=== PATIENT | female | born 1960 | race Caucasian/White ===

== ENCOUNTER 2018-06-14 00:40 | Emergency (ER) | payer OTHER ==
--- NOTE | 2018-06-14 02:36 | CT ---
EXAMINATION TYPE: CT brain akikoine wo con DATE OF EXAM: 06/14/2018 COMPARISON: None HISTORY: fall headache. Neck pain CT DLP: 2123 mGycm Automated exposure control for dose reduction was used. TECHNIQUE: CT scan of the head and cervical spine are performed without contrast. FINDINGS: Ventricles have normal size. There is no mass effect nor midline shift. There is no sign of intracranial hemorrhage. Calvarium is intact. The cervical vertebra have normal alignment. Posterior elements are intact. There is mild hypertrophi c facet arthropathy. Skull base is intact. There is mild narrowing at C6-7 disc space. IMPRESSION: Negative CT scan of the brain. No Negative CT scan cervical spine.
[2018-06-14] MEDS ORDERED: ACETAMINOPHEN TAB 500 MG TAB PO STA (02:37)
[2018-06-14] MEDS ORDERED: IBUPROFEN 600 MG STARTER PACK 4 TAB BTL PO STA (02:37)
--- NOTE | 2018-06-14 02:38 | ED ---
Fall HPI - General Chief Complaint: Fall Stated Complaint: Fall Time Seen by Provider: 06/14/18 01:38 Source: patient, EMS Mode of arrival: EMS - History of Present Illness Initial Comments: 58 rolled female presents emergency department today with chief complaint of head injury. Patient reports she was at work. She was lifting a bag of potatoes fell and hit her head. Patient reports that she had no loss of consciousness. She never laceration over the back of her scalp. She is not on any blood thinners. She's had no altered mental status. She reports this was done at work. She was brought in by her mother and son at this time. She is otherwise been acting appropriately. No vomiting. - Related Data Home Medications Medication Instructions Recorded Confirmed Atenolol 25 mg PO DAILY 11/24/14 07/28/15 Allergies Allergy/AdvReac Type Severity Reaction Status Date / Time bupropion HCl Allergy Rash/Hives Verified 07/25/15 17:30 [From Wellbutrin] Sulfa (Sulfonamide Allergy Swelling Verified 07/25/15 17:21 Antibiotics) codeine AdvReac Vomiting Verified 07/25/15 17:21 venom-honey bee AdvReac Swelling Verified 07/25/15 17:21 [bee venom (honey bee)] Review of Systems ROS Statement: Those systems with pertinent positive or pertinent negative responses have been documented in the HPI. ROS Other: All systems not noted in ROS Statement are negative. Past Medical History Past Medical History: Hypertension, Osteoarthritis (OA) Additional Past Medical History / Comment(s): bilateral heel spurs History of Any Multi-Drug Resistant Organisms: None Reported Past Surgical History: Adenoidectomy, Appendectomy, Bariatric Surgery, Cholecystectomy, Hysterectomy, Joint Replacement, Tonsillectomy Additional Past Surgical History / Comment(s): lap band, and lap band revision, eye surgery bilateral for lazy eye, repair wound dehiscence, D & C's, Lt knee bursa removal, Rt knee arthroscopies, right knee replaced Past Anesthesia/Blood Transfusion Reactions: No Reported Reaction Additional Past Anesthesia/Blood Transfusion Reaction / Comment(s): Woke up during surgery Past Psychological History: No Psychological Hx Reported Smoking Status: Never smoker Past Alcohol Use History: None Reported Past Drug Use History: None Reported - Past Family History Mother Family Medical History: Congestive Heart Failure (CHF), Coronary Artery Disease (CAD), CVA/TIA Additional Family Medical History / Comment(s): arthritis Father Family Medical History: Hypertension Additional Family Medical History / Comment(s): scoliosis, arthritis, alzihemers General Exam - General Exam Comments Initial Comments: Well-appearing 58-year-old female. Alert and oriented. No significant distress. Limitations: no limitations General appearance: alert, in no apparent distress Head exam: Present: atraumatic, normocephalic, normal inspection, other (2 cm laceration over the posterior left occipital scalp. Linear laceration. Bleeding well controlled.) Eye exam: Present: normal appearance, PERRL, EOMI. Absent: scleral icterus, conjunctival injection, periorbital swelling ENT exam: Present: normal exam, mucous membranes moist Neck exam: Present: normal inspection. Absent: tenderness, meningismus, lymphadenopathy Respiratory exam: Present: normal lung sounds bilaterally. Absent: respiratory distress, wheezes, rales, rhonchi, stridor Cardiovascular Exam: Present: regular rate, normal rhythm, normal heart sounds. Absent: systolic murmur, diastolic murmur, rubs, gallop, clicks GI/Abdominal exam: Present: soft, normal bowel sounds. Absent: distended, tenderness, guarding, rebound, rigid Extremities exam: Present: normal inspection, full ROM, normal capillary refill. Absent: tenderness, pedal edema, joint swelling, calf tenderness Back exam: Present: normal inspection Neurological exam: Present: alert, oriented X3, CN II-XII intact, normal gait, reflexes normal Psychiatric exam: Present: normal affect, normal mood Course Vital Signs 06/14/18 06/14/18 00:51 03:57 Temperature 98.5 F 98.0 F Pulse Rate 75 70 Respiratory 19 16 Rate Blood Pressure 165/76 156/78 O2 Sat by Pulse 96 95 Oximetry Procedures - Laceration Laceration #1 Indication: laceration Site: scalp Size (cm): 2 Description: linear Depth: simple, single layer Pre-repair: wound explored, irrigated extensively Type of Sutures: other (Staple) Number of Sutures: 4 Patient Tolerated Procedure: well, no complications Medical Decision Making - Medical Decision Making 58-year-old female in on blood thinners presents after a fall at work and hitting her head. Patient has a 2 cm laceration over the left occipital scalp. At this time patient's neurological deficits. Otherwise appears well. Wound was irrigated and closed with [address] of her brain was completed and negative for any acute process. C-spine was cleared as well. Patient advised on concussion instructions and head injury instructions. Discussed stable care and monitoring for infection. All questions answered and return parameters were discussed. - Radiology Data Radiology results: report reviewed Negative CT brain and C-spine. Disposition Clinical Impression: Scalp laceration Disposition: HOME SELF-CARE Condition: Good Instructions: Head Injury (ED), Staple Care (ED) Additional Instructions: Please return to the emergency room in 7 days to have pedro removed. Please leave wound covered for the first 24-48 hours and then leave open to air after that time. Please use clean soap and water to clean the suture area to prevent scabbing over the top of your pedro. Please watch for any signs of infection which may include but not limited to increased pain, swelling, redness, fever or chills. Please return to the emergency room if any signs of infection do occur. Please return to the emergency room for any other concerns or complications. Is patient prescribed a controlled substance at d/c from ED?: No Referrals: Chrissie Dumont MD [Primary Care Provider] - 1-2 days Time of Disposition: 02:37
[2018-06-14 03:58] VITALS: BP 156/78; PULSE 70; RESP 16; TEMP 98
== END 2018-06-14 03:59 | disposition home or self-care (01) ==
LOC: EC 00:40
DX: S01.01XA Laceration without foreign body of scalp, initial encounter (principal); W19.XXXA Unspecified fall, initial encounter; I10 Essential (primary) hypertension; M19.90 Unspecified osteoarthritis, unspecified site; Z79.899 Other long term (current) drug therapy; Z88.2 Allergy status to sulfonamides; Z88.5 Allergy status to narcotic agent; Z88.8 Allergy status to other drugs, medicaments and biological substances; Z91.030 Bee allergy status; Z96.651 Presence of right artificial knee joint; W22.8XXA Striking against or struck by other objects, initial encounter; Y92.69 Other specified industrial and construction area as the place of occurrence of the external cause; Y99.0 Civilian activity done for income or pay
CPT/HCPCS: 12001; 70450; 72125; 99284

== ENCOUNTER → 2018-12-26 | Outpatient (CLI) | payer OTHER ==
--- NOTE | 2018-12-29 09:50 | MM ---
Reason for exam: screening (asymptomatic). Last mammogram was performed 3 years and 5 months ago. History: Patient is postmenopausal, history of endometrial cancer, and is nulliparous. Family history of breast cancer in cousin and breast cancer in aunt. Physical Findings: A clinical breast exam by your physician is recommended on an annual basis and results should be correlated with mammographic findings. MG Screening Mammo w CAD Bilateral CC, MLO, and XCCL view(s) were taken. Prior study comparison: August 01, 2015, bilateral MG screening mammo w CAD. July 29, 2013, bilateral digital screening mammo w/CAD. The breast tissue is heterogeneously dense. This may lower the sensitivity of mammography. Benign appearing bilateral calcifications. No suspicious abnormality. No significant changes when compared with prior studies. ASSESSMENT: Benign, BI-RAD 2 RECOMMENDATION: Routine screening mammogram of both breasts in 1 year.
== END | disposition home or self-care (01) ==
LOC: RADMAMWWP 09:52
PROVIDERS: ATTEND Family Medicine
DX: Z12.31 Encounter for screening mammogram for malignant neoplasm of breast (principal)
CPT/HCPCS: 77067

== ENCOUNTER 2019-10-23 10:49 | Inpatient (IN) | payer OTHER ==
[2019-10-23] MEDS ORDERED: KETOROLAC 30 MG/ML 1 ML VIAL IVP STA (11:09)
[2019-10-23] MEDS ORDERED: ONDANSETRON 4 MG/2 ML VIAL IVP STA (11:09)
[2019-10-23] MEDS ORDERED: SODIUM CHLORIDE 0.9% 1,000 ML IV STA (11:09)
[2019-10-23 11:42] LABS: Basophils # (A) 0.1 k/uL (0-0.2); Basophils % (A) 1 %; Eosinophils # (A) 0.6 k/uL (0-0.7); Eosinophils % (A) 5 %; HCT 50.5 % (34.0-46.0); HGB 15.7 gm/dL (11.4-16.0); Lymphocytes # (A) 1.2 k/uL (1.0-4.8); Lymphocytes % (A) 10 %; MCH 30.6 pg (25.0-35.0); MCHC 31.1 g/dL (31.0-37.0); MCV 98.5 fL (80.0-100.0); Mean Platelet Volume 7.7; Monocytes # (A) 0.5 k/uL (0-1.0); Monocytes % (A) 5 %; Neutrophils # (A) 9.2 k/uL (1.3-7.7); Neutrophils % (A) 79 %; Platelet Count 230 k/uL (150-450); RBC 5.13 m/uL (3.80-5.40); RDW 13.4 % (11.5-15.5); WBC 11.7 k/uL (3.8-10.6)
[2019-10-23 11:43] LABS: Appearance,Urine Cloudy (Clear); Bacteria,Urine Occasional /hpf; Bilirubin,Urine Negative (Negative); Blood,Urine Large (Negative); Color,Urine Yellow; Glucose,Urine (UA) Negative (Negative); Hyaline Casts,Urine 3 /lpf (0-2); Ketones,Urine Negative (Negative); Leukocyte Esterase,Urine Moderate (Negative); Mucus,Urine Rare /hpf; Nitrite,Urine Negative (Negative); Protein,Urine Trace (Negative); RBC,Urine >182 /hpf (0-5); Specific Gravity,Urine 1.017 (1.001-1.035); Squamous Epithelial Cell,Urine 4 /hpf (0-4); Urobilinogen,Urine <2.0 mg/dL (<2.0); WBC,Urine 21 /hpf (0-5)
[2019-10-23 11:48] LABS: ALT 116 U/L (4-34); AST 59 U/L (14-36); African American GFR (CKD) >90 (>60 ml/min/1.73 sqM); Albumin 4.1 g/dL (3.5-5.0); Alkaline Phosphatase 83 U/L (38-126); Amylase 51 U/L (30-110); Anion Gap 7 mmol/L; Blood Urea Nitrogen 19 mg/dL (7-17); Calcium 9.5 mg/dL (8.4-10.2); Carbon Dioxide 32 mmol/L (22-30); Chloride 101 mmol/L (98-107); Glucose 138 mg/dL (74-99); Non-African American GFR(CKD) >90 (>60 ml/min/1.73 sqM); Potassium 4.3 mmol/L (3.5-5.1); Sodium 140 mmol/L (137-145); Total Bilirubin 0.7 mg/dL (0.2-1.3); Total Protein 7.7 g/dL (6.3-8.2)
--- NOTE | 2019-10-23 12:31 | ED ---
Back Pain HPI - General Chief Complaint: Back Pain/Injury Stated Complaint: Back pain Time Seen by Provider: 10/23/19 10:56 Source: patient, RN notes reviewed Mode of arrival: ambulatory Limitations: no limitations - History of Present Illness Initial Comments: 59-year-old female presents emergency Department chief complaint of right flank pain. patient states that it started as last night and worsened. Patient states nothing really makes the pain feel better or worse. She has no history kidney stone. Patient states pain does not wrap around but states in her back. Denies chest pain or shortness of breath. She's had some nausea vomiting, there has been some darker urine and some mild dysuria. No fevers or chills she's had prior lap band surgery, cholecystectomy and appendectomy. - Related Data Home Medications Medication Instructions Recorded Confirmed Atenolol 25 mg PO DAILY 11/24/14 07/28/15 Allergies Allergy/AdvReac Type Severity Reaction Status Date / Time bupropion HCl Allergy Rash/Hives Verified 10/23/19 10:55 [From Wellbutrin] Sulfa (Sulfonamide Allergy Swelling Verified 10/23/19 10:55 Antibiotics) codeine AdvReac Vomiting Verified 10/23/19 10:55 venom-honey bee AdvReac Swelling Verified 10/23/19 10:55 [bee venom (honey bee)] Review of Systems ROS Statement: Those systems with pertinent positive or pertinent negative responses have been documented in the HPI. ROS Other: All systems not noted in ROS Statement are negative. Past Medical History Past Medical History: Hypertension, Osteoarthritis (OA) Additional Past Medical History / Comment(s): bilateral heel spurs History of Any Multi-Drug Resistant Organisms: None Reported Past Surgical History: Adenoidectomy, Appendectomy, Bariatric Surgery, Cholecystectomy, Hysterectomy, Joint Replacement, Tonsillectomy Additional Past Surgical History / Comment(s): lap band, and lap band revision, eye surgery bilateral for lazy eye, repair wound dehiscence, D & C's, Lt knee bursa removal, Rt knee arthroscopies, right knee replaced Past Anesthesia/Blood Transfusion Reactions: No Reported Reaction Additional Past Anesthesia/Blood Transfusion Reaction / Comment(s): Woke up during surgery Past Psychological History: No Psychological Hx Reported Smoking Status: Never smoker Past Alcohol Use History: None Reported Past Drug Use History: None Reported - Past Family History Mother Family Medical History: Congestive Heart Failure (CHF), Coronary Artery Disease (CAD), CVA/TIA Additional Family Medical History / Comment(s): arthritis Father Family Medical History: Hypertension Additional Family Medical History / Comment(s): scoliosis, arthritis, alzihemers General Exam Limitations: no limitations General appearance: alert, in no apparent distress Head exam: Present: atraumatic, normocephalic, normal inspection Neck exam: Present: normal inspection. Absent: tenderness, meningismus, lymphadenopathy Respiratory exam: Present: normal lung sounds bilaterally. Absent: respiratory distress, wheezes, rales, rhonchi, stridor Cardiovascular Exam: Present: regular rate, normal rhythm, normal heart sounds. Absent: systolic murmur, diastolic murmur, rubs, gallop, clicks GI/Abdominal exam: Present: soft, normal bowel sounds. Absent: distended, tenderness, guarding, rebound, rigid Back exam: Present: full ROM, CVA tenderness (R). Absent: tenderness, CVA tenderness (L) Neurological exam: Present: alert, oriented X3 Skin exam: Present: warm, dry, intact, normal color. Absent: rash Course Vital Signs 10/23/19 10:50 Temperature 97.8 F Pulse Rate 73 Respiratory 20 Rate Blood Pressure 148/81 O2 Sat by Pulse 92 L Oximetry Medical Decision Making - Medical Decision Making 59-year-old female presented for right flank pain. Urinalysis revealed evidence of hematuria. CT is obtained and shows some perinephrenic stranding, renal pelvis fullness consistent with recent passed stone or infection. There is no clinical signs of infection. Her pain is completely resolved and most lik rasheed related to recently passed stone. Patient will be discharged with close follow-up return parameters were discussed. - Lab Data Result diagrams: 10/23/19 11:19 10/23/19 11:19 Lab Results 10/23/19 10/23/19 10/23/19 Range/Units 11:19 11:19 11:19 WBC 11.7 H (3.8-10.6) k/uL RBC 5.13 (3.80-5.40) m/uL Hgb 15.7 (11.4-16.0) gm/dL Hct 50.5 H (34.0-46.0) % MCV 98.5 (80.0-100.0) fL MCH 30.6 (25.0-35.0) pg MCHC 31.1 (31.0-37.0) g/dL RDW 13.4 (11.5-15.5) % Plt Count 230 (150-450) k/uL Neutrophils % 79 % Lymphocytes % 10 % Monocytes % 5 % Eosinophils % 5 % Basophils % 1 % Neutrophils # 9.2 H (1.3-7.7) k/uL Lymphocytes # 1.2 (1.0-4.8) k/uL Monocytes # 0.5 (0-1.0) k/uL Eosinophils # 0.6 (0-0.7) k/uL Basophils # 0.1 (0-0.2) k/uL Sodium 140 (137-145) mmol/L Potassium 4.3 (3.5-5.1) mmol/L Chloride 101 (98-107) mmol/L Carbon Dioxide 32 H (22-30) mmol/L Anion Gap 7 mmol/L BUN 19 H (7-17) mg/dL Creatinine 0.73 (0.52-1.04) mg/dL Est GFR (CKD-EPI)AfAm >90 (>60 ml/min/1.73 sqM) Est GFR (CKD-EPI)NonAf >90 (>60 ml/min/1.73 sqM) Glucose 138 H (74-99) mg/dL Calcium 9.5 (8.4-10.2) mg/dL Total Bilirubin 0.7 (0.2-1.3) mg/dL AST 59 H (14-36) U/L ALT 116 H (4-34) U/L Alkaline Phosphatase 83 (38-126) U/L Total Protein 7.7 (6.3-8.2) g/dL Albumin 4.1 (3.5-5.0) g/dL Amylase 51 (30-110) U/L Lipase 72 (23-300) U/L Urine Color Yellow Urine Appearance Cloudy H (Clear) Urine pH 5.0 (5.0-8.0) Ur Specific [place] 1.017 (1.001-1.035) Urine Protein Trace H (Negative) Urine Glucose (UA) Negative (Negative) Urine Ketones Negative (Negative) Urine Blood Large H (Negative) Urine Nitrite Negative (Negative) Urine Bilirubin Negative (Negative) Urine Urobilinogen <2.0 (<2.0) mg/dL Ur Leukocyte Esterase Moderate H (Negative) Urine RBC >182 H (0-5) /hpf Urine WBC 21 H (0-5) /hpf Ur Squamous Epith Cells 4 (0-4) /hpf Urine Bacteria Occasional H (None) /hpf Hyaline Casts 3 H (0-2) /lpf Urine Mucus Rare H (None) /hpf Disposition Clinical Impression: Kidney stone Disposition: HOME SELF-CARE Condition: Stable Instructions (If sedation given, give patient instructions): Kidney Stones (ED) Additional Instructions: Please return to the Emergency Department if symptoms worsen or any other concerns. Is patient prescribed a controlled substance at d/c from ED?: No Referrals: Chrissie Dumont MD [Primary Care Provider] - 1-2 days Time of Disposition: 13:06
--- NOTE | 2019-10-23 12:32 | CT ---
EXAMINATION TYPE: CT abdomen pelvis wo con DATE OF EXAM: 10/23/2019 COMPARISON: 08/04/2015 HISTORY: Low back pain, microscopic hematuria CT DLP: 3462 mGycm Automated exposure control for dose reduction was used. TECHNIQUE: Helical acquisition of images was performed from the lung bases through the pelvis. FINDINGS: LUNG BASES: Groundglass changes are seen bilaterally. Areas of subsegmental consolidation noted. LIVER/GB: Liver is low in attenuation correlate for hepatic steatosis. Post cholecystectomy changes n oted. PANCREAS: No significant abnormality is seen. SPLEEN: No significant abnormality is seen. Small accessory spleens stable from prior exam. ADRENALS: No significant abnormality is seen. KIDNEYS: Fat lesion within the left kidney most likely in the basis of a lipoma or angiomyolipoma. No nephrolithiasis. Upper pole renal lesion is indeterminate by noncontrast technique but appears incre ased in size from the prior exam now measuring 2.5 cm. However, measures 2 Hounsfield units suggestiv e of a simple cyst. Mild prominence the right renal pelvis. ADENOPATHY: None visualized. OSSEOUS STRUCTURES: Hypertrophic and degenerative change of the vertebral column.. BOWEL: Bowel gas pattern nonspecific. No diagnostic evidence of obstruction. Lap band surgery incide ntally noted.. OTHER: There is a wid[place] anterior abdominal wall hernia with the mouth measuring 8 cm containing b owel loops. There is adjacent soft tissue subcutaneous edema. There is no diagnostic evidence to sugg est a bowel obstruction. No definite bowel wall thickening is seen. Surgical clips are in the region suggestive of probable previous hernia repair surgery. Changes of diverticulosis noted. Aorta of norm al caliber with atherosclerotic changes. Low-attenuation shotty adenopathy in the periaortic region. No pathologic-sized lymph nodes. IMPRESSION: 1. Mild right-sided perinephric edema and mild right renal pelvis fullness or hydronephrosis with no evidence of renal or ureteral stone. Correlate for either infectious etiology or recently passed down . 2. There is subcutaneous edema involving the anterior abdominal wall diffusely. 3. There is a large wid[place]outh anterior abdominal wall hernia containing bowel loops but no evidence o f obstruction. 4. Stable fatty lesion involving the left kidney most likely the basis of a lipoma or angiomyolipoma. Similar in appearance the prior exam.
[2019-10-23] MEDS ORDERED: traMADol 50 MG STARTER PACK 3 TAB BTL PO STA (13:07)
[2019-10-23] MEDS ORDERED: ONDANSETRON 4 MG ODT STARTER PACK 2 TAB BTL PO STA (13:07)
[2019-10-23 14:02] LABS: ABG Base Excess 4.5 mmol/L; ABG HCO3 31 mmol/L (21-25); ABG Oxygen Saturation 71.5 % (94-97); ABG PCO2 68 mmHg (35-45); ABG PH 7.27 (7.35-7.45); ABG TCO2 34 mmol/L (19-24); Allen Test Performed? Yes
[2019-10-23 14:05] LABS: ABG PO2 43 mmHg (83-108)
--- NOTE | 2019-10-23 14:57 | ED ---
Medical Decision Making - Medical Decision Making upon patient receiving discharge vitals was noted to find the patient satting 80% with no complaints of chest pain shortness of breath. I was notified and presented to the room in which the patient's again denied any shortness breath chest pain headache or dizziness. patient has no history of COPD, and nonsmoker hasn't complaints chest pain. and ordered an ABG at this time which showed H of 7.27, pCO2 68, pO2 of 42. Additional labs ordered including EKG, BNP, troponin, d-dimer - Lab Data Result diagrams: 10/23/19 11:19 10/23/19 11:19 Lab Results 10/23/19 10/23/19 10/23/19 Range/Units 11:19 11:19 11:19 WBC 11.7 H (3.8-10.6) k/uL RBC 5.13 (3.80-5.40) m/uL Hgb 15.7 (11.4-16.0) gm/dL Hct 50.5 H (34.0-46.0) % MCV 98.5 (80.0-100.0) fL MCH 30.6 (25.0-35.0) pg MCHC 31.1 (31.0-37.0) g/dL RDW 13.4 (11.5-15.5) % Plt Count 230 (150-450) k/uL Neutrophils % 79 % Lymphocytes % 10 % Monocytes % 5 % Eosinophils % 5 % Basophils % 1 % Neutrophils # 9.2 H (1.3-7.7) k/uL Lymphocytes # 1.2 (1.0-4.8) k/uL Monocytes # 0.5 (0-1.0) k/uL Eosinophils # 0.6 (0-0.7) k/uL Basophils # 0.1 (0-0.2) k/uL D-Dimer (<0.60) mg/L FEU Sample Site ABG pH (7.35-7.45) ABG pCO2 (35-45) mmHg ABG pO2 (83-108) mmHg ABG HCO3 (21-25) mmol/L ABG Total CO2 (19-24) mmol/L ABG O2 Saturation (94-97) % ABG Base Excess mmol/L [place] Test FiO2 % Sodium 140 (137-145) mmol/L Potassium 4.3 (3.5-5.1) mmol/L Chloride 101 (98-107) mmol/L Carbon Dioxide 32 H (22-30) mmol/L Anion Gap 7 mmol/L BUN 19 H (7-17) mg/dL Creatinine 0.73 (0.52-1.04) mg/dL Est GFR (CKD-EPI)AfAm >90 (>60 ml/min/1.73 sqM) Est GFR (CKD-EPI)NonAf >90 (>60 ml/min/1.73 sqM) Glucose 138 H (74-99) mg/dL Calcium 9.5 (8.4-10.2) mg/dL Total Bilirubin 0.7 (0.2-1.3) mg/dL AST 59 H (14-36) U/L ALT 116 H (4-34) U/L Alkaline Phosphatase 83 (38-126) U/L Troponin I (0.000-0.034) ng/mL NT-Pro-B Natriuret Pep pg/mL Total Protein 7.7 (6.3-8.2) g/dL Albumin 4.1 (3.5-5.0) g/dL Amylase 51 (30-110) U/L Lipase 72 (23-300) U/L Urine Color Yellow Urine Appearance Cloudy H (Clear) Urine pH 5.0 (5.0-8.0) Ur Specific [place] 1.017 (1.001-1.035) Urine Protein Trace H (Negative) Urine Glucose (UA) Negative (Negative) Urine Ketones Negative (Negative) Urine Blood Large H (Negative) Urine Nitrite Negative (Negative) Urine Bilirubin Negative (Negative) Urine Urobilinogen <2.0 (<2.0) mg/dL Ur Leukocyte Esterase Moderate H (Negative) Urine RBC >182 H (0-5) /hpf Urine WBC 21 H (0-5) /hpf Ur Squamous Epith Cells 4 (0-4) /hpf Urine Bacteria Occasional H (None) /hpf Hyaline Casts 3 H (0-2) /lpf Urine Mucus Rare H (None) /hpf 10/23/19 10/23/19 10/23/19 Range/Units 11:19 11:19 11:19 WBC (3.8-10.6) k/uL RBC (3.80-5.40) m/uL Hgb (11.4-16.0) gm/dL Hct (34.0-46.0) % MCV (80.0-100.0) fL MCH (25.0-35.0) pg MCHC (31.0-37.0) g/dL RDW (11.5-15.5) % Plt Count (150-450) k/uL Neutrophils % % Lymphocytes % % Monocytes % % Eosinophils % % Basophils % % Neutrophils # (1.3-7.7) k/uL Lymphocytes # (1.0-4.8) k/uL Monocytes # (0-1.0) k/uL Eosinophils # (0-0.7) k/uL Basophils # (0-0.2) k/uL D-Dimer 1.01 H (<0.60) mg/L FEU Sample Site ABG pH (7.35-7.45) ABG pCO2 (35-45) mmHg ABG pO2 (83-108) mmHg ABG HCO3 (21-25) mmol/L ABG Total CO2 (19-24) mmol/L ABG O2 Saturation (94-97) % ABG Base Excess mmol/L [place] Test FiO2 % Sodium (137-145) mmol/L Potassium (3.5-5.1) mmol/L Chloride (98-107) mmol/L Carbon Dioxide (22-30) mmol/L Anion Gap mmol/L BUN (7-17) mg/dL Creatinine (0.52-1.04) mg/dL Est GFR (CKD-EPI)AfAm (>60 ml/min/1.73 sqM) Est GFR (CKD-EPI)NonAf (>60 ml/min/1.73 sqM) Glucose (74-99) mg/dL Calcium (8.4-10.2) mg/dL Total Bilirubin (0.2-1.3) mg/dL AST (14-36) U/L ALT (4-34) U/L Alkaline Phosphatase (38-126) U/L Troponin I <0.012 (0.000-0.034) ng/mL NT-Pro-B Natriuret Pep 667 pg/mL Total Protein (6.3-8.2) g/dL Albumin (3.5-5.0) g/dL Amylase (30-110) U/L Lipase (23-300) U/L Urine Color Urine Appearance (Clear) Urine pH (5.0-8.0) Ur Specific [place] (1.001-1.035) Urine Protein (Negative) Urine Glucose (UA) (Negative) Urine Ketones (Negative) Urine Blood (Negative) Urine Nitrite (Negative) Urine Bilirubin (Negative) Urine Urobilinogen (<2.0) mg/dL Ur Leukocyte Esterase (Negative) Urine RBC (0-5) /hpf Urine WBC (0-5) /hpf Ur Squamous Epith Cells (0-4) /hpf Urine Bacteria (None) /hpf Hyaline Casts (0-2) /lpf Urine Mucus (None) /hpf 10/23/19 Range/Units 13:59 WBC (3.8-10.6) k/uL RBC (3.80-5.40) m/uL Hgb (11.4-16.0) gm/dL Hct (34.0-46.0) % MCV (80.0-100.0) fL MCH (25.0-35.0) pg MCHC (31.0-37.0) g/dL RDW (11.5-15.5) % Plt Count (150-450) k/uL Neutrophils % % Lymphocytes % % Monocytes % % Eosinophils % % Basophils % % Neutrophils # (1.3-7.7) k/uL Lymphocytes # (1.0-4.8) k/uL Monocytes # (0-1.0) k/uL Eosinophils # (0-0.7) k/uL Basophils # (0-0.2) k/uL D-Dimer (<0.60) mg/L FEU Sample Site lrad ABG pH 7.27 L (7.35-7.45) ABG pCO2 68 H (35-45) mmHg ABG pO2 43 L* (83-108) mmHg ABG HCO3 31 H (21-25) mmol/L ABG Total CO2 34 H (19-24) mmol/L ABG O2 Saturation 71.5 L (94-97) % ABG Base Excess 4.5 mmol/L [place] Test Yes FiO2 21 % Sodium (137-145) mmol/L Potassium (3.5-5.1) mmol/L Chloride (98-107) mmol/L Carbon Dioxide (22-30) mmol/L Anion Gap mmol/L BUN (7-17) mg/dL Creatinine (0.52-1.04) mg/dL Est GFR (CKD-EPI)AfAm (>60 ml/min/1.73 sqM) Est GFR (CKD-EPI)NonAf (>60 ml/min/1.73 sqM) Glucose (74-99) mg/dL Calcium (8.4-10.2) mg/dL Total Bilirubin (0.2-1.3) mg/dL AST (14-36) U/L ALT (4-34) U/L Alkaline Phosphatase (38-126) U/L Troponin I (0.000-0.034) ng/mL NT-Pro-B Natriuret Pep pg/mL Total Protein (6.3-8.2) g/dL Albumin (3.5-5.0) g/dL Amylase (30-110) U/L Lipase (23-300) U/L Urine Color Urine Appearance (Clear) Urine pH (5.0-8.0) Ur Specific [place] (1.001-1.035) Urine Protein (Negative) Urine Glucose (UA) (Negative) Urine Ketones (Negative) Urine Blood (Negative) Urine Nitrite (Negative) Urine Bilirubin (Negative) Urine Urobilinogen (<2.0) mg/dL Ur Leukocyte Esterase (Negative) Urine RBC (0-5) /hpf Urine WBC (0-5) /hpf Ur Squamous Epith Cells (0-4) /hpf Urine Bacteria (None) /hpf Hyaline Casts (0-2) /lpf Urine Mucus (None) /hpf Disposition Clinical Impression: Kidney stone, Hypoxia, Sleep apnea Disposition: ADMITTED IP TO THIS HOSP Condition: Serious Instructions (If sedation given, give patient instructions): Kidney Stones (ED) Additional Instructions: Please return to the Emergency Department if symptoms worsen or any other concerns. Referrals: Chrissie Dumont MD [Primary Care Provider] - 1-2 days
--- NOTE | 2019-10-23 15:19 | XR ---
EXAMINATION TYPE: XR chest 1V portable DATE OF EXAM: 10/23/2019 COMPARISON: NONE HISTORY: Shortness of breath TECHNIQUE: Single frontal view of the chest is obtained. FINDINGS: Exam is technically limited. Soft tissue overlap seen along the lower lung [place]. There i s a coarsened interstitium but no obvious pneumothorax. Subsegmental left lung base limited. Areas of subsegmental consolidation at both lung bases suspected the heart is enlarged. IMPRESSION: 1. Bibasilar atelectasis or early infiltrate with coarsened interstitium correlate for interstitial p neumonitis or early venous congestion.
--- NOTE | 2019-10-23 15:50 | CT ---
EXAMINATION TYPE: CT chest angio for PE DATE OF EXAM: 10/23/2019 COMPARISON: None HISTORY: Shortness of breath, elevated d-dimer. CT DLP: 819.9 mGycm Automated exposure control for dose reduction was used. CONTRAST: CT Chest for pulmonary embolism performed with with IV Contrast, patient injected with 100 mL of Isov ue 370. FINDINGS: Exam limited by artifact. LUNGS: There are groundglass changes involving both lungs diffusely. Correlate for a pneumonitis or v enous congestion. No pleural effusion or pneumothorax. MEDIASTINUM: Aorta of normal caliber. Heart appears to be mildly prominent. No sizable pericardial ef fusions. Assessment of the pulmonary arteries is limited due to artifact. Grossly no central pulmonar y embolism. However the distal branches are severely limited. Could not exclude a small pulmonary emb olism or filling defect within a distal branch of the left lung on image 64. OTHER: Evidence of previous lap band surgery noted. Hypertrophic and degenerative changes of the spi ne. IMPRESSION: 1. There are faint groundglass changes bilaterally which could be associated with pneumonitis. Venous congestion is felt less likely given the lack of pleural fluid correlate clinically. 2. No central pulmonary embolus. However, distal branches are limited. A small pulmonary embolism in distal left lower lobe branch image 64 not excluded. Correlate clinically.
[2019-10-23] MEDS ORDERED: HEPARIN SODIUM,PORCINE 5,000 UNIT/ML 1 ML VIAL IV ONE (17:03)
[2019-10-23] MEDS ORDERED: HEPARIN SODIUM,PORCINE 5,000 UNIT/ML 1 ML VIAL IV PRN (17:03)
[2019-10-23] MEDS: HEPARIN SOD,PORK IN 0.45% NACL 25,000 UNIT in 0.45% NACL 1 250ML.BAG IV SCH (17:38)
[2019-10-24 12:51] LABS: Albumin 3.8 g/dL (3.5-5.0); Calcium 8.7 mg/dL (8.4-10.2); Potassium 5.1 mmol/L (3.5-5.1); Total Bilirubin 0.5 mg/dL (0.2-1.3); Total Protein 7.1 g/dL (6.3-8.2)
[2019-10-24 12:57] LABS: Basophils # (A) 0.1 k/uL (0-0.2); Basophils % (A) 1 %; Eosinophils # (A) 0.3 k/uL (0-0.7); Eosinophils % (A) 2 %; HCT 50.3 % (34.0-46.0); HGB 15.5 gm/dL (11.4-16.0); Hypochromasia Marked; Lymphocytes % (A) 7 %; MCH 32.3 pg (25.0-35.0); MCHC 30.8 g/dL (31.0-37.0); Macrocytosis Slight; Mean Platelet Volume 8.5; Monocytes # (A) 0.8 k/uL (0-1.0); Monocytes % (A) 6 %; Neutrophils % (A) 83 %; Platelet Count 235 k/uL (150-450); RDW 13.2 % (11.5-15.5); WBC 13.2 k/uL (3.8-10.6)
[2019-10-24 13:05] LABS: MCV 104.8 fL (80.0-100.0)
--- NOTE | 2019-10-24 13:12 | P.HPIM ---
History of Present Illness H&P Date: 10/24/19 Lesli Ferrer is a 59-year-old female who presented to [facility] emergency room with a chief complaint of right flank pain she was evaluated in the emergency room, she was afebrile on presentation was temperature of 97.8 blood pressure 148/81 pulse ox was low at 92% and it went do wn to 80% on room air, white blood count was elevated at 11.7 d-dimer was elevated at 1.01 possibility of pulmonary embolism was entertained patient was started on IV heparin computed tomography scan angiogram of the chest revealed faint groundglass changes bilaterally which could be associated with pneumonia, no central pulmonary embolism, a small pulmonary embolism in the distal left lower lobe branch was not excluded, patient was kept on IV heparin and was admitted to telemetry floor. She had an ABG that revealed a pH of 7.27 pCO2 68 PaO2 43, pulmonary consultation was requested in the emergency room. Patient was seen and examined on the telemetry floor she is alert responsive in no apparent distress, there is no fever or chills temperature is 90.8 pulse 73 respiration 20 blood pressure 138/83 also ox is 94% on 3 L nasal cannula, patient is still maintained on IV heparin, she is complaining of mid back pain otherwise she denies any complaints at this time, there is no fever or chills no headache or dizziness no chest pain no shortness of breath no cough no nausea or vomiting no abdominal pain no diarrhea no burning was urination no frequency or urgency and no hematuria. Past Medical History Past Medical History: Hypertension, Osteoarthritis (OA) Additional Past Medical History / Comment(s): bilateral heel spurs History of Any Multi-Drug Resistant Organisms: None Reported Past Surgical History: Adenoidectomy, Appendectomy, Bariatric Surgery, Cholecystectomy, Hysterectomy, Joint Replacement, Tonsillectomy Additional Past Surgical History / Comment(s): lap band, and lap band revision, eye surgery bilateral for lazy eye, repair wound dehiscence, D & C's, Lt knee bursa removal, Rt knee arthroscopies, right knee replaced Past Anesthesia/Blood Transfusion Reactions: No Reported Reaction Additional Past Anesthesia/Blood Transfusion Reaction / Comment(s): Woke up during surgery Past Psychological History: No Psychological Hx Reported Smoking Status: Never smoker Past Alcohol Use History: None Reported Past Drug Use History: None Reported - Past Family History Mother Family Medical History: Congestive Heart Failure (CHF), Coronary Artery Disease (CAD), CVA/TIA Additional Family Medical History / Comment(s): arthritis Father Family Medical History: Hypertension Additional Family Medical History / Comment(s): scoliosis, arthritis, alzihemers Medications and Allergies Home Medications Medication Instructions Recorded Confirmed Type Atenolol 100 mg PO HS 10/23/19 10/23/19 History Loratadine [Claritin] 10 mg PO DAILY 10/23/19 10/23/19 History Multivitamins, Thera [Multivitamin 1 tab PO DAILY 10/23/19 10/23/19 History (formulary)] Mirabegron [Myrbetriq] 25 mg PO DAILY 10/24/19 10/24/19 History Allergies Allergy/AdvReac Type Severity Reaction Status Date / Time bupropion HCl Allergy Rash/Hives Verified 10/23/19 20:38 [From Wellbutrin] Sulfa (Sulfonamide Allergy Swelling Verified 10/23/19 20:38 Antibiotics) codeine AdvReac Vomiting Verified 10/23/19 20:38 venom-honey bee AdvReac Swelling Verified 10/23/19 20:38 [bee venom (honey bee)] Physical Exam Vitals: Vital Signs Temp Pulse Pulse Resp BP BP Pulse Ox 10/24/19 08:00 78 18 115/81 96 10/24/19 03:36 98.0 F 73 20 138/83 94 L 10/23/19 23:50 98.1 F 71 20 121/78 90 L 10/23/19 19:35 98.1 F 65 18 120/61 97 10/23/19 18:51 97.4 F L 65 18 148/75 94 L 10/23/19 18:00 98.4 F 72 18 108/67 94 L 10/23/19 16:30 98.0 F 80 18 118/56 96 10/23/19 14:12 96 10/23/19 13:40 98.2 F 83 16 100/46 80 L Intake and Output 10/23/19 10/24/19 10/24/19 22:59 06:59 14:59 Intake Total 68.347 240 Output Total 200 1000 Balance -200 -931.653 240 Intake: Intake, IV Titration 68.347 Amount Heparin Sod,Pork in 0.45% 68.347 NaCl 25,000 unit In 0.45 % NaCl 1 250ml.bag @ 6.3 UNITS/KG/HR 10.002 mls/hr IV .Q24H [facility] Rx#: [id number] Oral 240 Output: Urine 200 1000 Other: Voiding Method Toilet Toilet Weight 158.757 kg 160.8 kg In general patient is alert and responsive in no apparent distress HEENT head normocephalic and atraumatic Neck is supple no JVD no goiter no lymphadenopathy Chest exam reveals a few scattered crackles no wheezing Cardiac exam reveals regular heart sounds no murmurs Abdomen is soft nontender no organomegaly with normal bowel sounds Extremity exam reveals minimal edema no cyanosis or clubbing Results CBC & Chem 7: 10/23/19 11:19 10/24/19 06:03 Labs: Abnormal Lab Results - Last 24 Hours (Table) 10/23/19 10/23/19 10/23/19 Range/Units 11:19 13:59 23:24 APTT 39.2 H (22.0-30.0) sec D-Dimer 1.01 H (<0.60) mg/L FEU ABG pH 7.27 L (7.35-7.45) ABG pCO2 68 H (35-45) mmHg ABG pO2 43 L* (83-108) mmHg ABG HCO3 31 H (21-25) mmol/L ABG Total CO2 34 H (19-24) mmol/L ABG O2 Saturation 71.5 L (94-97) % Carbon Dioxide (22-30) mmol/L BUN (7-17) mg/dL Glucose (74-99) mg/dL AST (14-36) U/L ALT (4-34) U/L 10/24/19 10/24/19 Range/Units 06:03 06:03 APTT 50.1 H (22.0-30.0) sec D-Dimer (<0.60) mg/L FEU ABG pH (7.35-7.45) ABG pCO2 (35-45) mmHg ABG pO2 (83-108) mmHg ABG HCO3 (21-25) mmol/L ABG Total CO2 (19-24) mmol/L ABG O2 Saturation (94-97) % Carbon Dioxide 33 H (22-30) mmol/L BUN 21 H (7-17) mg/dL Glucose 112 H (74-99) mg/dL AST 56 H (14-36) U/L ALT 114 H (4-34) U/L Microbiology - Last 24 Hours (Table) 10/23/19 11:19 Urine Culture - Final Urine,Voided Assessment and Plan Plan: 1. Mid back pain, computed tomography scan of the abdomen and pelvis revealing right sided perinephric edema, and the right renal pelvis fullness or hydronephrosis without evidence of a stone, possible infectious etiology or recently passed stone. Patient was started on IV Zosyn, urology consultation was requested. 2. Urinary tract infection with sepsis, started on IV Zosyn 3. Elevated d-dimer with hypoxia, possible peripheral pulmonary embolism on computed tomography scan, maintained on IV heparin pulmonary consultation was requested 4. Mid back pain, first EKG and first troponin are normal, with check further troponin levels and consult cardiology, will obtain echo cardiogram 5. Underlying history of hypertension blood pressure is well-controlled at this time will monitor 6. Mild elevation in liver enzymes, cause unclear, computed tomography scan of the abdomen and pelvis reveals postcholecystectomy changes and possible hepatic steatosis, fatty liver could account for slight elevation in liver enzymes, will monitor closely. 7. Groundglass changes bilateral lungs, could be associated with pneumonia patient was started on IV Zosyn, pulmonary consultation was requested 8. Covid 19 testing ordered in the emergency room results are still pending At this time patient was started on IV heparin and IV Zosyn She is admitted to telemetry floor Pulmonary, cardiology, urology, and infectious disease consultation was requested Will follow closely please see orders.
--- NOTE | 2019-10-24 13:30 | P.GSCN ---
History of Present Illness Consult date: 10/24/19 History of present illness: 59-year-old female who presented to the emergency room with severe acute back pain. She had multiple medical illnesses and is morbidly obese. She thought it was similar to previous gallbladder attacks. She was evaluated emergency room. A computed tomography scan of the abdomen was obtained identifying some mild right-sided hydronephrosis. She did have a urinalysis with a significant amount of hematuria. Also at the time of the pain she was complaining of a lot of pressure and frequency of urination. There is no history of kidney stones. There is no history of gross hematuria. There is no history of urinary tract infections. There are no other obvious anal the back is gone as well as her voiding pressure. ET scan of the abdomen didn't show any evidence of stones but the [place] was there. Review of Systems All systems: negative Past Medical History Past Medical History: Hypertension, Osteoarthritis (OA) Additional Past Medical History / Comment(s): bilateral heel spurs History of Any Multi-Drug Resistant Organisms: None Reported Past Surgical History: Adenoidectomy, Appendectomy, Bariatric Surgery, Cholecystectomy, Hysterectomy, Joint Replacement, Tonsillectomy Additional Past Surgical History / Comment(s): lap band, and lap band revision, eye surgery bilateral for lazy eye, repair wound dehiscence, D & C's, Lt knee bursa removal, Rt knee arthroscopies, right knee replaced Past Anesthesia/Blood Transfusion Reactions: No Reported Reaction Additional Past Anesthesia/Blood Transfusion Reaction / Comm: Woke up during surgery Past Psychological History: No Psychological Hx Reported Smoking Status: Never smoker Past Alcohol Use History: None Reported Past Drug Use History: None Reported - Past Family History Mother Family Medical History: Congestive Heart Failure (CHF), Coronary Artery Disease (CAD), CVA/TIA Additional Family Medical History / Comment(s): arthritis Father Family Medical History: Hypertension Additional Family Medical History / Comment(s): scoliosis, arthritis, alzihemers Medications and Allergies Home Medications Medication Instructions Recorded Confirmed Type Atenolol 100 mg PO HS 10/23/19 10/23/19 History Loratadine [Claritin] 10 mg PO DAILY 10/23/19 10/23/19 History Multivitamins, Thera [Multivitamin 1 tab PO DAILY 10/23/19 10/23/19 History (formulary)] Mirabegron [Myrbetriq] 25 mg PO DAILY 10/24/19 10/24/19 History Allergies Allergy/AdvReac Type Severity Reaction Status Date / Time bupropion HCl Allergy Rash/Hives Verified 10/23/19 20:38 [From Wellbutrin] Sulfa (Sulfonamide Allergy Swelling Verified 10/23/19 20:38 Antibiotics) codeine AdvReac Vomiting Verified 10/23/19 20:38 venom-honey bee AdvReac Swelling Verified 10/23/19 20:38 [bee venom (honey bee)] Surgical - Exam Vital Signs Temp Pulse Resp BP Pulse Ox 97.8 F 73 20 148/81 92 L 10/23/19 10:50 10/23/19 10:50 10/23/19 10:50 10/23/19 10:50 10/23/19 10:50 - General well developed, well nourished, obese - Eyes PERRL - ENT no hearing loss - Neck trachea midline - Respiratory normal expansion, normal respiratory effort - Cardiovascular Rhythm: regular - Abdomen Abdomen: soft, non tender - Integumentary no rash, no growths - Neurologic normal coordination, normal sensation - Musculoskeletal normal posture - Psychiatric oriented to time, oriented to place, speech is normal, memory intact Results - Labs 10/24/19 06:03 10/24/19 06:03 Abnormal Lab Results - Last 24 Hours (Table) 10/23/19 10/23/19 10/23/19 Range/Units 11:19 13:59 23:24 WBC (3.8-10.6) k/uL Hct (34.0-46.0) % MCV (80.0-100.0) fL MCHC (31.0-37.0) g/dL Neutrophils # (1.3-7.7) k/uL APTT 39.2 H (22.0-30.0) sec D-Dimer 1.01 H (<0.60) mg/L FEU ABG pH 7.27 L (7.35-7.45) ABG pCO2 68 H (35-45) mmHg ABG pO2 43 L* (83-108) mmHg ABG HCO3 31 H (21-25) mmol/L ABG Total CO2 34 H (19-24) mmol/L ABG O2 Saturation 71.5 L (94-97) % Carbon Dioxide (22-30) mmol/L BUN (7-17) mg/dL Glucose (74-99) mg/dL AST (14-36) U/L ALT (4-34) U/L 10/24/19 10/24/19 10/24/19 Range/Units 06:03 06:03 06:03 WBC 13.2 H (3.8-10.6) k/uL Hct 50.3 H (34.0-46.0) % MCV 104.8 H D (80.0-100.0) fL MCHC 30.8 L (31.0-37.0) g/dL Neutrophils # 11.0 H (1.3-7.7) k/uL APTT 50.1 H (22.0-30.0) sec D-Dimer (<0.60) mg/L FEU ABG pH (7.35-7.45) ABG pCO2 (35-45) mmHg ABG pO2 (83-108) mmHg ABG HCO3 (21-25) mmol/L ABG Total CO2 (19-24) mmol/L ABG O2 Saturation (94-97) % Carbon Dioxide 33 H (22-30) mmol/L BUN 21 H (7-17) mg/dL Glucose 112 H (74-99) mg/dL AST 56 H (14-36) U/L ALT 114 H (4-34) U/L Microbiology - Last 24 Hours (Table) 10/23/19 11:19 Urine Culture - Final Urine,Voided Diabetes panel 10/24/19 Range/Units 06:03 Sodium 139 (137-145) mmol/L Potassium 5.1 (3.5-5.1) mmol/L Chloride 102 (98-107) mmol/L Carbon Dioxide 33 H (22-30) mmol/L BUN 21 H (7-17) mg/dL Creatinine 0.87 (0.52-1.04) mg/dL Glucose 112 H (74-99) mg/dL Calcium 8.7 (8.4-10.2) mg/dL AST 56 H (14-36) U/L ALT 114 H (4-34) U/L Alkaline Phosphatase 78 (38-126) U/L Total Protein 7.1 (6.3-8.2) g/dL Albumin 3.8 (3.5-5.0) g/dL Calcium panel 10/24/19 Range/Units 06:03 Calcium 8.7 (8.4-10.2) mg/dL Albumin 3.8 (3.5-5.0) g/dL Pituitary panel 10/24/19 Range/Units 06:03 Sodium 139 (137-145) mmol/L Potassium 5.1 (3.5-5.1) mmol/L Chloride 102 (98-107) mmol/L Carbon Dioxide 33 H (22-30) mmol/L BUN 21 H (7-17) mg/dL Creatinine 0.87 (0.52-1.04) mg/dL Glucose 112 H (74-99) mg/dL Calcium 8.7 (8.4-10.2) mg/dL Adrenal panel 10/24/19 Range/Units 06:03 Sodium 139 (137-145) mmol/L Potassium 5.1 (3.5-5.1) mmol/L Chloride 102 (98-107) mmol/L Carbon Dioxide 33 H (22-30) mmol/L BUN 21 H (7-17) mg/dL Creatinine 0.87 (0.52-1.04) mg/dL Glucose 112 H (74-99) mg/dL Calcium 8.7 (8.4-10.2) mg/dL Total Bilirubin 0.5 (0.2-1.3) mg/dL AST 56 H (14-36) U/L ALT 114 H (4-34) U/L Alkaline Phosphatase 78 (38-126) U/L Total Protein 7.1 (6.3-8.2) g/dL Albumin 3.8 (3.5-5.0) g/dL - Imaging CT scan - abdomen: report reviewed, image reviewed CT scan - pelvis: report reviewed, image reviewed Assessment and Plan Assessment: Impression: Right-sided hydronephrosis associated with back pain, acute, transient and associated with microscopic hematuria. Recommendations: I suspect this patient passed a kidney stone based on her history and the appearance of the CAT scan and urinalysis. There are no other stones seen. Her pain is gone and a lower urinary tract symptoms also disappeared. From a urologic standpoint nothing further needs to be done. Required please feel free to contact me. Signed
--- NOTE | 2019-10-24 14:55 | CONS ---
CONSULTATION PULMONARY/CRITICAL CARE CONSULTATION: DATE OF CONSULTATION: 10/24/2019 This is a 59-year-old female who apparently presented to the emergency department on October 22 at 10:49. The patient complains of right flank pain. She states it was the worst pain she ever has felt. Nothing made the pain better or worse. She has no history of kidney stones. The patient states that the pain started in the right flank and wrapped around to the anterior lower abdomen on the right side. She denies any chest pain or shortness of breath. She apparently had some nausea and vomiting. She also mentioned the fact that she had some pain on urination and her urine was darker than normal. She did not notice any blood in her urine. She had no fever or chills. MEDICATIONS: Reviewed. They include primarily atenolol. ALLERGIES: WELLBUTRIN. She has also got allergies to SULFA ANTIBIOTICS, CODEINE AND HONEY BEES. PAST MEDICAL HISTORY: Includes hypertension, osteoarthritis. The patient also has a history of bilateral heel spurs. SURGICAL HISTORY: Surgical history includes a previous adenoidectomy, appendectomy, bariatric surgery, cholecystectomy, hysterectomy, joint replacement, tonsillectomy. The patient's bariatric surgery was lap band with lap band revision. The patient has also had eye surgery, D and C, left knee bursa removal, right knee arthroscopy, and right knee replacement. SOCIAL HISTORY: Negative for tobacco use. She denies any alcohol use or illicit drug use. FAMILY HISTORY: Apparently positive for mother with heart failure, CAD, CVA as well as arthritis and a father with hypertension, dementia, and scoliosis. REVIEW OF SYSTEMS: CONSTITUTIONAL: Negative. NEUROLOGIC: Negative. HEENT: Negative. CARDIOVASCULAR: Negative. PULMONARY: Negative. GI: Nausea and vomiting. : Right flank pain, painful urination, and discolored urine. RHEUMATOLOGIC: Negative. IMMUNOLOGIC: Negative. ENDOCRINOLOGIC: Negative. DERMATOLOGIC negative. PHYSICAL EXAMINATION: Vital signs are reviewed. Temperature is 98, heart rate 78, respiratory rate 18, blood pressure 115/81, oxygen saturation 96%. Appears in no acute distress. HEENT: Examination is grossly unremarkable. Mucous membranes are moist. Nasal O2 noted. NECK: Supple. Full range of motion. No adenopathy, thyromegaly or neck vein distention. CARDIOVASCULAR: Examination reveals regular rhythm rate. Heart rate 78 beats per minute. S1, S2 normal. No S3, S4, or murmur. LUNGS: Reveal clear breath sounds. No wheezes, rhonchi, or crackles. ABDOMEN: Obese bowel sounds are heard. EXTREMITIES are intact. There is no edema. SKIN: Without rash. NEUROLOGIC: Examination is brief but nonfocal. LAB: Reviewed. White count 13.2, hemoglobin 15.5, hematocrit 50.3, and platelet count 335,000. PTT is 15.1. D-dimer 1.01. She had a blood gas done. It shows a pO2 of 43, pCO2 68, and pH 7.27. This probably was a venous gas. She was on room air. Sodium 139, potassium 5.1, chloride 102, CO2 is 33, anion gap is 4. BUN and creatinine were 21 and 0.87. AST 56, ALT 114. Urine is cloudy and yellow, trace protein, large blood, moderate positive leukocyte esterase, greater than 182 RBCs, 21 WBCs, occasional bacteria and micro is pending. Abdominal and pelvic CT suggests mild right-sided perinephric edema and mild right renal pelvis fullness or hydronephrosis with no evidence of renal or ureteral stone, and this is likely consistent with a stone that has recently passed. 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 Chest x-ray showed some bilateral basilar atelectasis or early infiltrate. A chest CT showed some faint ground-glass changes bilaterally, which could relate to either pneumonitis or venous congestion. There was no central pulmonary embolism but they question whether or not there is a small pulmonary embolism in the distal left lower lobe branch. Medications are reviewed. She is currently on IV heparin, Levaquin and Zosyn. ASSESSMENT: 1. Right flank pain, likely consistent with a kidney stone with secondary hydronephrosis and possibly complicated by urinary tract infection/pyelonephritis. 2. Doubt pulmonary embolism. 3. History of hypertension. 4. History of osteoarthritis. 5. History of bilateral heel spur. PLAN: I do not believe the patient had a pulmonary embolism. I believe the heparin can be discontinued. I do agree with treating her with fluids and antibiotics. Additional recommendations and suggestions are forthcoming. All her symptoms were right- sided. The suspected clot noted by the radiologists was on the left side. Again, I believe the blood gas was probably a venous blood gas. No additional recommendations are made. We will follow. MMODL / IJN: [id number] / MTDD
[2019-10-24] MEDS: HEPARIN SOD,PORK IN 0.45% NACL 25,000 UNIT in 0.45% NACL 1 250ML.BAG IV SCH (15:08)
[2019-10-24] MEDS: LEVOFLOXACIN 500MG-D5W PMX 500 MG in DEXTROSE/WATER 1 100ML.BAG IVPB SCH (16:30)
[2019-10-24] MEDS: PIPERACILLIN-TAZOBACTAM 3.375 GM in SODIUM CHLORIDE 0.9% 100 ML IVPB SCH ×2 (17:50→23:12)
[2019-10-24] MEDS ORDERED: ACETAMINOPHEN TAB 325 MG TAB PO PRN (19:53)
--- NOTE | 2019-10-25 00:55 | P.CONS ---
History of Present Illness - Reason for Consult Consult date: 10/24/19 pyelonephritis Requesting physician: Ced Caceres - Chief Complaint right flank pain x 1 day - History of Present Illness Patient is a 59-year-old female presenting to the ER yesterday morning with chief complaints of right flank pain patient sister had going on a 4 night before she presented to hospital patient decided the pain to be more of a sharp in nature with intensity almost out of 10 in severity with no radiation patient has felt nauseated and did have an episode of vomiting but no diarrhea patient also complaining of urinary frequency urgency and some dysuria for few days before her right flank pain started with the symptom the patient presented to hospital on arrival to the ER the patient has been afebrile patient did have a white count of 11.7 repeat was 13.2 she did have a positive UA with moderate leukocyte esterase more than 1-2 WBC patient did have CT abdominal pelvis suggestive of right-sided pyelonephritis and hydronephrosis patient has been admitted to hospital he was started on Zosyn infectious diseases was consulted for further management of antibiotic therapy Review of Systems Positive point has been mentioned in HPI rest of the systems are negative Past Medical History Past Medical History: Hypertension, Osteoarthritis (OA) Additional Past Medical History / Comment(s): bilateral heel spurs History of Any Multi-Drug Resistant Organisms: None Reported Past Surgical History: Adenoidectomy, Appendectomy, Bariatric Surgery, Cholecystectomy, Hysterectomy, Joint Replacement, Tonsillectomy Additional Past Surgical History / Comment(s): lap band, and lap band revision, eye surgery bilateral for lazy eye, repair wound dehiscence, D & C's, Lt knee bursa removal, Rt knee arthroscopies, right knee replaced Past Anesthesia/Blood Transfusion Reactions: No Reported Reaction Additional Past Anesthesia/Blood Transfusion Reaction / Comm: Woke up during surgery Past Psychological History: No Psychological Hx Reported Smoking Status: Never smoker Past Alcohol Use History: None Reported Past Drug Use History: None Reported - Past Family History Mother Family Medical History: Congestive Heart Failure (CHF), Coronary Artery Disease (CAD), CVA/TIA Additional Family Medical History / Comment(s): arthritis Father Family Medical History: Hypertension Additional Family Medical History / Comment(s): scoliosis, arthritis, alzihemers Medications and Allergies Home Medications Medication Instructions Recorded Confirmed Type Atenolol 100 mg PO HS 10/23/19 10/23/19 History Loratadine [Claritin] 10 mg PO DAILY 10/23/19 10/23/19 History Multivitamins, Thera [Multivitamin 1 tab PO DAILY 10/23/19 10/23/19 History (formulary)] Mirabegron [Myrbetriq] 25 mg PO DAILY 10/24/19 10/24/19 History Allergies Allergy/AdvReac Type Severity Reaction Status Date / Time bupropion HCl Allergy Rash/Hives Verified 10/23/19 20:38 [From Wellbutrin] Sulfa (Sulfonamide Allergy Swelling Verified 10/23/19 20:38 Antibiotics) codeine AdvReac Vomiting Verified 10/23/19 20:38 venom-honey bee AdvReac Swelling Verified 10/23/19 20:38 [bee venom (honey bee)] Physical Exam Vitals: Vital Signs Temp Pulse Pulse Resp BP BP Pulse Ox 10/24/19 12:00 98.7 F 73 20 110/67 94 L 10/24/19 08:00 78 18 115/81 96 10/24/19 03:36 98.0 F 73 20 138/83 94 L 10/23/19 23:50 98.1 F 71 20 121/78 90 L 10/23/19 19:35 98.1 F 65 18 120/61 97 10/23/19 18:51 97.4 F L 65 18 148/75 94 L 10/23/19 18:00 98.4 F 72 18 108/67 94 L 10/23/19 16:30 98.0 F 80 18 118/56 96 Intake and Output 10/24/19 10/24/19 10/24/19 06:59 14:59 22:59 Intake Total 68.347 781.653 Output Total 1000 Balance -931.653 781.653 Intake: Intake, IV Titration 68.347 181.653 Amount Heparin Sod,Pork in 0.45% 68.347 181.653 NaCl 25,000 unit In 0.45 % NaCl 1 250ml.bag @ 6.3 UNITS/KG/HR 10.002 mls/hr IV .Q24H [facility] Rx#: [id number] Oral 600 Output: Urine 1000 Other: Voiding Method Toilet Weight 160.8 kg GENERAL DESCRIPTION: Middle-aged female up in the chair, no distress. No tachypnea or accessory muscle of respiration use. HEENT: Shows Pallor , no scleral icterus. Oral mucous membrane is dry. NECK: Trachea central, no thyromegaly. LUNGS: Unlabored breathing. Clear to auscultation anteriorly. No wheeze or crackle. HEART: S1, S2, regular rate and rhythm. ABDOMEN: Soft, mild right flank tenderness , no guarding or rigidity EXTREMITIES: No edema of feet. SKIN: No rash, no masses palpable. NEUROLOGICAL: The patient is awake, alert, oriented x3, mood and affect normal. Results CBC & Chem 7: 10/24/19 06:03 10/24/19 06:03 Labs: Abnormal Lab Results - Last 24 Hours (Table) 10/23/19 10/24/19 10/24/19 Range/Units 23:24 06:03 06:03 WBC 13.2 H (3.8-10.6) k/uL Hct 50.3 H (34.0-46.0) % MCV 104.8 H D (80.0-100.0) fL MCHC 30.8 L (31.0-37.0) g/dL Neutrophils # 11.0 H (1.3-7.7) k/uL APTT 39.2 H 50.1 H (22.0-30.0) sec Carbon Dioxide (22-30) mmol/L BUN (7-17) mg/dL Glucose (74-99) mg/dL AST (14-36) U/L ALT (4-34) U/L 10/24/19 Range/Units 06:03 WBC (3.8-10.6) k/uL Hct (34.0-46.0) % MCV (80.0-100.0) fL MCHC (31.0-37.0) g/dL Neutrophils # (1.3-7.7) k/uL APTT (22.0-30.0) sec Carbon Dioxide 33 H (22-30) mmol/L BUN 21 H (7-17) mg/dL Glucose 112 H (74-99) mg/dL AST 56 H (14-36) U/L ALT 114 H (4-34) U/L Microbiology - Last 24 Hours (Table) 10/23/19 11:19 Urine Culture - Final Urine,Voided Assessment and Plan Assessment: patient presented to hospital with right flank pain addition to urinary frequency dysuria and a positive UA likely secondary right-sided pyelonephritis CT was negative for any stones or structure abnormality and no need to cover for enteric gram-negative with a likely pathogen (1) Pyelonephritis Current Visit: Yes Status: Acute Code(s): N12 - TUBULO-INTERSTITIAL NEPHRITIS, NOT SPCF ACUTE OR CHRONIC SNOMED Code(s): 21206603 Plan: 1-patient this time on Zosyn to continue while waiting for the culture finalized 2-gentle IV fluid We will follow on clinical condition and cultures to further adjust medication if needed Thank you for this consultation we will follow the patient along with you Time with Patient: Greater than 30
[2019-10-25 06:39] LABS: Basophils # (A) 0.1 k/uL (0-0.2); Basophils % (A) 1 %; Eosinophils # (A) 0.3 k/uL (0-0.7); Eosinophils % (A) 4 %; HCT 46.7 % (34.0-46.0); HGB 13.9 gm/dL (11.4-16.0); Hypochromasia Marked; Lymphocytes % (A) 11 %; MCH 30.4 pg (25.0-35.0); MCHC 29.8 g/dL (31.0-37.0); MCV 101.9 fL (80.0-100.0); Macrocytosis Slight; Mean Platelet Volume 7.9; Monocytes # (A) 0.6 k/uL (0-1.0); Monocytes % (A) 7 %; Neutrophils # (A) 7.1 k/uL (1.3-7.7); Neutrophils % (A) 77 %; Platelet Count 196 k/uL (150-450); RBC 4.58 m/uL (3.80-5.40); RDW 13.3 % (11.5-15.5); WBC 9.2 k/uL (3.8-10.6)
[2019-10-25 06:55] LABS: ALT 80 U/L (4-34); AST 32 U/L (14-36); African American GFR (CKD) >90 (>60 ml/min/1.73 sqM); Albumin 3.3 g/dL (3.5-5.0); Alkaline Phosphatase 64 U/L (38-126); Anion Gap 2 mmol/L; Blood Urea Nitrogen 18 mg/dL (7-17); Calcium 8.7 mg/dL (8.4-10.2); Carbon Dioxide 36 mmol/L (22-30); Chloride 100 mmol/L (98-107); Glucose 112 mg/dL (74-99); Non-African American GFR(CKD) >90 (>60 ml/min/1.73 sqM); Potassium 4.9 mmol/L (3.5-5.1); Sodium 138 mmol/L (137-145); Total Bilirubin 0.4 mg/dL (0.2-1.3); Total Protein 6.6 g/dL (6.3-8.2)
[2019-10-25] MEDS: PIPERACILLIN-TAZOBACTAM 3.375 GM in SODIUM CHLORIDE 0.9% 100 ML IVPB SCH ×3 (08:13→23:31)
[2019-10-25] MEDS: HEPARIN SOD,PORK IN 0.45% NACL 25,000 UNIT in 0.45% NACL 1 250ML.BAG IV SCH (08:16)
--- NOTE | 2019-10-25 08:44 | P.CRDCN ---
History of Present Illness Consult date: 10/25/19 Requesting physician: Ced Caceres Reason for Consult (text): Upper back pain Chief complaint: Left flank pain History of present illness: This is a 59-year-old female with documented history of sleep apnea he states that she has a machine at home but cannot use it because she feels like she is drowning when she has it on. She also has a history of hypertension, osteoarthritis, prior bariatric surgery, overactive bladder. She is a nonsmoker. Presented to the hospital with symptoms of right sided flank pain. She also states that for the past couple of weeks prior to admission here she felt short of breath, exertionally and at rest, according to the patient this was fairly new for her. She denied any chest discomfort. A CAT scan of the abdomen and pelvis was performed on admission here which revealed mild right sided perinephric edema, large anterior abdominal wall hernia no evidence of obstruction, stable fatty lesion involving the left kidney most likely on the basis of lipoma or angiomyolipoma. Chest x-ray showed bibasilar atelectasis or early infiltrate with coarsened interstitium, possible pneumonitis or early vascular congestion. A CTA of the chest was performed which revealed faint groundglass changes bilaterally which could be associated with pneumonitis. No central pulmonary embolism however the distal branches were limited a small pulmonary embolism in the distal left lower lobe not excluded. EKG on presentation here showed a normal sinus rhythm with no acute changes. Blood pressure 130s to 150s systolic over 70s, heart rate in the 70s to 80s, she has been afebrile since admission. Her oxygen saturations have been in the range of 90 on 2 or 3 L of oxygen, this morning 95% on room air. White blood cell count yesterday 13.2, hemoglobin 15.5, platelet count 235 this morning her white blood cell count is 9.2. D-dimer 1.0. Blood gases were obtained, pH came back at 7.27, pCO2 68, pO2 43, HCO3 31. Sodium 138, potassium 4.9, BUN 18, creatinine 0.6. Her liver enzymes were mildly elevated on admission, back to normal this morning. Troponins have been negative. BNP [id number]. Urinalysis positive UTI. A cardiology consultation was requested because of upper back discomfort. According to the patient, she denies any discomfort in her upper back, she denies any chest discomfort, the pain in her right flank area is gone this trinidad[place] ng, she is standing up getting ready to go in the shower. Past Medical History Past Medical History: Hypertension, Osteoarthritis (OA) Additional Past Medical History / Comment(s): bilateral heel spurs History of Any Multi-Drug Resistant Organisms: None Reported Past Surgical History: Adenoidectomy, Appendectomy, Bariatric Surgery, Cholecystectomy, Hysterectomy, Joint Replacement, Tonsillectomy Additional Past Surgical History / Comment(s): lap band, and lap band revision, eye surgery bilateral for lazy eye, repair wound dehiscence, D & C's, Lt knee bursa removal, Rt knee arthroscopies, right knee replaced Past Anesthesia/Blood Transfusion Reactions: No Reported Reaction Additional Past Anesthesia/Blood Transfusion Reaction / Comment(s): Woke up during surgery Past Psychological History: No Psychological Hx Reported Smoking Status: Never smoker Past Alcohol Use History: None Reported Past Drug Use History: None Reported - Past Family History Mother Family Medical History: Congestive Heart Failure (CHF), Coronary Artery Disease (CAD), CVA/TIA Additional Family Medical History / Comment(s): arthritis Father Family Medical History: Hypertension Additional Family Medical History / Comment(s): scoliosis, arthritis, alzihemers Medications and Allergies Home Medications Medication Instructions Recorded Confirmed Type Atenolol 100 mg PO HS 10/23/19 10/23/19 History Loratadine [Claritin] 10 mg PO DAILY 10/23/19 10/23/19 History Multivitamins, Thera [Multivitamin 1 tab PO DAILY 10/23/19 10/23/19 History (formulary)] Mirabegron [Myrbetriq] 25 mg PO DAILY 10/24/19 10/24/19 History Allergies Allergy/AdvReac Type Severity Reaction Status Date / Time bupropion HCl Allergy Rash/Hives Verified 10/23/19 20:38 [From Wellbutrin] Sulfa (Sulfonamide Allergy Swelling Verified 10/23/19 20:38 Antibiotics) codeine AdvReac Vomiting Verified 10/23/19 20:38 venom-honey bee AdvReac Swelling Verified 10/23/19 20:38 [bee venom (honey bee)] Physical Exam Vitals: Vital Signs Temp Pulse Resp BP Pulse Ox 10/25/19 08:00 91 18 159/75 95 10/25/19 03:49 98.1 F 75 20 145/73 91 L 10/24/19 23:31 98.0 F 79 18 136/67 90 L 10/24/19 19:45 98.1 F 84 18 127/72 90 L 10/24/19 16:00 77 18 130/76 3 L 10/24/19 12:00 98.7 F 73 20 110/67 94 L Intake and Output 10/24/19 10/25/19 10/25/19 22:59 06:59 14:59 Intake Total 240 465.766 Output Total 400 Balance 240 -400 465.766 Intake: Intake, IV Titration 225.766 Amount Heparin Sod,Pork in 0.45% 225.766 NaCl 25,000 unit In 0.45 % NaCl 1 250ml.bag @ 6.3 UNITS/KG/HR 10.002 mls/hr IV .Q24H [facility] Rx#: [id number] Oral 240 240 Output: Urine 400 Other: Voiding Method Toilet Toilet Weight 161.6 kg PHYSICAL EXAMINATION: GENERAL:59-year-old female in no acute distress at the time of my examination HEENT: Head is atraumatic, normocephalic. Pupils equal, round. Sclera anicteric. Conjunctiva are clear. Mucous membranes of the mouth are moist. Neck is supple. There is no elevated jugular venous pressure. No carotid bruit is heard. HEART EXAMINATION: Heart S1, S2 normal. No murmur or gallop heard. CHEST EXAMINATION: Lungs are clear to auscultation and precussion. No chest wall tenderness is noted on palpation or with deep breathing. ABDOMEN: Soft, obese nontender. Bowel sounds are heard. No organomegaly noted. EXTREMITIES: 2+ peripheral pulses with no evidence of peripheral edema and no calf tenderness noted. NEUROLOGIC patient is awake, alert and oriented X3. . Results 10/25/19 05:33 10/25/19 05:33 Cardiac Enzymes 10/24/19 10/24/19 10/25/19 Range/Units 06:03 12:52 05:33 AST 56 H 32 (14-36) U/L Troponin I <0.012 (0.000-0.034) ng/mL Coagulation 10/25/19 Range/Units 05:33 APTT 53.7 H (22.0-30.0) sec CBC 10/24/19 10/25/19 Range/Units 06:03 05:33 WBC 13.2 H 9.2 (3.8-10.6) k/uL RBC 4.80 4.58 (3.80-5.40) m/uL Hgb 15.5 13.9 (11.4-16.0) gm/dL Hct 50.3 H 46.7 H (34.0-46.0) % Plt Count 235 196 (150-450) k/uL Comprehensive Metabolic Panel 10/24/19 10/25/19 Range/Units 06:03 05:33 Sodium 139 138 (137-145) mmol/L Potassium 5.1 4.9 (3.5-5.1) mmol/L Chloride 102 100 (98-107) mmol/L Carbon Dioxide 33 H 36 H (22-30) mmol/L BUN 21 H 18 H (7-17) mg/dL Creatinine 0.87 0.68 (0.52-1.04) mg/dL Glucose 112 H 112 H (74-99) mg/dL Calcium 8.7 8.7 (8.4-10.2) mg/dL AST 56 H 32 (14-36) U/L ALT 114 H 80 H (4-34) U/L Alkaline Phosphatase 78 64 (38-126) U/L Total Protein 7.1 6.6 (6.3-8.2) g/dL Albumin 3.8 3.3 L (3.5-5.0) g/dL Current Medications Generic Name Dose Route Start Last Admin Trade Name Shaunq PRN Reason Stop Dose Admin Acetaminophen 650 mg 10/24/19 19:53 10/24/19 20:05 Tylenol Tab PO 650 mg Q6HR PRN Administration Fever and/ or Pain Heparin Sodium (Porcine) 0 unit 10/23/19 17:03 Heparin IV PER PROTOCOL PRN Low PTT Protocol Heparin Sodium/Sodium Chloride 250 mls @ 10.002 mls/hr 10/23/19 17:15 10/25/19 08:16 25,000 unit/ Sodium Chloride IV 8.3 units/kg/hr .Q24H [facility] 13.177 mls/hr Administration Protocol 6.3 UNITS/KG/HR Piperacillin Sod/Tazobactam 100 mls @ 25 mls/hr 10/24/19 16:00 10/25/19 08:13 Sod 3.375 gm/ Sodium Chloride IVPB 25 mls/hr Q8HR [facility] Administration Levofloxacin 500 mg/ IV 100 mls @ 100 mls/hr 10/24/19 14:00 10/24/19 16:30 Solution IVPB 100 mls/hr Q24H [facility] Administration Intake and Output 10/24/19 10/25/19 10/25/19 22:59 06:59 14:59 Intake Total 240 465.766 Output Total 400 Balance 240 -400 465.766 Intake: Intake, IV Titration 225.766 Amount Heparin Sod,Pork in 0.45% 225.766 NaCl 25,000 unit In 0.45 % NaCl 1 250ml.bag @ 6.3 UNITS/KG/HR 10.002 mls/hr IV .Q24H [facility] Rx#: [id number] Oral 240 240 Output: Urine 400 Other: Voiding Method Toilet Toilet Weight 161.6 kg 10/25/19 05:33 10/25/19 05:33 EKG Interpretations (text) EKG shows a normal sinus rhythm with no acute changes. Assessment and Plan Plan: Assessment and plan #1 right flank pain, evidence of hydronephrosis, UTI #2 questionable distal pulmonary embolism on CTA of the chest #3 no evidence of any chest discomfort, episode of upper back discomfort, not consistent with acute coronary syndrome. Troponins negative 3. EKG shows normal sinus rhythm with no acute changes. #4 morbid obesity #5 hypertension #6 sleep apnea, noncompliant with CPAP #7 osteoarthritis Plan We will obtain an echocardiogram with Doppler study. Further recommendations to follow. DNP note has been reviewed, I agree with a documented findings and plan of care. Patient was seen and examined.
--- NOTE | 2019-10-25 10:23 | ECHOF ---
Referral Reason:dyspnea MEASUREMENTS -------- HEIGHT: 160.0 cm WEIGHT: 160.6 kg BP: RVIDd: 3.2 cm (< 3.3) IVSd: 1.5 cm (0.6 - 1.1) LVIDd: 3.7 cm (3.9 - 5.3) LVPWd: 1.6 cm (0.6 - 1.1) IVSs: 2.0 cm LVIDs: 1.6 cm LVPWs: 2.2 cm Ao Diam: 2.8 cm (2.0 - 3.7) AV Cusp: 1.8 cm (1.5 - 2.6) LA Diam: 3.8 cm (2.7 - 3.8) MV EXCURSION: 11.540 mm (> 18.000) MV EF SLOPE: 61 mm/s (70 - 150) EPSS: 0.5 cm MV E Merrill: 0.97 m/s MV DecT: 223 ms MV A Merrill: 0.70 m/s MV E/A Ratio: 1.38 RAP: 5.00 mmHg RVSP: 11.07 mmHg FINDINGS -------- Sinus rhythm. This was a technically difficult study with suboptimal views. The left ventricular size is normal. There is moderate concentric left ventricular hypertrophy. O verall left ventricular systolic function is normal with, an EF between 55 - 60 %. The right ventricle is normal in size. The left atrial size is normal. The right atrial size is normal. Lumason used The aortic valve was not well visualized. The mitral valve was not well visualized. There is trace mitral regurgitation. The tricuspid valve appears structurally normal. Trace tricuspid regurgitation present. Right erin tricular systolic pressure is normal at < 35 mmHg. The pulmonic valve was not well visualized. The aortic root size is normal. There is no pericardial effusion. CONCLUSIONS -------- 1. Sinus rhythm. 2. This was a technically difficult study with suboptimal views. 3. The left ventricular size is normal. 4. There is moderate concentric left ventricular hypertrophy. 5. Overall left ventricular systolic function is normal with, an EF between 55 - 60 %. 6. The right ventricle is normal in size. 7. The left atrial size is normal. 8. The right atrial size is normal. 9. Lumason used 10. The aortic valve was not well visualized. 11. The mitral valve was not well visualized. 12. There is trace mitral regurgitation. 13. The tricuspid valve appears structurally normal. 14. Trace tricuspid regurgitation present. 15. Right ventricular systolic pressure is normal at < 35 mmHg. 16. The pulmonic valve was not well visualized. 17. The aortic root size is normal. 18. There is no pericardial effusion. ANGLE FURNACEMAN: Anaya Blanco RDCS
--- NOTE | 2019-10-25 10:55 | P.PN ---
Subjective Progress Note Date: 10/25/19 Lesli Ferrer is a 59-year-old female who presented to [facility] emergency room with a chief complaint of right flank pain she was evaluated in the emergency room, she was afebrile on presentation was temperature of 97.8 blood pressure 148/81 pulse ox was low at 92% and it went down to 80% on room air, white blood count was elevated at 11.7 d-dimer was elevated at 1.01 possibility of pulmonary embolism was entertained patient was started on IV heparin computed tomography scan angiogram of the chest revealed faint groundglass changes bilaterally which could be associated with pneumonia, no central pulmonary embolism, a small pulmonary embolism in the distal left lower lobe branch was not excluded, patient was kept on IV heparin and was admitted to telemetry floor. She had an ABG that revealed a pH of 7.27 pCO2 68 PaO2 43, pulmonary consultation was requested in the emergency room. Patient was seen and examined on the telemetry floor she is alert responsive in no apparent distress, there is no fever or chills temperature is 90.8 pulse 73 respiration 20 blood pressure 138/83 also ox is 94% on 3 L nasal cannula, patient is still maintained on IV heparin, she is complaining of mid back pain otherwise she denies any complaints at this time, there is no fever or chills no headache or dizziness no chest pain no shortness of breath no cough no nausea or vomiting no abdominal pain no diarrhea no burning was urination no frequency or urgency and no hematuria. 10/25/2019 patient was seen and examined on the telemetry floor she is alert and oriented 3 in no apparent distress she is feeling better, she is complaining of cough otherwise no complaints at this time, there is no fever or chills no headache or dizziness no chest pain no shortness of breath, no nausea or vomiting no abdominal pain no diarrhea no blood in the stools, no burning was urination no frequency or urgency and no hematuria. Her temperature is 98.1 blood pressure 145/73 pulse ox is 91% on 3 L nasal cannula Objective - Vital Signs Vital signs: Vital Signs Temp 98.1 F 10/25/19 03:49 Pulse 91 10/25/19 08:00 Resp 18 10/25/19 08:00 BP 159/75 10/25/19 08:00 Pulse Ox 95 10/25/19 08:00 Intake & Output 10/24/19 10/25/19 10/25/19 18:59 06:59 18:59 Intake Total 1021.653 465.766 Output Total 400 Balance 1021.653 -400 465.766 Weight 161.6 kg Intake: Intake, IV Titration 181.653 225.766 Amount Heparin Sod,Pork in 0.45% 181.653 225.766 NaCl 25,000 unit In 0.45 % NaCl 1 250ml.bag @ 6.3 UNITS/KG/HR 10.002 mls/hr IV .Q24H [facility] Rx#: [id number] Oral 840 240 Output: Urine 400 Other: Voiding Method Toilet - Exam In general patient is alert and responsive in no apparent distress HEENT head normocephalic and atraumatic Neck is supple no JVD no goiter no lymphadenopathy Chest exam reveals a few scattered crackles no wheezing Cardiac exam reveals regular heart sounds no murmurs Abdomen is soft nontender no organomegaly with normal bowel sounds Extremity exam reveals minimal edema no cyanosis or clubbing - Labs CBC & Chem 7: 10/25/19 05:33 10/25/19 05:33 Labs: Abnormal Lab Results - Last 24 Hours (Table) 10/24/19 10/24/19 10/25/19 Range/Units 06:03 06:03 05:33 WBC 13.2 H (3.8-10.6) k/uL Hct 50.3 H (34.0-46.0) % MCV 104.8 H D (80.0-100.0) fL MCHC 30.8 L (31.0-37.0) g/dL Neutrophils # 11.0 H (1.3-7.7) k/uL APTT 53.7 H (22.0-30.0) sec Carbon Dioxide 33 H (22-30) mmol/L BUN 21 H (7-17) mg/dL Glucose 112 H (74-99) mg/dL AST 56 H (14-36) U/L ALT 114 H (4-34) U/L Albumin (3.5-5.0) g/dL 10/25/19 10/25/19 Range/Units 05:33 05:33 WBC (3.8-10.6) k/uL Hct 46.7 H (34.0-46.0) % MCV 101.9 H (80.0-100.0) fL MCHC 29.8 L (31.0-37.0) g/dL Neutrophils # (1.3-7.7) k/uL APTT (22.0-30.0) sec Carbon Dioxide 36 H (22-30) mmol/L BUN 18 H (7-17) mg/dL Glucose 112 H (74-99) mg/dL AST (14-36) U/L ALT 80 H (4-34) U/L Albumin 3.3 L (3.5-5.0) g/dL Microbiology - Last 24 Hours (Table) 10/23/19 11:19 Urine Culture - Final Urine,Voided Assessment and Plan Plan: 1. Mid back pain, computed tomography scan of the abdomen and pelvis revealing right sided perinephric edema, and the right renal pelvis fullness or hydronephrosis without evidence of a stone, possible infectious etiology or recently passed stone. Patient was started on IV Zosyn, urology consultation was requested. 2. Urinary tract infection with sepsis, started on IV Zosyn 3. Elevated d-dimer with hypoxia, possible peripheral pulmonary embolism on computed tomography scan, maintained on IV heparin pulmonary consultation was requested 4. Mid back pain, first EKG and first troponin are normal, with check further troponin levels and consult cardiology, echocardiogram revealed normal left ventricular ejection fraction, no pulmonary hypertension 5. Underlying history of hypertension blood pressure is well-controlled at this time will monitor 6. Mild elevation in liver enzymes, cause unclear, computed tomography scan of the abdomen and pelvis reveals postcholecystectomy changes and possible hepatic steatosis, fatty liver could account for slight elevation in liver enzymes, will monitor closely. 7. Groundglass changes bilateral lungs, could be associated with pneumonia patient was started on IV Zosyn, pulmonary consultation was requested 8. Covid 19 testing ordered in the emergency room results are still pending At this time patient was started on IV heparin and IV Zosyn She is admitted to telemetry floor Pulmonary, cardiology, urology, and infectious disease consultation were requested Will follow closely please see orders.
--- NOTE | 2019-10-25 11:58 | XR ---
EXAMINATION TYPE: XR chest 1V portable DATE OF EXAM: 10/25/2019 COMPARISON: 10/23/2019 HISTORY: Pneumonia follow-up TECHNIQUE: Single frontal view of the chest is obtained. FINDINGS: Low lung volumes exaggerating the pulmonary vasculature. Diffuse mild interstitial pulmona ry edema. Enlarged cardiac mediastinal silhouette. Costophrenic angles are slightly limited by patien t body habitus. IMPRESSION: Mild interstitial pulmonary edema.
[2019-10-25] MEDS: NON FORMULARY DRUG (Mirabegron [Myrbetriq] 25 MG) PO SCH (13:10)
--- NOTE | 2019-10-25 15:38 | PN ---
PROGRESS NOTE PULMONARY/CRITICAL CARE PROGRESS NOTE: DATE OF SERVICE: 10/24/2019 This is a 59-year-old female who we saw in consultation yesterday. She presented to the emergency department on October 22 with complaints of right-sided flank pain. It was the worst pain she ever felt. She had no history of prior kidney stones. The pain started in the back and wrapped around the lower abdomen into the right anterior abdominal area. It also seemed to go into the groin area. She denied any chest pain or shortness of breath. She did have some nausea and vomiting. She did also have some pain on urination and her urine was darker than normal. My impression was that she had right flank pain consistent with kidney stone with secondary hydronephrosis and possibly complicated by urinary tract infection/pyelonephritis. I doubted pulmonary embolism at this time. She is feeling much better. Her breathing is much improved. She does have a history of hypertension, osteoarthritis, bilateral heel spurs. PHYSICAL EXAMINATION: VITAL SIGNS: Current vital signs include a temperature 98.1, heart rate 89, respiratory rate 20, blood pressure 169/84, mean 112, and 3 L saturation 96% and room air saturation 95%. She appears in no acute distress. She is sitting at bedside. HEENT: Examination is grossly unremarkable. NECK: Supple. Full range of motion. No adenopathy. Neck veins are flat. CARDIOVASCULAR: Examination reveals a regular rhythm rate. LUNGS: Reveal clear breath sounds. No wheezes, rhonchi, or crackles. ABDOMEN: Obese. Bowel sounds are heard. EXTREMITIES are intact. There is no edema. SKIN: Without rash. NEUROLOGIC: Examination is brief but nonfocal. LABS: Reviewed. White count 9.2, hemoglobin 13.9, hematocrit 46.7, platelet count 196,000. PTT 63.7. Sodium 138, potassium 4.9, chloride 100, CO2 36, anion gap is 2. BUN and creatinine were 18 and 0.68. COVID-19 testing was negative. Microbiologic studies are negative. A chest x-ray done October 24 shows mild interstitial pulmonary edema. Chest CT angiogram done on October 22 shows changes of venous congestion and/or pneumonitis. There was no central pulmonary embolism, however, a small pulmonary embolism in the distal left lower lobe branch could not be excluded. CURRENT MEDICATIONS: Reviewed. The patient is on Tylenol, atenolol, Lovenox, Levaquin, loratadine, Myrbetriq, multivitamins and Zosyn. ASSESSMENT: 1. Right flank pain, likely consistent with kidney stone with secondary hydronephrosis and possibly complicated by urinary tract infection/pyelonephritis. 2. Doubt pulmonary embolism. 3. History of hypertension. 4. Osteoarthritis. 5. History of bilateral heel spurs. 6. Obesity. PLAN: The patient is on good antibiotics. We will continue to follow. No additional recommendations are made. Will wait for the microbiology results. The urine suggested strongly a urinary tract infection. The urine was cloudy. Blood was large. There was moderate leukocyte esterase positivity, occasional bacteria. No additional recommendations are made. We will continue to follow. Prognosis is guarded. She might benefit from a dose of Lasix given her most recent chest x-ray findings of diffuse interstitial edema. MMODL / IJN: [id number] /
[2019-10-25] MEDS: LEVOFLOXACIN 500MG-D5W PMX 500 MG in DEXTROSE/WATER 1 100ML.BAG IVPB SCH (15:45)
[2019-10-25] MEDS: ATENOLOL 50 MG TAB PO SCH (21:20)
[2019-10-26 00:01] LABS: Appearance,Urine Cloudy (Clear); Bacteria,Urine Few /hpf; Bilirubin,Urine Negative (Negative); Blood,Urine Large (Negative); Color,Urine Yellow; Glucose,Urine (UA) Negative (Negative); Ketones,Urine Negative (Negative); Leukocyte Esterase,Urine Negative (Negative); Mucus,Urine Rare /hpf; Nitrite,Urine Negative (Negative); PH, Urine 5.5 (5.0-8.0); Protein,Urine Trace (Negative); RBC,Urine >182 /hpf (0-5); Specific Gravity,Urine 1.012 (1.001-1.035); Squamous Epithelial Cell,Urine 2 /hpf (0-4); Urobilinogen,Urine <2.0 mg/dL (<2.0); WBC,Urine 7 /hpf (0-5)
--- NOTE | 2019-10-26 01:33 | PN ---
PROGRESS NOTE DATE OF SERVICE: 10/25/2019 REASON FOR FOLLOWUP: Urinary tract infection. INTERVAL HISTORY: The patient is currently afebrile. The patient is breathing comfortably. Flank pain has improved. However, still complaining of some cloudy urine. No hematuria though. No chest pain, shortness of breath or cough. PHYSICAL EXAMINATION: On examination, her blood pressure is 137/77 with a pulse of 74, temperature 98.1. She is 95% on 2 L nasal cannula. General description is a middle-aged female up in the bed in no distress. RESPIRATORY SYSTEM: Unlabored breathing. Decreased breath sounds at the bases. No wheeze. HEART: S1, S2. Regular rate and rhythm. ABDOMEN: Soft, no tenderness. LABS: Hemoglobin is 13.9, white count 9.2, BUN of 18, creatinine 0.68. DIAGNOSTIC IMPRESSION AND PLAN: Patient with right-sided pyelonephritis did have significantly positive UA with culture so far negative. Also having urinary symptom. Will repeat her UA. Continue Levaquin and Zosyn, adjusting antibiotic further based on the repeat cultures. Continue supportive care. MMODL / IJN: [id number] /
[2019-10-26 06:28] LABS: Basophils # (A) 0.1 k/uL (0-0.2); Basophils % (A) 1 %; Eosinophils # (A) 0.5 k/uL (0-0.7); Eosinophils % (A) 5 %; HCT 46.7 % (34.0-46.0); HGB 14.2 gm/dL (11.4-16.0); Hypochromasia Slight; Lymphocytes # (A) 0.9 k/uL (1.0-4.8); Lymphocytes % (A) 10 %; MCH 30.5 pg (25.0-35.0); MCHC 30.5 g/dL (31.0-37.0); MCV 100.2 fL (80.0-100.0); Monocytes # (A) 0.6 k/uL (0-1.0); Monocytes % (A) 6 %; Neutrophils # (A) 6.8 k/uL (1.3-7.7); Neutrophils % (A) 76 %; Platelet Count 191 k/uL (150-450); RBC 4.66 m/uL (3.80-5.40); RDW 13.3 % (11.5-15.5); WBC 8.9 k/uL (3.8-10.6)
[2019-10-26 06:43] LABS: ALT 65 U/L (4-34); AST 36 U/L (14-36); African American GFR (CKD) >90 (>60 ml/min/1.73 sqM); Albumin 3.2 g/dL (3.5-5.0); Alkaline Phosphatase 59 U/L (38-126); Anion Gap 4 mmol/L; Blood Urea Nitrogen 15 mg/dL (7-17); Calcium 8.8 mg/dL (8.4-10.2); Carbon Dioxide 37 mmol/L (22-30); Chloride 98 mmol/L (98-107); Glucose 99 mg/dL (74-99); Non-African American GFR(CKD) >90 (>60 ml/min/1.73 sqM); Potassium 4.8 mmol/L (3.5-5.1); Sodium 139 mmol/L (137-145); Total Bilirubin 0.5 mg/dL (0.2-1.3); Total Protein 6.4 g/dL (6.3-8.2)
[2019-10-26] MEDS: PIPERACILLIN-TAZOBACTAM 3.375 GM in SODIUM CHLORIDE 0.9% 100 ML IVPB SCH ×3 (07:59→23:02)
[2019-10-26] MEDS: MULTIVITAMINS, THERA 1 EACH TAB PO SCH (07:59)
[2019-10-26] MEDS: ENOXAPARIN 40 MG/0.4 ML SYRINGE SQ SCH (07:59)
[2019-10-26] MEDS: LORATADINE 10 MG TAB PO SCH (07:59)
[2019-10-26] MEDS: NON FORMULARY DRUG (Mirabegron [Myrbetriq] 25 MG) PO SCH (08:03)
[2019-10-26] MEDS ORDERED: FUROSEMIDE 10 MG/ML 4 ML VIAL IV STA (09:01)
--- NOTE | 2019-10-26 10:26 | P.PN ---
Subjective Progress Note Date: 10/26/19 Principal diagnosis: Hypoxia This is a very pleasant 59-year-old female patient with a past medical history significant for morbid obesity, obstructive sleep apnea, the patient is noncompliant with CPAP, as well as multiple comorbid conditions was admitted to the hospital with right flank pain and evidence of hydronephrosis as well as UTI. We consulted to see the patient initially for hypoxemia. Computed tomography scan was performed and showed possible very small distal PE. Subsequently the patient was seen by the pulmonary service and they doubt that there is a PE on the computed tomography scan. The patient was seen today, October 252019. She denies any symptoms of chest pain or chest discomfort. She remains hemodynamically stable at this point. The blood pressure and heart rate are within normal limits. Because it was stopped regarding the PE the patient is not on any oral anticoagulation. She underwent an echocardiogram which revealed normal left ventricular systolic function was mild MR and mild TR. Objective - Vital Signs Vital signs: Vital Signs Temp 98.4 F 10/26/19 07:56 Pulse 67 10/26/19 07:56 Resp 18 10/26/19 07:56 BP 128/66 10/26/19 07:56 Pulse Ox 96 10/26/19 07:56 Intake & Output 10/25/19 10/26/19 10/26/19 18:59 06:59 18:59 Intake Total 705.766 540 180 Balance 705.766 540 180 Weight 157.4 kg Intake: Intake, IV Titration 225.766 Amount Heparin Sod,Pork in 0.45% 225.766 NaCl 25,000 unit In 0.45 % NaCl 1 250ml.bag @ 6.3 UNITS/KG/HR 10.002 mls/hr IV .Q24H [facility] Rx#: [id number] Oral 480 540 180 Other: Voiding Method Toilet # Voids 1 - Constitutional General appearance: Present: no acute distress - Respiratory Respiratory: bilateral: CTA - Cardiovascular Rhythm: regular Heart sounds: normal: S1, S2 - Labs CBC & Chem 7: 10/26/19 05:27 10/26/19 05:27 Labs: Abnormal Lab Results - Last 24 Hours (Table) 10/25/19 10/26/19 10/26/19 Range/Units 23:40 05:27 05:27 Hct 46.7 H (34.0-46.0) % MCV 100.2 H (80.0-100.0) fL MCHC 30.5 L (31.0-37.0) g/dL Lymphocytes # 0.9 L (1.0-4.8) k/uL Carbon Dioxide 37 H (22-30) mmol/L ALT 65 H (4-34) U/L Albumin 3.2 L (3.5-5.0) g/dL Urine Appearance Cloudy H (Clear) Urine Protein Trace H (Negative) Urine Blood Large H (Negative) Urine RBC >182 H (0-5) /hpf Urine WBC 7 H (0-5) /hpf Urine Bacteria Few H (None) /hpf Urine Mucus Rare H (None) /hpf Microbiology - Last 24 Hours (Table) 10/24/19 12:52 Blood Culture - Preliminary Blood No Growth after 24 hours Assessment and Plan Assessment: Assessment Morbid obesity Urinary tract infection Hydronephrosis Obstructive sleep apnea Plan Continue the current medical regimen The echo was reviewed and showed normal LV function was mild MR and mild TR Follow-up with the patient
--- NOTE | 2019-10-26 12:09 | P.PN ---
Subjective Progress Note Date: 10/26/19 Principal diagnosis: Right flank pain, likely consistent with kidney stone with secondary hydronephrosis and possibly complicated by urinary tract infection/pyelonephritis On 10/26/2019 patient seen in follow-up on selective care unit, she is awake and alert, in no acute distress, she is on 2 L of oxygen her pulse ox of 96%, she has been afebrile, hemodynamically stable, her right flank pain is improving, she remains on antibiotic coverage including Levaquin and Zosyn. No fever or chills, today labs have been reviewed, with mental chronically 0.9, hemoglobin is 14.2, serum sodium is 139, potassium is 4.8, chloride is 98, CO2 37, B1 is 15, creatinine 0.68. She remains on prophylactic dose of Lovenox at 40 mg daily. She denies any shortness of breath, denies any chest pain, CTA chest has been reviewed with Dr. Stubbs, no central pulmonary embolus, doubt possibility of pulmonary embolism in the distal left lower branch. No acute events overnight. Echocardiogram revealed normal left systolic function with mild MR and mild TR. Blood and urine cultures are negative. Objective - Vital Signs Vital signs: Vital Signs Temp 98.4 F 10/26/19 12:00 Pulse 62 10/26/19 12:00 Resp 18 10/26/19 12:00 BP 128/66 10/26/19 12:00 Pulse Ox 96 10/26/19 12:00 Intake & Output 10/25/19 10/26/19 10/26/19 18:59 06:59 18:59 Intake Total 705.766 540 180 Balance 705.766 540 180 Weight 157.4 kg Intake: Intake, IV Titration 225.766 Amount Heparin Sod,Pork in 0.45% 225.766 NaCl 25,000 unit In 0.45 % NaCl 1 250ml.bag @ 6.3 UNITS/KG/HR 10.002 mls/hr IV .Q24H [facility] Rx#: [id number] Oral 480 540 180 Other: Voiding Method Toilet # Voids 1 - Exam GENERAL EXAM: Alert, very pleasant, 59-year-old obese white female, on 2 L of oxygen, pulse ox is 96% comfortable in no apparent distress. HEAD: Normocephalic/atraumatic. EYES: Normal reaction of pupils, equal size. Conjunctiva pink, sclera white. NOSE: Clear with pink turbinates. THROAT: No erythema or exudates. NECK: No masses, no JVD, no thyroid enlargement, no adenopathy. CHEST: No chest wall deformity. Symmetrical expansion. LUNGS: Equal air entry with no crackles, wheeze, rhonchi or dullness. CVS: Regular rate and rhythm, normal S1 and S2, no gallops, no murmurs, no rubs ABDOMEN: Soft, nontender. No hepatosplenomegaly, normal bowel sounds, no guarding or rigidity. EXTREMITIES: No clubbing, no edema, no cyanosis, 2+ pulses and upper and lower extremities. MUSCULOSKELETAL: Muscle strength and tone normal. SPINE: No scoliosis or deformity SKIN: No rashes CENTRAL NERVOUS SYSTEM: Alert and oriented -3. No focal deficits, tone is normal in all 4 extremities. PSYCHIATRIC: Alert and oriented -3. Appropriate affect. Intact judgment and insight. - Labs CBC & Chem 7: 10/26/19 05:27 10/26/19 05:27 Labs: Abnormal Lab Results - Last 24 Hours (Table) 10/25/19 10/26/19 10/26/19 Range/Units 23:40 05:27 05:27 Hct 46.7 H (34.0-46.0) % MCV 100.2 H (80.0-100.0) fL MCHC 30.5 L (31.0-37.0) g/dL Lymphocytes # 0.9 L (1.0-4.8) k/uL Carbon Dioxide 37 H (22-30) mmol/L ALT 65 H (4-34) U/L Albumin 3.2 L (3.5-5.0) g/dL Urine Appearance Cloudy H (Clear) Urine Protein Trace H (Negative) Urine Blood Large H (Negative) Urine RBC >182 H (0-5) /hpf Urine WBC 7 H (0-5) /hpf Urine Bacteria Few H (None) /hpf Urine Mucus Rare H (None) /hpf Microbiology - Last 24 Hours (Table) 10/24/19 12:52 Blood Culture - Preliminary Blood No Growth after 24 hours Assessment and Plan Plan: Assessment: #1. Right flank pain, likely consistent with kidney stones and secondary hydronephrosis, located by urinary tract infection/pyelonephritis #2. Doubt pulmonary embolism, CT chest showed no evidence of central pulmonary embolism, small pulmonary embolus in the distal left lower lobe branch not be excluded by the radiologist. #3. History of hypertension #4. Osteoarthritis #5. History of bilateral heel spurs #6. Morbid obesity Plan: Patient is doing well, no complaints of shortness of breath, no chest pain, hemodynamically stable, no fever or chills, continue current antibiotics, culture data has been reviewed, blood and urine cultures have shown no growth so far. Continue with prophylactic dose of Lovenox. Patient received a dose of IV Lasix today. I performed a history & physical examination of the patient and discussed their management with my nurse practitioner, Charley Sanchez. I reviewed the nurse practitioner's note and agree with the documented findings and plan of care. Lung sounds are positive for diminished breath sounds. The findings and the impression was discussed with the patient. I attest to the documentation by the nurse practitioner. Time with Patient: Less than 30
[2019-10-26] MEDS: LEVOFLOXACIN 500 MG TAB PO SCH (15:23)
--- NOTE | 2019-10-26 17:19 | P.PN ---
Subjective Progress Note Date: 10/26/19 Lesli Ferrer is a 59-year-old female who presented to [facility] emergency room with a chief complaint of right flank pain she was evaluated in the emergency room, she was afebrile on presentation was temperature of 97.8 blood pressure 148/81 pulse ox was low at 92% and it went down to 80% on room air, white blood count was elevated at 11.7 d-dimer was elevated at 1.01 possibility of pulmonary embolism was entertained patient was started on IV heparin computed tomography scan angiogram of the chest revealed faint groundglass changes bilaterally which could be associated with pneumonia, no central pulmonary embolism, a small pulmonary embolism in the distal left lower lobe branch was not excluded, patient was kept on IV heparin and was admitted to telemetry floor. She had an ABG that revealed a pH of 7.27 pCO2 68 PaO2 43, pulmonary consultation was requested in the emergency room. Patient was seen and examined on the telemetry floor she is alert responsive in no apparent distress, there is no fever or chills temperature is 90.8 pulse 73 respiration 20 blood pressure 138/83 also ox is 94% on 3 L nasal cannula, patient is still maintained on IV heparin, she is complaining of mid back pain otherwise she denies any complaints at this time, there is no fever or chills no headache or dizziness no chest pain no shortness of breath no cough no nausea or vomiting no abdominal pain no diarrhea no burning was urination no frequency or urgency and no hematuria. 10/25/2019 patient was seen and examined on the telemetry floor she is alert and oriented 3 in no apparent distress she is feeling better, she is complaining of cough otherwise no complaints at this time, there is no fever or chills no headache or dizziness no chest pain no shortness of breath, no nausea or vomiting no abdominal pain no diarrhea no blood in the stools, no burning was urination no frequency or urgency and no hematuria. Her temperature is 98.1 blood pressure 145/73 pulse ox is 91% on 3 L nasal cannula On 10/26/2019 patient was seen and examined on the medical floor she is alert and oriented in no apparent distress there is no fever or chills no headache or dizziness no chest pain no shortness of breath she has occasional cough there is no nausea or vomiting no abdominal pain no diarrhea no burning with urination no frequency or urgency no hematuria. Last night Covid 19 testing was reported as negative. Objective - Vital Signs Vital signs: Vital Signs Temp 98.2 F 10/26/19 15:59 Pulse 71 10/26/19 15:59 Resp 17 10/26/19 15:59 BP 155/80 10/26/19 15:59 Pulse Ox 96 10/26/19 15:59 Intake & Output 10/25/19 10/26/19 10/26/19 18:59 06:59 18:59 Intake Total 705.766 540 720 Balance 705.766 540 720 Weight 157.4 kg Intake: Intake, IV Titration 225.766 Amount Heparin Sod,Pork in 0.45% 225.766 NaCl 25,000 unit In 0.45 % NaCl 1 250ml.bag @ 6.3 UNITS/KG/HR 10.002 mls/hr IV .Q24H [facility] Rx#: [id number] Oral 480 540 720 Other: Voiding Method Toilet Toilet # Voids 1 - Exam In general patient is alert and responsive in no apparent distress HEENT head normocephalic and atraumatic Neck is supple no JVD no goiter no lymphadenopathy Chest exam reveals a few scattered crackles no wheezing Cardiac exam reveals regular heart sounds no murmurs Abdomen is soft nontender no organomegaly with normal bowel sounds Extremity exam reveals minimal edema no cyanosis or clubbing - Labs CBC & Chem 7: 10/26/19 05:27 10/26/19 05:27 Labs: Abnormal Lab Results - Last 24 Hours (Table) 10/25/19 10/26/19 10/26/19 Range/Units 23:40 05:27 05:27 Hct 46.7 H (34.0-46.0) % MCV 100.2 H (80.0-100.0) fL MCHC 30.5 L (31.0-37.0) g/dL Lymphocytes # 0.9 L (1.0-4.8) k/uL Carbon Dioxide 37 H (22-30) mmol/L ALT 65 H (4-34) U/L Albumin 3.2 L (3.5-5.0) g/dL Urine Appearance Cloudy H (Clear) Urine Protein Trace H (Negative) Urine Blood Large H (Negative) Urine RBC >182 H (0-5) /hpf Urine WBC 7 H (0-5) /hpf Urine Bacteria Few H (None) /hpf Urine Mucus Rare H (None) /hpf Microbiology - Last 24 Hours (Table) 10/24/19 12:52 Blood Culture - Preliminary Blood No Growth after 48 hours Assessment and Plan Plan: 1. Mid back pain, computed tomography scan of the abdomen and pelvis revealing right sided perinephric edema, and the right renal pelvis fullness or hydronephrosis without evidence of a stone, possible infectious etiology or recently passed stone. Patient was started on IV Zosyn, urology consultation was requested. 2. Urinary tract infection with sepsis, started on IV Zosyn 3. Elevated d-dimer with hypoxia, possible peripheral pulmonary embolism on computed tomography scan, maintained on IV heparin pulmonary consultation was requested 4. Mid back pain, first EKG and first troponin are normal, with check further troponin levels and consult cardiology, echocardiogram revealed normal left ventricular ejection fraction, no pulmonary hypertension 5. Underlying history of hypertension blood pressure is well-controlled at this time will monitor 6. Mild elevation in liver enzymes, cause unclear, computed tomography scan of the abdomen and pelvis reveals postcholecystectomy changes and possible hepatic steatosis, fatty liver could account for slight elevation in liver enzymes, will monitor closely. 7. Groundglass changes bilateral lungs, could be associated with pneumonia patient was started on IV Zosyn, pulmonary consultation was requested 8. Covid 19 testing was reported as negative last night At this time patient was started on IV heparin and IV Zosyn She is admitted to telemetry floor Pulmonary, cardiology, urology, and infectious disease consultation were requested Will follow closely please see orders.
[2019-10-26] MEDS: ATENOLOL 50 MG TAB PO SCH (20:09)
--- NOTE | 2019-10-26 22:51 | PN ---
PROGRESS NOTE DATE OF SERVICE: 10/26/2019. REASON FOR FOLLOWUP: Right-sided pyelonephritis. INTERVAL HISTORY: The patient is currently afebrile. The patient is breathing comfortably. The patient's flank pain has improved. No chest pain. Breathing has improved. No abdominal pain. No diarrhea. PHYSICAL EXAMINATION: Blood pressure is 162/82 with a pulse of 63, temperature 97.9. She is 93% on room air. General description is a middle-aged female up in the chair in no distress. RESPIRATORY SYSTEM: Unlabored breathing with decreased breath sounds at the base. No wheeze. HEART: S1, S2. Regular rate and rhythm. ABDOMEN: Soft. No tenderness. LABS: Hemoglobin is 14.3, white count 8.9, creatinine 0.6. DIAGNOSTIC IMPRESSION AND PLAN: Patient with right-sided pyelonephritis. This patient seems to be clinically responding to Zosyn. Cultures were negative though will need to repeat UA; still positive. Keep the patient on Zosyn, hopefully to finish therapy with oral antibiotics. Continue with supportive care. MMODL / IJN: [id number] /
[2019-10-27 06:21] LABS: Basophils # (A) 0.1 k/uL (0-0.2); Basophils % (A) 1 %; Eosinophils # (A) 0.7 k/uL (0-0.7); Eosinophils % (A) 7 %; HCT 51.1 % (34.0-46.0); Hypochromasia Slight; Lymphocytes # (A) 1.3 k/uL (1.0-4.8); Lymphocytes % (A) 13 %; MCH 31.6 pg (25.0-35.0); MCHC 31.4 g/dL (31.0-37.0); MCV 100.7 fL (80.0-100.0); Mean Platelet Volume 7.4; Monocytes # (A) 0.5 k/uL (0-1.0); Monocytes % (A) 6 %; Neutrophils % (A) 72 %; Platelet Count 225 k/uL (150-450); RBC 5.07 m/uL (3.80-5.40); RDW 13.2 % (11.5-15.5); WBC 9.8 k/uL (3.8-10.6)
[2019-10-27 06:38] LABS: ALT 54 U/L (4-34); AST 28 U/L (14-36); African American GFR (CKD) >90 (>60 ml/min/1.73 sqM); Albumin 3.4 g/dL (3.5-5.0); Alkaline Phosphatase 56 U/L (38-126); Blood Urea Nitrogen 19 mg/dL (7-17); Calcium 9.1 mg/dL (8.4-10.2); Chloride 96 mmol/L (98-107); Glucose 94 mg/dL (74-99); Non-African American GFR(CKD) 84 (>60 ml/min/1.73 sqM); Potassium 4.4 mmol/L (3.5-5.1); Sodium 139 mmol/L (137-145); Total Bilirubin 0.6 mg/dL (0.2-1.3); Total Protein 6.7 g/dL (6.3-8.2)
[2019-10-27 06:44] LABS: Anion Gap 7 mmol/L; Carbon Dioxide 36 mmol/L (22-30)
[2019-10-27] MEDS: NON FORMULARY DRUG (Mirabegron [Myrbetriq] 25 MG) PO SCH (08:06)
[2019-10-27] MEDS: PIPERACILLIN-TAZOBACTAM 3.375 GM in SODIUM CHLORIDE 0.9% 100 ML IVPB SCH ×3 (08:45→23:00)
[2019-10-27] MEDS: LORATADINE 10 MG TAB PO SCH (08:46)
[2019-10-27] MEDS: MULTIVITAMINS, THERA 1 EACH TAB PO SCH (08:46)
[2019-10-27] MEDS: ENOXAPARIN 40 MG/0.4 ML SYRINGE SQ SCH (08:46)
--- NOTE | 2019-10-27 11:10 | P.PN ---
Subjective Progress Note Date: 10/27/19 This is a 59-year-old female with documented history of sleep apnea he states that she has a machine at home but cannot use it because she feels like she is drowning when she has it on. She also has a history of hypertension, osteoarthritis, prior bariatric surgery, overactive bladder. She is a nonsmoker. Presented to the hospital with symptoms of right sided flank pain. She also states that for the past couple of weeks prior to admission here she felt short of breath, exertionally and at rest, according to the patient this was fairly new for her. She denied any chest discomfort. A CAT scan of the abdomen and pelvis was performed on admission here which revealed mild right sided perinephric edema, large anterior abdominal wall hernia no evidence of obstruction, stable fatty lesion involving the left kidney most likely on the basis of lipoma or angiomyolipoma. Chest x-ray showed bibasilar atelectasis or early infiltrate with coarsened interstitium, possible pneumonitis or early vascular congestion. A CTA of the chest was performed which revealed faint groundglass changes bilaterally which could be associated with pneumonitis. No central pulmonary embolism however the distal branches were limited a small pulmonary embolism in the distal left lower lobe not excluded. EKG on presentation here showed a normal sinus rhythm with no acute changes. Blood pressure 130s to 150s systolic over 70s, heart rate in the 70s to 80s, she has been afebrile since admission. Her oxygen saturations have been in the range of 90 on 2 or 3 L of oxygen, this morning 95% on room air. White blood cell count yesterday 13.2, hemoglobin 15.5, platelet count 235 this morning her white blood cell count is 9.2. D-dimer 1.0. Blood gases were obtained, pH came back at 7.27, pCO2 68, pO2 43, HCO3 31. Sodium 138, potassium 4.9, BUN 18, creatinine 0.6. Her liver enzymes were mildly elevated on admission, back to normal this morning. Troponins have been negative. BNP [id number]. Urinalysis positive UTI. A cardiology consultation was requested because of upper back discomfort. Accor ding to the patient, she denies any discomfort in her upper back, she denies any chest discomfort, the pain in her right flank area is gone this morning, she is standing up getting ready to go in the shower. 10/27/2019 Patient was seen and examined this morning, sitting up in her chair, hemodyn amically stable and overall feeling well. Blood pressure 133/80 with a heart rate in the 60s. White blood cell count 9.8, hemoglobin 16, platelet count 225. Sodium 139, potassium 4.4, BUN 19, creatinine 0.7. Objective - Vital Signs Vital signs: Vital Signs Temp 98.1 F 10/27/19 08:00 Pulse 63 10/27/19 08:00 Resp 16 10/27/19 08:00 BP 133/81 10/27/19 08:00 Pulse Ox 95 10/27/19 08:00 Intake & Output 10/26/19 10/27/19 10/27/19 18:59 06:59 18:59 Intake Total 1260 240 Balance 1260 240 Weight 157 kg Intake: Oral 1260 240 Other: Voiding Method Toilet Toilet # Voids 8 - Exam PHYSICAL EXAMINATION: GENERAL:59-year-old female in no acute distress at the time of my examination HEENT: Head is atraumatic, normocephalic. Pupils equal, round. Sclera anicteric. Conjunctiva are clear. Mucous membranes of the mouth are moist. Neck is supple. There is no elevated jugular venous pressure. No carotid bruit is heard. HEART EXAMINATION: Heart S1, S2 normal. No murmur or gallop heard. CHEST EXAMINATION: Lungs are clear to auscultation and precussion. No chest wall tenderness is noted on palpation or with deep breathing. ABDOMEN: Soft, obese nontender. Bowel sounds are heard. No organomegaly noted. EXTREMITIES: 2+ peripheral pulses with no evidence of peripheral edema and no calf tenderness noted. NEUROLOGIC patient is awake, alert and oriented X3. - Labs CBC & Chem 7: 10/27/19 05:33 10/27/19 05:33 Labs: Abnormal Lab Results - Last 24 Hours (Table) 10/27/19 10/27/19 Range/Units 05:33 05:33 Hct 51.1 H (34.0-46.0) % MCV 100.7 H (80.0-100.0) fL Chloride 96 L (98-107) mmol/L Carbon Dioxide 36 H (22-30) mmol/L BUN 19 H (7-17) mg/dL ALT 54 H (4-34) U/L Albumin 3.4 L (3.5-5.0) g/dL Microbiology - Last 24 Hours (Table) 10/24/19 12:52 Blood Culture - Preliminary Blood No Growth after 48 hours Assessment and Plan Plan: Assessment and plan #1 right flank pain, evidence of hydronephrosis, UTI #2 questionable distal pulmonary embolism on CTA of the chest #3 no evidence of any chest discomfort, episode of upper back discomfort, not consistent with acute coronary syndrome. Troponins negative 3. EKG shows normal sinus rhythm with no acute changes. #4 morbid obesity #5 hypertension #6 sleep apnea, noncompliant with CPAP #7 osteoarthritis Plan Echocardiogram with Doppler study was performed which revealed a normal left ventricular systolic function. From cardiology's perspective, patient may be able to be discharged home, follow-up appointment in the office post discharge. DNP note has been reviewed, I agree with a documented findings and plan of care. Patient was seen and examined.
--- NOTE | 2019-10-27 12:15 | P.PN ---
Subjective Progress Note Date: 10/27/19 Principal diagnosis: Right flank pain, likely consistent with kidney stone with secondary hydronephrosis and possibly complicated by urinary tract infection/pyelonephritis On 10/26/2019 patient seen in follow-up on selective care unit, she is awake and alert, in no acute distress, she is on 2 L of oxygen her pulse ox of 96%, she has been afebrile, hemodynamically stable, her right flank pain is improving, she remains on antibiotic coverage including Levaquin and Zosyn. No fever or chills, today labs have been reviewed, with mental chronically 0.9, hemoglobin is 14.2, serum sodium is 139, potassium is 4.8, chloride is 98, CO2 37, B1 is 15, creatinine 0.68. She remains on prophylactic dose of Lovenox at 40 mg daily. She denies any shortness of breath, denies any chest pain, CTA chest has been reviewed with Dr. Stubbs, no central pulmonary embolus, doubt possibility of pulmonary embolism in the distal left lower branch. No acute events overnight. Echocardiogram revealed normal left systolic function with mild MR and mild TR. Blood and urine cultures are negative. On 10/27/2019 patient seen in follow-up on selective care unit, she is calm and comfortable, in no acute distress, her left-sided flank pain has significantly improved, no difficulty breathing, patient is on 2 L of oxygen the pulse ox of 95%, she is afebrile, hemodynamically stable, lung sounds are clear. No cough, no rhonchi, patient remains on antibiotic therapy including Levaquin and Zosyn for a urinary tract infection/pyelonephritis. Infectious disease service is following. Urine and blood cultures remain negative to date. Doing well, troponins have been negative 3, no chest pain, patient has been cleared for discharge from cardiology. Patient has underlying sleep apnea but she is noncompliant with her CPAP. Objective - Vital Signs Vital signs: Vital Signs Temp 98.1 F 10/27/19 08:00 Pulse 63 10/27/19 08:00 Resp 16 10/27/19 08:00 BP 133/81 10/27/19 08:00 Pulse Ox 95 10/27/19 08:00 Intake & Output 10/26/19 10/27/19 10/27/19 18:59 06:59 18:59 Intake Total 1260 240 Balance 1260 240 Weight 157 kg Intake: Oral 1260 240 Other: Voiding Method Toilet Toilet # Voids 8 - Exam GENERAL EXAM: Alert, very pleasant, 59-year-old obese white female, on 2 L of oxygen, pulse ox is 96% comfortable in no apparent distress. HEAD: Normocephalic/atraumatic. EYES: Normal reaction of pupils, equal size. Conjunctiva pink, sclera white. NOSE: Clear with pink turbinates. THROAT: No erythema or exudates. NECK: No masses, no JVD, no thyroid enlargement, no adenopathy. CHEST: No chest wall deformity. Symmetrical expansion. LUNGS: Equal air entry with no crackles, wheeze, rhonchi or dullness. CVS: Regular rate and rhythm, normal S1 and S2, no gallops, no murmurs, no rubs ABDOMEN: Soft, nontender. No hepatosplenomegaly, normal bowel sounds, no guarding or rigidity. EXTREMITIES: No clubbing, no edema, no cyanosis, 2+ pulses and upper and lower extremities. MUSCULOSKELETAL: Muscle strength and tone normal. SPINE: No scoliosis or deformity SKIN: No rashes CENTRAL NERVOUS SYSTEM: Alert and oriented -3. No focal deficits, tone is normal in all 4 extremities. PSYCHIATRIC: Alert and oriented -3. Appropriate affect. Intact judgment and insight. - Labs CBC & Chem 7: 10/27/19 05:33 10/27/19 05:33 Labs: Abnormal Lab Results - Last 24 Hours (Table) 10/27/19 10/27/19 Range/Units 05:33 05:33 Hct 51.1 H (34.0-46.0) % MCV 100.7 H (80.0-100.0) fL Chloride 96 L (98-107) mmol/L Carbon Dioxide 36 H (22-30) mmol/L BUN 19 H (7-17) mg/dL ALT 54 H (4-34) U/L Albumin 3.4 L (3.5-5.0) g/dL Microbiology - Last 24 Hours (Table) 10/24/19 12:52 Blood Culture - Preliminary Blood No Growth after 48 hours Assessment and Plan Plan: Assessment: #1. Right flank pain, likely consistent with kidney stones and secondary h ydronephrosis, located by urinary tract infection/pyelonephritis #2. Doubt pulmonary embolism, CT chest showed no evidence of central pulmonary embolism, small pulmonary embolus in the distal left lower lobe branch not be excluded by the radiologist. #3. History of hypertension #4. Osteoarthritis #5. History of bilateral heel spurs #6. Morbid obesity #7. Sleep apnea, patient is noncompliant with the CPAP Plan: Continue current medical treatment, so far the culture data remains negative to date, no fever or chills, remains on the comminution Levaquin and Zosyn, no difficulty breathing, doubt presence of pulmonary embolism, from pulmonary perspective patient is stable for discharge home. She intends on being more compliant with her CPAP, and she was told if she wants her device checked to bring it to the office to be checked by Dr. Stubbs. I performed a history & physical examination of the patient and discussed their management with my nurse practitioner, Charley Sanchez. I reviewed the nurse practitioner's note and agree with the documented findings and plan of care. Lung sounds are positive for diminished breath sounds. The findings and the impression was discussed with the patient. I attest to the documentation by the nurse practitioner. Time with Patient: Less than 30
[2019-10-27] MEDS: LEVOFLOXACIN 500 MG TAB PO SCH (15:33)
--- NOTE | 2019-10-27 15:53 | PN ---
PROGRESS NOTE DATE OF SERVICE: 10/27/2019 REASON FOR FOLLOWUP: Right-sided pyelonephritis. INTERVAL HISTORY: The patient is currently afebrile. The patient is breathing comfortably. Patient denies having any chest pain, shortness of breath. Minimal cough. Right flank pain has improved. No nausea, vomiting or diarrhea. PHYSICAL EXAMINATION: Blood pressure is 102/80 with a pulse of 61, temperature is 98, she is 95% on room air. General description is a middle-aged female, up in the chair in no distress. RESPIRATORY SYSTEM: Unlabored breathing, clear to auscultation anteriorly. HEART: S1, S2. Regular rate and rhythm. ABDOMEN: Soft, no tenderness. LABS: Hemoglobin 16, white count 9.8, creatinine 0.79. DIAGNOSTIC IMPRESSION AND PLAN: Patient with right-sided pyelonephritis, concern for possible pneumonitis. Patient seemed to have shown clinical improvement. Plan at this time to continue with Zosyn and Levaquin to finish therapy with oral Levaquin. Plan of care was discussed with the admitting physician and continue supportive care. MMODL / IJN: [id number] /
--- NOTE | 2019-10-27 17:24 | P.PN ---
Subjective Progress Note Date: 10/27/19 Lesli Ferrer is a 59-year-old female who presented to [facility] emergency room with a chief complaint of right flank pain she was evaluated in the emergency room, she was afebrile on presentation was temperature of 97.8 blood pressure 148/81 pulse ox was low at 92% and it went down to 80% on room air, white blood count was elevated at 11.7 d-dimer was elevated at 1.01 possibility of pulmonary embolism was entertained patient was started on IV heparin computed tomography scan angiogram of the chest revealed faint groundglass changes bilaterally which could be associated with pneumonia, no central pulmonary embolism, a small pulmonary embolism in the distal left lower lobe branch was not excluded, patient was kept on IV heparin and was admitted to telemetry floor. She had an ABG that revealed a pH of 7.27 pCO2 68 PaO2 43, pulmonary consultation was requested in the emergency room. Patient was seen and examined on the telemetry floor she is alert responsive in no apparent distress, there is no fever or chills temperature is 90.8 pulse 73 respiration 20 blood pressure 138/83 also ox is 94% on 3 L nasal cannula, patient is still maintained on IV heparin, she is complaining of mid back pain otherwise she denies any complaints at this time, there is no fever or chills no headache or dizziness no chest pain no shortness of breath no cough no nausea or vomiting no abdominal pain no diarrhea no burning was urination no frequency or urgency and no hematuria. 10/25/2019 patient was seen and examined on the telemetry floor she is alert and oriented 3 in no apparent distress she is feeling better, she is complaining of cough otherwise no complaints at this time, there is no fever or chills no headache or dizziness no chest pain no shortness of breath, no nausea or vomiting no abdominal pain no diarrhea no blood in the stools, no burning was urination no frequency or urgency and no hematuria. Her temperature is 98.1 blood pressure 145/73 pulse ox is 91% on 3 L nasal cannula On 10/26/2019 patient was seen and examined on the medical floor she is alert and oriented in no apparent distress there is no fever or chills no headache or dizziness no chest pain no shortness of breath she has occasional cough there is no nausea or vomiting no abdominal pain no diarrhea no burning with urination no frequency or urgency no hematuria. Last night Covid 19 testing was reported as negative. On 10/27/2019 patient was seen and examined on the medical floor she is alert and oriented in no apparent distress she is still complaining of minimal pain in the right lung care area she is complaining of cough without any sputum production otherwise she denies any complaints there is no fever or chills no headache or dizziness no chest pain no shortness of breath no nausea or vomiting no abdominal pain no diarrhea no burning was urination no frequency or urgency and no hematuria Objective - Vital Signs Vital signs: Vital Signs Temp 98.0 F 10/27/19 12:00 Pulse 70 10/27/19 16:00 Resp 14 10/27/19 16:00 BP 133/77 10/27/19 16:00 Pulse Ox 89 L 10/27/19 16:00 Intake & Output 10/26/19 10/27/19 10/27/19 18:59 06:59 18:59 Intake Total 1260 358 Balance 1260 358 Weight 157 kg Intake: Oral 1260 358 Other: Voiding Method Toilet Toilet # Voids 8 4 - Exam In general patient is alert and responsive in no apparent distress HEENT head normocephalic and atraumatic Neck is supple no JVD no goiter no lymphadenopathy Chest exam reveals a few scattered crackles no wheezing Cardiac exam reveals regular heart sounds no murmurs Abdomen is soft nontender no organomegaly with normal bowel sounds Extremity exam reveals minimal edema no cyanosis or clubbing - Labs CBC & Chem 7: 10/27/19 05:33 10/27/19 05:33 Labs: Abnormal Lab Results - Last 24 Hours (Table) 10/27/19 10/27/19 Range/Units 05:33 05:33 Hct 51.1 H (34.0-46.0) % MCV 100.7 H (80.0-100.0) fL Chloride 96 L (98-107) mmol/L Carbon Dioxide 36 H (22-30) mmol/L BUN 19 H (7-17) mg/dL ALT 54 H (4-34) U/L Albumin 3.4 L (3.5-5.0) g/dL Microbiology - Last 24 Hours (Table) 10/24/19 12:52 Blood Culture - Preliminary Blood No Growth after 72 hours Assessment and Plan Plan: 1. Mid back pain, computed tomography scan of the abdomen and pelvis revealing right sided perinephric edema, and the right renal pelvis fullness or hydronephrosis without evidence of a stone, possible infectious etiology or recently passed stone. Patient was started on IV Zosyn, urology consultation was requested. 2. Urinary tract infection with sepsis, started on IV Zosyn and Levaquin, possible discharge to home tomorrow on oral Levaquin 3. Elevated d-dimer with hypoxia, possible peripheral pulmonary embolism on computed tomography scan, maintained on IV heparin pulmonary consultation was requested 4. Mid back pain, first EKG and first troponin are normal, with check further troponin levels and consult cardiology, echocardiogram revealed normal left ventricular ejection fraction, no pulmonary hypertension 5. Underlying history of hypertension blood pressure is well-controlled at this time will monitor 6. Mild elevation in liver enzymes, cause unclear, computed tomography scan of the abdomen and pelvis reveals postcholecystectomy changes and possible hepatic steatosis, fatty liver could account for slight elevation in liver enzymes, will monitor closely. 7. Groundglass changes bilateral lungs, could be associated with pneumonia patient was started on IV Zosyn, pulmonary consultation was requested 8. Covid 19 testing was reported as negative last night At this time patient was started on IV heparin and IV Zosyn and Levaquin She is admitted to telemetry floor Pulmonary, cardiology, urology, and infectious disease consultation were requested Will follow closely please see orders.
[2019-10-27] MEDS: ATENOLOL 50 MG TAB PO SCH (19:56)
[2019-10-28 06:34] LABS: Basophils # (A) 0.1 k/uL (0-0.2); Basophils % (A) 1 %; Eosinophils # (A) 0.7 k/uL (0-0.7); Eosinophils % (A) 8 %; HCT 51.8 % (34.0-46.0); HGB 16.2 gm/dL (11.4-16.0); Hypochromasia Slight; Lymphocytes # (A) 1.2 k/uL (1.0-4.8); Lymphocytes % (A) 13 %; MCHC 31.3 g/dL (31.0-37.0); MCV 102.3 fL (80.0-100.0); Macrocytosis Slight; Mean Platelet Volume 7.3; Monocytes # (A) 0.5 k/uL (0-1.0); Monocytes % (A) 5 %; Neutrophils # (A) 7.1 k/uL (1.3-7.7); Neutrophils % (A) 72 %; Platelet Count 224 k/uL (150-450); RBC 5.07 m/uL (3.80-5.40); RDW 13.4 % (11.5-15.5); WBC 9.8 k/uL (3.8-10.6)
[2019-10-28 06:46] LABS: Albumin 3.5 g/dL (3.5-5.0); Calcium 9.2 mg/dL (8.4-10.2); Potassium 4.8 mmol/L (3.5-5.1); Total Bilirubin 0.6 mg/dL (0.2-1.3); Total Protein 6.9 g/dL (6.3-8.2)
[2019-10-28] MEDS: ENOXAPARIN 40 MG/0.4 ML SYRINGE SQ SCH (08:13)
[2019-10-28] MEDS: PIPERACILLIN-TAZOBACTAM 3.375 GM in SODIUM CHLORIDE 0.9% 100 ML IVPB SCH (08:13)
[2019-10-28] MEDS: LORATADINE 10 MG TAB PO SCH (08:14)
[2019-10-28] MEDS: MULTIVITAMINS, THERA 1 EACH TAB PO SCH (08:14)
[2019-10-28] MEDS: NON FORMULARY DRUG (Mirabegron [Myrbetriq] 25 MG) PO SCH (08:14)
[2019-10-28 08:20] VITALS: BP 132/60; PULSE 62; RESP 18; TEMP 98.5
--- NOTE | 2019-10-28 09:25 | P.DS ---
Providers Date of admission: 10/23/19 17:04 Expected date of discharge: 10/28/19 Attending physician: Ced Caceres Consults: 10/23/19 16:02 Consult Physician Urgent Consulting Provider: Saul Strickland Consult Reason/Comments: hypoxia Do you want consulting provider notified?: Yes 10/24/19 12:39 Consult Physician Routine Consulting Provider: Jonathon Gutierrez Consult Reason/Comments: hydronephrosis Do you want consulting provider notified?: Yes 10/24/19 12:42 Consult Physician Routine Consulting Provider: Marielos Leung Consult Reason/Comments: UTI, pneumonia Do you want consulting provider notified?: Yes 10/24/19 12:52 Consult Physician Routine Consulting Provider: Arcenio Carreon Consult Reason/Comments: upper back pain Do you want consulting provider notified?: Yes Primary care physician: Chrissie Dumont [facility] Course: Diagnosis on discharge: 1. Mid back pain, computed tomography scan of the abdomen and pelvis revealing right sided perinephric edema, and the right renal pelvis fullness or hydronephrosis without evidence of a stone, possible infectious etiology or recently passed stone. Patient was started on IV Zosyn, urology consultation was requested. 2. Urinary tract infection with sepsis, with right sided pyelonephritis started on IV Zosyn and Levaquin, possible discharge to home tomorrow on oral Levaquin 3. Elevated d-dimer with hypoxia, possible peripheral pulmonary embolism on computed tomography scan, maintained on IV heparin pulmonary consultation was requested 4. Mid back pain, first EKG and first troponin are normal, with check further troponin levels and consult cardiology, echocardiogram revealed normal left ventricular ejection fraction, no pulmonary hypertension 5. Underlying history of hypertension blood pressure is well-controlled at this time will monitor 6. Mild elevation in liver enzymes, cause unclear, computed tomography scan of the abdomen and pelvis reveals postcholecystectomy changes and possible hepatic steatosis, fatty liver could account for slight elevation in liver enzymes, will monitor closely. 7. Groundglass changes bilateral lungs, could be associated with pneumonia patient was started on IV Zosyn, pulmonary consultation was requested 8. Covid 19 testing was reported as negative Hospital course: Lesli Ferrer is a 59-year-old female who presented to [facility] emergency room with a chief complaint of right flank pain she was evaluated in the emergency room, she was afebrile on presentation was temper ature of 97.8 blood pressure 148/81 pulse ox was low at 92% and it went down to 80% on room air, white blood count was elevated at 11.7 d-dimer was elevated at 1.01 possibility of pulmonary embolism was entertained patient was started on IV heparin computed tomography scan angiogram of the chest revealed faint groundglass changes bilaterally which could be associated with pneumonia, no central pulmonary embolism, a small pulmonary embolism in the distal left lower lobe branch was not excluded, patient was kept on IV heparin and was admitted to telemetry floor. She had an ABG that revealed a pH of 7.27 pCO2 68 PaO2 43, pulmonary consultation was requested in the emergency room. Patient was seen and examined on the telemetry floor she is alert responsive in no apparent distress, there is no fever or chills temperature is 90.8 pulse 73 respiration 20 blood pressure 138/83 also ox is 94% on 3 L nasal cannula, patient is still maintained on IV heparin, she is complaining of mid back pain otherwise she denies any complaints at this time, there is no fever or chills no headache or dizziness no chest pain no shortness of breath no cough no nausea or vomiting no abdominal pain no diarrhea no burning was urination no frequency or urgency and no hematuria. 10/25/2019 patient was seen and examined on the telemetry floor she is alert and oriented 3 in no apparent distress she is feeling better, she is complaining of cough otherwise no complaints at this time, there is no fever or chills no headache or dizziness no chest pain no shortness of breath, no nausea or vomiting no abdominal pain no diarrhea no blood in the stools, no burning was urination no frequency or urgency and no hematuria. Her temperature is 98.1 blood pressure 145/73 pulse ox is 91% on 3 L nasal cannula On 10/26/2019 patient was seen and examined on the medical floor she is alert and oriented in no apparent distress there is no fever or chills no headache or dizziness no chest pain no shortness of breath she has occasional cough there is no nausea or vomiting no abdominal pain no diarrhea no burning with urination no frequency or urgency no hematuria. Last night Covid 19 testing was reported as negative. On 10/27/2019 patient was seen and examined on the medical floor she is alert and oriented in no apparent distress she is still complaining of minimal pain in the right lung care area she is complaining of cough without any sputum production otherwise she denies any complaints there is no fever or chills no headache or dizziness no chest pain no shortness of breath no nausea or vomiting no abdominal pain no diarrhea no burning was urination no frequency or urgency and no hematuria On 10/28/2019 patient was seen and examined on the medical floor she is alert and oriented in no distress, she is feeling better, she is afebrile, her white blood count is down to normal at 9.8 down from 13.2 on admission patient denies any symptoms at this time, case was discussed with Dr. Leung infectious disease, she was cleared for discharge likely her symptoms are related to urinary tract infection and pyelonephritis on the right, she was given a prescription for Levaquin 500 mg once daily for 7 more days she was instructed to return to the hospital if having pain or fever and instructed to follow-up with Dr. Dumont within one week Patient Condition at Discharge: Serious Plan - Discharge Summary Discharge Rx Participant: Yes New Discharge Prescriptions: New Levofloxacin [Levaquin] 500 mg PO Q24H tab Continue Multivitamins, Thera [Multivitamin (formulary)] 1 tab PO DAILY Atenolol 100 mg PO HS Loratadine [Claritin] 10 mg PO DAILY Mirabegron [Myrbetriq] 25 mg PO DAILY Discharge Medication List Atenolol 100 mg PO HS 10/23/19 [History] Loratadine [Claritin] 10 mg PO DAILY 10/23/19 [History] Multivitamins, Thera [Multivitamin (formulary)] 1 tab PO DAILY 10/23/19 [History] Mirabegron [Myrbetriq] 25 mg PO DAILY 10/24/19 [History] Levofloxacin [Levaquin] 500 mg PO Q24H tab 10/28/19 [Rx] Follow up Appointment(s)/Referral(s): Chrissie Dumont MD [Primary Care Provider] - 1-2 days Patient Instructions/Handouts: Kidney Stones (ED) Activity/Diet/Wound Care/Special Instructions: Please return to the Emergency Department if symptoms worsen or any other concerns.
== END 2019-10-28 12:00 | disposition home or self-care (01) | DRG 871 ==
LOC: EC 10:49 → 3SCARD 17:04
PROVIDERS: ADMIT Internal Medicine; ATTEND Internal Medicine
DX: A41.9 Sepsis, unspecified organism (principal); I26.99 Other pulmonary embolism without acute cor pulmonale; J18.9 Pneumonia, unspecified organism; Z68.44 Body mass index [BMI] 60.0-69.9, adult; J98.11 Atelectasis; N13.6 Pyonephrosis; D17.71 Benign lipomatous neoplasm of kidney; E66.01 Morbid (severe) obesity due to excess calories; G47.33 Obstructive sleep apnea (adult) (pediatric); Z99.89 Dependence on other enabling machines and devices; I10 Essential (primary) hypertension; K43.9 Ventral hernia without obstruction or gangrene; M19.90 Unspecified osteoarthritis, unspecified site; N20.0 Calculus of kidney; N32.81 Overactive bladder; Z98.84 Bariatric surgery status; R09.02 Hypoxemia; Z79.899 Other long term (current) drug therapy; Z82.3 Family history of stroke; Z20.828 Contact with and (suspected) exposure to other viral communicable diseases; Z82.49 Family history of ischemic heart disease and other diseases of the circulatory system; Z90.49 Acquired absence of other specified parts of digestive tract; Z90.710 Acquired absence of both cervix and uterus; Z91.19 Patient's noncompliance with other medical treatment and regimen; K76.0 Fatty (change of) liver, not elsewhere classified; Z88.2 Allergy status to sulfonamides; Z96.651 Presence of right artificial knee joint
CPT/HCPCS: 36415; 36600; 71045; 71275; 74176; 80053; 81001; 82150; 82805; 83690; 83880; 84484; 85025; 85379; 85730; 87040; 87086; 93005; 93306; 96361; 96365; 96375; 96376; 99285

== ENCOUNTER 2020-12-08 07:11 | Inpatient (IN) | payer OTHER ==
[2020-12-07 09:01] VITALS: BMI 59.4
--- NOTE | 2020-12-08 06:47 | P.GSHP ---
History of Present Illness H&P Date: 12/08/20 CHIEF COMPLAINT: Incisional hernia. HISTORY OF PRESENT ILLNESS: The patient is a 43-year-old female who presents with a history of swelling along the lower abdomen. Findings were consistent with incisional hernia with small bowel incarceration. Now she presents for further evaluation and management. PAST MEDICAL HISTORY: Please see list. PAST SURGICAL HISTORY: Please see list. MEDICATIONS: Please see list. ALLERGIES: Please see list. SOCIAL HISTORY: No illicit drug use FAMILY HISTORY: No reports of Crohn disease or ulcerative colitis. REVIEW OF ORGAN SYSTEMS: CONSTITUTIONAL: No reports of fevers or chills. GI: Has change in bowel habits PHYSICAL EXAM: VITAL SIGNS: Stable GENERAL: Well-developed pleasant female in no acute distress. HEENT: No scleral icterus. Extraocular movements grossly intact. Moist buccal mucosa. NECK: Supple without lymphadenopathy. CHEST: Unlabored respirations. Equal bilateral excursions. CARDIOVASCULAR: Regular rate and rhythm. Distal 2+ pulses. ABDOMEN: Soft, nondistended. Large pannus over 30 pounds. MUSCULOSKELETAL: No clubbing, cyanosis, or edema. ASSESSMENT: 1. Incisional ventral hernia. 2. Morbid obesity, BMI 59.6 PLAN: 1. Recommend proceeding with robotic ventral hernia repair with mesh. 2. Benefits and risks of surgical intervention was discussed including possibility of open technique. 3. DVT prophylaxis. 4. Antibiotic prophylaxis. 5. Inpatient hospitalization for small bowel incarceration described. Past Medical History Past Medical History: Hypertension, Osteoarthritis (OA), Sleep Apnea/CPAP/BIPAP Additional Past Medical History / Comment(s): HERNIA History of Any Multi-Drug Resistant Organisms: None Reported Past Surgical History: Adenoidectomy, Appendectomy, Bariatric Surgery, Cholecystectomy, Hysterectomy, Joint Replacement, Tonsillectomy Additional Past Surgical History / Comment(s): lap band, and lap band revision, eye surgery bilateral for lazy eye, repair wound dehiscence, D & C's, Lt knee bursa removal, Rt knee arthroscopies, right knee replaced Past Anesthesia/Blood Transfusion Reactions: No Reported Reaction Additional Past Anesthesia/Blood Transfusion Reaction / Comment(s): "Woke up during surgery" WITH LEG SURGERY. Smoking Status: Never smoker - Past Family History Sister(s) Family Medical History: Deep Vein Thrombosis (DVT) Mother Family Medical History: Congestive Heart Failure (CHF), Coronary Artery Disease (CAD), CVA/TIA Additional Family Medical History / Comment(s): arthritis Father Family Medical History: Hypertension Additional Family Medical History / Comment(s): scoliosis, arthritis, alzihemers Medications and Allergies Home Medications Medication Instructions Recorded Confirmed Type Loratadine [Claritin] 10 mg PO DAILY PRN 10/23/19 12/07/20 History Multivitamins, Thera [Multivitamin 1 tab PO DAILY 10/23/19 12/07/20 History (formulary)] atenoloL [Atenolol] 100 mg PO HS 10/23/19 12/07/20 History Mirabegron [Myrbetriq] 25 mg PO DAILY 10/24/19 12/07/20 History Acetaminophen Tab [Tylenol Tab] 1,000 mg PO Q6HR PRN 12/07/20 12/07/20 History Diclofenac Sodium [Voltaren 2 gm TOPICAL QID PRN 12/07/20 12/07/20 History Arthritis Pain 1% Gel] Allergies Allergy/AdvReac Type Severity Reaction Status Date / Time bupropion HCl Allergy Rash/Hives Verified 12/07/20 08:12 [From Wellbutrin] Sulfa (Sulfonamide Allergy Swelling Verified 12/07/20 08:12 Antibiotics) codeine AdvReac Vomiting Verified 12/07/20 08:12 venom-honey bee AdvReac Swelling Verified 12/07/20 08:12 [bee venom (honey bee)]
[~2020-12-08 07:11] MED LIST: ACETAMINOPHEN TAB 500 MG TAB PO PRN; DEXAMETHASONE SOD PHOSPHATE 4 MG/ML 1 ML VIAL IV ONE; GABAPENTIN 300 MG CAP PO PRN; HEPARIN SODIUM,PORCINE/PF 5,000 UNIT/0.5 ML SYRINGE SQ PRN; HYDROmorphone 0.5 MG/0.5 ML SYRINGE IVP PRN; LACTATED RINGERS 1,000 ML IV SCH; MELOXICAM 7.5 MG TAB PO PRN; ONDANSETRON 4 MG/2 ML VIAL IVP ONE; SCOPOLAMINE 1.5MG/72HR PATCH TRANSDERM PRN; ceFAZolin 3 GM in SODIUM CHLORIDE 0.9% 100 ML IVPB PRN
[2020-12-08] MEDS ORDERED: LIDOCAINE 1% (10MG/ML) FOR IV START INTRADERMA ONE (07:50)
[2020-12-08] MEDS ORDERED: MIDAZOLAM 2 MG/2 ML VIAL IVP ONE (08:01)
[2020-12-08 08:33] LABS: Basophils # (A) 0.1 k/uL (0-0.2); Basophils % (A) 1 %; Eosinophils # (A) 0.4 k/uL (0-0.7); Eosinophils % (A) 4 %; HCT 46.4 % (34.0-46.0); HGB 15.7 gm/dL (11.4-16.0); Lymphocytes # (A) 1.5 k/uL (1.0-4.8); Lymphocytes % (A) 15 %; MCH 31.8 pg (25.0-35.0); MCHC 33.8 g/dL (31.0-37.0); MCV 94.4 fL (80.0-100.0); Mean Platelet Volume 7.5; Monocytes # (A) 0.6 k/uL (0-1.0); Monocytes % (A) 6 %; Neutrophils % (A) 73 %; Platelet Count 248 k/uL (150-450); RBC 4.92 m/uL (3.80-5.40); WBC 9.6 k/uL (3.8-10.6)
[2020-12-08 08:37] LABS: ALT 19 U/L (4-34); AST 26 U/L (14-36); African American GFR (CKD) >90 (>60 ml/min/1.73 sqM); Albumin 3.8 g/dL (3.5-5.0); Alkaline Phosphatase 71 U/L (38-126); Anion Gap 5 mmol/L; Blood Urea Nitrogen 19 mg/dL (7-17); Calcium 9.2 mg/dL (8.4-10.2); Carbon Dioxide 32 mmol/L (22-30); Chloride 105 mmol/L (98-107); Glucose 123 mg/dL (74-99); Non-African American GFR(CKD) >90 (>60 ml/min/1.73 sqM); Potassium 4.3 mmol/L (3.5-5.1); Sodium 142 mmol/L (137-145); Total Bilirubin 0.5 mg/dL (0.2-1.3); Total Protein 6.8 g/dL (6.3-8.2)
--- NOTE | 2020-12-08 08:43 | P.ANPRN ---
Procedure Note - Anesthesia - Nerve Block Performed Bilateral Erector Spinae Time Out Performed: Yes (0800) Date of Procedure: 12/08/20 Procedure Start Time: 08:00 Procedure Stop Time: : Location of Patient: PreOp Indication: Acute Post-Operative Pain, Requested by Surgeon Specifically requested for management of pain by DrMelisa: Lashaun Hopson Sedation Type: Sedate with meaningful contact maintained Preparation: Sterile Prep Position: Prone Catheter: None Needle Types: Pajunk Needle Gauge: 21 (100 mm) Ultrasound used to visualize needle placement: Yes Ultrasound used to observe medication spread: Yes Injectate: 0.5% Ropivacaine (see comment for volume) (20cc + 10cc of saline on each side) Blood Aspirated: No Pain Paresthesia on Injection Noted: No Resistance on Injection: Normal Image Stored and Saved: Yes Events: Uneventful and Well Tolerated
[2020-12-08] MEDS ORDERED: SODIUM CHLORIDE 0.9% (PF) 10 ML VIAL ONE (09:06)
[2020-12-08] MEDS ORDERED: PROPOFOL 10 MG/ML 20 ML VIAL IV ONE (09:36)
[2020-12-08] MEDS ORDERED: LIDOCAINE 1% INJ 10MG/ML (20 ML MDV) ONE (09:36)
[2020-12-08] MEDS ORDERED: ROCURONIUM 10 MG/ML (5 ML VIAL) IV ONE (09:36)
[2020-12-08] MEDS ORDERED: SUGAMMADEX SODIUM 500 MG/5 ML SDV IV ONE (09:36)
[2020-12-08] MEDS ORDERED: SUCCINYLCHOLINE CHLORIDE VIAL 200 MG/10 ML VIAL IV ONE (09:36)
[2020-12-08] MEDS ORDERED: ePHEDrine SULFATE/0.9% NACL/PF 50 MG/5 ML SYRINGE IV ONE (09:36)
[2020-12-08] MEDS ORDERED: PHENYLEPHRINE-0.9% NACL SYG 1,000 MCG/10 ML SYRINGE ONE (09:36)
[2020-12-08] MEDS ORDERED: ROPIVACAINE 5 MG/ML 30 ML VIAL ONE (09:36)
[2020-12-08] MEDS ORDERED: fentaNYL (PF) 50 MCG/ML 2 ML AMP ONE (09:36)
[2020-12-08] MEDS ORDERED: LIDOCAINE 1%-EPI 1:100,000 20 ML VIAL SQ ONE (09:54)
[2020-12-08] MEDS ORDERED: LACTATED RINGERS 1,000 ML IV ONE (11:21)
[2020-12-08 11:59] VITALS: TEMP 97
--- NOTE | 2020-12-08 12:07 | P.OP ---
Date of Procedure: 12/08/20 Preoperative Diagnosis: Incarcerated incisional hernia, supraumbilical morbid obesity BMI 59.5, hypertensive heart disease Postoperative Diagnosis: Same, severe peritoneal adhesions Procedure(s) Performed: Robotic lysis of adhesions, over 1 hour Anesthesia: BARNEY Surgeon: Lashaun Hopson Estimated Blood Loss (ml): 5 Pathology: none sent Condition: stable Disposition: floor Operative Findings: 1. 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 2. Large bowel involving sigmoid colon incarcerated in the left lower abdomen from adipose panniculus 3. Extensive lysis of adhesions performed with finding of severe incarceration of large bowel 4. Incisional hernia repair aborted with lysis of adhesions 5. Neck of hernia 5 cm with incarcerated omentum and bowel without large bowel obstruction
[2020-12-08 13:19] VITALS: RESP 16
[2020-12-08 13:52] VITALS: BP 112/67; PULSE 82
--- NOTE | 2020-12-09 10:49 | P.DS ---
Providers Date of admission: 12/08/20 07:11 Expected date of discharge: 12/08/20 Attending physician: Lashaun Hopson Consults: 12/08/20 06:44 Consult Physician Routine Consulting Provider: [facility] Consult Reason/Comments: Regional block Do you want consulting provider notified?: Yes Primary care physician: Chrissie Dumont Plan - Discharge Summary Discharge Rx Participant: No New Discharge Prescriptions: New RX: Ibuprofen [Motrin] 600 mg PO Q8HR PRN #30 tab PRN Reason: Pain Acetaminophen Tab [Tylenol Tab] 1,000 mg PO Q6HR PRN #30 tablet PRN Reason: Pain Continue RX: Multivitamins, Thera [Multivitamin (formulary)] 1 tab PO DAILY RX: atenoloL [Atenolol] 100 mg PO HS RX: Loratadine [Claritin] 10 mg PO DAILY PRN PRN Reason: Allergy Symptoms RX: Mirabegron [Myrbetriq] 25 mg PO DAILY RX: Acetaminophen Tab [Tylenol] 1,000 mg PO Q6HR PRN PRN Reason: Pain RX: Diclofenac Sodium [Voltaren Arthritis Pain 1% Gel] 2 gm TOPICAL QID PRN PRN Reason: Pain Discharge Medication List RX: Loratadine [Claritin] 10 mg PO DAILY PRN 10/23/19 [History] RX: Multivitamins, Thera [Multivitamin (formulary)] 1 tab PO DAILY 10/23/19 [History] RX: atenoloL [Atenolol] 100 mg PO HS 10/23/19 [History] RX: Mirabegron [Myrbetriq] 25 mg PO DAILY 10/24/19 [History] RX: Acetaminophen Tab [Tylenol] 1,000 mg PO Q6HR PRN 12/07/20 [History] RX: Diclofenac Sodium [Voltaren Arthritis Pain 1% Gel] 2 gm TOPICAL QID PRN 12/07/20 [History] Acetaminophen Tab [Tylenol Tab] 1,000 mg PO Q6HR PRN #30 tablet 12/08/20 [Rx] RX: Ibuprofen [Motrin] 600 mg PO Q8HR PRN #30 tab 12/08/20 [Rx] Follow up Appointment(s)/Referral(s): Lashaun Hopson MD [STAFF PHYSICIAN] - 12/13/20 Patient Instructions/Handouts: *[facility] - Managing Your Pain After Surgery Without Opioids, Pain Management After Surgery (DC), Lysis of Abdominal Adhesions (DC) Activity/Diet/Wound Care/Special Instructions: Using antibacterial soap. September shower. No bathtub soaks for 2 weeks, December 22 Use ice along incisions for today to prevent swelling. Take tylenol, aleve/ibuprofen, simethicone scheduled for 3 days for best pain relief Discharge Disposition: HOME SELF-CARE
== END 2020-12-08 14:21 | disposition home or self-care (01) | DRG 336 ==
LOC: 2ORMAIN 07:11
PROVIDERS: ADMIT Surgery Plastic and Reconstructive Surgery; ATTEND Surgery Plastic and Reconstructive Surgery
PROC: 8E0W4CZ Robotic Assisted Procedure of Trunk Region, Percutaneous Endoscopic Approach (ICD-10-PCS; 2020-12-08)
PROC: 0DNE4ZZ Release Large Intestine, Percutaneous Endoscopic Approach (ICD-10-PCS; principal; 2020-12-08 08:55)
DX: K43.0 Incisional hernia with obstruction, without gangrene (principal); K56.50 Intestinal adhesions [bands], unspecified as to partial versus complete obstruction; Z68.43 Body mass index [BMI] 50.0-59.9, adult; E66.01 Morbid (severe) obesity due to excess calories; E65 Localized adiposity; I11.9 Hypertensive heart disease without heart failure; M19.90 Unspecified osteoarthritis, unspecified site; G47.30 Sleep apnea, unspecified; Z90.49 Acquired absence of other specified parts of digestive tract; Z90.89 Acquired absence of other organs; Z90.710 Acquired absence of both cervix and uterus; Z82.3 Family history of stroke; Z83.2 Family history of diseases of the blood and blood-forming organs and certain disorders involving the immune mechanism; Z82.49 Family history of ischemic heart disease and other diseases of the circulatory system; Z96.651 Presence of right artificial knee joint; Z98.890 Other specified postprocedural states; Z88.6 Allergy status to analgesic agent; Z88.2 Allergy status to sulfonamides; Z79.899 Other long term (current) drug therapy; Z98.84 Bariatric surgery status
CPT/HCPCS: 64999; 76942; 80053; 85025

== ENCOUNTER → 2020-12-21 | Outpatient (CLI) | payer OTHER ==
[2020-12-21 14:47] LABS: INR 0.9 (<1.2); Partial Thromboplastin Time 28.8 sec (22.0-30.0)
[2020-12-21 20:03] LABS: HCT 48.8 % (37.2-46.3); HGB 14.9 g/dL (12.0-15.0); MCH 30.5 pg (27.0-32.0); MCHC 30.5 g/dL (32.0-37.0); Platelet Count 246 X 10*3/uL (140-440); RBC 4.88 X 10*6/uL (4.10-5.20); RDW 12.5 % (11.5-14.5); WBC 9.38 X 10*3/uL (4.50-10.00)
[2020-12-21 21:48] LABS: Hemoglobin A1C 6.1 % (4.0-6.0)
[2020-12-22 02:00] LABS: % Iron Saturation 33.56 (12.00-45.00); ALT 15 U/L (8-44); AST 21 U/L (13-35); African American GFR (CKD) 94.2 (60.0-200.0); Albumin/Globulin Ratio 1.37 (1.60-3.17); Alkaline Phosphatase 70 U/L (41-126); Calcium 8.8 mg/dL (8.7-10.3); Carbon Dioxide 27.6 mmol/L (21.6-31.8); Chloride 107 mmol/L (96-109); Chol/HDL Ratio 4.38; Cholesterol 171 mg/dL (0-200); Globulin 2.7 g/dL (1.6-3.3); Glucose 184 mg/dL (70-110); Iron 99 ug/dL (50-170); LDL Cholesterol,Calculated 84.6 mg/dL (0.0-131.0); Magnesium 1.7 mg/dL (1.5-2.4); Non-African American GFR(CKD) 81.3 (60.0-200.0); Phosphorus 3.1 mg/dL (2.4-5.1); Potassium 4.4 mmol/L (3.5-5.5); Sodium 145 mmol/L (135-145); Total Bilirubin 0.3 mg/dL (0.3-1.2); Total Iron Binding Capacity 295 ug/dL (228-460); Total Protein 6.4 g/dL (6.2-8.2)
[2020-12-22 02:11] LABS: Ferritin 91.8 ng/mL (10.0-291.0)
[2020-12-22 02:34] LABS: Folate, Serum >24.0 ng/mL
[2020-12-22 13:17] LABS: Zinc, Serum 80 ug/dL (60-130)
[2020-12-23 06:23] LABS: Vitamin A 52 ug/dL (38-106)
== END | disposition home or self-care (01) ==
LOC: LABWHC1 13:33
PROVIDERS: ATTEND Surgery Plastic and Reconstructive Surgery
DX: E66.01 Morbid (severe) obesity due to excess calories (principal); E89.1 Postprocedural hypoinsulinemia; D50.8 Other iron deficiency anemias; E44.0 Moderate protein-calorie malnutrition; E55.9 Vitamin D deficiency, unspecified; K74.1 Hepatic sclerosis; N19 Unspecified kidney failure; K50.90 Crohn's disease, unspecified, without complications
CPT/HCPCS: 36415; 80053; 80061; 82306; 82525; 82607; 82728; 82746; 83036; 83540; 83550; 83735; 83970; 84100; 84134; 84255; 84425; 84443; 84590; 84630; 85027; 85610; 85730

== ENCOUNTER 2021-02-10 10:34 | Inpatient (IN) | payer OTHER ==
[2021-02-07 09:56] VITALS: BMI 58.1
--- NOTE | 2021-02-10 10:02 | P.GSHP ---
History of Present Illness H&P Date: 02/10/21 CHIEF COMPLAINT: Ventral hernia. HISTORY OF PRESENT ILLNESS: The patient is a 61-year-old female who presents with swelling along the abdomen for over 1 month with pain and tenderness. Findings were consistent with ventral hernia. She reports change in bowel habits as a result. Now she presents for further evaluation and management. PAST MEDICAL HISTORY: Please see list and reviewed. PAST SURGICAL HISTORY: Please see list and reviewed. MEDICATIONS: Please see list and reviewed. ALLERGIES: Please see list and reviewed. SOCIAL HISTORY: Please see list and reviewed. FAMILY HISTORY: No reports of Crohn disease or ulcerative colitis. REVIEW OF ORGAN SYSTEMS: CONSTITUTIONAL: No reports of fevers or chills. Has morbid obesity.. GI: Denies any blood in stools or constipation. HEENT: Denies any trouble with vision, hearing or nosebleeds. No difficulty swallowing. LYMPHATIC: The patient denies any lumps and bumps around the neck. ENDOCRINE: Denies any thyroid disorders. Denies any blood sugar glucose intolerance. RESPIRATORY: Denies pneumonia. Denies any troubles with breathing or dyspnea on exertion. CARDIOVASCULAR: Denies any chest pain, palpitations, or recent heart attacks. GENITOURINARY: Denies any blood in urine or increased urinary frequency. MUSCULOSKELETAL: Denies any back pain, stiffness, joint arthritis. NEUROLOGIC: Denies any numbness or tingling along the distal extremities. No seizure disorders or headaches. PSYCHIATRIC: Has depression. No suidical ideation. HEMATOLOGIC: Denies any abnormal bleeding or bruising. BREASTS: Denies any breast lumps, pain or nipple discharge. PHYSICAL EXAM: VITAL SIGNS: Stable GENERAL: Well-developed pleasant female in no acute distress. HEENT: No scleral icterus. Extraocular movements grossly intact. Moist buccal mucosa. NECK: Supple without lymphadenopathy. CHEST: Unlabored respirations. Equal bilateral excursions. CARDIOVASCULAR: Regular rate and rhythm. Distal 2+ pulses. ABDOMEN: Soft, nondistended. Tender along the abdomen. Protuberant. MUSCULOSKELETAL: No clubbing, cyanosis, or edema. SKIN: Well perfused. PSYCH: Alert and oriented. No focal or lateralizing signs. ASSESSMENT: 1. Ventral hernia incisional hernia 2. Morbid obesity, BMI 58.2 PLAN: 1. Recommend proceeding with robotic ventral hernia repair with mesh. 2. Benefits and risks of surgical intervention was discussed including possibility of open technique. 3. DVT prophylaxis. 4. Antibiotic prophylaxis. 5. She is elevated risk with BMI over 35 and morbid obesity. Past Medical History Past Medical History: Hypertension, Osteoarthritis (OA), Sleep Apnea/CPAP/BIPAP Additional Past Medical History / Comment(s): HERNIA,no cpap,rt ankle weakness History of Any Multi-Drug Resistant Organisms: None Reported Past Surgical History: Adenoidectomy, Appendectomy, Bariatric Surgery, Cholecystectomy, Hysterectomy, Joint Replacement, Tonsillectomy Additional Past Surgical History / Comment(s): lap band, and lap band revision, eye surgery bilateral for lazy eye, repair wound dehiscence, D & C's, Lt knee bursa removal, Rt knee arthroscopies, right knee replaced,mult incisional hernia repairs Past Anesthesia/Blood Transfusion Reactions: No Reported Reaction, Family History of Problems w/ Anesthesia Additional Past Anesthesia/Blood Transfusion Reaction / Comment(s): "Woke up during surgery" WITH LEG SURGERY,no hx blood transfusion,mom w/ hx of lung problems had a problem with breathing after a surgery. Smoking Status: Never smoker - Past Family History Sister(s) Family Medical History: Deep Vein Thrombosis (DVT) Mother Family Medical History: Congestive Heart Failure (CHF), Coronary Artery Disease (CAD), CVA/TIA Additional Family Medical History / Comment(s): arthritis Father Family Medical History: Hypertension Additional Family Medical History / Comment(s): scoliosis, arthritis, alzihemers Medications and Allergies Home Medications Medication Instructions Recorded Confirmed Type Loratadine [Claritin] 10 mg PO DAILY PRN 10/23/19 02/07/21 History Multivitamins, Thera [Multivitamin 1 tab PO DAILY 10/23/19 02/07/21 History (formulary)] atenoloL 100 mg PO HS 10/23/19 02/07/21 History Mirabegron [Myrbetriq] 25 mg PO DAILY 10/24/19 02/07/21 History Diclofenac Sodium [Voltaren 2 gm TOPICAL QID PRN 12/07/20 02/07/21 History Arthritis Pain 1% Gel] Acetaminophen Tab [Tylenol Tab] 1,000 mg PO Q6HR PRN #30 tablet 12/08/20 Rx Ibuprofen [Motrin] 600 mg PO Q8HR PRN #30 tab 12/08/20 02/07/21 Rx Allergies Allergy/AdvReac Type Severity Reaction Status Date / Time bupropion HCl Allergy Rash/Hives Verified 02/07/21 08:44 [From Wellbutrin] Sulfa (Sulfonamide Allergy Swelling Verified 02/07/21 08:44 Antibiotics) codeine AdvReac Vomiting Verified 02/07/21 08:44 venom-honey bee AdvReac Swelling Verified 02/07/21 08:44 [bee venom (honey bee)]
[~2021-02-10 10:34] MED LIST changes: -HYDROmorphone 0.5 MG/0.5 ML SYRINGE IVP PRN; -LACTATED RINGERS 1,000 ML IV SCH; +LIDOCAINE 1% (10MG/ML) FOR IV START INTRADERMA PRN; +MIDAZOLAM 2 MG/2 ML VIAL IV PRN
[2021-02-10] MEDS: LACTATED RINGERS 1,000 ML IV SCH (10:47)
[2021-02-10 11:09] LABS: Glucose,Whole Blood 119 mg/dL (75-99)
[2021-02-10] MEDS ORDERED: MIDAZOLAM 2 MG/2 ML VIAL IVP ONE (11:20)
[2021-02-10] MEDS ORDERED: ROCURONIUM 10 MG/ML (5 ML VIAL) IV ONE (11:51)
[2021-02-10] MEDS ORDERED: NEOSTIGMINE 1 MG/ML 10 ML VIAL ONE (11:51)
[2021-02-10] MEDS ORDERED: ePHEDrine SULFATE/0.9% NACL/PF 50 MG/5 ML SYRINGE IV ONE (11:51)
[2021-02-10] MEDS ORDERED: ONDANSETRON 4 MG/2 ML VIAL ONE (11:51)
[2021-02-10] MEDS ORDERED: LIDOCAINE 1% INJ 10MG/ML (20 ML MDV) ONE (11:51)
[2021-02-10] MEDS ORDERED: SUCCINYLCHOLINE CHLORIDE 100 MG/5 ML SYR IV ONE (11:51)
[2021-02-10] MEDS ORDERED: DEXAMETHASONE SOD PHOSPHATE 4 MG/ML 1 ML VIAL ONE (11:51)
[2021-02-10] MEDS ORDERED: ROPIVACAINE 5 MG/ML 30 ML VIAL ONE (11:51)
[2021-02-10] MEDS ORDERED: fentaNYL (PF) 50 MCG/ML 2 ML AMP ONE (11:51)
[2021-02-10] MEDS ORDERED: GLYCOPYRROLATE 0.2 MG/ML 2 ML VIAL ONE (11:51)
[2021-02-10] MEDS ORDERED: PROPOFOL 10 MG/ML 20 ML VIAL IV ONE (11:51)
--- NOTE | 2021-02-10 12:28 | P.ANPRN ---
Procedure Note - Anesthesia - Nerve Block Performed Bilateral Erector Spinae Single Time Out Performed: Yes Date of Procedure: 02/10/21 Procedure Start Time: : Procedure Stop Time: :34 Location of Patient: PreOp Indication: Acute Post-Operative Pain, Requested by Surgeon Sedation Type: Sedate with meaningful contact maintained Preparation: Sterile Prep Position: Prone Needle Types: Pajunk Needle Gauge: 21 Ultrasound used to visualize needle placement: Yes Ultrasound used to observe medication spread: Yes Blood Aspirated: No Pain Paresthesia on Injection Noted: No Resistance on Injection: Normal Image Stored and Saved: Yes Events: Uneventful and Well Tolerated (Ropivacaine 0.5% 20 mL plus dexamethasone 4 mg given bilaterally at L2)
[2021-02-10] MEDS ORDERED: LIDOCAINE 2%-EPI 1:100,000 20 ML VIAL SQ ONE (12:35)
[2021-02-10] MEDS ORDERED: LACTATED RINGERS 1,000 ML IV ONE (14:22)
[2021-02-10] MEDS ORDERED: METOCLOPRAMIDE 5 MG/ML 2 ML VIAL IVP PRN (16:52)
[2021-02-10] MEDS ORDERED: NALOXONE 0.4 MG/ML 1 ML VIAL IV PRN (16:52)
[2021-02-10] MEDS ORDERED: LORATADINE 10 MG TAB PO PRN (16:57)
[2021-02-10] MEDS: HYDROmorphone 0.5 MG/0.5 ML SYRINGE IVP PRN ×2 (17:16→17:30)
--- NOTE | 2021-02-10 17:20 | P.OP ---
Date of Procedure: 02/10/21 Description of Procedure: SURGEON: RADU HARDY MD PREOPERATIVE DIAGNOSIS: 1. Large bowel obstruction due to incarcerated recurrent incisional hernia, left lower abdomen 2. Morbid obesity due to excess calories, BMI 56.9 3. Panniculitis 4. Hypertensive heart disease 5. History of multiple abdominal and pelvic surgery 6. Obstructive sleep apnea 7. End-stage bilateral knee osteoarthritis POSTOPERATIVE DIAGNOSIS: 1. Large bowel obstruction due to incarcerated recurrent incisional hernia, left lower abdomen 2. Morbid obesity due to excess calories, BMI 56.9 3. Panniculitis 4. Hypertensive heart disease 5. History of multiple abdominal and pelvic surgery 6. Obstructive sleep apnea 7. End-stage bilateral knee osteoarthritis OPERATION: 1. Open reduction and repair of large recurrent incarcerated incisional hernia, left lower abdomen 26 cm x 4 cm 2. Open lysis of adhesions, over 3 hours 3. Omentectomy for incarcerated recurrent incisional hernia ANESTHESIA: General with local, regional block ESTIMATED BLOOD LOSS: 100 mL SPECIMENS REMOVED: Omentum COMPLICATIONS: None. OPERATIVE FINDINGS: 1. Recurrent incarcerated incisional hernia involving the left lower abdomen and sigmoid colon with large bowel obstruction 2. Large grade 5 pannus over 40 pounds with incarcerated large bowel and subcutaneous tissue defect over 26 x 15 cm via 4 cm fascial defect 3. Multiple defects within hernia sac requiring extensive lysis of adhesions over 3 hours 4. Incarcerated transverse mesocolon and omentum subcutaneous tissue resected INDICATIONS: The patient is a 61-year-old female who presents with a large recurrent incarcerated incisional hernia and super morbid obesity with BMI of 56.9. Surgical intervention with combined robotic-assisted including open reduction and repair were reviewed. Benefit and risks including but not limited to bleeding, infection, recurrence, need for further surgery and placement of mesh were reviewed. Informed consent was obtained. DESCRIPTION: The patient was brought to the operating room and placed in supine position. After general induction, the abdomen was then prepped and draped in standard sterile fashion using chlorhexidine. Ioban draping was also placed. Prior to incision, a timeout protocol was confirmed with surgical team regarding patient's name including procedures to be performed. Preoperative medications were confirmed. A left upper quadrant 5 mm laparoscopic trocar entry was performed. The abdomen was insufflated to 15 mmHg pressure was she had tolerated. Diagnostic laparoscopy demonstrated adhesions of the left lower quadrant including an incarcerated incisional hernia. In her large 40+ pound pannus, the defect was palpated and identified in the left lower abdomen. The skin was anesthetized. A transverse 20 cm incision was made and deepened to the subcutaneous tissue. Using digital dissection, the hernia sac was circumferentially dissected and lysed with adhesions disrupted using electro-Bovie cautery including Enseal. To identify the neck of the hernia and reduce the incarcerated colon, a counter incision longitudinally was made for a T-incision. The superior portion of the incision was taken to the neck of the hernia sac. The fascial defect was palpated. Again extensive lysis of adhesions was performed for a total of 3 hours in combination. Using diagnostic laparoscopy, fascial edge was confirmed and entered. Carefully the fascial defect was circumferentially dissected free. The sigmoid colon was found twisted including omentum and transverse mesocolon that was densely adherent in multiple hernia sacs. These hernia sac was lysed. The hernia sac was debulked with omentectomy performed. The colon was viable. The measured fascial defect was 4 cm. As the entire fascial defect was cleaned, the sigmoid colon was reduced after extending the fascial defect superiorly. The defect was closed using double-stranded 0 PDS longitudinally. The depth of the subcutaneous tissue was over 4-1/2 to 5 inches. The subcutaneous tissue and deep fascia was reapproximated using 0 Vicryl in interrupted fashion. The skin incision was closed using running 3-0 Monocryl. The skin was cleansed with hydrogen peroxide. The trocar site was closed using 3-0 Monocryl. The incision was covered with surgical dressing Optifoam. At the end of the procedure, needle, sponge, and instrument count had been verified correct by the surgical product sales consultant. Extensive discussion with the family was performed including need for moderate weight loss due to high risk of recurrence with the patient's current body habitus.
[2021-02-10] MEDS: KETOROLAC 15 MG/ML 1 ML VIAL IVP SCH (17:40)
[2021-02-10] MEDS ORDERED: SODIUM CHLORIDE 0.9% 1,000 ML IV ONE (17:41)
[2021-02-10] MEDS: SODIUM CHLORIDE 0.9% 1,000 ML IV SCH (18:37)
[2021-02-10] MEDS: ACETAMINOPHEN TAB 500 MG TAB PO SCH (18:38)
[2021-02-10] MEDS: ONDANSETRON 4 MG/2 ML VIAL IVP SCH (18:38)
[2021-02-10 20:33] LABS: Glucose,Whole Blood 137 mg/dL (75-99)
[2021-02-10] MEDS: atenoloL 50 MG TAB PO SCH (22:42)
[2021-02-11] MEDS: KETOROLAC 15 MG/ML 1 ML VIAL IVP SCH ×4 (01:06→17:44)
[2021-02-11] MEDS: ACETAMINOPHEN TAB 500 MG TAB PO SCH ×4 (01:06→17:43)
[2021-02-11] MEDS: ONDANSETRON 4 MG/2 ML VIAL IVP SCH ×4 (01:07→17:49)
[2021-02-11] MEDS: PIPERACILLIN-TAZOBACTAM 3.375 GM in SODIUM CHLORIDE 0.9% 100 ML IVPB SCH ×3 (01:07→15:14)
[2021-02-11] MEDS: LACTATED RINGERS 1,000 ML IV SCH (08:47)
[2021-02-11] MEDS: NON FORMULARY DRUG (Mirabegron [Myrbetriq] 25 MG Tab.Er.24h) PO SCH (09:13)
[2021-02-11] MEDS: ENOXAPARIN 40 MG/0.4 ML SYRINGE SQ SCH (09:16)
[2021-02-11] MEDS: SODIUM CHLORIDE 0.9% 1,000 ML IV SCH ×2 (09:17→21:18)
--- NOTE | 2021-02-11 11:45 | P.PN ---
Progress Note - Text Progress Note Date: 02/11/21 Patient is status post open repair of recurrent hernia. She has complaints of some pain. On exam her lesser stable. Abdomen soft. Incisions clean and intact. Patient will receive supportive care.
[2021-02-11 12:02] LABS: Basophils % (A) 0 %; Eosinophils # (A) 0.4 k/uL (0-0.7); Eosinophils % (A) 4 %; HCT 39.4 % (34.0-46.0); HGB 12.8 gm/dL (11.4-16.0); Lymphocytes % (A) 10 %; MCH 31.9 pg (25.0-35.0); MCHC 32.5 g/dL (31.0-37.0); MCV 98.1 fL (80.0-100.0); Monocytes # (A) 0.6 k/uL (0-1.0); Monocytes % (A) 6 %; Neutrophils % (A) 79 %; Platelet Count 264 k/uL (150-450); RBC 4.01 m/uL (3.80-5.40); RDW 13.4 % (11.5-15.5); WBC 10.1 k/uL (3.8-10.6)
[2021-02-11 12:22] LABS: ALT 38 U/L (4-34); AST 124 U/L (14-36); African American GFR (CKD) >90 (>60 ml/min/1.73 sqM); Albumin 2.8 g/dL (3.5-5.0); Albumin/Globulin Ratio 0.8; Alkaline Phosphatase 50 U/L (38-126); Anion Gap 3 mmol/L; Blood Urea Nitrogen 21 mg/dL (7-17); Calcium 8.5 mg/dL (8.4-10.2); Carbon Dioxide 29 mmol/L (22-30); Chloride 106 mmol/L (98-107); Globulin 3.3 g/dL; Glucose 137 mg/dL (74-99); Non-African American GFR(CKD) 80 (>60 ml/min/1.73 sqM); Potassium 4.2 mmol/L (3.5-5.1); Sodium 138 mmol/L (137-145); Total Bilirubin 0.4 mg/dL (0.2-1.3); Total Protein 6.1 g/dL (6.3-8.2)
[2021-02-11] MEDS: atenoloL 50 MG TAB PO SCH (21:18)
[2021-02-12] MEDS: ONDANSETRON 4 MG/2 ML VIAL IVP SCH ×4 (00:48→17:44)
[2021-02-12] MEDS: PIPERACILLIN-TAZOBACTAM 3.375 GM in SODIUM CHLORIDE 0.9% 100 ML IVPB SCH ×3 (00:48→17:43)
[2021-02-12] MEDS: KETOROLAC 15 MG/ML 1 ML VIAL IVP SCH ×3 (00:48→12:45)
[2021-02-12] MEDS: ACETAMINOPHEN TAB 500 MG TAB PO SCH ×4 (00:49→17:44)
[2021-02-12] MEDS: ENOXAPARIN 40 MG/0.4 ML SYRINGE SQ SCH ×2 (09:37→09:43)
[2021-02-12] MEDS: LACTATED RINGERS 1,000 ML IV SCH (09:37)
[2021-02-12] MEDS: NON FORMULARY DRUG (Mirabegron [Myrbetriq] 25 MG Tab.Er.24h) PO SCH (09:43)
[2021-02-12] MEDS: SODIUM CHLORIDE 0.9% 1,000 ML IV SCH (09:43)
--- NOTE | 2021-02-12 11:14 | P.CONS ---
History of Present Illness - Reason for Consult Consult date: 02/11/21 - History of Present Illness Lesli Ferrer, is a 61-year-old female admitted to [facility] by Dr. Rey for ventral hernia. Patient reports that over the past month she has had pain and tenderness over abdomen. Patient underwent robotic ventral hernia repair with mesh on 02/10/2021. Additional medical history includes essential hypertension, morbid obesity and sleep apnea. At this time patient is currently resting comfortably in chair. Patient reports some abdominal discomfort. Patient denies any chest pain or shortness of breath. Patient has been urinating. Patient denies bowel movement at this time. Ambulation and incentive spirometer encouraged. Repeat labs ordered for a.m. Review of Systems Please refer to HPI otherwise unremarkable Past Medical History Past Medical History: Hypertension, Osteoarthritis (OA), Sleep Apnea/CPAP/BIPAP Additional Past Medical History / Comment(s): HERNIA,no cpap,rt ankle weakness History of Any Multi-Drug Resistant Organisms: None Reported Past Surgical History: Adenoidectomy, Appendectomy, Bariatric Surgery, Cholecystectomy, Hysterectomy, Joint Replacement, Tonsillectomy Additional Past Surgical History / Comment(s): lap band, and lap band revision, eye surgery bilateral for lazy eye, repair wound dehiscence, D & C's, Lt knee bursa removal, Rt knee arthroscopies, right knee replaced,mult incisional hernia repairs Past Anesthesia/Blood Transfusion Reactions: No Reported Reaction, Family History of Problems w/ Anesthesia Additional Past Anesthesia/Blood Transfusion Reaction / Comm: "Woke up during surgery" WITH LEG SURGERY,no hx blood transfusion,mom w/ hx of lung problems had a problem with breathing after a surgery. Past Psychological History: No Psychological Hx Reported Smoking Status: Never smoker Past Alcohol Use History: None Reported Past Drug Use History: None Reported - Past Family History Sister(s) Family Medical History: Deep Vein Thrombosis (DVT) Mother Family Medical History: Congestive Heart Failure (CHF), Coronary Artery Disease (CAD), CVA/TIA Additional Family Medical History / Comment(s): arthritis Father Family Medical History: Hypertension Additional Family Medical History / Comment(s): scoliosis, arthritis, alzihemers Medications and Allergies Home Medications Medication Instructions Recorded Confirmed Type Loratadine [Claritin] 10 mg PO DAILY PRN 10/23/19 02/07/21 History Multivitamins, Thera [Multivitamin 1 tab PO DAILY 10/23/19 02/07/21 History (formulary)] atenoloL 100 mg PO HS 10/23/19 02/10/21 History Mirabegron [Myrbetriq] 25 mg PO DAILY 10/24/19 02/10/21 History Diclofenac Sodium [Voltaren 2 gm TOPICAL QID PRN 12/07/20 02/07/21 History Arthritis Pain 1% Gel] Acetaminophen Tab [Tylenol Tab] 1,000 mg PO Q6HR PRN #30 tablet 02/11/21 Rx Ibuprofen [Motrin] 600 mg PO Q8HR PRN #30 tab 02/11/21 Rx Simethicone [Gas-X] 125 mg PO AC-TID PRN #20 cap 02/11/21 Rx Allergies Allergy/AdvReac Type Severity Reaction Status Date / Time bupropion HCl Allergy Rash/Hives Verified 02/10/21 10:48 [From Wellbutrin] Sulfa (Sulfonamide Allergy Swelling Verified 02/10/21 10:48 Antibiotics) codeine AdvReac Vomiting Verified 02/10/21 10:48 venom-honey bee AdvReac Swelling Verified 02/10/21 10:48 [bee venom (honey bee)] Physical Exam Vitals: Vital Signs Temp Pulse Pulse Resp BP Pulse Ox 02/11/21 14:00 97.9 F 65 18 98/68 90 L 02/11/21 08:45 18 02/11/21 07:48 98.1 F 57 L 18 93/57 90 L 02/11/21 02:26 98.5 F 62 18 104/67 97 02/10/21 21:28 97.5 F L 61 16 101/61 94 L 02/10/21 19:45 18 02/10/21 18:12 98.3 F 60 18 119/68 90 L 02/10/21 17:53 59 L 18 109/64 96 02/10/21 17:38 58 L 16 112/59 95 02/10/21 17:23 58 L 16 109/62 96 02/10/21 17:08 68 16 117/59 97 02/10/21 16:53 97.5 F L 78 16 113/59 93 L Intake and Output 02/11/21 02/11/21 02/11/21 06:59 14:59 22:59 Intake Total 200 Balance 200 Intake: Oral 200 Other: # Voids 1 2 # Bowel Movements 0 Head normocephalic Neck supple Lungs clear to auscultation bilaterally no wheezing or crackles Heart regular rate and rhythm S1-S2, no rub or gallop Abdomen is soft and rounded incisions clean dry and intact Extremities no edema Neuro alert and orientated to 3 Results CBC & Chem 7: 02/11/21 11:10 02/11/21 11:10 Labs: Abnormal Lab Results - Last 24 Hours (Table) 02/10/21 02/11/21 02/11/21 Range/Units 20:31 11:10 11:10 Neutrophils # 8.0 H (1.3-7.7) k/uL BUN 21 H (7-17) mg/dL Glucose 137 H (74-99) mg/dL POC Glucose (mg/dL) 137 H (75-99) mg/dL AST 124 H (14-36) U/L ALT 38 H (4-34) U/L Total Protein 6.1 L (6.3-8.2) g/dL Albumin 2.8 L (3.5-5.0) g/dL Assessment and Plan Assessment: 1. Large bowel obstruction due to incarcerated recurrent incisional hernia status post surgical repair on 02/10/[address] Duckworth 2. Morbid obesity 3. History of essential hypertension 4. History of sleep apnea 5. Osteoarthritis of the knee thank you for this consultation we'll continue to follow patient closely throughout stay
--- NOTE | 2021-02-12 11:16 | P.PN ---
Subjective Progress Note Date: 02/12/21 Lesli Ferrer, is a 61-year-old female admitted to [facility] by Dr. Rey for ventral hernia. Patient reports that over the past month she has had pain and tenderness over abdomen. Patient underwent robotic ventral hernia repair with mesh on 02/10/2021. Additional medical history includes essential hypertension, morbid obesity and sleep apnea. At this time patient is currently resting comfortably in chair. Patient reports some abdominal discomfort. Patient denies any chest pain or shortness of breath. Patient has been urinating. Patient denies bowel movement at this time. Ambulation and incentive spirometer encouraged. Repeat labs ordered for a.m. On 02/12/2021 patient alert and oriented 3. Patient currently postop day 2. Patient on regular diet. Patient reports she has been up ambulating. Denies bowel movement. Patient denies chest pain or shortness breath. Patient denies nausea vomiting or diarrhea. Patient denies any urinary burning or frequency. Repeat labs ordered for a.m. PT OT consulted for possible rehab placement upon discharge Objective - Vital Signs Vital signs: Vital Signs Temp 99.2 F 02/12/21 08:00 Pulse 70 02/12/21 08:00 Resp 16 02/12/21 08:00 BP 89/53 02/12/21 08:00 Pulse Ox 92 L 02/12/21 08:00 Intake & Output 02/11/21 02/12/21 02/12/21 18:59 06:59 18:59 Intake Total 400 Balance 400 Intake: Oral 400 Other: Voiding Method Toilet # Voids 2 2 # Bowel Movements 0 - Exam Head normocephalic Neck supple Lungs clear to auscultation bilaterally no wheezing or crackles Heart regular rate and rhythm S1-S2, no rub or gallop Abdomen is soft and rounded incisions clean dry and intact Extremities no edema Neuro alert and orientated to 3 - Labs CBC & Chem 7: 02/11/21 11:10 02/11/21 11:10 Labs: Abnormal Lab Results - Last 24 Hours (Table) 02/11/21 02/11/21 Range/Units 11:10 11:10 Neutrophils # 8.0 H (1.3-7.7) k/uL BUN 21 H (7-17) mg/dL Glucose 137 H (74-99) mg/dL AST 124 H (14-36) U/L ALT 38 H (4-34) U/L Total Protein 6.1 L (6.3-8.2) g/dL Albumin 2.8 L (3.5-5.0) g/dL Assessment and Plan Assessment: 1. Large bowel obstruction due to incarcerated recurrent incisional hernia status post surgical repair on 02/10/[address] Duckworth 2. Morbid obesity 3. History of essential hypertension 4. History of sleep apnea 5. Osteoarthritis of the knee thank you for this consultation we'll continue to follow patient closely throughout stay PT/OT service is consulted for possible rehab placement
--- NOTE | 2021-02-12 12:00 | P.PN ---
Progress Note - Text Progress Note Date: 02/12/21 Patient still has complaints of incisional pain. She is resting in bed. She has difficulty getting up. On exam vital signs are stable. Abdomen soft. Incision is clean dry tach. Excess was repair of recurrent incisional hernia. Patient will be most likely discharge home tomorrow.
[2021-02-12] MEDS: atenoloL 50 MG TAB PO SCH (21:45)
[2021-02-13] MEDS: SODIUM CHLORIDE 0.9% 1,000 ML IV SCH ×2 (00:02→16:40)
[2021-02-13] MEDS: ACETAMINOPHEN TAB 500 MG TAB PO SCH ×5 (00:54→23:38)
[2021-02-13] MEDS: ONDANSETRON 4 MG/2 ML VIAL IVP SCH ×5 (00:54→23:39)
[2021-02-13] MEDS: PIPERACILLIN-TAZOBACTAM 3.375 GM in SODIUM CHLORIDE 0.9% 100 ML IVPB SCH ×4 (00:58→23:39)
[2021-02-13] MEDS: LACTATED RINGERS 1,000 ML IV SCH (08:04)
[2021-02-13] MEDS: NON FORMULARY DRUG (Mirabegron [Myrbetriq] 25 MG Tab.Er.24h) PO SCH (08:05)
[2021-02-13] MEDS: ENOXAPARIN 40 MG/0.4 ML SYRINGE SQ SCH (08:11)
[2021-02-13 09:14] LABS: HCT 42.4 % (37.2-46.3); HGB 12.9 g/dL (12.0-15.0); MCH 31.2 pg (27.0-32.0); MCHC 30.4 g/dL (32.0-37.0); MCV 102.4 fL (80.0-97.0); Mean Platelet Volume 10.7 fL (9.5-12.2); Platelet Count 256 X 10*3/uL (140-440); RBC 4.14 X 10*6/uL (4.10-5.20); RDW 13.1 % (11.5-14.5); WBC 18.67 X 10*3/uL (4.50-10.00)
[2021-02-13 10:11] LABS: African American GFR (CKD) 81.1 (60.0-200.0); Albumin 3.7 g/dL (3.80-4.90); Albumin/Globulin Ratio 1.12 (1.60-3.17); Anion Gap 7.1 mmol/L (4.00-12.00); BUN/Creat Ratio 23.33 Ratio (12.00-20.00); Calcium 8.6 mg/dL (8.7-10.3); Carbon Dioxide 28.9 mmol/L (21.6-31.8); Globulin 3.3 g/dL (1.6-3.3); Potassium 4.6 mmol/L (3.5-5.5); Total Bilirubin 0.7 mg/dL (0.3-1.2)
[2021-02-13] MEDS: metroNIDAZOLE-NS PMX 500 MG in SALINE 1 100ML.BAG IVPB SCH ×3 (11:06→23:39)
[2021-02-13] MEDS: ALVIMOPAN 12 MG CAPSULE PO SCH ×2 (11:07→20:23)
[2021-02-13 11:32] LABS: Basophils # (A) 0.07 X 10*3/uL (0.00-0.10); Basophils % (A) 0.4 %; Eosinophils # (A) 0 X 10*3/uL (0.04-0.35); Eosinophils % (A) 0 %; Lymphocytes # (A) 1.45 X 10*3/uL (0.90-5.00); Lymphocytes % (A) 7.8 %; Monocytes # (A) 1.26 X 10*3/uL (0.20-1.00); Monocytes % (A) 6.7 %; Neutrophils # (A) 15.79 X 10*3/uL (1.80-7.70); Neutrophils % (A) 84.6 %
--- NOTE | 2021-02-13 18:45 | P.PN ---
Subjective Progress Note Date: 02/13/21 CHIEF COMPLAINT: Recurrent incarcerated incisional hernia with large bowel obstruction HISTORY OF PRESENT ILLNESS: The patient is a 61-year-old female with BMI over 56.9 including severe panniculus who is status post open repair of large recurrent incarcerated incisional hernia with large bowel obstruction involving sigmoid colon, 02/10/2021. She is postop day 3. She is passing some flatus. Pain is controlled. No reports of nausea vomiting. She is tolerating diet. She is ambulating. REVIEW OF ORGAN SYSTEMS: No chest pain. No fevers or chil2. ls. No nausea or vomiting. PHYSICAL EXAM: VITAL SIGNS: Stable GENERAL: Well-developed pleasant female in no acute distress. HEENT: No scleral icterus. Extraocular movements grossly intact. Moist buccal mucosa. NECK: Supple without lymphadenopathy. CHEST: Unlabored respirations. Equal bilateral excursions. CARDIOVASCULAR: Regular rate and rhythm. Distal 2+ pulses. ABDOMEN: Dressing intact. No cellulitis or infection. Abdominal binder present. MUSCULOSKELETAL: No clubbing, cyanosis, or edema. SKIN: Well perfused. PSYCH: Alert and oriented. No focal or lateralizing signs. LABS: Reviewed. White blood cell count elevated over 18,000 with expected postsurgical stress response ASSESSMENT: 1. Large recurrent incisional hernia with large bowel obstruction as well as sigmoid colon 2. Super morbid obesity, BMI 56.9 3. Severe grade 5 panniculosis PLAN: 1. Await bowel movement due to large bowel obstruction present on admission from incarcerated incisional hernia, recurrent 2. Extensive discussion of weight loss management reviewed including bariatric procedures to correct super morbid obesity. 3. Patient is high risk for recurrence due to body habitus 4. Social work including physical therapy and occupational therapy needs evaluated. 5. Discharge pending bowel movement including home health care needs. Objective - Vital Signs Vital signs: Vital Signs Temp 98.3 F 02/13/21 14:00 Pulse 86 02/13/21 14:00 Resp 17 02/13/21 14:00 BP 126/78 02/13/21 14:00 Pulse Ox 97 02/13/21 08:23 Intake & Output 02/12/21 02/13/21 02/13/21 18:59 06:59 18:59 Intake Total 200 Balance 200 Intake: Intake, IV Titration 200 Amount Piperacillin-Tazobactam 3 200 .375 gm In Sodium Chloride 0.9% 100 ml @ 25 mls/hr IVPB Q8HR [facility] Rx# :[id number] Other: Voiding Method Toilet Toilet # Voids 2 3 2 # Bowel Movements 1 - Labs CBC & Chem 7: 02/13/21 06:45 02/13/21 06:45 Labs: Abnormal Lab Results - Last 24 Hours (Table) 02/13/21 02/13/21 Range/Units 06:45 06:45 WBC 18.67 H (4.50-10.00) X 10*3/uL MCV 102.4 H (80.0-97.0) fL MCHC 30.4 L (32.0-37.0) g/dL Immature Gran # 0.10 H (0.00-0.04) X 10*3/uL Neutrophils # 15.79 H (1.80-7.70) X 10*3/uL Monocytes # 1.26 H (0.20-1.00) X 10*3/uL Eosinophils # 0 L (0.04-0.35) X 10*3/uL BUN/Creatinine Ratio 23.33 H (12.00-20.00) Ratio Glucose 136 H (70-110) mg/dL Calcium 8.6 L (8.7-10.3) mg/dL AST 63 H (13-35) U/L ALT 51 H (8-44) U/L Albumin 3.70 L (3.80-4.90) g/dL Albumin/Globulin Ratio 1.12 L (1.60-3.17) g/dL Assessment and Plan (1) Panniculus Current Visit: Yes Status: Acute Code(s): E65 - LOCALIZED ADIPOSITY SNOMED Code(s): 193068361 (2) BMI 60.0-69.9, adult Current Visit: No Status: Acute Code(s): Z68.44 - BODY MASS INDEX [BMI] 60.0-69.9, ADULT SNOMED Code(s): 915929117 (3) Incarcerated incisional hernia Current Visit: No Status: Acute Code(s): K43.0 - INCISIONAL HERNIA WITH OBSTRUCTION, WITHOUT GANGRENE SNOMED Code(s): 096920471 (4) Large bowel obstruction Current Visit: No Status: Acute Code(s): K56.609 - UNSP INTESTNL OBST, UNSP TO PARTIAL VERSUS COMPLETE OBST SNOMED Code(s): 332817471 (5) Morbid obesity due to excess calories Current Visit: No Status: Acute Code(s): E66.01 - MORBID (SEVERE) OBESITY DU E TO EXCESS CALORIES SNOMED Code(s): 462774159 (6) Osteoarthritis of knees, bilateral Current Visit: Yes Status: Acute Code(s): M17.0 - BILATERAL PRIMARY OSTEOARTHRITIS OF KNEE SNOMED Code(s): 701715229202437
--- NOTE | 2021-02-13 19:47 | P.PN ---
Subjective Progress Note Date: 02/13/21 Lesli Ferrer, is a 61-year-old female admitted to [facility] by Dr. Rey for ventral hernia. Patient reports that over the past month she has had pain and tenderness over abdomen. Patient underwent robotic ventral hernia repair with mesh on 02/10/2021. Additional medical history includes essential hypertension, morbid obesity and sleep apnea. At this time patient is currently resting comfortably in chair. Patient reports some abdominal discomfort. Patient denies any chest pain or shortness of breath. Patient has been urinating. Patient denies bowel movement at this time. Ambulation and incentive spirometer encouraged. Repeat labs ordered for a.m. On 02/12/2021 patient alert and oriented 3. Patient currently postop day 2. Patient on regular diet. Patient reports she has been up ambulating. Denies bowel movement. Patient denies chest pain or shortness breath. Patient denies nausea vomiting or diarrhea. Patient denies any urinary burning or frequency. Repeat labs ordered for a.m. PT OT consulted for possible rehab placement upon discharge On 02/13/2021 patient was seen and examined on the medical floor she is alert and oriented 3 in no apparent distress she is still complaining of abdominal pain especially when she is trying to walk, otherwise she denies any complaints there is no fever or chills no headache or dizziness no chest pain no shortness of breath no cough no nausea or vomiting no diarrhea no blood in the stools no burning with urination no frequency or urgency and no hematuria Objective - Vital Signs Vital signs: Vital Signs Temp 98.3 F 02/13/21 14:00 Pulse 86 02/13/21 14:00 Resp 17 02/13/21 14:00 BP 126/78 02/13/21 14:00 Pulse Ox 97 02/13/21 08:23 Intake & Output 02/13/21 02/13/21 02/14/21 06:59 18:59 06:59 Other: Voiding Method Toilet # Voids 3 2 # Bowel Movements 1 - Exam Head normocephalic Neck supple Lungs clear to auscultation bilaterally no wheezing or crackles Heart regular rate and rhythm S1-S2, no rub or gallop Abdomen is soft and rounded incisions clean dry and intact Extremities no edema Neuro alert and orientated to 3 - Labs CBC & Chem 7: 02/13/21 06:45 02/13/21 06:45 Labs: Abnormal Lab Results - Last 24 Hours (Table) 02/13/21 02/13/21 Range/Units 06:45 06:45 WBC 18.67 H (4.50-10.00) X 10*3/uL MCV 102.4 H (80.0-97.0) fL MCHC 30.4 L (32.0-37.0) g/dL Immature Gran # 0.10 H (0.00-0.04) X 10*3/uL Neutrophils # 15.79 H (1.80-7.70) X 10*3/uL Monocytes # 1.26 H (0.20-1.00) X 10*3/uL Eosinophils # 0 L (0.04-0.35) X 10*3/uL BUN/Creatinine Ratio 23.33 H (12.00-20.00) Ratio Glucose 136 H (70-110) mg/dL Calcium 8.6 L (8.7-10.3) mg/dL AST 63 H (13-35) U/L ALT 51 H (8-44) U/L Albumin 3.70 L (3.80-4.90) g/dL Albumin/Globulin Ratio 1.12 L (1.60-3.17) g/dL Assessment and Plan Assessment: 1. Large bowel obstruction due to incarcerated recurrent incisional hernia status post surgical repair on 02/10/[address] Duckworth 2. Morbid obesity 3. History of essential hypertension 4. History of sleep apnea 5. Osteoarthritis of the knee thank you for this consultation we'll continue to follow patient closely throughout stay PT/OT service is consulted for possible rehab placement
[2021-02-13 20:04] VITALS: RESP 18
[2021-02-13] MEDS: atenoloL 50 MG TAB PO SCH (20:23)
[2021-02-14] MEDS: SODIUM CHLORIDE 0.9% 1,000 ML IV SCH (02:16)
[2021-02-14] MEDS: metroNIDAZOLE-NS PMX 500 MG in SALINE 1 100ML.BAG IVPB SCH ×2 (05:38→12:08)
[2021-02-14] MEDS: ONDANSETRON 4 MG/2 ML VIAL IVP SCH (05:38)
[2021-02-14] MEDS: ACETAMINOPHEN TAB 500 MG TAB PO SCH ×2 (05:39→16:26)
[2021-02-14] MEDS: LACTATED RINGERS 1,000 ML IV SCH (07:53)
[2021-02-14] MEDS: ENOXAPARIN 40 MG/0.4 ML SYRINGE SQ SCH (07:54)
[2021-02-14] MEDS: ALVIMOPAN 12 MG CAPSULE PO SCH (07:54)
[2021-02-14] MEDS: PIPERACILLIN-TAZOBACTAM 3.375 GM in SODIUM CHLORIDE 0.9% 100 ML IVPB SCH (07:54)
[2021-02-14] MEDS: NON FORMULARY DRUG (Mirabegron [Myrbetriq] 25 MG Tab.Er.24h) PO SCH (07:55)
[2021-02-14 08:55] LABS: Basophils % (A) 0 %; Eosinophils # (A) 0.7 k/uL (0-0.7); Eosinophils % (A) 4 %; HCT 39.4 % (34.0-46.0); HGB 12.1 gm/dL (11.4-16.0); Lymphocytes # (A) 1.2 k/uL (1.0-4.8); Lymphocytes % (A) 7 %; MCH 31.1 pg (25.0-35.0); MCHC 30.8 g/dL (31.0-37.0); MCV 100.9 fL (80.0-100.0); Monocytes # (A) 0.8 k/uL (0-1.0); Monocytes % (A) 5 %; Neutrophils # (A) 13.5 k/uL (1.3-7.7); Neutrophils % (A) 82 %; Platelet Count 246 k/uL (150-450); RDW 12.7 % (11.5-15.5); WBC 16.4 k/uL (3.8-10.6)
[2021-02-14 15:07] VITALS: BP 130/81; PULSE 69; TEMP 97.7
--- NOTE | 2021-02-14 16:21 | P.DS ---
<Mercedez Muhammad - Last Filed: 02/14/21 16:17> Providers Expected date of discharge: 02/14/21 Hospital Course: Discharge diagnosis 1. Large recurrent incisional hernia with large bowel obstruction as well as sigmoid colon. 2. Super morbid obesity, BMI 56.9 3. Severe grade 5 panniculosis Hospital course The patient is a 61-year-old female who presents with a large recurrent incarcerated incisional hernia and super morbid obesity with BMI of 56.9. Patient is status post Open reduction and repair of large recurrent incarcerated incisional hernia, left lower abdomen, open lysis of adhesions and omentectomy for incarcerated recurrent incisional hernia. Patient reports her pain is cont rolled. She is tolerating diet. She is having bowel movements and flatus. She is afebrile. She has been up and ambulating. She is stable for discharge. Physician [employer] note has been reviewed by physician. Signing provider agrees with the documented findings, assessment, and plan of care. Patient Condition at Discharge: Good Plan - Discharge Summary Discharge Rx Participant: Yes New Discharge Prescriptions: New Simethicone [Gas-X] 125 mg PO AC-TID PRN #20 cap PRN Reason: Pain Ibuprofen [Motrin] 600 mg PO Q8HR PRN #30 tab PRN Reason: Pain Acetaminophen Tab [Tylenol Tab] 1,000 mg PO Q6HR PRN #30 tablet PRN Reason: Pain Continue Multivitamins, Thera [Multivitamin (formulary)] 1 tab PO DAILY atenoloL 100 mg PO HS Loratadine [Claritin] 10 mg PO DAILY PRN PRN Reason: Allergy Symptoms Mirabegron [Myrbetriq] 25 mg PO DAILY Diclofenac Sodium [Voltaren Arthritis Pain 1% Gel] 2 gm TOPICAL QID PRN PRN Reason: Pain Discontinued Ibuprofen [Motrin] 600 mg PO Q8HR PRN #30 tab PRN Reason: Pain Acetaminophen Tab [Tylenol] 1,000 mg PO Q6HR PRN #30 tablet PRN Reason: Pain Discharge Medication List Loratadine [Claritin] 10 mg PO DAILY PRN 10/23/19 [History] Multivitamins, Thera [Multivitamin (formulary)] 1 tab PO DAILY 10/23/19 [History] atenoloL 100 mg PO HS 10/23/19 [History] Mirabegron [Myrbetriq] 25 mg PO DAILY 10/24/19 [History] Diclofenac Sodium [Voltaren Arthritis Pain 1% Gel] 2 gm TOPICAL QID PRN 12/07/20 [History] Acetaminophen Tab [Tylenol Tab] 1,000 mg PO Q6HR PRN #30 tablet 02/11/21 [Rx] Ibuprofen [Motrin] 600 mg PO Q8HR PRN #30 tab 02/11/21 [Rx] Simethicone [Gas-X] 125 mg PO AC-TID PRN #20 cap 02/11/21 [Rx] Follow up Appointment(s)/Referral(s): Lashaun Hopson MD [STAFF PHYSICIAN] - 02/16/21 [facility], [NON-STAFF] - As Needed Patient Instructions/Handouts: *Surgery [facility] - Managing Your Pain After Surgery Without Opioids, Abdominal Binder (DC), Perforated Bowel (DC), Ventral Hernia Repair (DC) Activity/Diet/Wound Care/Special Instructions: DO NOT REMOVE DRESSINGS UNTIL Jan No lifting for 4 pounds in 4 weeks, March 12September shower. No bathtub soaks for 2 weeks, February 24. Wear abdominal binder daily for comfort except for showering. Using antibacterial soap. Use ice along incisions for today to prevent swelling. Discharge Disposition: HOME WITH HOME HEALTH SERVICES <Lashaun Hopson - Last Filed: 02/14/21 23:36> Providers Date of admission: 02/10/21 18:43 Attending physician: Lashaun Hopson Consults: 02/10/21 09:58 Consult Physician Routine Consulting Provider: [facility] Consult Reason/Comments: Regional block Do you want consulting provider notified?: Yes 02/11/21 10:29 Consult Physician Routine Consulting Provider: Ced Caceres Consult Reason/Comments: medical management Do you want consulting provider notified?: Yes Primary care physician: Chrissie Dumont - Discharge Diagnosis(es) (1) Incarcerated incisional hernia Status: Acute (2) Large bowel obstruction Status: Acute (3) Panniculus Status: Acute (4) BMI 60.0-69.9, adult Status: Acute (5) Morbid obesity due to excess calories Status: Acute (6) Osteoarthritis of knees, bilateral Status: Acute Hospital Course: POSTOPERATIVE DIAGNOSIS: 1. Large bowel obstruction due to incarcerated recurrent incisional hernia, left lower abdomen 2. Morbid obesity due to excess calories, BMI 56.9 3. Panniculitis 4. Hypertensive heart disease 5. History of multiple abdominal and pelvic surgery 6. Obstructive sleep apnea 7. End-stage bilateral knee osteoarthritis COURSE: The patient is a 61-year-old female with BMI over 56.9 including severe panniculus who is status post open repair of large recurrent incarcerated incisional hernia with large bowel obstruction involving sigmoid colon, 02/10/2021. She is postop day 4. She is passing flatus and having bowel movements. No reports of blood in stools. She is tolerating diet. Her pain is well-controlled. Prior to discharge, discharge instructions were reviewed. Patient was clinically stable. Procedures: OPERATION: 1. Open reduction and repair of large recurrent incarcerated incisional hernia, left lower abdomen 26 cm x 4 cm 2. Open lysis of adhesions, over 3 hours 3. Omentectomy for incarcerated recurrent incisional hernia ANESTHESIA: General with local, regional block ESTIMATED BLOOD LOSS: 100 mL SPECIMENS REMOVED: Omentum COMPLICATIONS: None. OPERATIVE FINDINGS: 1. Recurrent incarcerated incisional hernia involving the left lower abdomen and sigmoid colon with large bowel obstruction 2. Large grade 5 pannus over 40 pounds with incarcerated large bowel and subcutaneous tissue defect over 26 x 15 cm via 4 cm fascial defect 3. Multiple defects within hernia sac requiring extensive lysis of adhesions over 3 hours 4. Incarcerated transverse mesocolon and omentum subcutaneous tissue resected
== END 2021-02-14 17:05 | disposition home health service (06) | DRG 336 ==
LOC: OR 10:34 → 4SSUR 16:36 → OR 16:37 → 4SSUR 18:43
PROVIDERS: ADMIT Surgery Plastic and Reconstructive Surgery; ATTEND Surgery Plastic and Reconstructive Surgery
PROC: 0WQF0ZZ Repair Abdominal Wall, Open Approach (ICD-10-PCS; principal; 2021-02-10 11:50)
PROC: 8E0W0CZ Robotic Assisted Procedure of Trunk Region, Open Approach (ICD-10-PCS; principal; 2021-02-10 11:50)
PROC: 0DBU0ZZ Excision of Omentum, Open Approach (ICD-10-PCS; principal; 2021-02-10 11:50)
PROC: 0DNE0ZZ Release Large Intestine, Open Approach (ICD-10-PCS; principal; 2021-02-10 11:50)
DX: K43.0 Incisional hernia with obstruction, without gangrene (principal); Z68.43 Body mass index [BMI] 50.0-59.9, adult; E66.01 Morbid (severe) obesity due to excess calories; Z20.822 Contact with and (suspected) exposure to COVID-19; I11.9 Hypertensive heart disease without heart failure; K66.0 Peritoneal adhesions (postprocedural) (postinfection); G47.33 Obstructive sleep apnea (adult) (pediatric); M79.3 Panniculitis, unspecified; M17.0 Bilateral primary osteoarthritis of knee; Z79.899 Other long term (current) drug therapy; Z87.19 Personal history of other diseases of the digestive system; Z90.89 Acquired absence of other organs; Z98.84 Bariatric surgery status; Z90.49 Acquired absence of other specified parts of digestive tract; Z86.69 Personal history of other diseases of the nervous system and sense organs; Z96.651 Presence of right artificial knee joint; Z90.710 Acquired absence of both cervix and uterus; Z87.42 Personal history of other diseases of the female genital tract; Z98.890 Other specified postprocedural states; Z71.3 Dietary counseling and surveillance; Z88.5 Allergy status to narcotic agent; Z88.2 Allergy status to sulfonamides; Z88.8 Allergy status to other drugs, medicaments and biological substances; Z91.030 Bee allergy status; Z83.2 Family history of diseases of the blood and blood-forming organs and certain disorders involving the immune mechanism; Z82.49 Family history of ischemic heart disease and other diseases of the circulatory system; Z82.61 Family history of arthritis; Z82.3 Family history of stroke; Z82.69 Family history of other diseases of the musculoskeletal system and connective tissue; Z81.8 Family history of other mental and behavioral disorders
CPT/HCPCS: 64999; 80053; 85025; 87635; 88302; 94760

== ENCOUNTER → 2021-02-23 | Outpatient (CLI) | payer OTHER ==
[2021-02-23 18:15] LABS: HGB 12.7 g/dL (12.0-15.0); MCH 31.1 pg (27.0-32.0); MCHC 31.8 g/dL (32.0-37.0); Mean Platelet Volume 9.7 fL (9.5-12.2); Platelet Count 351 X 10*3/uL (140-440); RBC 4.08 X 10*6/uL (4.10-5.20); RDW 12.8 % (11.5-14.5); WBC 16.52 X 10*3/uL (4.50-10.00)
== END | disposition home or self-care (01) ==
LOC: LABWHC1 13:49
PROVIDERS: ATTEND Surgery Plastic and Reconstructive Surgery
DX: K52.9 Noninfective gastroenteritis and colitis, unspecified (principal)
CPT/HCPCS: 36415; 85027

== ENCOUNTER → 2021-02-28 | Outpatient (CLI) | payer OTHER ==
[2021-02-28 14:21] VITALS: BP 113/74; PULSE 71; RESP 16; TEMP 98.1
[2021-02-28] MEDS: SODIUM CHLORIDE 0.9% 1,000 ML IV SCH ×2 (14:28→15:28)
== END | disposition home or self-care (01) ==
LOC: PROCWHC3 13:18
PROVIDERS: ATTEND Surgery Plastic and Reconstructive Surgery
DX: E86.0 Dehydration (principal)
CPT/HCPCS: 96360; 96361

== ENCOUNTER → 2021-03-03 | Outpatient (CLI) | payer OTHER ==
--- NOTE | 2021-03-06 10:17 | CT ---
EXAMINATION TYPE: CT abdomen pelvis w con DATE OF EXAM: 03/03/2021 COMPARISON: 10/23/2019 INDICATION: Diverticulitis. Patient states she had hernia repair 02-10-21, diarrhea since. DLP: 4369.4 mGycm, Automated exposure control for dose reduction was used. CONTRAST: 100 mL of Isovue M300. Study performed with Oral Contrast TECHNIQUE: Axial images were obtained from above the diaphragm to the pubic rami in the axial plane a t 5 mm thick sections. Reconstructed images are reviewed on the computer in the coronal plane. Imag es are presented to 03/06/2021 for final dictation. FINDINGS: Limited CT sections are obtained the lung bases. The lung bases are clear. There is less present. N o definite renal hernia. CT ABDOMEN: Liver: Normal Spleen: Normal Pancreas: Normal Adrenal glands: The adrenal glands are normal. Gallbladder: Surgically absent Kidneys: No masses are evident. No hydronephrosis is present. The radius as the superior pole right kidney. A fat-containing lesion appears to be the posterior superior left kidney. Delayed images we re obtained through the kidneys, which remain unremarkable. Aorta: Normal Inferior vena cava: Normal. CT PELVIS: There is a 7.2 x 13.4 cm collection in the anterior left subcutaneous tissues. Tiny amount of air is present superiorly. Correlate for abscess formation. Recent surgery hematoma could be cons idered. Within the intraperitoneal region there are inflammatory changes adjacent to the mid to distal transv erse colon. Correlate for acute diverticulitis. This is a deep to the peritoneal air at the location of the superior margin of the suspected abscess. No obstruction is evident. Contrast passes beyond th is level into the descending colon to the level of the rectum. There are loops of bowel which are incompletely distended or lack oral contrast limiting their evalu ation. Appendix: Not visualized. No suspicious inflammatory changes are evident. Urinary bladder: Normal. Genitourinary structures: Uterus and adnexa appear normal. Osseous structures: No suspicious lytic or sclerotic lesions. IMPRESSIONS: 1. 7.2 x 13.4 cm homogenous collection within the subcutaneous tissues. Hematoma should be considere d. Abscess and phlegmon are within the differential. No well-formed wall is evident. 2. Inflammatory changes adjacent to the transverse colon at the level of the surgical site no obstruc tion is evident. No intraperitoneal free air is identified. Some free air may be at the surgical site within the abdominal musculature. 3. Small amount of free air may be adjacent to the inflammatory changes superior border within subcut aneous tissue. This could be postsurgical in nature.
== END | disposition home or self-care (01) ==
LOC: RADCTMAIN 13:43
PROVIDERS: ATTEND Surgery Plastic and Reconstructive Surgery
DX: K57.32 Diverticulitis of large intestine without perforation or abscess without bleeding (principal)
CPT/HCPCS: 74177; Q9967 ×2

== ENCOUNTER 2021-03-06 09:28 | Inpatient (IN) | payer OTHER ==
[2021-03-06] MEDS ORDERED: SODIUM CHLORIDE 0.9% 1,000 ML IV STA ×2 (09:48)
[2021-03-06] MEDS ORDERED: PIPERACILLIN-TAZOBACTAM 3.375 GM in SODIUM CHLORIDE 0.9% 100 ML IVPB STA (09:50)
[2021-03-06] MEDS ORDERED: VANCOMYCIN IV PER PHARMACY 1 EACH MISC MISCELLANE PRN (09:50)
[2021-03-06] MEDS ORDERED: VANCOMYCIN 2,000 MG in SODIUM CHLORIDE 0.9% 500 ML 500 ML IVPB STA (09:53)
[2021-03-06] MEDS ORDERED: SODIUM CHLORIDE 0.9% 1,000 ML IV ONE (10:00)
[2021-03-06] MEDS ORDERED: NALOXONE 0.4 MG/ML 1 ML VIAL IV PRN (10:01)
--- NOTE | 2021-03-06 10:15 | ED ---
General Adult HPI - General Chief complaint: Skin/Abscess/Foreign Body Stated complaint: post surgical infection Time Seen by Provider: 03/06/21 09:36 Source: patient, RN notes reviewed, old records reviewed Mode of arrival: wheelchair Limitations: physical limitation - History of Present Illness Initial comments: 61-year-old female presenting with concern for incisional drainage. Patient is proximal with 3 weeks postop abdominal hernia repair. She had noticed some brown drainage from her incision this morning. No fever. No significant pain. There was a large amount of fluid that was draining. - Related Data Home Medications Medication Instructions Recorded Confirmed Loratadine [Claritin] 10 mg PO DAILY PRN 10/23/19 02/28/21 Multivitamins, Thera [Multivitamin 1 tab PO DAILY 10/23/19 02/28/21 (formulary)] atenoloL 100 mg PO HS 10/23/19 02/28/21 Mirabegron [Myrbetriq] 25 mg PO DAILY 10/24/19 02/28/21 Diclofenac Sodium [Voltaren 2 gm TOPICAL QID PRN 12/07/20 02/28/21 Arthritis Pain 1% Gel] Ciprofloxacin HCl [Cipro] 500 mg PO BID 02/28/21 02/28/21 metroNIDAZOLE [Flagyl] 500 mg PO DAILY 02/28/21 02/28/21 Previous Rx's Medication Instructions Recorded Acetaminophen Tab [Tylenol Tab] 1,000 mg PO Q6HR PRN #30 tablet 02/11/21 Ibuprofen [Motrin] 600 mg PO Q8HR PRN #30 tab 02/11/21 Simethicone [Gas-X] 125 mg PO AC-TID PRN #20 cap 02/11/21 Allergies Allergy/AdvReac Type Severity Reaction Status Date / Time bupropion HCl Allergy Rash/Hives Verified 03/06/21 09:35 [From Wellbutrin] Sulfa (Sulfonamide Allergy Swelling Verified 03/06/21 09:35 Antibiotics) codeine AdvReac Vomiting Verified 03/06/21 09:35 venom-honey bee AdvReac Swelling Verified 03/06/21 09:35 [bee venom (honey bee)] Review of Systems ROS Statement: Those systems with pertinent positive or pertinent negative responses have been documented in the HPI. ROS Other: All systems not noted in ROS Statement are negative. Past Medical History Past Medical History: Hypertension, Osteoarthritis (OA), Sleep Apnea/CPAP/BIPAP Additional Past Medical History / Comment(s): HERNIA,no cpap,rt ankle weakness History of Any Multi-Drug Resistant Organisms: None Reported Past Surgical History: Adenoidectomy, Appendectomy, Bariatric Surgery, Cholecystectomy, Hernia Repair, Hysterectomy, Joint Replacement, Tonsillectomy Additional Past Surgical History / Comment(s): lap band, and lap band revision, eye surgery bilateral for lazy eye, repair wound dehiscence, D & C's, Lt knee bursa removal, Rt knee arthroscopies, right knee replaced,mult incisional hernia repairs Past Anesthesia/Blood Transfusion Reactions: No Reported Reaction, Family History of Problems w/ Anesthesia Additional Past Anesthesia/Blood Transfusion Reaction / Comment(s): "Woke up during surgery" WITH LEG SURGERY,no hx blood transfusion,mom w/ hx of lung problems had a problem with breathing after a surgery. Past Psychological History: No Psychological Hx Reported Smoking Status: Never smoker Past Alcohol Use History: None Reported Past Drug Use History: None Reported - Past Family History Sister(s) Family Medical History: Deep Vein Thrombosis (DVT) Mother Family Medical History: Congestive Heart Failure (CHF), Coronary Artery Disease (CAD), CVA/TIA Additional Family Medical History / Comment(s): arthritis Father Family Medical History: Hypertension Additional Family Medical History / Comment(s): scoliosis, arthritis, alzihemers General Exam Limitations: physical limitation General appearance: alert, in no apparent distress Head exam: Present: atraumatic, normocephalic Eye exam: Present: normal appearance, PERRL ENT exam: Present: normal exam Neck exam: Present: normal inspection. Absent: tenderness, meningismus Respiratory exam: Present: normal lung sounds bilaterally. Absent: respiratory distress, wheezes Cardiovascular Exam: Present: regular rate, normal rhythm GI/Abdominal exam: Present: other (Brown purulent drainage from the left lateral edge of her incision no surrounding erythema. This is draining from a very large abdominal pannus.) Neurological exam: Present: alert Psychiatric exam: Present: normal affect, normal mood Skin exam: Present: warm, dry, intact Course Vital Signs 03/06/21 09:32 Temperature 99.1 F Pulse Rate 70 Respiratory 18 Rate Blood Pressure 79/46 O2 Sat by Pulse 92 L Oximetry Medical Decision Making - Medical Decision Making 61-year-old female with Brown foul-smelling drainage from anterior abdominal incision. I did discuss case with Dr. Hopson, who will admit for further evaluation treatment. The patient is initiated on antibiotics. She had a CT performed 3 days ago. The radiology interpretation is currently pending. Blood cultures, laboratory testing is pending. Disposition Clinical Impression: Panniculitis Disposition: ADMITTED IP TO THIS [facility] Condition: Stable Is patient prescribed a controlled substance at d/c from ED?: No Referrals: Chrissie Dumont MD [Primary Care Provider] - 1-2 days Decision to Admit Reason: Admit from EC Decision Date: 03/06/21 Decision Time: 10:15
[2021-03-06 10:16] LABS: Basophils # (A) 0.1 k/uL (0-0.2); Basophils % (A) 0 %; Eosinophils % (A) 0 %; HGB 13.7 gm/dL (11.4-16.0); Lymphocytes # (A) 0.8 k/uL (1.0-4.8); Lymphocytes % (A) 5 %; MCH 31.2 pg (25.0-35.0); MCHC 31.9 g/dL (31.0-37.0); MCV 97.8 fL (80.0-100.0); Mean Platelet Volume 7.5; Monocytes # (A) 0.8 k/uL (0-1.0); Monocytes % (A) 5 %; Neutrophils # (A) 13.6 k/uL (1.3-7.7); Neutrophils % (A) 88 %; Platelet Count 407 k/uL (150-450); RDW 12.8 % (11.5-15.5); WBC 15.4 k/uL (3.8-10.6)
[2021-03-06 10:30] LABS: INR 1.5 (<1.2); Partial Thromboplastin Time 28.5 sec (22.0-30.0); Prothrombin Time 14.8 sec (9.0-12.0)
[2021-03-06 10:37] LABS: Albumin 2.8 g/dL (3.5-5.0); Calcium 8.3 mg/dL (8.4-10.2); Potassium 4.9 mmol/L (3.5-5.1); Total Bilirubin 0.8 mg/dL (0.2-1.3); Total Protein 6.9 g/dL (6.3-8.2)
[2021-03-06] MEDS ORDERED: IOPAMIDOL CONTRAST (ORAL USE) VIAL PO PRN (13:58)
--- NOTE | 2021-03-06 14:21 | P.GSHP ---
History of Present Illness H&P Date: 03/06/21 CHIEF COMPLAINT: Drainage from incision site HISTORY OF PRESENT ILLNESS: This is a 61-year-old female who is status post open reduction and repair of large recurrent incarcerated incisional hernia on 02/10/2021 for large bowel obstruction due to incarcerated recurrent incisional hernia. She presents to the hospital with complaints of drainage from her incision site that started this morning. She reports that it smells like stool and is brownish in color. She denies any significant abdominal pain. White count was elevated at 15.4. She denies any nausea vomiting. Denies any fever or chills. Patient does report a decreased appetite. PAST MEDICAL HISTORY: See list PAST SURGICAL HISTORY: See list. MEDICATIONS: See list. ALLERGIES: See list. SOCIAL HISTORY: No illicit drug use. REVIEW OF SYSTEMS: CONSTITUTIONAL: Denies fever or chills. HEENT: Denies blurred vision, vision changes, or eye pain. Denies hemoptysis ENDOCRINE: Denies heat or cold intolerance. CARDIOVASCULAR: Denies chest pain or pressure. RESPIRATORY: No shortness of breath. GASTROINTESTINAL: Please refer to HPI otherwise unremarkable NEURO: Denies history of seizures. PSYCH: No depression or suicidal ideation HEMATOLOGIC: Denies bleeding disorders. LYMPHATIC: The patient denies any lumps and bumps around the neck. GENITOURINARY: Denies any blood in urine or increased urinary frequency. MUSCULOSKELETAL: Denies myalgias. Denies joint swelling. Denies decreased range of motion beyond patients baseline. SKIN: Denies pruitis. Denies rash. PHYSICAL EXAM: VITAL SIGNS: Reviewed GENERAL: Well-developed in no acute distress. HEENT: No sclera icterus. Extraocular movements grossly intact. Moist buccal mucosa. Head is atraumatic, normocephalic. Hears conversational speech. No nasal drainage. NECK: Supple without lymphadenopathy. CHEST: Non-labored respirations and equal bilateral excursions. CARDIOVASCULAR: Palpable 2+ radial pulses. ABDOMEN: Soft. Nondistended. Lower abdominal incision with brownish drainage and odor that resembles stool. Mild erythema around lower incision site. Large pannus MUSCULOSKELETAL: No clubbing or cyanosis. NEUROLOGIC: No focal or lateralizing signs. Cranial nerves II through XII grossly intact. PSYCH: Appropriate affect. Alert and oriented to person, place and time. SKIN: Well perfused. Good skin turgor. LABORATORY DATA: WBC is 15.4 hemoglobin 13.7 platelets 407 INR 1.5 sodium 1:30 creatinine 0.90 lactic 1.3 Calcium 8.[address] 50 ALT 20 alk phos 71 Covid not detected IMAGING: Computed tomography scan abdomen and pelvis done on 03/03/2021 shows a 7.2 x 13.4 cm homogenous collection within the subcutaneous tissues. Hematoma should be considered. Abscess and phlegmon are within the differential. No well-form ed wall is evident. Inflammatory changes adjacent to the transverse colon at the level of surgical site no obstruction is evident. No intraperitoneal free air identified. Some free air may be at the surgical site within the abdominal musculature. Small amount of free air may be adjacent to inflammatory changes superior border with subcutaneous tissue. This could be postsurgical in nature. ASSESSMENT: 1. Abdominal incision infection with drainage 2. status post open reduction and repair of large recurrent incarcerated incisional hernia on 02/10/2021 for large bowel obstruction due to incarcerated recurrent incisional hernia 3. Morbid obesity 4. Hypertensive heart disease 5. History of multiple abdominal and pelvic surgeries 6. Obstructive sleep apnea 7. Osteoarthritis bilateral lower extremities PLAN: -Check computed tomography scan of abdomen and pelvis with oral and IV contrast due to possible new fistula -Place patient on broad-spectrum antibiotics with Zosyn and Flagyl -Obtain aerobic and anaerobic cultures of drainage -Start full liquid diet for now -Discontinue vancomycin Physician Geophysicist note has been reviewed by physician. Signing provider agrees with the documented findings, assessment, and plan of care. Past Medical History Past Medical History: Hypertension, Osteoarthritis (OA), Sleep Apnea/CPAP/BIPAP Additional Past Medical History / Comment(s): HERNIA,no cpap,rt ankle weakness History of Any Multi-Drug Resistant Organisms: None Reported Past Surgical History: Adenoidectomy, Appendectomy, Bariatric Surgery, Cholecystectomy, Hernia Repair, Hysterectomy, Joint Replacement, Tonsillectomy Additional Past Surgical History / Comment(s): lap band, and lap band revision, eye surgery bilateral for lazy eye, repair wound dehiscence, D & C's, Lt knee bursa removal, Rt knee arthroscopies, right knee replaced,mult incisional hernia repairs Past Anesthesia/Blood Transfusion Reactions: No Reported Reaction, Family History of Problems w/ Anesthesia Additional Past Anesthesia/Blood Transfusion Reaction / Comment(s): "Woke up during surgery" WITH LEG SURGERY,no hx blood transfusion,mom w/ hx of lung problems had a problem with breathing after a surgery. Past Psychological History: No Psychological Hx Reported Smoking Status: Never smoker Past Alcohol Use History: None Reported Past Drug Use History: None Reported - Past Family History Sister(s) Family Medical History: Deep Vein Thrombosis (DVT) Mother Family Medical History: Congestive Heart Failure (CHF), Coronary Artery Disease (CAD), CVA/TIA Additional Family Medical History / Comment(s): arthritis Father Family Medical History: Hypertension Additional Family Medical History / Comment(s): scoliosis, arthritis, alzihemers Medications and Allergies Home Medications Medication Instructions Recorded Confirmed Type Loratadine [Claritin] 10 mg PO DAILY PRN 10/23/19 03/06/21 History Multivitamins, Thera [Multivitamin 1 tab PO DAILY 10/23/19 03/06/21 History (formulary)] atenoloL 100 mg PO HS 10/23/19 03/06/21 History Mirabegron [Myrbetriq] 25 mg PO DAILY 10/24/19 03/06/21 History Diclofenac Sodium [Voltaren 2 gm TOPICAL QID PRN 12/07/20 03/06/21 History Arthritis Pain 1% Gel] Ciprofloxacin HCl [Cipro] 500 mg PO Q12H 02/28/21 03/06/21 History metroNIDAZOLE [Flagyl] 500 mg PO Q8H 02/28/21 03/06/21 History Allergies Allergy/AdvReac Type Severity Reaction Status Date / Time adhesive tape Allergy Rash/Hives Verified 03/06/21 10:42 bupropion HCl Allergy Rash/Hives Verified 03/06/21 10:42 [From Wellbutrin] Sulfa (Sulfonamide Allergy Itching Verified 03/06/21 10:42 Antibiotics) venom-honey bee Allergy Swelling Verified 03/06/21 10:42 [bee venom (honey bee)] codeine AdvReac Vomiting Verified 03/06/21 10:42 Surgical - Exam Vital Signs Temp Pulse Resp BP Pulse Ox 99.1 F 70 18 79/46 92 L 03/06/21 09:32 03/06/21 09:32 03/06/21 09:32 03/06/21 09:32 03/06/21 09:32 Results - Labs 03/06/21 09:57 10/11/21 09:57 Abnormal Lab Results - Last 24 Hours (Table) 03/06/21 03/06/21 03/06/21 Range/Units 09:57 09:57 09:57 WBC 15.4 H (3.8-10.6) k/uL Neutrophils # 13.6 H (1.3-7.7) k/uL Lymphocytes # 0.8 L (1.0-4.8) k/uL PT 14.8 H (9.0-12.0) sec INR 1.5 H (<1.2) Sodium 130 L (137-145) mmol/L Chloride 95 L (98-107) mmol/L BUN 19 H (7-17) mg/dL Glucose 161 H (74-99) mg/dL Plasma Lactic Acid Adria (0.7-2.0) mmol/L Calcium 8.3 L (8.4-10.2) mg/dL AST 50 H (14-36) U/L Albumin 2.8 L (3.5-5.0) g/dL 03/06/21 Range/Units 09:57 WBC (3.8-10.6) k/uL Neutrophils # (1.3-7.7) k/uL Lymphocytes # (1.0-4.8) k/uL PT (9.0-12.0) sec INR (<1.2) Sodium (137-145) mmol/L Chloride (98-107) mmol/L BUN (7-17) mg/dL Glucose (74-99) mg/dL Plasma Lactic Acid Adria 3.1 H* (0.7-2.0) mmol/L Calcium (8.4-10.2) mg/dL AST (14-36) U/L Albumin (3.5-5.0) g/dL Diabetes panel 03/06/21 Range/Units 09:57 Sodium 130 L (137-145) mmol/L Potassium 4.9 (3.5-5.1) mmol/L Chloride 95 L (98-107) mmol/L Carbon Dioxide 24 (22-30) mmol/L BUN 19 H (7-17) mg/dL Creatinine 0.90 (0.52-1.04) mg/dL Glucose 161 H (74-99) mg/dL Calcium 8.3 L (8.4-10.2) mg/dL AST 50 H (14-36) U/L ALT 20 (4-34) U/L Alkaline Phosphatase 71 (38-126) U/L Total Protein 6.9 (6.3-8.2) g/dL Albumin 2.8 L (3.5-5.0) g/dL Calcium panel 03/06/21 Range/Units 09:57 Calcium 8.3 L (8.4-10.2) mg/dL Albumin 2.8 L (3.5-5.0) g/dL Pituitary panel 03/06/21 Range/Units 09:57 Sodium 130 L (137-145) mmol/L Potassium 4.9 (3.5-5.1) mmol/L Chloride 95 L (98-107) mmol/L Carbon Dioxide 24 (22-30) mmol/L BUN 19 H (7-17) mg/dL Creatinine 0.90 (0.52-1.04) mg/dL Glucose 161 H (74-99) mg/dL Calcium 8.3 L (8.4-10.2) mg/dL Adrenal panel 03/06/21 Range/Units 09:57 Sodium 130 L (137-145) mmol/L Potassium 4.9 (3.5-5.1) mmol/L Chloride 95 L (98-107) mmol/L Carbon Dioxide 24 (22-30) mmol/L BUN 19 H (7-17) mg/dL Creatinine 0.90 (0.52-1.04) mg/dL Glucose 161 H (74-99) mg/dL Calcium 8.3 L (8.4-10.2) mg/dL Total Bilirubin 0.8 (0.2-1.3) mg/dL AST 50 H (14-36) U/L ALT 20 (4-34) U/L Alkaline Phosphatase 71 (38-126) U/L Total Protein 6.9 (6.3-8.2) g/dL Albumin 2.8 L (3.5-5.0) g/dL
[2021-03-06] MEDS: metroNIDAZOLE-NS PMX 500 MG in SALINE 1 100ML.BAG IVPB SCH ×2 (16:29→23:42)
[2021-03-06] MEDS ORDERED: ONDANSETRON 4 MG/2 ML VIAL IVP STA (17:07)
[2021-03-06] MEDS: PIPERACILLIN-TAZOBACTAM 3.375 GM in SODIUM CHLORIDE 0.9% 100 ML IVPB SCH ×2 (17:18→23:42)
--- NOTE | 2021-03-06 17:20 | CT ---
EXAMINATION TYPE: CT abdomen pelvis w con DATE OF EXAM: 03/06/2021 COMPARISON: 03/03/2021 HISTORY: Drainage from incision. Abdominal pain. CT DLP: 4729 mGycm Automated exposure control for dose reduction was used. CONTRAST: CT scan of the abdomen pelvis is performed with IV Contrast, patient injected with 100 mL of Isovue 3 00. FINDINGS- LUNG BASES- No significant abnormality is appreciated. LIVER/GB-reduced attenuation of the liver is nonspecific but suggestive of hepatic steatosis. Correla te with liver function exams. Postcholecystectomy changes noted. PANCREAS- No gross abnormality is seen. SPLEEN- No gross abnormality is seen. ADRENALS- No gross abnormality is seen. KIDNEYS/BLADDER-no hydronephrosis or nephrolithiasis. Simple appearing upper pole right renal cyst no claribel. There is a fatty lesion stable involving the left kidney which angiomyolipoma or lipoma.. BOWEL-there is a large subcutaneous abscess with intra-abdominal extension measuring approximately 10 x 14 x 17 cm extending from the midline to the left of the abdomen with extensive subcutaneous edema . Extends across the rectus muscle into the intra-abdominal cavity with additional collection measuri ng 6.2 cm. There are areas of free air within the abdomen. Active leak free intraperitoneal air or ru ptured viscus in the differential diagnosis. Contrast is seen to extend into the abscess collection w ithin the subcutaneous tissues. Diverticulosis of the colon. Lap band surgery noted.. There is indura tion of pericolonic inflammatory change in the region of the transverse colon which appears to be imm ediately adjacent to the intra-abdominal abscess. LYMPH NODES- No greater than 1cm abdominal or pelvic lymph nodes areappreciated. Cardiac adenopathy in the region of the OSSEOUS STRUCTURES-hypertrophic and degenerative changes of the spine. Arthropathy of the SI joints.. OTHER- postsurgical changes involving anterior abdominal wall. Aorta of normal caliber. IMPRESSION- 1. Marked interval increase in size in the large subcutaneous fluid collection which now measures 10 x 14 x 17 cm and contains contrast and may be contiguous with a additional 6 mm abscess cavity intra- abdominal. Intra-abdominal abscess cavity with a small amount of adjacent free air is noted. This alfred ears to be adjacent to a segment of transverse colon with surrounding inflammatory changes correlate for abscess with ruptured viscus free air. Report called to patient's nurse at 5:00 PM 03/06/2021. 2. Fat-containing lesion left kidney most likely in the basis of an angiomyolipoma. 3. Skin thickening and diffuse subcutaneous edema anterior abdominal wall correlate for cellulitis.
[2021-03-07] MEDS ORDERED: VANCOMYCIN 2,000 MG in SODIUM CHLORIDE 0.9% 500 ML 500 ML IVPB SCH (02:00)
[2021-03-07 04:14] LABS: Basophils % (A) 0 %; Eosinophils # (A) 0.1 k/uL (0-0.7); Eosinophils % (A) 1 %; HCT 38.3 % (34.0-46.0); HGB 11.7 gm/dL (11.4-16.0); Hypochromasia Slight; Lymphocytes # (A) 0.9 k/uL (1.0-4.8); Lymphocytes % (A) 5 %; MCH 30.5 pg (25.0-35.0); MCHC 30.6 g/dL (31.0-37.0); MCV 99.7 fL (80.0-100.0); Mean Platelet Volume 7.6; Monocytes # (A) 0.7 k/uL (0-1.0); Monocytes % (A) 4 %; Neutrophils # (A) 14.7 k/uL (1.3-7.7); Neutrophils % (A) 89 %; Platelet Count 330 k/uL (150-450); RBC 3.84 m/uL (3.80-5.40); RDW 12.8 % (11.5-15.5); WBC 16.6 k/uL (3.8-10.6)
[2021-03-07] MEDS: metroNIDAZOLE-NS PMX 500 MG in SALINE 1 100ML.BAG IVPB SCH ×2 (07:14→15:21)
[2021-03-07 07:25] LABS: African American GFR (CKD) 82 (>60 ml/min/1.73 sqM); Anion Gap 7 mmol/L; Blood Urea Nitrogen 19 mg/dL (7-17); Carbon Dioxide 23 mmol/L (22-30); Chloride 97 mmol/L (98-107); Glucose 113 mg/dL (74-99); Non-African American GFR(CKD) 71 (>60 ml/min/1.73 sqM); Potassium 4.8 mmol/L (3.5-5.1); Sodium 127 mmol/L (137-145)
[2021-03-07] MEDS: PIPERACILLIN-TAZOBACTAM 3.375 GM in SODIUM CHLORIDE 0.9% 100 ML IVPB SCH ×2 (08:50→15:21)
[2021-03-07 11:03] LABS: INR 1.4 (<1.2); Prothrombin Time 14.4 sec (9.0-12.0)
--- NOTE | 2021-03-07 14:54 | IR ---
EXAMINATION TYPE: IR cvc insert >=5 years DATE OF EXAM: 03/07/2021 COMPARISON: NONE CLINICAL HISTORY: Infection Needs long-term intravenous access for antibiotics. PROCEDURE: Hand hygiene obtained with soap and water and alcohol-based hand rub. After informed consent, the skin overlying the left brachial vein was localized with ultrasound and n oted to be compressible and patent. An ultrasound image was obtained and submitted on the patient's chart. The overlying skin was prepped and draped and Lidocaine was used for local anesthesia. A ski n dalila was made with a scalpel. Access was gained to the vein under ultrasound guidance with a 21 ga uge needle and a 0.018 inch wire was advanced. Access site was dilated with Peel-Away sheath and cat heter tailored to the appropriate length and advanced such that the distal tip is at the cavoatrial j unction. Spot image was obtained verifying placement. Catheter was fixed to the skin and a sterile dressing was placed following hemostasis. Catheter was aspirated and flushed with saline. Patient w as discharged in stable condition without complication.Maximal barrier technique is utilized. Ultras ound image is documented on the chart. Ultrasound used with sterile technique. Fluoro time and fluoroscopic images submitted to document procedure: 0.7 minutes fluoroscopy time, 32 intraoperative images document the procedure IMPRESSION: STATUS POST ULTRASOUND AND FLUOROSCOPIC GUIDED PICC LINE PLACEMENT, READY FOR USE. THIS PROCEDURE WAS PERFORMED BY THE UNDERSIGNED.
[2021-03-07] MEDS ORDERED: ceFAZolin 3 GM in SODIUM CHLORIDE 0.9% 100 ML IVPB STA (16:17)
--- NOTE | 2021-03-07 16:28 | P.PN ---
Subjective Progress Note Date: 03/07/21 CHIEF COMPLAINT: Abdominal wall abscess HISTORY OF PRESENT ILLNESS: The patient is a 61-year-old female with BMI over 56.9 including severe panniculus who is status post open repair of large recurrent incarcerated incisional hernia with large bowel obstruction involving sigmoid colon, 02/10/2021. She returned to the emergency room yesterday with cari leakage from the abdomen. She obtain a CT of the abdomen pelvis which is now demonstrating communication between the colon to the abdominal wall. She denies any moderate abdominal pain. No moderate fevers. REVIEW OF ORGAN SYSTEMS: No chest pain. No fevers or chills. No nausea or vomiting. PHYSICAL EXAM: VITAL SIGNS: Stable GENERAL: Well-developed pleasant female in no acute distress. HEENT: No scleral icterus. Extraocular movements grossly intact. Moist buccal mucosa. NECK: Supple without lymphadenopathy. CHEST: Unlabored respirations. Equal bilateral excursions. CARDIOVASCULAR: Regular rate and rhythm. Distal 2+ pulses. ABDOMEN: Feculent drainage along the abdominal wall. Pannus over 50 pounds with panniculitis. MUSCULOSKELETAL: No clubbing, cyanosis, or edema. SKIN: Well perfused. PSYCH: Alert and oriented. No focal or lateralizing signs. LABS: Reviewed. White blood cell count elevated over 16,000 STUDIES: CT of the abdomen pelvis and the pending review demonstrated communication of contrast from the colon to the abdominal wall. Findings are consistent with colonic fistula with, good abdominal wall abscess. This is my independent interpretation. ASSESSMENT: 1. Abdominal wall abscess with colocutaneous fistula PLAN: 1. Surgical intervention with exploratory laparotomy, colectomy, possible o stomy, drainage of abdominal wall abscess and debridement reviewed in detail. 2. Recommend PICC line for IV antibiotics and TPN. 3. Infectious disease consultation for complicated abdominal wall abscess 4. Inpatient hospitalization including disposition anticipated beyond 3 days. Objective - Vital Signs Vital signs: Vital Signs Temp 97.8 F 03/07/21 14:00 Pulse 78 03/07/21 14:00 Resp 18 03/07/21 14:00 BP 102/50 03/07/21 14:00 Pulse Ox 92 L 03/07/21 14:00 Intake & Output 03/06/21 03/07/21 03/07/21 18:59 06:59 18:59 Intake Total 300 Balance 300 Weight 139.253 kg 139.253 kg Intake: Intake, IV Titration 300 Amount Piperacillin-Tazobactam 3 200 .375 gm In Sodium Chloride 0.9% 100 ml @ 25 mls/hr IVPB Q8HR [facility] Rx# :[id number] metroNIDAZOLE-NS PMX 500 100 mg In Saline 1 100ml.bag @ 100 mls/hr IVPB Q8HR [facility] Rx#:[id number] - Labs CBC & Chem 7: 03/07/21 03:40 03/07/21 03:40 Labs: Abnormal Lab Results - Last 24 Hours (Table) 03/07/21 03/07/21 03/07/21 Range/Units 03:40 03:40 10:38 WBC 16.6 H (3.8-10.6) k/uL MCHC 30.6 L (31.0-37.0) g/dL Neutrophils # 14.7 H (1.3-7.7) k/uL Lymphocytes # 0.9 L (1.0-4.8) k/uL PT 14.4 H (9.0-12.0) sec INR 1.4 H (<1.2) Sodium 127 L (137-145) mmol/L Chloride 97 L (98-107) mmol/L BUN 19 H (7-17) mg/dL Glucose 113 H (74-99) mg/dL Calcium 8.0 L (8.4-10.2) mg/dL Microbiology - Last 24 Hours (Table) 03/06/21 09:57 Blood Culture - Preliminary Blood No Growth after 24 hours 03/06/21 09:57 Blood Culture - Preliminary Blood No Growth after 24 hours 03/06/21 15:35 Gram Stain - Preliminary Incision Wound Culture - Preliminary 03/06/21 15:55 Anaerobic Culture - Preliminary Abdomen Assessment and Plan (1) Colocutaneous fistula Current Visit: Yes Status: Acute Code(s): K63.2 - FISTULA OF INTESTINE SNOMED Code(s): 664884894 (2) Abdominal wall abscess Current Visit: Yes Status: Acute Code(s): L02.211 - CUTANEOUS ABSCESS OF ABDOMINAL WALL SNOMED Code(s): 56464264 (3) Panniculitis Current Visit: Yes Status: Acute Code(s): M79.3 - PANNICULITIS, UNSPECIFIED SNOMED Code(s): 28708377 (4) BMI 60.0-69.9, adult Current Visit: No Status: Acute Code(s): Z68.44 - BODY MASS INDEX [BMI] 60.0-69.9, ADULT SNOMED Code(s): 500449325 (5) Morbid obesity due to excess calories Current Visit: No Status: Acute Code(s): E66.01 - MORBID (SEVERE) OBESITY DUE TO EXCESS CALORIES SNOMED Code(s): 193091395
[2021-03-07] MEDS ORDERED: IV FLUID CONTINUATION 1,000 ML IV ONE (16:45)
[2021-03-07] MEDS ORDERED: ONDANSETRON 4 MG/2 ML VIAL ONE (16:48)
[2021-03-07] MEDS: HEPARIN SODIUM,PORCINE/PF 5,000 UNIT/0.5 ML SYRINGE SQ SCH (16:51)
[2021-03-07] MEDS ORDERED: ONDANSETRON 4 MG/2 ML VIAL IVP ONE (16:51)
[2021-03-07] MEDS ORDERED: DEXAMETHASONE SOD PHOSPHATE 4 MG/ML 1 ML VIAL IVP ONE (16:52)
[2021-03-07] MEDS ORDERED: SUCCINYLCHOLINE CHLORIDE VIAL 200 MG/10 ML VIAL IV ONE (17:50)
[2021-03-07] MEDS ORDERED: MIDAZOLAM 2 MG/2 ML VIAL ONE (17:50)
[2021-03-07] MEDS ORDERED: ROCURONIUM 10 MG/ML (5 ML VIAL) IV ONE (17:50)
[2021-03-07] MEDS ORDERED: PROPOFOL 10 MG/ML 20 ML VIAL IV ONE (17:50)
[2021-03-07] MEDS ORDERED: fentaNYL (PF) 50 MCG/ML 2 ML AMP ONE (17:50)
[2021-03-07] MEDS ORDERED: PHENYLEPHRINE-0.9% NACL SYG 1,000 MCG/10 ML SYRINGE ONE (17:50)
[2021-03-07] MEDS ORDERED: LIDOCAINE 1% INJ 10MG/ML (20 ML MDV) ONE (17:50)
[2021-03-07] MEDS ORDERED: KETAMINE 10 MG/ML 20 ML VIAL ONE (17:50)
[2021-03-07] MEDS ORDERED: LACTATED RINGERS 1,000 ML IV ONE ×2 (20:16→22:54)
--- NOTE | 2021-03-08 00:02 | P.CONS ---
History of Present Illness - Reason for Consult Consult date: 03/07/21 Intra abdominal abscess Requesting physician: Lashaun Hopson - Chief Complaint abd pain and drainage x few days - History of Present Illness History of present illness : Patient is a 61-year-old female with a past medical history significant for recent repair of a large incarcerated incisional hernia for large bowel obstruction that was completed on 02/10/2021 patient will presented to the [facility] ER yesterday morning for evaluation of her drainage from her incision site patient mention it started few days ago without any history of any trauma small for spontaneous drainage from the area which has been moderate intensity and very foul-smelling patient denies high-grade fever or chills however did have low-grade fever on presentation to the hospital patient was noticed to have a white count of 15.4 with a left shift patient did have blood cultures drawn and she did have cultures obtained from the drainage she was started on Zosyn and Flagyl infectious disease was consulted for intra-abdominal abscess this morning patient also have a CT of abdominal pelvis completed last evening with the large subcutaneous fluid collection measuring 10 X 14 X 70 cm concerning for intra-abdominal abscess Review of system: CONSTITUTIONAL: Positive for weakness along with the fever. EYES: No complaint. ENT: No complaint. RESPIRATORY: No complaint. CARDIOVASCULAR: No complaint. GENITOURINARY: No complaint. GASTROINTESTINAL: As per history of present illness MUSCULOSKELETAL: No complaint. INTEGUMENTARY: No complaint. PSYCHOLOGIC: No complaint. ENDOCRINE: No complaint. NEUROLOGIC: No complaint. Past medical history : Reviewed, documented below Past surgical history : Reviewed, documented below Social history: Reviewed, documented below Medications: Reviewed, as documented below EXAMINATION: Vital sigans= Reviewed and documented below GENERAL DESCRIPTION: Middle-aged male lying in bed, no distress. No tachypnea or accessory muscle of respiration use. HEENT: Shows Pallor , no scleral icterus. Oral mucous membrane is dry. NECK: Trachea central, no thyromegaly. LUNGS: Unlabored breathing. Clear to auscultation anteriorly. No wheeze or crackle. HEART: S1, S2, regular rate and rhythm. ABDOMEN: Soft, significant distention did have a purulent drainage from the left-sided incision and tender to touch EXTREMITIES: No edema of feet. SKIN: No rash, no masses palpable. NEUROLOGICAL: The patient is awake, alert, oriented x3, mood and affect normal. LABS AND RADIOLOGY: Reviewed results see below Assessment : Patient presented to hospital with abdominal pain and drainage purulent in this patient did have elevated white count along with a CT did shows large subcutaneous and abdominal abscess in this patient who did have a recent repair of incarcerated abdominal hernia and will cover for the enteric gram- negative both aerobes and anaerobes Plan: 1-await surgical drainage of this abscess and fluid should be sent for b oth aerobic and anaerobic culture 2-Zosyn 3.375 gm every 8 hour to continue, no need for Flagyl 3-gentle IV fluid We will follow on clinical condition and cultures to further adjust medication if needed Thank you for this consultation we will follow the patient along with you Past Medical History Past Medical History: Hypertension, Osteoarthritis (OA), Sleep Apnea/CPAP/BIPAP Additional Past Medical History / Comment(s): HERNIA,no cpap,rt ankle weakness History of Any Multi-Drug Resistant Organisms: None Reported Past Surgical History: Adenoidectomy, Appendectomy, Bariatric Surgery, Cholecystectomy, Hernia Repair, Hysterectomy, Joint Replacement, Tonsillectomy Additional Past Surgical History / Comment(s): lap band, and lap band revision, eye surgery bilateral for lazy eye, repair wound dehiscence, D & C's, Lt knee bursa removal, Rt knee arthroscopies, right knee replaced,mult incisional hernia repairs Past Anesthesia/Blood Transfusion Reactions: No Reported Reaction, Family History of Problems w/ Anesthesia Additional Past Anesthesia/Blood Transfusion Reaction / Comm: "Woke up during surgery" WITH LEG SURGERY,no hx blood transfusion,mom w/ hx of lung problems had a problem with breathing after a surgery. Past Psychological History: No Psychological Hx Reported Smoking Status: Never smoker Past Alcohol Use History: None Reported Past Drug Use History: None Reported - Past Family History Sister(s) Family Medical History: Deep Vein Thrombosis (DVT) Mother Family Medical History: Congestive Heart Failure (CHF), Coronary Artery Disease (CAD), CVA/TIA Additional Family Medical History / Comment(s): arthritis Father Family Medical History: Hypertension Additional Family Medical History / Comment(s): scoliosis, arthritis, alzihemers Medications and Allergies Home Medications Medication Instructions Recorded Confirmed Type Loratadine [Claritin] 10 mg PO DAILY PRN 10/23/19 03/06/21 History Multivitamins, Thera [Multivitamin 1 tab PO DAILY 10/23/19 03/06/21 History (formulary)] atenoloL 100 mg PO HS 10/23/19 03/06/21 History Mirabegron [Myrbetriq] 25 mg PO DAILY 10/24/19 03/06/21 History Diclofenac Sodium [Voltaren 2 gm TOPICAL QID PRN 12/07/20 03/06/21 History Arthritis Pain 1% Gel] Ciprofloxacin HCl [Cipro] 500 mg PO Q12H 02/28/21 03/06/21 History metroNIDAZOLE [Flagyl] 500 mg PO Q8H 02/28/21 03/06/21 History Allergies Allergy/AdvReac Type Severity Reaction Status Date / Time adhesive tape Allergy Rash/Hives Verified 03/06/21 10:42 bupropion HCl Allergy Rash/Hives Verified 03/06/21 10:42 [From Wellbutrin] Sulfa (Sulfonamide Allergy Itching Verified 03/06/21 10:42 Antibiotics) venom-honey bee Allergy Swelling Verified 03/06/21 10:42 [bee venom (honey bee)] codeine AdvReac Vomiting Verified 03/06/21 10:42 Physical Exam Vitals: Vital Signs Temp Pulse Pulse Resp BP BP Pulse Ox 03/07/21 01:58 98.1 F 83 18 113/69 95 03/06/21 19:39 98.2 F 78 19 105/53 97 03/06/21 18:26 98.7 F 85 20 102/64 94 L 03/06/21 16:33 78 20 106/53 97 03/06/21 13:32 75 20 90/55 94 L 03/06/21 12:17 77 20 97/46 94 L Intake and Output 03/06/21 03/07/21 03/07/21 22:59 06:59 14:59 Other: Weight 139.253 kg Results CBC & Chem 7: 03/07/21 03:40 03/07/21 03:40 Labs: Abnormal Lab Results - Last 24 Hours (Table) 03/06/21 03/07/21 03/07/21 Range/Units 09:57 03:40 03:40 WBC 16.6 H (3.8-10.6) k/uL MCHC 30.6 L (31.0-37.0) g/dL Neutrophils # 14.7 H (1.3-7.7) k/uL Lymphocytes # 0.9 L (1.0-4.8) k/uL Sodium 127 L (137-145) mmol/L Chloride 97 L (98-107) mmol/L BUN 19 H (7-17) mg/dL Glucose 113 H (74-99) mg/dL Plasma Lactic Acid Adria 3.1 H* (0.7-2.0) mmol/L Calcium 8.0 L (8.4-10.2) mg/dL Microbiology - Last 24 Hours (Table) 03/06/21 15:35 Gram Stain - Preliminary Incision Wound Culture - Preliminary 03/06/21 15:55 Anaerobic Culture - Preliminary Abdomen
[2021-03-08 00:22] LABS: Glucose,Whole Blood 126 mg/dL (75-99)
[2021-03-08] MEDS ORDERED: propofoL 100 ML IV ONE (00:23)
--- NOTE | 2021-03-08 00:32 | P.OP ---
Date of Procedure: 03/08/21 Description of Procedure: Date of Procedure: 03/08/21 SURGEON: RADU HARDY MD PREOPERATIVE DIAGNOSES: 1. Abdominal wall abscess 2. Perforated viscus 3. Super morbid obesity, BMI 58.5 4. Sepsis 5. Hypertensive heart disease 6. Diabetes type 2, [id number] 7. Severe abdominal panniculosis with panniculitis POSTOPERATIVE DIAGNOSES: 1. Abdominal wall abscess with necrotizing fasciitis 2. Perforated viscus from necrotic mid transverse colon 3. Super morbid obesity, BMI 58.5 4. Sepsis 5. Hypertensive heart disease 6. Diabetes type 2, [id number] 7. Severe abdominal panniculosis with panniculitis Procedure(s) Performed: 1. Drainage of the subcutaneous abdominal wall abscess over 450 mL feculent material, left lower quadrant 2. Exploratory laparotomy with transverse colectomy with anastomosis 3. Extensive lysis of adhesions, over 3 hours 4. Partial omentectomy of greater omentum 5. Sharp excisional debridement using #10 blade of abdominal wall for necrotizing fasciitis 15 x 25 cm to muscle 6. Water jet lavage of 15 x 25 x 7 cm wound bed for debridement 7. Application of wound VAC system 15 x 25 x 7 cm left lower quadrant, lower portion of incision Anesthesia: GETA Estimated Blood Loss (ml): 300 Pathology: other ( bowel, tissue culture, aerobic and anaerobic culture) Condition: critical Disposition: ICU FINDINGS: 1. Feculent material along deep subcutaneous tissue over 15 x 25 x 7 cm from previous reduction site of recurrent incarcerated incisional hernia involving transverse colon 2. Moderate sized panniculosis, grade 5, 50+ pounds with chronic panniculitis 3. Necrotizing fasciitis of abdominal fascia 15 x 25 cm debrided sharply using #10 blade to healthy bleeding tissues, muscle 4. Necrotic mid transverse colon with gangrene and abscess completely excised with primary colo-colo anastomosis using 60 mm tri-stapler black loads in an end-to-end fashion 5. Partial omentectomy of necrotic omentum 6. Lap band port and tubing undisturbed 7. Fascial defect of left abdomen ventral hernia due to necrotizing fasciitis, reducible 8. Abdominal abscess contained within the abdominal wall, minimal spillage intra-abdominal. 9. Tang catheter placed at end of case INDICATIONS: The patient is a 61-year-old female with grade 5 panniculosis and super morbid obesity, BMI 58 who had recent repair of incarcerated incisional hernia with large bowel obstruction 2-3 weeks ago. She presented back to the hospital drainage from her incision. CT of the abdomen and pelvis demonstrated subcutaneous abdominal wall abscess with communication into the abdomen for possible colo-cutaneous fistula. Emergent exploratory laparotomy including all indicated procedures were described. Benefits and risks including but not limited to placement of ostomy, bleeding, infection, additional surgical procedure, prolonged ventilation was described at length. Informed consent was obtained. DESCRIPTION: Patient was brought to the operating room. The patient was placed in supine position. General induction was performed which she tolerated well. The abdomen had been prepped and draped in the standard sterile fashion. Ioban draping was also placed to minimize any contamination to the skin after controlling wound site drainage at the left lower quadrant with large tegaderm and gauze. A timeout protocol was performed confirming the patient's name, procedure to be performed, DVT prophylaxis including antibiotics. Next, using #10 blade, the abdomen was re-entered along recent left paramedian incision. Immediately 450 mL of feculent material was aspirated from the abdominal pocket and sent for cultures. The incision was complete re-opened along its lower transverse inverted "T" incision for exposure. The superior incision was extended to the left upper abdomen for placement of Bookwalter retractor due to her thick subcutaneous tissue over 7 to 8-cm and moderate sized pannus. The wound bed was copiously irrigated using an initial 1 L normal saline with pulse lavage. The hernia repair site was intact. Extensive lysis of adhesions over 3 hours was performed to enter the abdomen and to identify the anatomy without enterotomies or colotomies. The abdominal wall fascia had focal areas of necrosis at the inferior subcutaneous tissue. The fascial hernia repair was reopened and explored with necrotic mid transverse colon identified of 6-cm. Proximally and distally, the colon was viable. Minimal spillage was identified within the peritoneum. The small bowel was unremarkable. The proximal transverse colon and distal transverse colon was viable. The greater omentum involving the transverse colon was necrotic and excised using Enseal for partial omentectomy. All nonviable tissue was debrided widely. As result of very thick subcutaneous tissue and tenuous remaining length to pull up a colostomy, colon resection involving the nonviable colon and primary colo-colon anastomosis was proposed. A primary colo-colo anastomosis using 60 mm tri-stapler black loads was performed in an end-to-end fashion. The anastomosis was protected and covered using viable remaining greater omentum. The abdomen was irrigated and dried with normal saline. Next, attention was brought to the abdominal wall fascia where focal areas of necrosis was sharply debrided to healthy bleeding tissue using #10 blade. Fascial defect size of 8 x 8 cm over the colon anastomosis at the left upper a bdomen had remained after complete debridement. The remaining subcutaneous tissue and pocket measured 25 centimeters length x 15 centimeters width x 7 cm subcutaneous depth and copiously irrigated and debrided using water jet lavage including sharp excisional debridement to healthy bleeding tissues and muscle. Over 3 L of warm normal saline solution was used for water jet high-pressure pulsatile lavage. Hemostasis was checked with electro Bovie cautery. The paramedian incision over the anastomosis was closed using 0 Vicryl suture in interrupted fashion for the thick subcutaneous tissue. Next, the subcutaneous tissue was copiously irrigated with normal saline and hydrogen peroxide. Stainless steel skin pedro were applied. For the lower transverse incision, a medium-sized black wound VAC sponge was placed into the pocket. Tegaderm dressing was placed over the sponge with a wound VAC adapter attached and set to suction at -125 mmHg pressure. Tang catheter was placed at end of case. At the end of the procedure, needle, sponge, and instrument count had been verified correct by surgical appliances salesperson. The patient tolerated the procedure well and was taken to the intensive care unit intubated for anticipated second look and assessment of the fascia. The patient's family was updated on level of care with intraoperative findings reviewed.
[2021-03-08] MEDS: PIPERACILLIN-TAZOBACTAM 3.375 GM in SODIUM CHLORIDE 0.9% 100 ML IVPB SCH ×3 (01:04→16:57)
[2021-03-08] MEDS: metroNIDAZOLE-NS PMX 500 MG in SALINE 1 100ML.BAG IVPB SCH ×4 (01:04→18:54)
[2021-03-08] MEDS: SODIUM CHLORIDE 0.9% 1,000 ML IV SCH ×4 (01:05→23:06)
[2021-03-08 01:10] LABS: ALT 15 U/L (4-34); AST 31 U/L (14-36); African American GFR (CKD) >90 (>60 ml/min/1.73 sqM); Albumin 2.3 g/dL (3.5-5.0); Alkaline Phosphatase 48 U/L (38-126); Anion Gap 10 mmol/L; Blood Urea Nitrogen 16 mg/dL (7-17); Carbon Dioxide 21 mmol/L (22-30); Chloride 103 mmol/L (98-107); Glucose 137 mg/dL (74-99); Magnesium 2.3 mg/dL (1.6-2.3); Non-African American GFR(CKD) >90 (>60 ml/min/1.73 sqM); Phosphorus 4.4 mg/dL (2.5-4.5); Sodium 134 mmol/L (137-145); Total Bilirubin 0.4 mg/dL (0.2-1.3); Total Protein 5.7 g/dL (6.3-8.2)
[2021-03-08 01:30] LABS: HCT 36.9 % (34.0-46.0); HGB 11.8 gm/dL (11.4-16.0); Hypochromasia Slight; MCH 31.4 pg (25.0-35.0); MCHC 32.1 g/dL (31.0-37.0); MCV 97.9 fL (80.0-100.0); Mean Platelet Volume 7.8; Platelet Count 344 k/uL (150-450); RBC 3.77 m/uL (3.80-5.40); RDW 13.2 % (11.5-15.5); WBC 14.8 k/uL (3.8-10.6)
[2021-03-08 02:03] LABS: Amorphous Sediment,Urine Rare /hpf; Appearance,Urine Clear (Clear); Bacteria,Urine Rare /hpf; Bilirubin,Urine Negative (Negative); Blood,Urine Trace (Negative); Color,Urine Yellow; Glucose,Urine (UA) Negative (Negative); Granular Casts,Urine 3 /lpf (0); Hyaline Casts,Urine 9 /lpf (0-2); Ketones,Urine 1+ (Negative); Leukocyte Esterase,Urine Negative (Negative); Mucus,Urine Rare /hpf; Nitrite,Urine Negative (Negative); PH, Urine 5.5 (5.0-8.0); Protein,Urine Trace (Negative); RBC,Urine 1 /hpf (0-5); Specific Gravity,Urine 1.019 (1.001-1.035); Squamous Epithelial Cell,Urine 1 /hpf (0-4); Urobilinogen,Urine <2.0 mg/dL (<2.0); WBC,Urine 1 /hpf (0-5)
[2021-03-08] MEDS ORDERED: SODIUM CHLORIDE 0.9% 1,000 ML IV ONE ×2 (03:24→04:05)
[2021-03-08 04:54] LABS: ABG HCO3 21 mmol/L (21-25); ABG Oxygen Saturation 95.3 % (94-97); ABG PCO2 46 mmHg (35-45); ABG PH 7.26 (7.35-7.45); ABG PO2 81 mmHg (83-108); ABG TCO2 22 mmol/L (19-24); Allen Test Performed? Yes
[2021-03-08] MEDS: NOREPINEPHRINE 4 MG in SODIUM CHLORIDE 0.9% 250 ML IV SCH ×2 (05:22→16:38)
[2021-03-08 05:29] LABS: Band Neutrophils % 22 %; Lymphocytes # (M) 1.33 k/uL (1.0-4.8); Metamyelocytes # (M) 0.15 k/uL (0); Metamyelocytes % 1 %; Monocytes # (M) 0.15 k/uL (0-1.0); Neutrophils % (M) 68 %; Nucleated Red Blood Cells 0 /100 WBC (0-0); Total Cells Counted 200
[2021-03-08 05:32] LABS: Anisocytosis (M) Present; Polychromasia Present
[2021-03-08] MEDS: ONDANSETRON 4 MG/2 ML VIAL IVP SCH ×3 (05:53→18:00)
--- NOTE | 2021-03-08 06:02 | XR ---
EXAMINATION TYPE: XR chest 1V portable DATE OF EXAM: 03/08/2021 COMPARISON: 10/25/2019 HISTORY: Respiratory failure TECHNIQUE: Single view FINDINGS: Endotracheal tube is 2.8 cm from the liban. There is left subclavian catheter with tip in the superior vena cava. There is some pleural reaction and atelectasis right lung base. There is no g ross heart failure. There are chest leads. IMPRESSION: There is some interstitial infiltrate and atelectasis mainly at the right lung base. No heart failure seen. There is improvement in the pulmonary edema evident on old exam.
[2021-03-08] MEDS: ENOXAPARIN 40 MG/0.4 ML SYRINGE SQ SCH (08:22)
[2021-03-08] MEDS: PANTOPRAZOLE 40 MG/10 ML VIAL IV SCH (08:22)
[2021-03-08] MEDS: CHLORHEXIDINE GLUCONATE 15 ML CUP MUCOUS MEM SCH ×2 (08:22→23:06)
[2021-03-08] MEDS: LACTATED RINGERS 2,000 ML IV SCH ×3 (09:13→12:58)
[2021-03-08] MEDS: HEPARIN SODIUM,PORCINE/PF 5,000 UNIT/0.5 ML SYRINGE SQ SCH (09:37)
--- NOTE | 2021-03-08 10:24 | P.CNPUL ---
History of Present Illness Consult date: 03/08/21 Requesting physician: Lashaun Hopson Reason for consult: other Chief complaint: Postoperative ventilator management, status post exploratory laparotomy History of present illness: 61-year-old female patient with past medical history of morbid obesity with previous history of lap banding, panniculitis, hypertension, history of multiple abdominal and pelvic surgeries, obstructive sleep apnea, osteoarthritis, who recently had a large bowel obstruction due to incarcerated recurrent incisional hernia in the left lower abdomen and underwent open reduction and repair of large isolated incisional hernia lysis of adhesions and omentectomy on 02/10/2021. Patient was discharged home on 02/14/2021 in stable condition, patient was tolerating diet, her pain was controlled, patient was passing bowel movements and flatus, she was ambulating at the time of discharge. On 03/06/2021 patient was brought into the emergency department for a concern of incisional drainage. The drainage was brown in color, however patient was not complaining of any significant pain or fever. On examination there was a large amount of brownish drainage that was draining from her incision. CT of the abdomen and pelvis showed marked increase in the amount of large subcutaneous fluid collection containing contrast, 6 mm abscess in the intra-abdominal cavity, there was a small amount of adjacent free air, and the segment of transverse colon with surrounding inflammatory changes correlating for abscess with a ruptured viscus. 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 The skin thickening and diffuse subcutaneous edema in the anterior abdominal wall relating for cellulitis. Blood work in the emergency department showed a white count of 15.4, hemoglobin of 13.7, INR of 1.5, sodium 1:30, potassium 4.9, chloride is 95, B1 of 19, creatinine 0.90, lactic acid was 3.1. COVID-19 was negative. Patient had a low-grade fever with a temp of 99.1 on presentation. Patient was given 2 L and IV fluid boluses, she was started on broad-spectrum antibiotics, currently on Flagyl and Zosyn, and the general surgery performed exploratory laparotomy with transverse colectomy with anastomosis with extensive lysis of adhesions, drainage of the subcutaneous abdominal wall abscess with over 450 now feculent material, and sharp excisional debridement of abdominal wall for necrotizing fasciitis and application of the wound VAC system. Postoperatively patient return to the intensive care unit, intubated and sedated on mechanical ventilator, this morning she seen in the ICU, on assist control mode of ventilation, with a rate of 18, tidal volume is 380, FiO2 of 70%, and PEEP of 50, this morning's blood gas shows pO2 of 81, pCO2 of 46, and pH of 7.26. 0.9 and is infusing at a rate of 150, to prevent is a 25 mics per kilo per minute, levofed is at 2.7 mics per minute. Today's chest x-ray shows some interstitial infiltrate and atelectasis at the right lung base. Review of Systems All systems: negative Constitutional: Denies chills, Denies fever Eyes: denies blurred vision, denies pain Ears, nose, mouth and throat: Denies headache, Denies sore throat Cardiovascular: Denies chest pain, Denies shortness of breath Respiratory: Denies cough Gastrointestinal: Denies abdominal pain, Denies diarrhea, Denies nausea, Denies vomiting Genitourinary: Denies dysuria, Denies hematuria Musculoskeletal: Denies myalgias Integumentary: Denies pruritus, Denies rash Neurological: Denies numbness, Denies weakness Psychiatric: Denies anxiety, Denies depression Endocrine: Denies fatigue, Denies weight change Past Medical History Past Medical History: Hypertension, Osteoarthritis (OA), Sleep Apnea/CPAP/BIPAP Additional Past Medical History / Comment(s): HERNIA,no cpap,rt ankle weakness History of Any Multi-Drug Resistant Organisms: None Reported Past Surgical History: Adenoidectomy, Appendectomy, Bariatric Surgery, Cholecystectomy, Hernia Repair, Hysterectomy, Joint Replacement, Tonsillectomy Additional Past Surgical History / Comment(s): lap band, and lap band revision, eye surgery bilateral for lazy eye, repair wound dehiscence, D & C's, Lt knee bursa removal, Rt knee arthroscopies, right knee replaced,mult incisional hernia repairs Past Anesthesia/Blood Transfusion Reactions: No Reported Reaction, Family History of Problems w/ Anesthesia Additional Past Anesthesia/Blood Transfusion Reaction / Comment(s): "Woke up during surgery" WITH LEG SURGERY,no hx blood transfusion,mom w/ hx of lung problems had a problem with breathing after a surgery. Past Psychological History: No Psychological Hx Reported Smoking Status: Never smoker Past Alcohol Use History: None Reported Past Drug Use History: None Reported - Past Family History Sister(s) Family Medical History: Deep Vein Thrombosis (DVT) Mother Family Medical History: Congestive Heart Failure (CHF), Coronary Artery Disease (CAD), CVA/TIA Additional Family Medical History / Comment(s): arthritis Father Family Medical History: Hypertension Additional Family Medical History / Comment(s): scoliosis, arthritis, alzihemers Medications and Allergies Home Medications Medication Instructions Recorded Confirmed Type Loratadine [Claritin] 10 mg PO DAILY PRN 10/23/19 03/06/21 History Multivitamins, Thera [Multivitamin 1 tab PO DAILY 10/23/19 03/06/21 History (formulary)] atenoloL 100 mg PO HS 10/23/19 03/06/21 History Mirabegron [Myrbetriq] 25 mg PO DAILY 10/24/19 03/06/21 History Diclofenac Sodium [Voltaren 2 gm TOPICAL QID PRN 12/07/20 03/06/21 History Arthritis Pain 1% Gel] Ciprofloxacin HCl [Cipro] 500 mg PO Q12H 02/28/21 03/06/21 History metroNIDAZOLE [Flagyl] 500 mg PO Q8H 02/28/21 03/06/21 History Allergies Allergy/AdvReac Type Severity Reaction Status Date / Time adhesive tape Allergy Rash/Hives Verified 03/06/21 10:42 bupropion HCl Allergy Rash/Hives Verified 03/06/21 10:42 [From Wellbutrin] Sulfa (Sulfonamide Allergy Itching Verified 03/06/21 10:42 Antibiotics) venom-honey bee Allergy Swelling Verified 03/06/21 10:42 [bee venom (honey bee)] codeine AdvReac Vomiting Verified 03/06/21 10:42 Physical Exam Vitals: Vital Signs Temp Pulse Pulse Resp BP BP Pulse Ox 03/08/21 09:00 70 23 100/56 98 03/08/21 08:30 70 23 108/54 96 03/08/21 08:00 97.6 F 69 18 112/53 98 03/08/21 07:30 69 23 107/56 98 03/08/21 07:00 68 23 112/54 98 03/08/21 06:30 68 23 103/49 97 03/08/21 06:00 69 23 111/59 97 03/08/21 05:30 75 22 116/57 95 03/08/21 05:00 74 22 91/46 96 03/08/21 04:30 75 19 94/47 93 L 03/08/21 04:00 97.6 F 74 19 98/50 95 03/08/21 03:30 73 23 93/46 94 L 03/08/21 03:00 75 20 94/52 94 L 03/08/21 02:30 81 22 110/66 93 L 03/08/21 02:00 85 21 118/60 96 03/08/21 01:30 80 19 115/65 97 03/08/21 01:00 96.8 F L 81 18 112/45 97 03/08/21 00:48 78 18 97 03/07/21 16:44 96.8 F L 76 16 95/54 95 03/07/21 14:00 97.8 F 78 18 102/50 92 L 03/07/21 11:26 97.9 F 77 16 98/58 Intake and Output 03/07/21 03/08/21 03/08/21 22:59 06:59 14:59 Intake Total 2550 3283.996 2567.067 Output Total 185 115 Balance 2550 3098.996 2452.067 Intake: IV 2550 3200 2400 0.9 2900 300 Lactated Ringers 2,000 ml 2000 @ 999 mls/hr IV .Q2H1M [facility] Rx#:[id number] Piperacillin-Tazobactam 3 100 100 .375 gm In Sodium Chloride 0.9% 100 ml @ 25 mls/hr IVPB Q8HR [facility] Rx# :[id number] metroNIDAZOLE-NS PMX 500 200 mg In Saline 1 100ml.bag @ 100 mls/hr IVPB Q6H [facility] Rx#:[id number] Intake, IV Titration 83.996 167.067 Amount Norepinephrine 4 mg In 10.611 72.862 Sodium Chloride 0.9% 250 ml @ 0.05 MCG/KG/MIN 26. 528 mls/hr IV .Q9H35M [facility] Rx#:[id number] propofoL 1,000 mg In 73.385 94.205 Empty Bag 1 bag @ Titrate IV .Q0M [facility] Rx#: [id number] Output: Urine 185 115 Other: Voiding Method Indwelling Catheter Indwelling Catheter GENERAL EXAM: 61-year-old morbidly obese white female, intubated, sedated on mechanical ventilation, on assist-control mode, with FiO2 of 50% comfortable in no apparent distress. HEAD: Normocephalic/atraumatic. EYES: Normal reaction of pupils, equal size. Conjunctiva pink, sclera white. NOSE: Clear with pink turbinates. THROAT: No erythema or exudates. NECK: No masses, no JVD, no thyroid enlargement, no adenopathy. CHEST: No chest wall deformity. Symmetrical expansion. LUNGS: Equal air entry with no crackles, wheeze, rhonchi or dullness. CVS: Regular rate and rhythm, normal S1 and S2, no gallops, no murmurs, no rubs ABDOMEN: Soft, obese, mid abdominal incision with pedro clean dry and intact, there is subcu umbilical incision, which is open, with a wound VAC in place. No hepatosplenomegaly, normal bowel sounds, no guarding or rigidity. EXTREMITIES: No clubbing, no edema, no cyanosis, 2+ pulses and upper and lower extremities. MUSCULOSKELETAL: Muscle strength and tone normal. SPINE: No scoliosis or deformity SKIN: No rashes CENTRAL NERVOUS SYSTEM: Morbidly obese, intubated and sedated No focal deficits, tone is normal in all 4 extremities. Results - Laboratory Findings CBC and BMP: 03/08/21 00:46 03/08/21 00:46 ABG ABG pH 7.26 (7.35-7.45) L 03/08/21 04:50 ABG pCO2 46 mmHg (35-45) H 03/08/21 04:50 ABG pO2 81 mmHg (83-108) L 03/08/21 04:50 ABG O2 Saturation 95.3 % (94-97) 03/08/21 04:50 PT/INR, D-dimer PT 14.4 sec (9.0-12.0) H 03/07/21 10:38 INR 1.4 (<1.2) H 03/07/21 10:38 Abnormal lab findings: Abnormal Labs 03/06/21 03/06/21 03/06/21 09:57 09:57 09:57 WBC 15.4 H RBC MCHC Neutrophils # 13.6 H Neutrophils # (Manual) Lymphocytes # 0.8 L Metamyelocytes # (Man) PT 14.8 H INR 1.5 H ABG pH ABG pCO2 ABG pO2 Sodium 130 L Chloride 95 L Carbon Dioxide BUN 19 H Glucose 161 H POC Glucose (mg/dL) Plasma Lactic Acid Adria Calcium 8.3 L AST 50 H Total Protein Albumin 2.8 L Urine Protein Urine Ketones Urine Blood Amorphous Sediment Urine Bacteria Hyaline Casts Urine Mucus 03/06/21 03/07/21 03/07/21 09:57 03:40 03:40 WBC 16.6 H RBC MCHC 30.6 L Neutrophils # 14.7 H Neutrophils # (Manual) Lymphocytes # 0.9 L Metamyelocytes # (Man) PT INR ABG pH ABG pCO2 ABG pO2 Sodium 127 L Chloride 97 L Carbon Dioxide BUN 19 H Glucose 113 H POC Glucose (mg/dL) Plasma Lactic Acid Adria 3.1 H* Calcium 8.0 L AST Total Protein Albumin Urine Protein Urine Ketones Urine Blood Amorphous Sediment Urine Bacteria Hyaline Casts Urine Mucus 03/07/21 03/08/21 03/08/21 10:38 00:20 00:46 WBC 14.8 H RBC 3.77 L MCHC Neutrophils # Neutrophils # (Manual) 13.30 H Lymphocytes # Metamyelocytes # (Man) 0.15 H PT 14.4 H INR 1.4 H ABG pH ABG pCO2 ABG pO2 Sodium Chloride Carbon Dioxide BUN Glucose POC Glucose (mg/dL) 126 H Plasma Lactic Acid Adria Calcium AST Total Protein Albumin Urine Protein Urine Ketones Urine Blood Amorphous Sediment Urine Bacteria Hyaline Casts Urine Mucus 03/08/21 03/08/21 03/08/21 00:46 00:46 01:25 WBC RBC MCHC Neutrophils # Neutrophils # (Manual) Lymphocytes # Metamyelocytes # (Man) PT INR ABG pH ABG pCO2 ABG pO2 Sodium 134 L Chloride Carbon Dioxide 21 L BUN Glucose 137 H POC Glucose (mg/dL) Plasma Lactic Acid Adria Calcium 8.0 L 7.9 L AST Total Protein 5.7 L Albumin 2.3 L Urine Protein Trace H Urine Ketones 1+ H Urine Blood Trace H Amorphous Sediment Rare H Urine Bacteria Rare H Hyaline Casts 9 H Urine Mucus Rare H 03/08/21 04:50 WBC RBC MCHC Neutrophils # Neutrophils # (Manual) Lymphocytes # Metamyelocytes # (Man) PT INR ABG pH 7.26 L ABG pCO2 46 H ABG pO2 81 L Sodium Chloride Carbon Dioxide BUN Glucose POC Glucose (mg/dL) Plasma Lactic Acid Adria Calcium AST Total Protein Albumin Urine Protein Urine Ketones Urine Blood Amorphous Sediment Urine Bacteria Hyaline Casts Urine Mucus - Diagnostic Findings Chest x-ray: report reviewed, image reviewed Additional studies: A CT of the abdomen and pelvis reviewed Assessment and Plan Plan: Assessment: #1. Septic shock, related to necrotizing fasciitis of the abdominal fascia, necrotic transverse colon, necrotic omentum, status post drainage at the abdominal wall abscess, exploratory laparotomy with transverse colectomy with anastomosis with extensive lysis of adhesions, and debridement of abdominal wall necrotizing fasciitis in the application of the wound VAC on 03/08/2021 #2. Recent history of a large bowel obstruction due to incarcerated recurrent incisional hernia, status post open reduction and repair of a large recurrent incarcerated incisional hernia, open lysis of adhesions, and omentectomy on 02/10/2021 #3. History of morbid obesity previous history of lap banding #4. History of obstructive sleep apnea #5. Osteoarthritis #6. Hypertension #7. History of multiple abdominal pelvic surgeries #8. Routine postoperative ventilator management #9. Hyponatremia likely hypovolemic #10. Lactic acidosis related to underlying sepsis, improved with fluid resuscitation #11. Panniculitis Plan: We will increase the PEEP up to 10 Continue weaning FiO2 which is currently down to 70% We'll give the patient additional 2 L in fluid boluses with lactated Ringer's Wean vasopressors Continue broad-spectrum antibiotics We will give the patient had spontaneous awakening trial and possibly sponta neous breathing trial with pressure support at 10 and CPAP of 5 Monitor urine output, hemodynamics Feeding recommendations per surgery clearance Continue to closely follow her clinical course in the intensive care unit She may need to be extubated to BiPAP We'll continue to follow I performed a history & physical examination of the patient and discussed their management with my nurse practitioner, Charley Sanchez. I reviewed the nurse practitioner's note and agree with the documented findings and plan of care. Lung sounds are positive for diminished breatg sounds throughout the lung [place]. The findings and the impression was discussed with the patient. I attest to the documentation by the nurse practitioner. Time with Patient: Greater than 30
[2021-03-08] MEDS ORDERED: IPRATROPIUM-ALBUTEROL 3 ML NEB INHALATION PRN (10:25)
[2021-03-08] MEDS: IPRATROPIUM-ALBUTEROL 3 ML NEB INHALATION SCH ×3 (11:21→19:19)
[2021-03-08 11:43] LABS: Glucose,Whole Blood 145 mg/dL (75-99)
--- NOTE | 2021-03-08 13:12 | P.PN ---
Subjective Progress Note Date: 03/08/21 CHIEF COMPLAINT: Abdominal wall abscess HISTORY OF PRESENT ILLNESS: Patient is postop day #1 status post drainage of subcutaneous abdominal wall abscess, exploratory laparotomy with transverse colectomy with anastomosis with extensive lysis of adhesions, sharp excisional debridement of abdominal wall for necrotizing fasciitis and application of wound VAC. Patient is currently in the ICU and on mechanical ventilation. Patient is being weaned off of Levophed. She is receiving a 2 L IV fluid bolus. She is afebrile. Her white count is trending down from 16-14.8 PHYSICAL EXAM: VITAL SIGNS: Reviewed GENERAL: Well-developed in no acute distress. HEENT: No sclera icterus. Extraocular movements grossly intact. Moist buccal mucosa. Head is atraumatic, normocephalic. Hears conversational speech. No nasal drainage. NECK: Supple without lymphadenopathy. CHEST: Non-labored respirations and equal bilateral excursions. CARDIOVASCULAR: Palpable 2+ radial pulses. ABDOMEN: Soft. Nondistended. Incisional sites with some minimal bleeding. Wound VAC is in place in the lower abdomen. MUSCULOSKELETAL: No clubbing or cyanosis. NEUROLOGIC: No focal or lateralizing signs. Cranial nerves II through XII grossly intact. PSYCH: Appropriate affect. Alert and oriented to person, place and time. SKIN: Well perfused. Good skin turgor. ASSESSMENT: 1. Abdominal wall abscess 2. Necrotizing fasciitis of the abdominal wall 3. Necrotic transverse colon 4. Panniculitis 5. Super morbid obesity 6. status post open reduction and repair of large recurrent incarcerated incisional hernia on 02/10/2021 for large bowel obstruction due to incarcerated recurrent incisional hernia PLAN: -Patient scheduled for debridement of abdominal wall necrotizing fasciitis with wound VAC change tomorrow, 03/09/[address] Hopson -Continue ICU management -Continue supportive care -Continue antibiotics per ID Physician Expansion Joint Builder note has been reviewed by physician. Signing provider agrees with the documented findings, assessment, and plan of care. Objective - Vital Signs Vital signs: Vital Signs Temp 97.7 F 03/08/21 12:00 Pulse 69 03/08/21 12:30 Resp 20 03/08/21 12:30 BP 96/45 03/08/21 12:30 Pulse Ox 98 03/08/21 12:30 Intake & Output 03/07/21 03/08/21 03/08/21 18:59 06:59 18:59 Intake Total 1350 4783.996 2687.067 Output Total 185 260 Balance 1350 4598.996 2427.067 Weight 139.253 kg Intake: IV 1050 4700 2520 0.9 2900 420 Lactated Ringers 2,000 ml 2000 @ 999 mls/hr IV .Q2H1M [facility] Rx#:[id number] Piperacillin-Tazobactam 3 100 100 .375 gm In Sodium Chloride 0.9% 100 ml @ 25 mls/hr IVPB Q8HR [facility] Rx# :[id number] metroNIDAZOLE-NS PMX 500 200 mg In Saline 1 100ml.bag @ 100 mls/hr IVPB Q6H [facility] Rx#:[id number] Intake, IV Titration 300 83.996 167.067 Amount Norepinephrine 4 mg In 10.611 72.862 Sodium Chloride 0.9% 250 ml @ 0.05 MCG/KG/MIN 26. 528 mls/hr IV .Q9H35M [facility] Rx#:[id number] Piperacillin-Tazobactam 3 200 .375 gm In Sodium Chloride 0.9% 100 ml @ 25 mls/hr IVPB Q8HR [facility] Rx# :[id number] metroNIDAZOLE-NS PMX 500 100 mg In Saline 1 100ml.bag @ 100 mls/hr IVPB Q8HR [facility] Rx#:[id number] propofoL 1,000 mg In 73.385 94.205 Empty Bag 1 bag @ Titrate IV .Q0M [facility] Rx#: [id number] Output: Urine 185 260 Other: Voiding Method Indwelling Catheter Indwelling Catheter - Labs CBC & Chem 7: 03/08/21 00:46 03/08/21 00:46 Labs: Abnormal Lab Results - Last 24 Hours (Table) 03/08/21 03/08/21 03/08/21 Range/Units 00:20 00:46 00:46 WBC 14.8 H (3.8-10.6) k/uL RBC 3.77 L (3.80-5.40) m/uL Neutrophils # (Manual) 13.30 H (1.3-7.7) k/uL Metamyelocytes # (Man) 0.15 H (0) k/uL ABG pH (7.35-7.45) ABG pCO2 (35-45) mmHg ABG pO2 (83-108) mmHg Sodium 134 L (137-145) mmol/L Carbon Dioxide 21 L (22-30) mmol/L Glucose 137 H (74-99) mg/dL POC Glucose (mg/dL) 126 H (75-99) mg/dL Calcium 8.0 L (8.4-10.2) mg/dL Total Protein 5.7 L (6.3-8.2) g/dL Albumin 2.3 L (3.5-5.0) g/dL Urine Protein (Negative) Urine Ketones (Negative) Urine Blood (Negative) Amorphous Sediment (None) /hpf Urine Bacteria (None) /hpf Hyaline Casts (0-2) /lpf Urine Mucus (None) /hpf 03/08/21 03/08/21 03/08/21 Range/Units 00:46 01:25 04:50 WBC (3.8-10.6) k/uL RBC (3.80-5.40) m/uL Neutrophils # (Manual) (1.3-7.7) k/uL Metamyelocytes # (Man) (0) k/uL ABG pH 7.26 L (7.35-7.45) ABG pCO2 46 H (35-45) mmHg ABG pO2 81 L (83-108) mmHg Sodium (137-145) mmol/L Carbon Dioxide (22-30) mmol/L Glucose (74-99) mg/dL POC Glucose (mg/dL) (75-99) mg/dL Calcium 7.9 L (8.4-10.2) mg/dL Total Protein (6.3-8.2) g/dL Albumin (3.5-5.0) g/dL Urine Protein Trace H (Negative) Urine Ketones 1+ H (Negative) Urine Blood Trace H (Negative) Amorphous Sediment Rare H (None) /hpf Urine Bacteria Rare H (None) /hpf Hyaline Casts 9 H (0-2) /lpf Urine Mucus Rare H (None) /hpf 03/08/21 Range/Units 11:42 WBC (3.8-10.6) k/uL RBC (3.80-5.40) m/uL Neutrophils # (Manual) (1.3-7.7) k/uL Metamyelocytes # (Man) (0) k/uL ABG pH (7.35-7.45) ABG pCO2 (35-45) mmHg ABG pO2 (83-108) mmHg Sodium (137-145) mmol/L Carbon Dioxide (22-30) mmol/L Glucose (74-99) mg/dL POC Glucose (mg/dL) 145 H (75-99) mg/dL Calcium (8.4-10.2) mg/dL Total Protein (6.3-8.2) g/dL Albumin (3.5-5.0) g/dL Urine Protein (Negative) Urine Ketones (Negative) Urine Blood (Negative) Amorphous Sediment (None) /hpf Urine Bacteria (None) /hpf Hyaline Casts (0-2) /lpf Urine Mucus (None) /hpf Microbiology - Last 24 Hours (Table) 03/06/21 09:57 Blood Culture - Preliminary Blood No Growth after 48 hours 03/06/21 09:57 Blood Culture - Preliminary Blood No Growth after 48 hours 03/06/21 15:35 Gram Stain - Final Incision Wound Culture - Final
[2021-03-08] MEDS: HYDROmorphone 1 MG/ML 1 ML SYRINGE IVP PRN (17:52)
--- NOTE | 2021-03-08 21:09 | OP ---
OPERATIVE REPORT PULMONARY/CRITICAL CARE PROCEDURE NOTE: PROCEDURE PERFORMED: Right radial art line. BARREL DRUM CUTTER: Dr. Strickland ARTERIAL LINE PLACEMENT: Indications: Hemodynamic monitoring. PREOP DIAGNOSIS: Frequent blood draws and blood gas monitoring. POSTOP DIAGNOSIS: Frequent blood draws and blood gas monitoring. DESCRIPTION OF PROCEDURE: A time-out was completed verifying correct patient, procedure, site, positioning, and implant(s) or special equipment if applicable. Augustin's test was performed to ensure adequate perfusion. The patient's right wrist was prepped and draped in sterile fashion. 1% Lidocaine was used to anesthetize the area. An 18G Arrow arterial line was introduced into the radial artery. The catheter was threaded over the guide wire and the needle was removed with appropriate pulsatile blood return. Blood loss was minimal. The catheter was then sutured in place to the skin and a sterile dressing applied. Perfusion to the extremity distal to the point of catheter insertion was checked and found to be adequate. The patient tolerated the procedure well and there were no complications. There was informed consent and universal timeout. There was no immediate complication. There was good blood return and waveform. The patient tolerated the procedure well. Sterile dressing was applied by the nurse. Catheter was sutured in place. MMODL / IJN: [id number] /
[2021-03-09] MEDS: IPRATROPIUM-ALBUTEROL 3 ML NEB INHALATION SCH ×6 (00:27→19:53)
[2021-03-09] MEDS: ONDANSETRON 4 MG/2 ML VIAL IVP SCH ×4 (03:15→18:26)
[2021-03-09] MEDS: PIPERACILLIN-TAZOBACTAM 3.375 GM in SODIUM CHLORIDE 0.9% 100 ML IVPB SCH ×3 (03:15→15:55)
[2021-03-09] MEDS: metroNIDAZOLE-NS PMX 500 MG in SALINE 1 100ML.BAG IVPB SCH ×4 (03:16→18:27)
[2021-03-09] MEDS: NOREPINEPHRINE 4 MG in SODIUM CHLORIDE 0.9% 250 ML IV SCH ×3 (03:16→21:08)
[2021-03-09 05:17] LABS: ABG Base Excess -1.3 mmol/L; ABG HCO3 24 mmol/L (21-25); ABG Oxygen Saturation 99.8 % (94-97); ABG PCO2 40 mmHg (35-45); ABG PH 7.39 (7.35-7.45); ABG PO2 202 mmHg (83-108); ABG TCO2 25 mmol/L (19-24); Allen Test Performed? Yes
[2021-03-09 06:09] LABS: Basophils # (A) 0.1 k/uL (0-0.2); Basophils % (A) 0 %; Eosinophils # (A) 0.1 k/uL (0-0.7); Eosinophils % (A) 0 %; HCT 31.5 % (34.0-46.0); HGB 10.3 gm/dL (11.4-16.0); Lymphocytes # (A) 0.8 k/uL (1.0-4.8); Lymphocytes % (A) 5 %; MCH 31.6 pg (25.0-35.0); MCHC 32.6 g/dL (31.0-37.0); MCV 97.1 fL (80.0-100.0); Mean Platelet Volume 7.5; Monocytes # (A) 0.6 k/uL (0-1.0); Monocytes % (A) 4 %; Neutrophils # (A) 13.6 k/uL (1.3-7.7); Neutrophils % (A) 90 %; Platelet Count 352 k/uL (150-450); RBC 3.24 m/uL (3.80-5.40); RDW 13.5 % (11.5-15.5); WBC 15.2 k/uL (3.8-10.6)
--- NOTE | 2021-03-09 06:29 | PN ---
PROGRESS NOTE DATE OF SERVICE: 03/08/2021 REASON FOR FOLLOWUP: Intraabdominal abscess. INTERVAL HISTORY: Patient is afebrile. The patient is status post surgery yesterday in this patient who did have abdominal wall abscess, perforated viscus, status post debridement of the necrotic abdominal wall as well as Abdominal culture has been obtained. The patient is currently intubated on the vent in the ICU, hemodynamically stable off the pressor support this morning. No significant purulent secretions in the ET or any other changes reported by the nursing staff. PHYSICAL EXAMINATION: Blood pressure is 112/42 with a pulse of 65, temperature of 98.4. She is 98% on room air. General description is a middle-aged female intubated on the vent. Respiratory system: Unlabored breathing, decreased breath sounds in the bases. No wheeze. Heart S1, S2. Regular rate and rhythm. Abdomen: Soft, mildly distended. No guarding. No rigidity. LABS: Hemoglobin is 11.8, white count 14.8, creatinine 0.60. DIAGNOSTIC IMPRESSION AND PLAN: Patient with an intraabdominal abscess with necrotizing infection abdominal wall and status post laparotomy extensive surgery and drainage of the abscess. Cultures are currently pending. Patient is covered with Zosyn to continue adjusting antibiotic further based on culture report. Continue supportive care. MMODL / IJN: [id number] /
[2021-03-09 07:06] LABS: African American GFR (CKD) >90 (>60 ml/min/1.73 sqM); Anion Gap 5 mmol/L; Blood Urea Nitrogen 10 mg/dL (7-17); Carbon Dioxide 22 mmol/L (22-30); Chloride 109 mmol/L (98-107); Glucose 120 mg/dL (74-99); Magnesium 2.2 mg/dL (1.6-2.3); Non-African American GFR(CKD) >90 (>60 ml/min/1.73 sqM); Phosphorus 2.8 mg/dL (2.5-4.5); Potassium 4.1 mmol/L (3.5-5.1); Sodium 136 mmol/L (137-145)
--- NOTE | 2021-03-09 07:32 | XR ---
EXAMINATION TYPE: XR chest 1V portable DATE OF EXAM: 03/09/2021 COMPARISON: 03/08/2021 INDICATION: Tube placement TECHNIQUE: Single frontal view of the chest is obtained. FINDINGS: The heart size is normal. The pulmonary vasculature is normal. There is mild infiltrate along the right diaphragm. Patchy infiltrates within the left mid and lower lung field. Endotracheal tube tip is 2 cm above the liban. Left PICC line has its tip in superior vena cava allan on. IMPRESSION: 1. Bilateral lung infiltrates greater on the left. 2. Lines and catheters discussed above
[2021-03-09] MEDS: SODIUM CHLORIDE 0.9% 1,000 ML IV SCH ×3 (07:35→15:57)
--- NOTE | 2021-03-09 08:47 | P.PN ---
Subjective Progress Note Date: 03/09/21 61-year-old female patient with past medical history of morbid obesity with previous history of lap banding, panniculitis, hypertension, history of multiple abdominal and pelvic surgeries, obstructive sleep apnea, osteoarthritis, who recently had a large bowel obstruction due to incarcerated recurrent incisional hernia in the left lower abdomen and underwent open reduction and repair of large isolated incisional hernia lysis of adhesions and omentectomy on 02/10/2021. Patient was discharged home on 02/14/2021 in stable condition, patient was tolerating diet, her pain was controlled, patient was passing bowel movements and flatus, she was ambulating at the time of discharge. On 03/06/2021 patient was brought into the emergency department for a concern of incisional drainage. The drainage was brown in color, however patient was not complaining of any significant pain or fever. On examination there was a large amount of brownish drainage that was draining from her incision. CT of the abdomen and pelvis showed marked increase in the amount of large subcutaneous fluid collection containing contrast, 6 mm abscess in the intra-abdominal cavity, there was a small amount of adjacent free air, and the segment of transverse colon with surrounding inflammatory changes correlating for abscess w ith a ruptured viscus. 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 The skin thickening and diffuse subcutaneous edema in the anterior abdominal wall relating for cellulitis. Blood work in the emergency department showed a white count of 15.4, hemoglobin of 13.7, INR of 1.5, sodium 1:30, potassium 4.9, chloride is 95, B1 of 19, creatinine 0.90, lact ic acid was 3.1. COVID-19 was negative. Patient had a low-grade fever with a temp of 99.1 on presentation. Patient was given 2 L and IV fluid boluses, she was started on broad-spectrum antibiotics, currently on Flagyl and Zosyn, and the general surgery performed exploratory laparotomy with transverse colectomy with anastomosis with extensive lysis of adhesions, drainage of the subcutaneous abdominal wall abscess with over 450 now feculent material, and sharp excisional debridement of abdominal wall for necrotizing fasciitis and application of the wound VAC system. Postoperatively patient return to the intensive care unit, intubated and sedated on mechanical ventilator, this morning she seen in the ICU, on assist control mode of ventilation, with a rate of 18, tidal volume is 380, FiO2 of 70%, and PEEP of 50, this morning's blood gas shows pO2 of 81, pCO2 of 46, and pH of 7.26. 0.9 and is infusing at a rate of 150, to prevent is a 25 mics per kilo per minute, levofed is at 2.7 mics per minute. Today's chest x- ray shows some interstitial infiltrate and atelectasis at the right lung base. On today's evaluation on 03/09/2021 patient seen in follow-up in intensive care unit, he is postoperative day #1, status post exploratory laparotomy, transverse colectomy and anastomosis with extensive lysis of adhesions and debridement of abdominal wall necrotizing fasciitis, drainage of the abdominal wall abscesses. Patient remains sedated and intubated on mechanical ventilator, with assist- control rate of 18, tidal vital 380, tidal volume is 380, FiO2 of 40% and PEEP of 10, this morning gas showed pO2 of 202, pCO2 of 40, and pH is 7.39. We'll drop the PEEP down to 5. Patient is off norepinephrine, hemodynamically she is stable, she remains on 0.9 normal saline at a rate of 150 ML per hour, yesterday she received additional 2 L of lactated Ringer and fluid boluses and we were able to wean her off the vasopressor support, she is currently on Diprivan is at 30 mics per kilo per minute, remains on broad-spectrum antibiotic including Flagyl and Zosyn, blood abdominal wall tissue and the cultures are all negative thus far, final cultures are pending, overnight she has been afebrile. Wound VAC is in place on the abdominal wound, and there is a total of 500 mL of serosanguineous output in last 24 hours. Mid abdominal incision is clean dry and intact, pedro are intact, wound VAC is intact. Abdomen is soft. Does have been reviewed with blood cell, is relatively stable at 16.2, hemoglobin is 10.3, sodium is 136, potassium is 4.1, chloride is 109, BUN is 10, creatinine 0.48. Feedings remain on hold, general surgery is following, and yesterday we were going to wake up the patient and give her a spontaneous breathing trials however the surgeon that the patient is to go back to or today for reexploration possibility of additional debridement. For that reason patient was less sedated and intubated on mechanical ventilator. Urine output is in the order of 30-50 ML per hour. Objective - Vital Signs Vital signs: Vital Signs Temp 96 F L 03/09/21 04:00 Pulse 61 03/09/21 08:00 Resp 18 03/09/21 07:30 BP 99/54 03/09/21 07:30 Pulse Ox 100 03/09/21 05:00 Intake & Output 03/08/21 03/09/21 03/09/21 18:59 06:59 18:59 Intake Total 3772.350 2163.012 150 Output Total 695 480 190 Balance 3077.350 1683.012 -40 Weight 152.8 kg Intake: IV 3450 2000 150 0.9 1350 Lactated Ringers 2,000 ml 2000 @ 999 mls/hr IV .Q2H1M [facility] Rx#:[id number] Piperacillin-Tazobactam 3 100 100 .375 gm In Sodium Chloride 0.9% 100 ml @ 25 mls/hr IVPB Q8HR [facility] Rx# :[id number] Sodium Chloride 0.9% 1, 1800 150 000 ml @ 150 mls/hr IV . Q6H40M [facility] Rx#:[id number] metroNIDAZOLE-NS PMX 500 100 mg In Saline 1 100ml.bag @ 100 mls/hr IVPB Q6H [facility] Rx#:[id number] Intake, IV Titration 322.350 163.012 Amount Norepinephrine 4 mg In 72.862 Sodium Chloride 0.9% 250 ml @ 0.05 MCG/KG/MIN 26. 528 mls/hr IV .Q9H35M [facility] Rx#:[id number] propofoL 1,000 mg In 249.488 163.012 Empty Bag 1 bag @ Titrate IV .Q0M [facility] Rx#: [id number] Output: Drainage 150 Abdomen 150 Urine 695 480 40 Other: Voiding Method Indwelling Catheter Indwelling Catheter ABP, PAP, CO, CI - Last Documented Arterial Blood Pressure 115/47 - Exam GENERAL EXAM: 61-year-old morbidly obese white female, intubated, sedated on mechanical ventilation, on assist-control mode, with FiO2 of 40% comfortable in no apparent distress. HEAD: Normocephalic/atraumatic. EYES: Normal reaction of pupils, equal size. Conjunctiva pink, sclera white. NOSE: Clear with pink turbinates. THROAT: No erythema or exudates. NECK: No masses, no JVD, no thyroid enlargement, no adenopathy. CHEST: No chest wall deformity. Symmetrical expansion. LUNGS: Equal air entry with no crackles, wheeze, rhonchi or dullness. CVS: Regular rate and rhythm, normal S1 and S2, no gallops, no murmurs, no rubs ABDOMEN: Soft, obese, mid abdominal incision with pedro clean dry and intact, there is subcu umbilical incision, which is open, with a wound VAC in place. No hepatosplenomegaly, normal bowel sounds, no guarding or rigidity. EXTREMITIES: No clubbing, no edema, no cyanosis, 2+ pulses and upper and lower extremities. MUSCULOSKELETAL: Muscle strength and tone normal. SPINE: No scoliosis or deformity SKIN: No rashes CENTRAL NERVOUS SYSTEM: Morbidly obese, intubated and sedated No focal deficits, tone is normal in all 4 extremities. - Labs CBC & Chem 7: 03/09/21 05:00 03/09/21 05:00 Labs: Abnormal Lab Results - Last 24 Hours (Table) 03/08/21 03/09/21 03/09/21 Range/Units 11:42 05:00 05:00 WBC 15.2 H (3.8-10.6) k/uL RBC 3.24 L (3.80-5.40) m/uL Hgb 10.3 L (11.4-16.0) gm/dL Hct 31.5 L (34.0-46.0) % Neutrophils # 13.6 H (1.3-7.7) k/uL Lymphocytes # 0.8 L (1.0-4.8) k/uL ABG pO2 (83-108) mmHg ABG Total CO2 (19-24) mmol/L ABG O2 Saturation (94-97) % Sodium 136 L (137-145) mmol/L Chloride 109 H (98-107) mmol/L Creatinine 0.48 L (0.52-1.04) mg/dL Glucose 120 H (74-99) mg/dL POC Glucose (mg/dL) 145 H (75-99) mg/dL Calcium 8.0 L (8.4-10.2) mg/dL 03/09/21 Range/Units 05:14 WBC (3.8-10.6) k/uL RBC (3.80-5.40) m/uL Hgb (11.4-16.0) gm/dL Hct (34.0-46.0) % Neutrophils # (1.3-7.7) k/uL Lymphocytes # (1.0-4.8) k/uL ABG pO2 202 H (83-108) mmHg ABG Total CO2 25 H (19-24) mmol/L ABG O2 Saturation 99.8 H (94-97) % Sodium (137-145) mmol/L Chloride (98-107) mmol/L Creatinine (0.52-1.04) mg/dL Glucose (74-99) mg/dL POC Glucose (mg/dL) (75-99) mg/dL Calcium (8.4-10.2) mg/dL Microbiology - Last 24 Hours (Table) 03/07/21 19:20 Anaerobic Culture - Preliminary Tissue - Abdominal Wall 03/07/21 19:20 Anaerobic Culture - Preliminary Abdomen 03/07/21 19:20 Wound Culture - Preliminary Tissue - Abdominal Wall 03/07/21 19:20 Wound Culture - Preliminary Abdomen 03/06/21 09:57 Blood Culture - Preliminary Blood No Growth after 48 hours 03/06/21 09:57 Blood Culture - Preliminary Blood No Growth after 48 hours 03/06/21 15:35 Gram Stain - Final Incision Wound Culture - Final Assessment and Plan Plan: Assessment: #1. Septic shock, related to necrotizing fasciitis of the abdominal fascia, necrotic transverse colon, necrotic omentum, status post drainage at the abdominal wall abscess, exploratory laparotomy with transverse colectomy with anastomosis with extensive lysis of adhesions, and debridement of abdominal wall necrotizing fasciitis in the application of the wound VAC on 03/08/2021. She has recovered from septic shock, currently off vasopressor support on 03/09/2021 #2. Recent history of a large bowel obstruction due to incarcerated recurrent incisional hernia, status post open reduction and repair of a large recurrent incarcerated incisional hernia, open lysis of adhesions, and omentectomy on 02/10/2021 #3. History of morbid obesity previous history of lap banding #4. History of obstructive sleep apnea #5. Osteoarthritis #6. Hypertension #7. History of multiple abdominal pelvic surgeries #8. Routine postoperative ventilator management #9. Hyponatremia likely hypovolemic #10. Lactic acidosis related to underlying sepsis, improved with fluid resuscitation #11. Panniculitis Plan: Keep sedated, intubated Continue weaning FiO2 which is currently down to 40%, drop the PEEP down to 5 Off vasopressor support, no fever overnight, hemodynamically stable Continue broad-spectrum antibiotics Monitor urine output, hemodynamics No growth on cultures yet, will await final cultures Hold sedation holiday and spontaneous breathing trials Gen. surgery is planning on taking the patient back to surgery for reexploration and possible additional debridement GI and DVT prophylaxis Continue close monitoring in the ICU in the postoperative period Likely extubate to BiPAP when she is ready for spontaneous breathing trials I performed a history & physical examination of the patient and discussed their management with my nurse practitioner, Charley Sanchez. I reviewed the nurse practitioner's note and agree with the documented findings and plan of care. Lung sounds are positive for diminished breatg sounds throughout the lung [place]. The findings and the impression was discussed with the patient. I attest to the documentation by the nurse practitioner. Time with Patient: Greater than 30
[2021-03-09] MEDS: CHLORHEXIDINE GLUCONATE 15 ML CUP MUCOUS MEM SCH ×2 (09:51→21:08)
[2021-03-09] MEDS: PANTOPRAZOLE 40 MG/10 ML VIAL IV SCH (09:52)
[2021-03-09] MEDS: ENOXAPARIN 40 MG/0.4 ML SYRINGE SQ SCH (09:52)
--- NOTE | 2021-03-09 10:39 | P.PN ---
Subjective Progress Note Date: 03/09/21 CHIEF COMPLAINT: Necrotizing fasciitis with gangrene of the colon HISTORY OF PRESENT ILLNESS: The patient is a super morbidly obese 61-year-old female he presented with abdominal pain following recent open repair of incarcerated recurrent incisional hernia involving colon. She is status post exploratory laparotomy, lysis of adhesions, colectomy, debridement of abdominal wall due to necrotizing fasciitis and drainage of large abdominal wall abscess. She is in ICU. No reports of fevers or chills. She is off all pressors. Abdominal wound VAC has been draining serosanguineous drainage. She is intu bated. She received over 3 L fluids yesterday. REVIEW OF ORGAN SYSTEMS: No fevers or chills. No nausea or vomiting. No acute cardiac event. PHYSICAL EXAM: VITAL SIGNS: Stable GENERAL: Well-developed pleasant female in no acute distress. HEENT: No scleral icterus. Extraocular movements grossly intact. Moist buccal mucosa. CHEST: Mechanical ventilation with equal bilateral excursions. CARDIOVASCULAR: Regular rate and rhythm. Distal 2+ pulses. ABDOMEN: Left paramedian incision intact. Wound VAC intact along lower transverse incision without cellulitis Large pannus over 50+ pounds. No p eritonitis. MUSCULOSKELETAL: No clubbing, cyanosis. Edema over upper extremities. SKIN: Well perfused. PSYCH: sedated. LABS: Reviewed. White blood cell count elevated over 15,000 crease from over 1 4,000 yesterday. MICROBIOLOGY: Gram-positive cocci and bacilli on gram stain. ASSESSMENT: 1. Large bowel necrosis with necrotizing fasciitis status post colectomy, abdominal wall debridement 2. Super morbid obesity due to excess calories, BMI 59.7 3. 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 TPN initiated for prolonged nothing by mouth status 2. Return to the operating room for second look and further debridement of the abdominal wall 3. Infectious disease following for antibiotic management 4. Will need continued wound VAC therapy for large dimension of wound 25 x 15 cm 5. Wound VAC schedule Saturday to be initiated after debridement today 6. Likely placement to rehab post discharge pending Objective - Vital Signs Vital signs: Vital Signs Temp 96 F L 03/09/21 04:00 Pulse 61 03/09/21 08:00 Resp 18 03/09/21 07:30 BP 99/54 03/09/21 07:30 Pulse Ox 100 03/09/21 05:00 Intake & Output 03/08/21 03/09/21 03/09/21 18:59 06:59 18:59 Intake Total 3772.350 2263.012 150 Output Total 695 480 190 Balance 3077.350 1783.012 -40 Weight 152.8 kg 152.8 kg Intake: IV 3450 2000 150 0.9 1350 Lactated Ringers 2,000 ml 2000 @ 999 mls/hr IV .Q2H1M [facility] Rx#:[id number] Piperacillin-Tazobactam 3 100 100 .375 gm In Sodium Chloride 0.9% 100 ml @ 25 mls/hr IVPB Q8HR [facility] Rx# :[id number] Sodium Chloride 0.9% 1, 1800 150 000 ml @ 150 mls/hr IV . Q6H40M [facility] Rx#:[id number] metroNIDAZOLE-NS PMX 500 100 mg In Saline 1 100ml.bag @ 100 mls/hr IVPB Q6H [facility] Rx#:[id number] Intake, IV Titration 322.350 263.012 Amount Norepinephrine 4 mg In 72.862 Sodium Chloride 0.9% 250 ml @ 0.05 MCG/KG/MIN 26. 528 mls/hr IV .Q9H35M [facility] Rx#:[id number] propofoL 1,000 mg In 249.488 263.012 Empty Bag 1 bag @ Titrate IV .Q0M [facility] Rx#: [id number] Output: Drainage 150 Abdomen 150 Urine 695 480 40 Other: Voiding Method Indwelling Catheter Indwelling Catheter ABP, PAP, CO, CI - Last Documented Arterial Blood Pressure 115/47 - Labs CBC & Chem 7: 03/09/21 05:00 03/09/21 05:00 Labs: Abnormal Lab Results - Last 24 Hours (Table) 03/08/21 03/09/21 03/09/21 Range/Units 11:42 05:00 05:00 WBC 15.2 H (3.8-10.6) k/uL RBC 3.24 L (3.80-5.40) m/uL Hgb 10.3 L (11.4-16.0) gm/dL Hct 31.5 L (34.0-46.0) % Neutrophils # 13.6 H (1.3-7.7) k/uL Lymphocytes # 0.8 L (1.0-4.8) k/uL ABG pO2 (83-108) mmHg ABG Total CO2 (19-24) mmol/L ABG O2 Saturation (94-97) % Sodium 136 L (137-145) mmol/L Chloride 109 H (98-107) mmol/L Creatinine 0.48 L (0.52-1.04) mg/dL Glucose 120 H (74-99) mg/dL POC Glucose (mg/dL) 145 H (75-99) mg/dL Calcium 8.0 L (8.4-10.2) mg/dL 03/09/21 Range/Units 05:14 WBC (3.8-10.6) k/uL RBC (3.80-5.40) m/uL Hgb (11.4-16.0) gm/dL Hct (34.0-46.0) % Neutrophils # (1.3-7.7) k/uL Lymphocytes # (1.0-4.8) k/uL ABG pO2 202 H (83-108) mmHg ABG Total CO2 25 H (19-24) mmol/L ABG O2 Saturation 99.8 H (94-97) % Sodium (137-145) mmol/L Chloride (98-107) mmol/L Creatinine (0.52-1.04) mg/dL Glucose (74-99) mg/dL POC Glucose (mg/dL) (75-99) mg/dL Calcium (8.4-10.2) mg/dL Microbiology - Last 24 Hours (Table) 03/07/21 19:20 Gram Stain - Preliminary Tissue - Abdominal Wall Wound Culture - Preliminary 03/07/21 19:20 Gram Stain - Preliminary Abdomen Wound Culture - Preliminary 03/07/21 19:20 Anaerobic Culture - Preliminary Tissue - Abdominal Wall 03/07/21 19:20 Anaerobic Culture - Preliminary Abdomen 03/06/21 09:57 Blood Culture - Preliminary Blood No Growth after 48 hours 03/06/21 09:57 Blood Culture - Preliminary Blood No Growth after 48 hours 03/06/21 15:35 Gram Stain - Final Incision Wound Culture - Final Assessment and Plan (1) Abdominal wall abscess Current Visit: Yes Status: Acute Code(s): L02.211 - CUTANEOUS ABSCESS OF ABDOMINAL WALL SNOMED Code(s): 38971981 (2) Panniculitis Current Visit: Yes Status: Acute Code(s): M79.3 - PANNICULITIS, UNSPECIFIED SNOMED Code(s): 51144185 (3) BMI 60.0-69.9, adult Current Visit: No Status: Acute Code(s): Z68.44 - BODY MASS INDEX [BMI] 60.0-69.9, ADULT SNOMED Code(s): 225184677 (4) Morbid obesity due to excess calories Current Visit: No Status: Acute Code(s): E66.01 - MORBID (SEVERE) OBESITY DUE TO EXCESS CALORIES SNOMED Code(s): 247441409 (5) Necrotizing fasciitis Current Visit: Yes Status: Acute Code(s): M72.6 - NECROTIZING FASCIITIS SNOMED Code(s): 43607186 (6) Gangrene of colon Current Visit: Yes Status: Acute Code(s): K55.049 - ACUTE INFARCTION OF LARGE INTESTINE, EXTENT UNSPECIFIED SNOMED Code(s): 21131757 (7) S/P colectomy Current Visit: Yes Status: Acute Code(s): Z90.49 - ACQUIRED ABSENCE OF OTHER SPECIFIED PARTS OF DIGESTIVE TRACT SNOMED Code(s): 192347988
[2021-03-09 11:42] LABS: Glucose,Whole Blood 112 mg/dL (75-99)
[2021-03-09] MEDS ORDERED: MVI, ADULT NO.4 WITH VIT K 10 ML, TRACE (CONC-1ML/DOSE) 1 ML, SODIUM ACETATE 40 MEQ, MA... IV SCH ×7 (12:30)
[2021-03-09] MEDS ORDERED: ROCURONIUM 10 MG/ML (5 ML VIAL) IV ONE (13:56)
[2021-03-09] MEDS ORDERED: fentaNYL (PF) 50 MCG/ML 2 ML AMP ONE (13:56)
[2021-03-09] MEDS ORDERED: LACTATED RINGERS 1,000 ML IV ONE (14:06)
--- NOTE | 2021-03-09 15:57 | P.OP ---
Date of Procedure: 03/09/21 Description of Procedure: Date of Procedure: 03/09/21 SURGEON: RADU HARDY MD PREOPERATIVE DIAGNOSES: 1. Abdominal wall necrotizing fasciitis 2. Severe abdominal panniculosis with panniculitis 3. Super morbid obesity, BMI 58.5 4. Sepsis 5. Hypertensive heart disease 6. Diabetes type 2, [id number] POSTOPERATIVE DIAGNOSES: 1. Abdominal wall necrotizing fasciitis 2. Severe abdominal panniculosis with panniculitis 3. Super morbid obesity, BMI 58.5 4. Sepsis 5. Hypertensive heart disease 6. Diabetes type 2, [id number] Procedure(s) Performed: 1. Sharp excisional debridement for necrotizing fasciitis 27 x 15 x 7 cm to muscle of the abdominal wall 2. Water jet pulsed lavage 3 L normal saline for mechanical debridement of necrotizing fasciitis 27 x 15 x 7 cm to muscle to abdominal wall 3. Placement of abdominal wound VAC Anesthesia: GETA Estimated Blood Loss (ml): 20 Pathology: none sent Condition: stable Disposition: ICU Operative Findings: 1. Healthy viable subcutaneous tissue excised of the abdominal wall 2. Colon anastomosis viable 3. Debridement area 27 x 15 x 7 cm of the lower abdominal wall 4. Placement of wound VAC in lower wound with barrier petroleum gauze along bed of the wound 5. Abdomen closed with expected hernia of the left upper quadrant 6. Wound VAC placed over the paramedian incision INDICATIONS: The patient is a 61-year-old female with grade 5 panniculosis and super morbid obesity, BMI 58 who had recent repair of incarcerated incisional hernia with large bowel obstruction 2-3 weeks ago. She presented back to the hospital drainage from her incision. She had emergent exploratory laparotomy with colectomy, debridement of abdominal wall for necrotizing fasciitis, colectomy over 36 hours ago. She is being brought back for anticipated second surgical look for necrotizing fasciitis. Benefits and risks including but not limited to placement of ostomy, bleeding, infection, additional surgical procedure, prolonged ventilation was described at length to her family. Informed consent was obtained from her family. DESCRIPTION: Patient was brought to the operating room from her hospital bed already intubated. The external wound VAC dressing was removed. The abdomen was prepped and draped in a standard sterile fashion. A timeout protocol was performed confirming the patient's name, procedure to be performed, DVT prophylaxis including antibiotics. Next, the wound VAC sponge was removed. Skin pedro were removed and the subcutaneous tissue and incision were reopened. The fascial defect of the left upper abdomen was explored with healthy viable colonic anastomosis. No purulence was identified along the wound bed. Along the inferior portion of the wound and subcutaneous pocket, additional sharp excisional debridement using #10 blade of the abdominal wall fascia was performed until to the muscle to healthy bleeding tissue. Hemostasis checked with cautery. Wound bed was measured 27 cm length by 15 cm width by 7 cm depth of subcutaneous tissue. Over 3 L of warm normal saline solution was used for water jet high-pressure pulsatile lavage. Hemostasis was checked with electro Bovie cautery. The paramedian incision over the anastomosis was closed using 0 Vicryl suture in interrupted fashion for the thick subcutaneous tissue. Next, the subcutaneous tissue was copiously irrigated with normal saline and hydrogen peroxide. Stainless steel skin pedro were applied. For the lower transverse incision, petroleum gauze was used to line the subcutaneous tissue and wound bed. A medium-sized black wound VAC sponge was placed into the pocket and placed over the skin of the skin pedro. Tegaderm dressing was placed over the sponge with a wound VAC adapter attached and set to suction at -125 mmHg pressure. No leak was confirmed of the wound VAC system. At the end of the procedure, needle, sponge, and instrument count had been verified correct by medical surgical tech. The patient tolerated the procedure well and was taken to the intensive care unit intubated. The patient's family was updated on level of care with intraoperative findings reviewed.
[2021-03-09 18:23] LABS: Glucose,Whole Blood 134 mg/dL (75-99)
[2021-03-10] MEDS: PIPERACILLIN-TAZOBACTAM 3.375 GM in SODIUM CHLORIDE 0.9% 100 ML IVPB SCH ×3 (00:20→16:47)
[2021-03-10] MEDS: metroNIDAZOLE-NS PMX 500 MG in SALINE 1 100ML.BAG IVPB SCH ×4 (00:20→20:40)
[2021-03-10] MEDS: ONDANSETRON 4 MG/2 ML VIAL IVP SCH ×4 (00:20→17:21)
[2021-03-10] MEDS: IPRATROPIUM-ALBUTEROL 3 ML NEB INHALATION SCH ×7 (01:08→23:27)
[2021-03-10 04:37] LABS: Ionized Calcium 5.4 mg/dL (4.5-5.3)
[2021-03-10 04:44] LABS: African American GFR (CKD) >90 (>60 ml/min/1.73 sqM); Anion Gap 1 mmol/L; Blood Urea Nitrogen 7 mg/dL (7-17); Calcium 7.6 mg/dL (8.4-10.2); Carbon Dioxide 25 mmol/L (22-30); Chloride 111 mmol/L (98-107); Glucose 139 mg/dL (74-99); Non-African American GFR(CKD) >90 (>60 ml/min/1.73 sqM); Phosphorus 2.7 mg/dL (2.5-4.5); Potassium 3.8 mmol/L (3.5-5.1); Sodium 137 mmol/L (137-145)
[2021-03-10 04:58] LABS: HCT 28.1 % (34.0-46.0); MCH 29.8 pg (25.0-35.0); MCV 96.4 fL (80.0-100.0); Mean Platelet Volume 7.4; Platelet Count 340 k/uL (150-450); RBC 2.91 m/uL (3.80-5.40); RDW 13.7 % (11.5-15.5); WBC 12.4 k/uL (3.8-10.6)
[2021-03-10] MEDS: SODIUM CHLORIDE 0.9% 1,000 ML IV SCH ×4 (05:08→22:20)
[2021-03-10] MEDS: NOREPINEPHRINE 4 MG in SODIUM CHLORIDE 0.9% 250 ML IV SCH ×2 (05:09→14:35)
[2021-03-10 05:23] LABS: ABG Base Excess 1.8 mmol/L; ABG HCO3 27 mmol/L (21-25); ABG Oxygen Saturation 98.9 % (94-97); ABG PCO2 43 mmHg (35-45); ABG PO2 110 mmHg (83-108); ABG TCO2 28 mmol/L (19-24); Allen Test Performed? Yes
[2021-03-10 05:32] LABS: HGB 8.7 gm/dL (11.4-16.0)
--- NOTE | 2021-03-10 06:12 | XR ---
EXAMINATION TYPE: XR chest 1V portable DATE OF EXAM: 03/10/2021 CLINICAL HISTORY: Difficulty breathing progress study. TECHNIQUE: Single AP portable semiupright view of the chest is obtained. COMPARISON: Chest x-ray from one day earlier and older studies. FINDINGS: Stable somewhat low-lying endotracheal tube. Stable left subclavian central venous cathete r. Stable somewhat low lung volumes with bibasilar opacities. Stable mild cardiomegaly and suspected mil d central vascular congestion. Lap band device epigastric region redemonstrated. Osseous structures a re intact. IMPRESSION: Low lung volumes and mild cardiomegaly with mild central vascular congestion and patchy b ibasilar acute atelectasis and/or infiltrate.
[2021-03-10] MEDS ORDERED: POTASSIUM BICARBONATE/CIT AC 20 MEQ TABLET.EFF NG-TUBE SCH (08:00)
[2021-03-10] MEDS: POTASSIUM CHLORIDE 10 MEQ in WATER FOR INJECTION 1 100ML.BAG IVPB SCH ×4 (08:30→18:09)
--- NOTE | 2021-03-10 08:32 | P.PN ---
Subjective Progress Note Date: 03/10/21 61-year-old female patient with past medical history of morbid obesity with previous history of lap banding, panniculitis, hypertension, history of multiple abdominal and pelvic surgeries, obstructive sleep apnea, osteoarthritis, who recently had a large bowel obstruction due to incarcerated recurrent incisional hernia in the left lower abdomen and underwent open reduction and repair of large isolated incisional hernia lysis of adhesions and omentectomy on 02/10/2021. Patient was discharged home on 02/14/2021 in stable condition, patient was tolerating diet, her pain was controlled, patient was passing bowel movements and flatus, she was ambulating at the time of discharge. On 03/06/2021 patient was brought into the emergency department for a concern of incisional drainage. The drainage was brown in color, however patient was not complaining of any significant pain or fever. On examination there was a large amount of brownish drainage that was draining from her incision. CT of the abdomen and pelvis showed marked increase in the amount of large subcutaneous fluid collection containing contrast, 6 mm abscess in the intra-abdominal cavity, there was a small amount of adjacent free air, and the segment of transverse colon with surrounding inflammatory changes correlating for abscess w ith a ruptured viscus. 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 The skin thickening and diffuse subcutaneous edema in the anterior abdominal wall relating for cellulitis. Blood work in the emergency department showed a white count of 15.4, hemoglobin of 13.7, INR of 1.5, sodium 1:30, potassium 4.9, chloride is 95, B1 of 19, creatinine 0.90, lact ic acid was 3.1. COVID-19 was negative. Patient had a low-grade fever with a temp of 99.1 on presentation. Patient was given 2 L and IV fluid boluses, she was started on broad-spectrum antibiotics, currently on Flagyl and Zosyn, and the general surgery performed exploratory laparotomy with transverse colectomy with anastomosis with extensive lysis of adhesions, drainage of the subcutaneous abdominal wall abscess with over 450 now feculent material, and sharp excisional debridement of abdominal wall for necrotizing fasciitis and application of the wound VAC system. Postoperatively patient return to the intensive care unit, intubated and sedated on mechanical ventilator, this morning she seen in the ICU, on assist control mode of ventilation, with a rate of 18, tidal volume is 380, FiO2 of 70%, and PEEP of 50, this morning's blood gas shows pO2 of 81, pCO2 of 46, and pH of 7.26. 0.9 and is infusing at a rate of 150, to prevent is a 25 mics per kilo per minute, levofed is at 2.7 mics per minute. Today's chest x- ray shows some interstitial infiltrate and atelectasis at the right lung base. On today's evaluation on 03/09/2021 patient seen in follow-up in intensive care unit, he is postoperative day #1, status post exploratory laparotomy, transverse colectomy and anastomosis with extensive lysis of adhesions and debridement of abdominal wall necrotizing fasciitis, drainage of the abdominal wall abscesses. Patient remains sedated and intubated on mechanical ventilator, with assist- control rate of 18, tidal vital 380, tidal volume is 380, FiO2 of 40% and PEEP of 10, this morning gas showed pO2 of 202, pCO2 of 40, and pH is 7.39. We'll drop the PEEP down to 5. Patient is off norepinephrine, hemodynamically she is stable, she remains on 0.9 normal saline at a rate of 150 ML per hour, yesterday she received additional 2 L of lactated Ringer and fluid boluses and we were able to wean her off the vasopressor support, she is currently on Diprivan is at 30 mics per kilo per minute, remains on broad-spectrum antibiotic including Flagyl and Zosyn, blood abdominal wall tissue and the cultures are all negative thus far, final cultures are pending, overnight she has been afebrile. Wound VAC is in place on the abdominal wound, and there is a total of 500 mL of serosanguineous output in last 24 hours. Mid abdominal incision is clean dry and intact, pedro are intact, wound VAC is intact. Abdomen is soft. Does have been reviewed with blood cell, is relatively stable at 16.2, hemoglobin is 10.3, sodium is 136, potassium is 4.1, chloride is 109, BUN is 10, creatinine 0.48. Feedings remain on hold, general surgery is following, and yesterday we were going to wake up the patient and give her a spontaneous breathing trials however the surgeon that the patient is to go back to or today for reexploration possibility of additional debridement. For that reason patient was less sedated and intubated on mechanical ventilator. Urine output is in the order of 30-50 ML per hour. On today's evaluation on 03/10/2021 patient seen in follow-up in intensive care unit, yesterday patient had surgery, surgery lap, was sharp excisional debridement for necrotizing fascia-itis to muscle of the abdominal wall with lavage, and placement of the abdominal wound VAC back on. Overnight there was a large outputs of serosanguineous drainage from the wound VAC, around 500 mL, not grossly bloody, thin, however there was noted hemoglobin decreased to 8.7 on today's labs from previous 10.3 on yesterday's labs. However hemodynamically patient has remained stable, not on any vasopressors. Surgery is holding off on blood transfusion, and ordered iron supplementation at this time. Patient this morning is still sedated and mechanically ventilated on assist control mode of ventilation with a rate of 18, tidal M is 380, FiO2 of 40% and PEEP of 5. This morning's blood gas shows pO2 of 110, pCO2 of 43 and pH of 7.40, FiO2 has been dropped to 35%, maintenance IV fluids include 0.9 normal saline at a rate of 150 ML per hour, TPN was started yesterday and is infusing at 30 ML per hour, Diprivan is currently at 25 mics per kilo per minute, no other drips. Lovenox was also placed on hold by surgery for bleeding precaution. Chest x-ray has been reviewed showing low lung volumes and mild megaly with mild central vascular congestion and patchy bibasilar atelectasis and/or infiltrate, patient remains on broad-spectrum antibiotics including vaginal and Zosyn. The wound cultures are growing multiple albicans gram-negative bacilli species. Final culture is pending. Blood cultures have been negative, patient has been afebrile, hemodynamically she stable, she is in sinus mechanism with a rate of 83 bpm, blood pressure is 121/54 with a mean of 75. Acute issues overnight, urine output is in order of 30-40 mL per hour. Overall patient is +14 kg since admission. Cut back IV fluids to 50 ML per hour, patient may need a dose of IV Lasix. Objective - Vital Signs Vital signs: Vital Signs Temp 99.3 F 03/10/21 04:00 Pulse 82 03/10/21 07:00 Resp 21 03/10/21 07:00 BP 99/54 03/09/21 07:00 Pulse Ox 95 03/10/21 07:00 Intake & Output 03/09/21 03/10/21 03/10/21 18:59 06:59 18:59 Intake Total 2260 2360.000 180 Output Total 930 665 40 Balance 1330 1695.000 140 Weight 152.8 kg 153.4 kg Intake: IV 2160 2160 180 0.9 1350 1800 150 Mvi, Adult No.4 with Vit 60 360 30 K 10 ml Trace (Conc-1Ml/ Dose) 1 ml Sodium Acetate 40 meq Magnesium Sulfate gm 1 gm Calcium Gluconate 1 gm Potassium Phosphate 15 mmol In Amino Acids 5 %/Dextrose 20 % 1,000 ml @ 30 mls/hr IV .Q24H [facility] Rx#: [id number] Piperacillin-Tazobactam 3 200 .375 gm In Sodium Chloride 0.9% 100 ml @ 25 mls/hr IVPB Q8HR [facility] Rx# :[id number] Sodium Chloride 0.9% 1, 150 000 ml @ 150 mls/hr IV . Q6H40M [facility] Rx#:[id number] metroNIDAZOLE-NS PMX 500 100 mg In Saline 1 100ml.bag @ 100 mls/hr IVPB Q6H [facility] Rx#:[id number] Intake, IV Titration 100 200.000 Amount propofoL 1,000 mg In 100 200.000 Empty Bag 1 bag @ Titrate IV .Q0M [facility] Rx#: [id number] Output: Drainage 150 Abdomen 150 Urine 760 665 40 Estimated Blood Loss 20 Other: Voiding Method Indwelling Catheter Indwelling Catheter ABP, PAP, CO, CI - Last Documented Arterial Blood Pressure 131/47 - Exam GENERAL EXAM: 61-year-old morbidly obese white female, intubated, sedated on mechanical ventilation, on assist-control mode, with FiO2 of 40% comfortable in no apparent distress. HEAD: Normocephalic/atraumatic. EYES: Normal reaction of pupils, equal size. Conjunctiva pink, sclera white. NOSE: Clear with pink turbinates. THROAT: No erythema or exudates. NECK: No masses, no JVD, no thyroid enlargement, no adenopathy. CHEST: No chest wall deformity. Symmetrical expansion. LUNGS: Equal air entry with no crackles, wheeze, rhonchi or dullness. CVS: Regular rate and rhythm, normal S1 and S2, no gallops, no murmurs, no rubs ABDOMEN: Soft, obese, mid abdominal incision with pedro clean dry and intact, there is subcu umbilical incision, which is open, with a wound VAC in place. No hepatosplenomegaly, normal bowel sounds, no guarding or rigidity. EXTREMITIES: No clubbing, no edema, no cyanosis, 2+ pulses and upper and lower extremities. MUSCULOSKELETAL: Muscle strength and tone normal. SPINE: No scoliosis or deformity SKIN: No rashes CENTRAL NERVOUS SYSTEM: Morbidly obese, intubated and sedated No focal deficits, tone is normal in all 4 extremities. - Labs CBC & Chem 7: 03/10/21 03:35 03/10/21 03:35 Labs: Abnormal Lab Results - Last 24 Hours (Table) 03/09/21 03/09/21 03/10/21 Range/Units 11:35 18:22 03:35 WBC 12.4 H (3.8-10.6) k/uL RBC 2.91 L (3.80-5.40) m/uL Hgb 8.7 L D (11.4-16.0) gm/dL Hct 28.1 L (34.0-46.0) % ABG pO2 (83-108) mmHg ABG HCO3 (21-25) mmol/L ABG Total CO2 (19-24) mmol/L ABG O2 Saturation (94-97) % Chloride (98-107) mmol/L Creatinine (0.52-1.04) mg/dL Glucose (74-99) mg/dL POC Glucose (mg/dL) 112 H 134 H (75-99) mg/dL Calcium (8.4-10.2) mg/dL Ionized Calcium Randy (4.5-5.3) mg/dL 03/10/21 03/10/21 03/10/21 Range/Units 03:35 03:35 05:20 WBC (3.8-10.6) k/uL RBC (3.80-5.40) m/uL Hgb (11.4-16.0) gm/dL Hct (34.0-46.0) % ABG pO2 110 H (83-108) mmHg ABG HCO3 27 H (21-25) mmol/L ABG Total CO2 28 H (19-24) mmol/L ABG O2 Saturation 98.9 H (94-97) % Chloride 111 H (98-107) mmol/L Creatinine 0.45 L (0.52-1.04) mg/dL Glucose 139 H (74-99) mg/dL POC Glucose (mg/dL) (75-99) mg/dL Calcium 7.6 L (8.4-10.2) mg/dL Ionized Calcium Randy 5.4 H (4.5-5.3) mg/dL Microbiology - Last 24 Hours (Table) 03/06/21 09:57 Blood Culture - Preliminary Blood No Growth after 72 hours 03/06/21 09:57 Blood Culture - Preliminary Blood No Growth after 72 hours 03/06/21 15:55 Anaerobic Culture - Final Abdomen Anaerobic Gm Negative Bacilli Anaerobic Gm Negative Bacilli#2 Anaerobic Gm Negative Bacilli#3 03/07/21 19:20 Gram Stain - Preliminary Tissue - Abdominal Wall Wound Culture - Preliminary 03/07/21 19:20 Gram Stain - Preliminary Abdomen Wound Culture - Preliminary Assessment and Plan Plan: Assessment: #1. Septic shock, related to necrotizing fasciitis of the abdominal fascia, necrotic transverse colon, necrotic omentum, status post drainage at the abdominal wall abscess, exploratory laparotomy with transverse colectomy with anastomosis with extensive lysis of adhesions, and debridement of abdominal wall necrotizing fasciitis in the application of the wound VAC on 03/08/2021. Patient went back to surgery, status post exploratory laparotomy, transverse colectomy and anastomosis with extensive lysis of adhesions and debridement of abdominal wall necrotizing fasciitis, drainage of the abdominal wall abscesses on 03/10/2021. She has recovered from septic shock, currently off vasopressor support on 03/09/2021. #2. Recent history of a large bowel obstruction due to incarcerated recurrent incisional hernia, status post open reduction and repair of a large recurrent incarcerated incisional hernia, open lysis of adhesions, and omentectomy on 02/10/2021 #3. History of morbid obesity previous history of lap banding #4. History of obstructive sleep apnea #5. Osteoarthritis #6. Hypertension #7. History of multiple abdominal pelvic surgeries #8. Routine postoperative ventilator management #9. Hyponatremia likely hypovolemic, corrected #10. Lactic acidosis related to underlying sepsis, improved with fluid resusc itation #11. Panniculitis Plan: Decrease Fio2 to 35% Off vasopressor support, no fever overnight, hemodynamically stable Lovenox placed on hold by surgery, monitor H&H Will wake up the patient give SBT, with PSV 5, CPAP 5 Continue broad-spectrum antibiotics Monitor urine output, hemodynamics IVF to 50 ml/hr May need a dose of Lasix Continue close monitoring in the ICU in the postoperative period Likely extubate to BiPAP I performed a history & physical examination of the patient and discussed their management with my nurse practitioner, Charley Sanchez. I reviewed the nurse practitioner's note and agree with the documented findings and plan of care. Lung sounds are positive for diminished breatg sounds throughout the lung [place]. The findings and the impression was discussed with the patient. I attest to the documentation by the nurse practitioner. Time with Patient: Greater than 30
[2021-03-10 08:59] LABS: Band Neutrophils % 3 %; Eosinophils # (M) 0.37 k/uL (0-0.7); Lymphocytes # (M) 0.87 k/uL (1.0-4.8); Metamyelocytes # (M) 0.25 k/uL (0); Metamyelocytes % 2 %; Monocytes # (M) 0.87 k/uL (0-1.0); Myelocytes # (M) 0.62 k/uL (0); Myelocytes % 5 %; Neutrophils % (M) 74 %; Nucleated Red Blood Cells 0 /100 WBC (0-0); Total Cells Counted 200
[2021-03-10] MEDS ORDERED: FOLIC ACID-VIT B COMPLEX-VIT C 1 CAP PO SCH (09:00)
[2021-03-10] MEDS ORDERED: SODIUM FERRIC GLUCONAT-SUCROSE 125 MG in SODIUM CHLORIDE 0.9% 100 ML IVPB SCH (09:00)
[2021-03-10 09:01] LABS: Hypochromasia (M) Present
[2021-03-10] MEDS: HYDROmorphone 1 MG/ML 1 ML SYRINGE IVP PRN ×2 (10:11→18:09)
[2021-03-10] MEDS: PANTOPRAZOLE 40 MG/10 ML VIAL IV SCH (10:31)
[2021-03-10] MEDS: SODIUM FERRIC GLUCONAT-SUCROSE 125 MG in SODIUM CHLORIDE 0.9% 100 ML IVPB SCH (10:31)
[2021-03-10 11:58] LABS: Glucose,Whole Blood 153 mg/dL (75-99)
--- NOTE | 2021-03-10 14:21 | P.PN ---
Subjective Progress Note Date: 03/10/21 CHIEF COMPLAINT: Abdominal wall abscess HISTORY OF PRESENT ILLNESS: Patient is status post drainage of subcutaneous abdominal wall abscess, exploratory laparotomy with transverse colectomy with anastomosis with extensive lysis of adhesions, sharp excisional debridement of abdominal wall for necrotizing fasciitis and application of wound VAC on 03/08/21. Patient taken back to the OR on 03/09/2021 4 sharp excisional debridement of necrotizing fasciitis to the muscle of the abdominal wall. Patient remains in the ICU and on mechanical ventilation. Patient unable to wean from vent today. Afebrile. WBC 15.2 down to 12.4 hemoglobin 10.3 down to 8.7 platelets 340 creatinine 0.45 PHYSICAL EXAM: VITAL SIGNS: Reviewed GENERAL: Well-developed in no acute distress. HEENT: No sclera icterus. Extraocular movements grossly intact. Moist buccal mucosa. Head is atraumatic, normocephalic. Hears conversational speech. No nasal drainage. NECK: Supple without lymphadenopathy. CHEST: Non-labored respirations and equal bilateral excursions. CARDIOVASCULAR: Palpable 2+ radial pulses. ABDOMEN: Soft. Nondistended. Incision site clean dry and intact. Wound VAC is in place in the lower abdomen. MUSCULOSKELETAL: No clubbing or cyanosis. NEUROLOGIC: No focal or lateralizing signs. Cranial nerves II through XII grossly intact. PSYCH: Appropriate affect. Alert and oriented to person, place and time. SKIN: Well perfused. Good skin turgor. ASSESSMENT: 1. Abdominal wall abscess 2. Necrotizing fasciitis of the abdominal wall 3. Necrotic transverse colon 4. Panniculitis 5. Super morbid obesity 6. status post open reduction and repair of large recurrent incarcerated incisional hernia on 02/10/2021 for large bowel obstruction due to incarcerated recurrent incisional hernia 7. Anemia PLAN: -Add IV iron 3 doses for anemia -Continue ICU management -Continue supportive care -Continue antibiotics per ID Physician Unit Control Worker note has been reviewed by physician. Signing provider agrees with the documented findings, assessment, and plan of care. Objective - Vital Signs Vital signs: Vital Signs Temp 98.4 F 03/10/21 12:00 Pulse 80 03/10/21 14:00 Resp 18 03/10/21 14:00 BP 99/54 03/10/21 08:00 Pulse Ox 95 03/10/21 14:00 Intake & Output 10/03/10/21 03/10/21 18:59 06:59 18:59 Intake Total 2260 2360.000 710 Output Total 930 665 615 Balance 1330 1695.000 95 Weight 152.8 kg 153.4 kg 153.4 kg Intake: IV 2160 2160 610 0.9 1350 1800 550 Mvi, Adult No.4 with Vit 60 360 60 K 10 ml Trace (Conc-1Ml/ Dose) 1 ml Sodium Acetate 40 meq Magnesium Sulfate gm 1 gm Calcium Gluconate 1 gm Potassium Phosphate 15 mmol In Amino Acids 5 %/Dextrose 20 % 1,000 ml @ 30 mls/hr IV .Q24H [facility] Rx#: [id number] Piperacillin-Tazobactam 3 200 .375 gm In Sodium Chloride 0.9% 100 ml @ 25 mls/hr IVPB Q8HR [facility] Rx# :[id number] Sodium Chloride 0.9% 1, 150 000 ml @ 150 mls/hr IV . Q6H40M [facility] Rx#:[id number] metroNIDAZOLE-NS PMX 500 100 mg In Saline 1 100ml.bag @ 100 mls/hr IVPB Q6H [facility] Rx#:[id number] Intake, IV Titration 100 200.000 100 Amount propofoL 1,000 mg In 100 200.000 100 Empty Bag 1 bag @ Titrate IV .Q0M [facility] Rx#: [id number] Output: Drainage 150 Abdomen 150 Urine 760 665 615 Estimated Blood Loss 20 Other: Voiding Method Indwelling Catheter Indwelling Catheter ABP, PAP, CO, CI - Last Documented Arterial Blood Pressure 118/52 - Labs CBC & Chem 7: 03/10/21 03:35 03/10/21 03:35 Labs: Abnormal Lab Results - Last 24 Hours (Table) 03/09/21 03/10/21 03/10/21 Range/Units 18:22 03:35 03:35 WBC 12.4 H (3.8-10.6) k/uL RBC 2.91 L (3.80-5.40) m/uL Hgb 8.7 L D (11.4-16.0) gm/dL Hct 28.1 L (34.0-46.0) % Neutrophils # (Manual) 9.50 H (1.3-7.7) k/uL Lymphocytes # (Manual) 0.87 L (1.0-4.8) k/uL Metamyelocytes # (Man) 0.25 H (0) k/uL Myelocytes # (Manual) 0.62 H (0) k/uL ABG pO2 (83-108) mmHg ABG HCO3 (21-25) mmol/L ABG Total CO2 (19-24) mmol/L ABG O2 Saturation (94-97) % Chloride 111 H (98-107) mmol/L Creatinine 0.45 L (0.52-1.04) mg/dL Glucose 139 H (74-99) mg/dL POC Glucose (mg/dL) 134 H (75-99) mg/dL Calcium 7.6 L (8.4-10.2) mg/dL Ionized Calcium Randy (4.5-5.3) mg/dL 03/10/21 03/10/21 03/10/21 Range/Units 03:35 05:20 11:55 WBC (3.8-10.6) k/uL RBC (3.80-5.40) m/uL Hgb (11.4-16.0) gm/dL Hct (34.0-46.0) % Neutrophils # (Manual) (1.3-7.7) k/uL Lymphocytes # (Manual) (1.0-4.8) k/uL Metamyelocytes # (Man) (0) k/uL Myelocytes # (Manual) (0) k/uL ABG pO2 110 H (83-108) mmHg ABG HCO3 27 H (21-25) mmol/L ABG Total CO2 28 H (19-24) mmol/L ABG O2 Saturation 98.9 H (94-97) % Chloride (98-107) mmol/L Creatinine (0.52-1.04) mg/dL Glucose (74-99) mg/dL POC Glucose (mg/dL) 153 H (75-99) mg/dL Calcium (8.4-10.2) mg/dL Ionized Calcium Randy 5.4 H (4.5-5.3) mg/dL Microbiology - Last 24 Hours (Table) 03/07/21 19:20 Gram Stain - Final Tissue - Abdominal Wall Wound Culture - Final Agnieszka albicans 03/07/21 19:20 Gram Stain - Final Abdomen Wound Culture - Final 03/06/21 09:57 Blood Culture - Preliminary Blood No Growth after 96 hours 03/06/21 09:57 Blood Culture - Preliminary Blood No Growth after 96 hours 03/06/21 15:55 Anaerobic Culture - Final Abdomen Anaerobic Gm Negative Bacilli Anaerobic Gm Negative Bacilli#2 Anaerobic Gm Negative Bacilli#3
[2021-03-10] MEDS ORDERED: Potassium Replacement Protocol 1 EACH MISC MISCELLANE PRN (15:41)
[2021-03-10] MEDS ORDERED: FLUCONAZOLE IN NACL,ISO-OSM 100 MG in SALINE 1 100ML.BAG IVPB SCH (16:00)
[2021-03-10] MEDS: CALCIUM GLUCONATE IV SCH ×7 (16:46)
[2021-03-10] MEDS: SODIUM ACETATE IV SCH ×7 (16:46)
[2021-03-10] MEDS: [UNRECOGNIZED DRUG - OTHER] IV SCH ×7 (16:46)
[2021-03-10] MEDS: MAGNESIUM SULFATE IV SCH ×7 (16:46)
[2021-03-10] MEDS: CHLORHEXIDINE GLUCONATE 15 ML CUP MUCOUS MEM SCH ×2 (17:00→20:39)
--- NOTE | 2021-03-10 17:44 | PN ---
PROGRESS NOTE DATE OF SERVICE: 03/10/2021 REASON FOR FOLLOWUP: Intra-abdominal abscess. INTERVAL HISTORY: The patient is afebrile. The patient is breathing comfortably. The patient is hemodynamically stable. Remains intubated on the vent. No other changes reported by the nursing staff. PHYSICAL EXAMINATION: Blood pressure 119/52 with a pulse of 80, temperature is 98.4. She is 95% on 35% FiO2. General description is a middle-aged female lying in bed in no distress. RESPIRATORY SYSTEM: Unlabored breathing. Clear to auscultation anteriorly. HEART: S1, S2. Regular rate and rhythm. ABDOMEN: Soft. Mildly distended. No guarding or rigidity. LABS: Hemoglobin 8.7, white count 12.4, creatinine 0.45. Abdominal cultures are showing Agnieszka albicans and anaerobes. DIAGNOSTIC IMPRESSION AND PLAN: Patient with intra-abdominal abscess and necrotizing infection in this patient who is status post laparotomy and extensive debridement. Cultures with Diflucan will be added. Covered with Zosyn; to continue and monitor her clinical course closely. Continue supportive care. MMODL / IJN: [id number] /
[2021-03-10 18:44] LABS: Glucose,Whole Blood 164 mg/dL (75-99)
[2021-03-10] MEDS: FLUCONAZOLE IN NACL,ISO-OSM 200 MG in SALINE 1 100ML.BAG IVPB SCH (19:05)
[2021-03-11] MEDS: ONDANSETRON 4 MG/2 ML VIAL IVP SCH ×4 (01:19→21:08)
[2021-03-11] MEDS: metroNIDAZOLE-NS PMX 500 MG in SALINE 1 100ML.BAG IVPB SCH ×4 (01:19→21:07)
[2021-03-11] MEDS: PIPERACILLIN-TAZOBACTAM 3.375 GM in SODIUM CHLORIDE 0.9% 100 ML IVPB SCH ×3 (01:20→16:45)
[2021-03-11] MEDS: IPRATROPIUM-ALBUTEROL 3 ML NEB INHALATION SCH ×6 (03:41→23:42)
[2021-03-11] MEDS: SODIUM CHLORIDE 0.9% 1,000 ML IV SCH ×3 (04:45→16:44)
[2021-03-11 05:28] LABS: HCT 30.4 % (34.0-46.0); HGB 9.8 gm/dL (11.4-16.0); MCH 31.5 pg (25.0-35.0); MCHC 32.4 g/dL (31.0-37.0); MCV 97.4 fL (80.0-100.0); Mean Platelet Volume 7.3; Platelet Count 396 k/uL (150-450); RBC 3.12 m/uL (3.80-5.40); RDW 13.8 % (11.5-15.5); WBC 13.5 k/uL (3.8-10.6)
[2021-03-11 05:38] LABS: ABG Base Excess 4.3 mmol/L; ABG HCO3 30 mmol/L (21-25); ABG Oxygen Saturation 94.6 % (94-97); ABG PCO2 52 mmHg (35-45); ABG PH 7.37 (7.35-7.45); ABG PO2 69 mmHg (83-108); ABG TCO2 31 mmol/L (19-24); Allen Test Performed? Yes
[2021-03-11 06:35] LABS: Band Neutrophils % 20 %; Eosinophils # (M) 1.49 k/uL (0-0.7); Lymphocytes # (M) 0.81 k/uL (1.0-4.8); Metamyelocytes # (M) 1.35 k/uL (0); Metamyelocytes % 10 %; Monocytes # (M) 0.54 k/uL (0-1.0); Myelocytes # (M) 0.54 k/uL (0); Myelocytes % 4 %; Neutrophils % (M) 45 %; Nucleated Red Blood Cells 0 /100 WBC (0-0); Total Cells Counted 200
[2021-03-11 06:37] LABS: Toxic Granulation Present; Toxic Vacuolation Present
--- NOTE | 2021-03-11 06:48 | XR ---
EXAMINATION TYPE: XR chest 1V portable DATE OF EXAM: 03/11/2021 COMPARISON: 03/10/2021 HISTORY: Shortness of breath TECHNIQUE: Single frontal view of the chest is obtained. FINDINGS: There is been no change in ET tube is approximately 1.3 cm above the liban. There is interval worsening of the opacity in the right hilar region. There is a persistent small lef t pleural effusion. The pulmonary vasculature appears congested. There is no pneumothorax. The osseou s structures are intact. IMPRESSION: ET tube unchanged in approximately 1.3 cm above the liban. Interval worsening of the ri ght hilar opacity and stable small left pleural effusion.
[2021-03-11 07:16] LABS: African American GFR (CKD) >90 (>60 ml/min/1.73 sqM); Anion Gap 3 mmol/L; Blood Urea Nitrogen 5 mg/dL (7-17); Calcium 7.6 mg/dL (8.4-10.2); Carbon Dioxide 26 mmol/L (22-30); Chloride 109 mmol/L (98-107); Glucose 147 mg/dL (74-99); Non-African American GFR(CKD) >90 (>60 ml/min/1.73 sqM); Phosphorus 3.3 mg/dL (2.5-4.5); Potassium 3.6 mmol/L (3.5-5.1); Sodium 138 mmol/L (137-145)
[2021-03-11] MEDS: POTASSIUM CHLORIDE 10 MEQ in WATER FOR INJECTION 1 100ML.BAG IVPB SCH ×2 (09:11→11:55)
[2021-03-11] MEDS: PANTOPRAZOLE 40 MG/10 ML VIAL IV SCH (09:12)
[2021-03-11] MEDS: CHLORHEXIDINE GLUCONATE 15 ML CUP MUCOUS MEM SCH ×2 (09:12→21:08)
[2021-03-11] MEDS: SODIUM FERRIC GLUCONAT-SUCROSE 125 MG in SODIUM CHLORIDE 0.9% 100 ML IVPB SCH (09:12)
[2021-03-11] MEDS ORDERED: FUROSEMIDE 10 MG/ML 10 ML VIAL IV STA (09:41)
[2021-03-11] MEDS: MAGNESIUM SULFATE IV SCH ×7 (11:55)
[2021-03-11] MEDS: CALCIUM GLUCONATE IV SCH ×7 (11:55)
[2021-03-11] MEDS: SODIUM ACETATE IV SCH ×7 (11:55)
[2021-03-11] MEDS: [UNRECOGNIZED DRUG - OTHER] IV SCH ×7 (11:55)
[2021-03-11 12:05] LABS: Glucose,Whole Blood 144 mg/dL (75-99)
--- NOTE | 2021-03-11 12:35 | P.PN ---
Subjective Progress Note Date: 03/11/21 Principal diagnosis: Respiratory failure. 61-year-old female patient with past medical history of morbid obesity with previous history of lap banding, panniculitis, hypertension, history of multiple abdominal and pelvic surgeries, obstructive sleep apnea, osteoarthritis, who rec ently had a large bowel obstruction due to incarcerated recurrent incisional hernia in the left lower abdomen and underwent open reduction and repair of large isolated incisional hernia lysis of adhesions and omentectomy on 02/10/2021. Patient was discharged home on 02/14/2021 in stable condition, patient was tolerating diet, her pain was controlled, patient was passing bowel movements and flatus, she was ambulating at the time of discharge. On 03/06/2021 patient was brought into the emergency department for a concern of incisional drainage. The drainage was brown in color, however patient was not complaining of any significant pain or fever. On examination there was a large amount of brownish drainage that was draining from her incision. CT of the abdomen and pelvis showed marked increase in the amount of large subcutaneous fluid collection containing contrast, 6 mm abscess in the intra-abdominal cavity, there was a small amount of adjacent free air, and the segment of transverse colon with surrounding inflammatory changes correlating for abscess with a ruptured viscus. 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 The skin thickening and diffuse subcutaneous edema in the anterior abdominal wall relating for cellulitis. Blood work in the emergency department showed a white count of 15.4, hemoglobin of 13.7, INR of 1.5, sodium 1:30, potassium 4.9, chloride is 95, B1 of 19, creatinine 0.90, lactic acid was 3.1. COVID-19 was negative. Patient had a low-grade fever with a temp of 99.1 on presentation. Patient was given 2 L and IV fluid boluses, she was started on broad-spectrum antibiotics, currently on Flagyl and Zosyn, and the general surgery performed exploratory laparotomy with transverse colectomy with anastomosis with extensive lysis of adhesions, drainage of the subcutaneous abdominal wall abscess with over 450 now feculent material, and sharp excisional debridement of abdominal wall for necrotizing fasciitis and application of the wound VAC system. Postoperatively patient return to the intensive care unit, intubated and sedated on mechanical ventilator, this morning she seen in the ICU, on assist control mode of ventilation, with a rate of 18, tidal volume is 380, FiO2 of 70%, and PEEP of 50, this morning's blood gas shows pO2 of 81, pCO2 of 46, and pH of 7.26. 0.9 and is infusing at a rate of 150, to prevent is a 25 mics per kilo per minute, levofed is at 2.7 mics per minute. Today's chest x-ray shows some interstitial infiltrate and atelectasis at the right lung base. On today's evaluation on 03/09/2021 patient seen in follow-up in intensive care unit, he is postoperative day #1, status post exploratory laparotomy, transverse colectomy and anastomosis with extensive lysis of adhesions and debridement of abdominal wall necrotizing fasciitis, drainage of the abdominal wall abscesses. Patient remains sedated and intubated on mechanical ventilator, with assist- control rate of 18, tidal vital 380, tidal volume is 380, FiO2 of 40% and PEEP of 10, this morning gas showed pO2 of 202, pCO2 of 40, and pH is 7.39. We'll drop the PEEP down to 5. Patient is off norepinephrine, hemodynamically she is stable, she remains on 0.9 normal saline at a rate of 150 ML per hour, yesterday she received additional 2 L of lactated Ringer and fluid boluses and we were able to wean her off the vasopressor support, she is currently on Diprivan is at 30 mics per kilo per minute, remains on broad-spectrum antibiotic including Flagyl and Zosyn, blood abdominal wall tissue and the cultures are all negative thus far, final cultures are pending, overnight she has been afebrile. Wound VAC is in place on the abdominal wound, and there is a total of 500 mL of serosanguineous output in last 24 hours. Mid abdominal incision is clean dry and intact, pedro are intact, wound VAC is intact. Abdomen is soft. Does have been reviewed with blood cell, is relatively stable at 16.2, hemoglobin is 10.3, sodium is 136, potassium is 4.1, chloride is 109, BUN is 10, creatinine 0.48. Feedings remain on hold, general surgery is following, and yesterday we were going to wake up the patient and give her a spontaneous breathing trials however the surgeon that the patient is to go back to or today for reexploration possibility of additional debridement. For that reason patient was less sedated and intubated on mechanical ventilator. Urine output is in the order of 30-50 ML per hour. On today's evaluation on 03/10/2021 patient seen in follow-up in intensive care unit, yesterday patient had surgery, surgery lap, was sharp excisional debridement for necrotizing fascia-itis to muscle of the abdominal wall with lavage, and placement of the abdominal wound VAC back on. Overnight there was a large outputs of serosanguineous drainage from the wound VAC, around 500 mL, not grossly bloody, thin, however there was noted hemoglobin decreased to 8.7 on today's labs from previous 10.3 on yesterday's labs. However hemodynamically patient has remained stable, not on any vasopressors. Surgery is holding off on blood transfusion, and ordered iron supplementation at this time. Patient this morning is still sedated and mechanically ventilated on assist control mode of ventilation with a rate of 18, tidal M is 380, FiO2 of 40% and PEEP of 5. This morning's blood gas shows pO2 of 110, pCO2 of 43 and pH of 7.40, FiO2 has been dropped to 35%, maintenance IV fluids include 0.9 normal saline at a rate of 150 ML per hour, TPN was started yesterday and is infusing at 30 ML per hour, Diprivan is currently at 25 mics per kilo per minute, no other drips. Lovenox was also placed on hold by surgery for bleeding precaution. Chest x-ray has been reviewed showing low lung volumes and mild megaly with mild central vascular congestion and patchy bibasilar atelectasis and/or infiltrate, patient remains on broad-spectrum antibiotics including vaginal and Zosyn. The wound cultures are growing multiple albicans gram-negative bacilli species. Final culture is pending. Blood cultures have been negative, patient has been afebrile, hemodynamically she stable, she is in sinus mechanism with a rate of 83 bpm, blood pressure is 121/54 with a mean of 75. Acute issues overnight, urine output is in order of 30-40 mL per hour. Overall patient is +14 kg since admission. Cut back IV fluids to 50 ML per hour, patient may need a dose of IV Lasix. Progress note dated 03/11/2021. 61-year-old female admitted with a diagnosis of necrotizing fasciitis, and septic shock. The patient is status post drainage of the abdominal wall abscess, exploratory laparotomy with transverse colectomy, and extensive lysis of adhesions, as well as debridement of abdominal wall necrotizing fasciitis. A wound VAC was placed on March 08. Today is postop day #3. The patient remains on the ventilator. She is on the volume assist control mode rate of 18, tidal volume 380, FiO2 35%, PEEP of 5. Blood gases show pO2 of 69, pCO2 52, pH is 7.37. The patient's getting propofol at 25 mcg/kg/m, saline at 50 mL an hour TPN at 53 mL an hour, and also antibiotics in the form of Flagyl, Zosyn, and Diflucan. Today, we will attempt a daily interruption of sedation and a spontaneous breathing trial on pressure support of 5 and CPAP of 5. In addition, prior to that, a 660 mg IV push. She'll also get some additional Lasix at 4 PM. White count 13.5, hemoglobin 9.8, hematocrit 30.4, and platelet count is normal. Sodium 138, potassium 3.6, chlorides 109, CO2 26, anion gap 3, BUN 5, creatinine 0.40. The patient's chest x-ray was reviewed, and showed some small left-sided pleural effusion and some worsening right hilar opacity. Objective - Vital Signs Vital signs: Vital Signs Temp 98.2 F 03/11/21 08:00 Pulse 92 03/11/21 12:00 Resp 24 03/11/21 12:00 BP 99/54 03/10/21 08:00 Pulse Ox 91 L 03/11/21 12:00 Intake & Output 03/10/21 03/11/21 03/11/21 18:59 06:59 18:59 Intake Total 6213.058 5285.000 1813.084 Output Total 870 1035 675 Balance 176.288 420.761 6232.084 Weight 153.4 kg 150 kg Intake: IV 860 1183 697 0.9 800 600 110 Mvi, Adult No.4 with Vit 60 K 10 ml Trace (Conc-1Ml/ Dose) 1 ml Sodium Acetate 40 meq Magnesium Sulfate gm 1 gm Calcium Gluconate 1 gm Potassium Phosphate 15 mmol In Amino Acids 5 %/Dextrose 20 % 1,000 ml @ 30 mls/hr IV .Q24H [facility] Rx#: [id number] Mvi, Adult No.4 with Vit 583 212 K 10 ml Trace (Conc-1Ml/ Dose) 1 ml Sodium Acetate 40 meq Magnesium Sulfate gm 1 gm Calcium Gluconate 1 gm Potassium Phosphate 15 mmol In Amino Acids 5 %/Dextrose 20 % 1,000 ml @ 53 mls/hr IV .BY DURATION [facility] Rx#: [id number] Piperacillin-Tazobactam 3 75 .375 gm In Sodium Chloride 0.9% 100 ml @ 25 mls/hr IVPB Q8HR [facility] Rx# :[id number] Potassium Chloride 10 meq 200 In Water For Injection 1 100ml.bag @ 100 mls/hr IVPB Q1H [facility] Rx#: [id number] Sodium Ferric Gluconat- 100 Sucrose 125 mg In Sodium Chloride 0.9% 100 ml @ 100 mls/hr IVPB DAILY [facility] Rx#:[id number] Intake, IV Titration 186.288 831.099 7343.084 Amount Sodium Acetate 40 meq 1014.95 Magnesium Sulfate gm 1 gm Calcium Gluconate 1 gm Potassium Phosphate 15 mmol In Amino Acids 5 %/ Dextrose 20 % 1,000 ml @ 53 mls/hr IV .BY DURATION [facility] Rx#:[id number] propofoL 1,000 mg In 186.288 200.000 101.134 Empty Bag 1 bag @ Titrate IV .Q0M [facility] Rx#: [id number] Output: Drainage 450 Abdomen 450 Urine 870 585 675 Other: Voiding Method Indwelling Catheter Indwelling Catheter ABP, PAP, CO, CI - Last Documented Arterial Blood Pressure 150/51 - Exam No acute distress, sedated, currently with an orally placed endotracheal tube and NG tube. Saturations are 95%. HEENT examination is grossly unremarkable. Neck supple. Full range of motion. No adenopathy thyromegaly or neck vein distention. Cardiovascular examination reveals regular rhythm rate. S1-S2 normal. No S3 or S4. No discernible murmur noted. Heart sounds are distant. Heart rate 92 bpm. Lungs reveal bilateral coarse rhonchi. Breath sounds are equal. No wheezes or crackles. Abdomen soft, without bowel sounds. Incision is clean and dry. Wound VAC is noted. Extremities are intact. No cyanosis clubbing or edema. Skin is without rash or lesion. Neurologic examination cannot be adequately addressed at this time. - Labs CBC & Chem 7: 10/16/21 05:10 03/11/21 05:10 Labs: Abnormal Lab Results - Last 24 Hours (Table) 03/10/21 03/11/21 03/11/21 Range/Units 18:40 05:10 05:10 WBC 13.5 H (3.8-10.6) k/uL RBC 3.12 L (3.80-5.40) m/uL Hgb 9.8 L (11.4-16.0) gm/dL Hct 30.4 L (34.0-46.0) % Neutrophils # (Manual) 8.70 H (1.3-7.7) k/uL Lymphocytes # (Manual) 0.81 L (1.0-4.8) k/uL Eosinophils # (Manual) 1.49 H (0-0.7) k/uL Metamyelocytes # (Man) 1.35 H (0) k/uL Myelocytes # (Manual) 0.54 H (0) k/uL ABG pCO2 (35-45) mmHg ABG pO2 (83-108) mmHg ABG HCO3 (21-25) mmol/L ABG Total CO2 (19-24) mmol/L Chloride 109 H (98-107) mmol/L BUN 5 L (7-17) mg/dL Creatinine 0.40 L (0.52-1.04) mg/dL Glucose 147 H (74-99) mg/dL POC Glucose (mg/dL) 164 H (75-99) mg/dL Calcium 7.6 L (8.4-10.2) mg/dL 03/11/21 03/11/21 Range/Units 05:35 12:03 WBC (3.8-10.6) k/uL RBC (3.80-5.40) m/uL Hgb (11.4-16.0) gm/dL Hct (34.0-46.0) % Neutrophils # (Manual) (1.3-7.7) k/uL Lymphocytes # (Manual) (1.0-4.8) k/uL Eosinophils # (Manual) (0-0.7) k/uL Metamyelocytes # (Man) (0) k/uL Myelocytes # (Manual) (0) k/uL ABG pCO2 52 H (35-45) mmHg ABG pO2 69 L (83-108) mmHg ABG HCO3 30 H (21-25) mmol/L ABG Total CO2 31 H (19-24) mmol/L Chloride (98-107) mmol/L BUN (7-17) mg/dL Creatinine (0.52-1.04) mg/dL Glucose (74-99) mg/dL POC Glucose (mg/dL) 144 H (75-99) mg/dL Calcium (8.4-10.2) mg/dL Microbiology - Last 24 Hours (Table) 03/06/21 09:57 Blood Culture - Preliminary Blood No Growth after 120 hours 03/07/21 19:20 Gram Stain - Final Tissue - Abdominal Wall Wound Culture - Final Agnieszka albicans 03/07/21 19:20 Gram Stain - Final Abdomen Wound Culture - Final 03/06/21 09:57 Blood Culture - Preliminary Blood No Growth after 96 hours Assessment and Plan Assessment: #1. Septic shock, related to necrotizing fasciitis of the abdominal fascia, necrotic transverse colon, necrotic omentum, status post drainage at the abdominal wall abscess, exploratory laparotomy with transverse colectomy with anastomosis with extensive lysis of adhesions, and debridement of abdominal wall necrotizing fasciitis in the application of the wound VAC on 03/08/2021 (POD #3) Patient went back to surgery, status post exploratory laparotomy, transverse colectomy and anastomosis with extensive lysis of adhesions and debridement of abdominal wall necrotizing fasciitis, drainage of the abdominal wall abscesses on 03/10/2021. She has recovered from septic shock, currently off vasopressor support on 03/09/2021. #2. Recent history of a large bowel obstruction due to incarcerated recurrent incisional hernia, status post open reduction and repair of a large recurrent incarcerated incisional hernia, open lysis of adhesions, and omentectomy on 02/10/2021. #3. History of morbid obesity previous history of lap banding. #4. History of obstructive sleep apnea. #5. Osteoarthritis. #6. Hypertension. #7. History of multiple abdominal pelvic surgeries. #8. Routine postoperative ventilator management. #9. Hyponatremia likely hypovolemic, corrected. #10. Lactic acidosis related to underlying sepsis, improved with fluid resuscitation. #11. Panniculitis. Plan: Plan dated 03/11/2021. The patient's sedation will be held. We will do a daily interruption of sedation. The patient will have a spontaneous breathing trial with pressure support of 5 and CPAP of 5. Prior, the patient will receive Lasix 60 mg IV push, and an additional dose of Lasix at 4 PM. The patient remains on Flagyl, Zosyn, and Diflucan as per ID. The patient's getting nourishment with TPN at 53 mL an hour. Today is postop day #3. We will continue to follow make recommendations where appropriate. Overall prognosis remains very guarded. Time with Patient: Greater than 30
[2021-03-11 12:45] LABS: ABG Base Excess 7.9 mmol/L; ABG HCO3 33 mmol/L (21-25); ABG Oxygen Saturation 94.2 % (94-97); ABG PCO2 56 mmHg (35-45); ABG PH 7.38 (7.35-7.45); ABG PO2 68 mmHg (83-108); ABG TCO2 35 mmol/L (19-24)
[2021-03-11 12:46] LABS: Allen Test Performed? no
--- NOTE | 2021-03-11 13:58 | P.PN ---
Subjective Progress Note Date: 03/11/21 CHIEF COMPLAINT: Necrotizing fasciitis with gangrene of the colon HISTORY OF PRESENT ILLNESS: The patient is a super morbidly obese 61-year-old female status post exploratory laparotomy, lysis of adhesions, colectomy, debridement of abdominal wall due to necrotizing fasciitis, drainage of large abdominal wall abscess. She remains in intensive care unit. She is on TPN. Sister at bedside. She was just extubated today. REVIEW OF ORGAN SYSTEMS: No fevers. No acute cardiac event. PHYSICAL EXAM: VITAL SIGNS: Stable GENERAL: Well-developed pleasant female in no acute distress. HEENT: No scleral icterus. Extraocular movements grossly intact. Moist buccal mucosa. CHEST: Mechanical ventilation with equal bilateral excursions. CARDIOVASCULAR: Regular rate and rhythm. Distal 2+ pulses. ABDOMEN: Left paramedian incision intact. Wound VAC intact without cellulitis Large pannus over 50+ pounds. No peritonitis. Serosanguinous drainage in VAC system. MUSCULOSKELETAL: No clubbing, cyanosis. NEURO: Awake, lethargic SKIN: Well perfused. PSYCH: Alert to self. LABS: Reviewed. Hemoglobin up from 8.7 -9.8 without blood transfusion. WBC up from 12.4-13.5 with leukocytosis. MICROBIOLOGY: Candidiasis albicans including multiple gram-negative bacilli, gram-positive bacilli, and gram-positive cocci in wound culture ASSESSMENT: 1. Large bowel necrosis with necrotizing fasciitis status post colectomy, abdominal wall debridement 2. Super morbid obesity due to excess calories, BMI 59.7 3. 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 Vent dependent respiratory failure 5. Inadequate protein intake due to ventilation PLAN: 1. Diflucan added due to candidiasis in wound culture 2. May start wound VAC changes including Saturday, Saturday, Saturday 3. May start diet. Objective - Vital Signs Vital signs: Vital Signs Temp 98.2 F 03/11/21 08:00 Pulse 80 03/11/21 10:00 Resp 19 03/11/21 10:00 BP 99/54 03/10/21 08:00 Pulse Ox 96 03/11/21 10:00 Intake & Output 03/10/21 03/11/21 03/11/21 18:59 06:59 18:59 Intake Total 1259.814 1521.000 697 Output Total 870 1035 675 Balance 176.288 348.000 22 Weight 153.4 kg 150 kg Intake: IV 860 1183 697 0.9 800 600 110 Mvi, Adult No.4 with Vit 60 K 10 ml Trace (Conc-1Ml/ Dose) 1 ml Sodium Acetate 40 meq Magnesium Sulfate gm 1 gm Calcium Gluconate 1 gm Potassium Phosphate 15 mmol In Amino Acids 5 %/Dextrose 20 % 1,000 ml @ 30 mls/hr IV .Q24H [facility] Rx#: [id number] Mvi, Adult No.4 with Vit 583 212 K 10 ml Trace (Conc-1Ml/ Dose) 1 ml Sodium Acetate 40 meq Magnesium Sulfate gm 1 gm Calcium Gluconate 1 gm Potassium Phosphate 15 mmol In Amino Acids 5 %/Dextrose 20 % 1,000 ml @ 53 mls/hr IV .BY DURATION [facility] Rx#: [id number] Piperacillin-Tazobactam 3 75 .375 gm In Sodium Chloride 0.9% 100 ml @ 25 mls/hr IVPB Q8HR [facility] Rx# :[id number] Potassium Chloride 10 meq 200 In Water For Injection 1 100ml.bag @ 100 mls/hr IVPB Q1H [facility] Rx#: [id number] Sodium Ferric Gluconat- 100 Sucrose 125 mg In Sodium Chloride 0.9% 100 ml @ 100 mls/hr IVPB DAILY [facility] Rx#:[id number] Intake, IV Titration 186.288 200.000 Amount propofoL 1,000 mg In 186.288 200.000 Empty Bag 1 bag @ Titrate IV .Q0M [facility] Rx#: [id number] Output: Drainage 450 Abdomen 450 Urine 870 585 675 Other: Voiding Method Indwelling Catheter Indwelling Catheter ABP, PAP, CO, CI - Last Documented Arterial Blood Pressure 143/45 - Labs CBC & Chem 7: 03/11/21 05:10 03/11/21 05:10 Labs: Abnormal Lab Results - Last 24 Hours (Table) 03/10/21 03/10/21 03/11/21 Range/Units 11:55 18:40 05:10 WBC (3.8-10.6) k/uL RBC (3.80-5.40) m/uL Hgb (11.4-16.0) gm/dL Hct (34.0-46.0) % Neutrophils # (Manual) (1.3-7.7) k/uL Lymphocytes # (Manual) (1.0-4.8) k/uL Eosinophils # (Manual) (0-0.7) k/uL Metamyelocytes # (Man) (0) k/uL Myelocytes # (Manual) (0) k/uL ABG pCO2 (35-45) mmHg ABG pO2 (83-108) mmHg ABG HCO3 (21-25) mmol/L ABG Total CO2 (19-24) mmol/L Chloride 109 H (98-107) mmol/L BUN 5 L (7-17) mg/dL Creatinine 0.40 L (0.52-1.04) mg/dL Glucose 147 H (74-99) mg/dL POC Glucose (mg/dL) 153 H 164 H (75-99) mg/dL Calcium 7.6 L (8.4-10.2) mg/dL 03/11/21 03/11/21 Range/Units 05:10 05:35 WBC 13.5 H (3.8-10.6) k/uL RBC 3.12 L (3.80-5.40) m/uL Hgb 9.8 L (11.4-16.0) gm/dL Hct 30.4 L (34.0-46.0) % Neutrophils # (Manual) 8.70 H (1.3-7.7) k/uL Lymphocytes # (Manual) 0.81 L (1.0-4.8) k/uL Eosinophils # (Manual) 1.49 H (0-0.7) k/uL Metamyelocytes # (Man) 1.35 H (0) k/uL Myelocytes # (Manual) 0.54 H (0) k/uL ABG pCO2 52 H (35-45) mmHg ABG pO2 69 L (83-108) mmHg ABG HCO3 30 H (21-25) mmol/L ABG Total CO2 31 H (19-24) mmol/L Chloride (98-107) mmol/L BUN (7-17) mg/dL Creatinine (0.52-1.04) mg/dL Glucose (74-99) mg/dL POC Glucose (mg/dL) (75-99) mg/dL Calcium (8.4-10.2) mg/dL Microbiology - Last 24 Hours (Table) 03/07/21 19:20 Gram Stain - Final Tissue - Abdominal Wall Wound Culture - Final Agnieszka albicans 03/07/21 19:20 Gram Stain - Final Abdomen Wound Culture - Final 03/06/21 09:57 Blood Culture - Preliminary Blood No Growth after 96 hours 03/06/21 09:57 Blood Culture - Preliminary Blood No Growth after 96 hours Assessment and Plan (1) Abdominal wall abscess Current Visit: Yes Status: Acute Code(s): L02.211 - CUTANEOUS ABSCESS OF ABDOMINAL WALL SNOMED Code(s): 86952231 (2) Panniculitis Current Visit: Yes Status: Acute Code(s): M79.3 - PANNICULITIS, UNSPECIFIED SNOMED Code(s): 15862294 (3) BMI 60.0-69.9, adult Current Visit: No Status: Acute Code(s): Z68.44 - BODY MASS INDEX [BMI] 6 0.0-69.9, ADULT SNOMED Code(s): 400197700 (4) Morbid obesity due to excess calories Current Visit: No Status: Acute Code(s): E66.01 - MORBID (SEVERE) OBESITY DUE TO EXCESS CALORIES SNOMED Code(s): 391548086 (5) Necrotizing fasciitis Current Visit: Yes Status: Acute Code(s): M72.6 - NECROTIZING FASCIITIS SNOMED Code(s): 60290462 (6) Gangrene of colon Current Visit: Yes Status: Acute Code(s): K55.049 - ACUTE INFARCTION OF LARG E INTESTINE, EXTENT UNSPECIFIED SNOMED Code(s): 54585697 (7) S/P colectomy Current Visit: Yes Status: Acute Code(s): Z90.49 - ACQUIRED ABSENCE OF OTHER SPECIFIED PARTS OF DIGESTIVE TRACT SNOMED Code(s): 339031525 (8) Respiratory failure with hypoxia Current Visit: Yes Status: Acute Code(s): J96.91 - RESPIRATORY FAILURE, UNSPECIFIED WITH HYPOXIA SNOMED Code(s): 78887477737510668
[2021-03-11] MEDS ORDERED: FUROSEMIDE 10 MG/ML 10 ML VIAL IV ONE (16:00)
[2021-03-11] MEDS: FLUCONAZOLE IN NACL,ISO-OSM 200 MG in SALINE 1 100ML.BAG IVPB SCH (16:48)
--- NOTE | 2021-03-11 17:33 | PN ---
PROGRESS NOTE DATE OF SERVICE: 03/11/2021 REASON FOR FOLLOWUP: Intraabdominal abscess. INTERVAL HISTORY: Patient is afebrile. The patient has been extubated. The patient is breathing comfortably on nasal cannula oxygen. Slightly weak and lethargic. Unable to provide any history. No vomiting or any other changes reported by the nursing staff. PHYSICAL EXAMINATION: Blood pressure 137/48 with a pulse of 96, temperature 98.5. She is 92% on nasal cannula oxygen. General description is a middle-aged female lying in bed in no distress. Respiratory system: Unlabored breathing, decreased breath sounds in the base. No wheeze. Heart S1, S2. Regular rate and rhythm. Abdomen is soft, mildly distended. No guarding. No rigidity. LABS: Hemoglobin is 9.8, white count 13.5, creatinine 0.40. Abdominal culture with anaerobes, Agnieszka. DIAGNOSTIC IMPRESSION AND PLAN: Patient with abdominal wall abscess with necrotic bowel, status post resection with abdominal culture positive for anaerobes, Agnieszka. Patient is covered with Zosyn and Diflucan that will be continued for now while monitoring clinical course closely. Continue supportive care. MMODL / IJN: [id number] /
[2021-03-12] MEDS: PIPERACILLIN-TAZOBACTAM 3.375 GM in SODIUM CHLORIDE 0.9% 100 ML IVPB SCH ×3 (00:33→16:58)
[2021-03-12] MEDS: metroNIDAZOLE-NS PMX 500 MG in SALINE 1 100ML.BAG IVPB SCH ×4 (00:34→21:07)
[2021-03-12] MEDS: ONDANSETRON 4 MG/2 ML VIAL IVP SCH ×4 (00:35→17:54)
[2021-03-12] MEDS: IPRATROPIUM-ALBUTEROL 3 ML NEB INHALATION SCH ×5 (03:23→19:11)
[2021-03-12 04:44] LABS: HCT 30.5 % (34.0-46.0); HGB 9.4 gm/dL (11.4-16.0); Hypochromasia Slight; MCH 30.5 pg (25.0-35.0); MCHC 30.8 g/dL (31.0-37.0); Mean Platelet Volume 7.2; Platelet Count 401 k/uL (150-450); RBC 3.08 m/uL (3.80-5.40); RDW 13.4 % (11.5-15.5)
[2021-03-12 04:54] LABS: African American GFR (CKD) >90 (>60 ml/min/1.73 sqM); Anion Gap 0 mmol/L; Blood Urea Nitrogen 6 mg/dL (7-17); Calcium 7.6 mg/dL (8.4-10.2); Carbon Dioxide 37 mmol/L (22-30); Chloride 102 mmol/L (98-107); Glucose 141 mg/dL (74-99); Magnesium 1.6 mg/dL (1.6-2.3); Non-African American GFR(CKD) >90 (>60 ml/min/1.73 sqM); Potassium 3.2 mmol/L (3.5-5.1); Sodium 139 mmol/L (137-145)
[2021-03-12] MEDS: POTASSIUM CHLORIDE 20 MEQ in WATER FOR INJECTION 1 100ML.BAG IVPB SCH ×2 (06:15→08:27)
--- NOTE | 2021-03-12 07:52 | XR ---
EXAMINATION TYPE: XR chest 1V portable DATE OF EXAM: 03/12/2021 COMPARISON: 03/11/2021 HISTORY: 61 years Female. STUDY INDICATION GIVEN: Tube placement . TECHNIQUE: AP portable chest radiograph IMPRESSION: Endotracheal tube and right jugular central venous catheter are not seen. Left upper extremity PICC s table and termination in the SVC. Stable round-like opacities seen in the right perihilar region could be on the basis of pneumonia or mass. Follow-up to resolution is recommended. There are new opacities in the left lower lobe which likely reflect atelectatic changes. The cardiomediastinal silhouette is within normal. No pneumothorax seen. Trace left pleural effusion is suggested. Acute osseous abnormality seen. Ossific densities seen at the rotator cuff insertion.
[2021-03-12] MEDS: SODIUM ACETATE IV SCH ×7 (08:24)
[2021-03-12] MEDS: MAGNESIUM SULFATE IV SCH ×7 (08:24)
[2021-03-12] MEDS: CALCIUM GLUCONATE IV SCH ×7 (08:24)
[2021-03-12] MEDS: [UNRECOGNIZED DRUG - OTHER] IV SCH ×7 (08:24)
[2021-03-12] MEDS: SODIUM FERRIC GLUCONAT-SUCROSE 125 MG in SODIUM CHLORIDE 0.9% 100 ML IVPB SCH (08:26)
[2021-03-12] MEDS: PANTOPRAZOLE 40 MG/10 ML VIAL IV SCH (08:26)
[2021-03-12] MEDS ORDERED: FUROSEMIDE 10 MG/ML 10 ML VIAL IV STA (09:43)
--- NOTE | 2021-03-12 12:54 | P.PN ---
Subjective Progress Note Date: 03/12/21 CHIEF COMPLAINT: Necrotizing fasciitis with gangrene of the colon HISTORY OF PRESENT ILLNESS: The patient is a super morbidly obese 61-year-old female status post exploratory laparotomy, lysis of adhesions, colectomy, debridement of abdominal wall due to necrotizing fasciitis, drainage of large abdominal wall abscess. She remains in intensive care unit however extubated since yesterday. She continues to improve. She is more alert today. No reports of moderate abdominal pain. REVIEW OF ORGAN SYSTEMS: Temperature maximum 100.3. No acute cardiac event. Denies global shortness of breath. PHYSICAL EXAM: VITAL SIGNS: Stable GENERAL: Well-developed pleasant female in no acute distress. HEENT: No scleral icterus. Extraocular movements grossly intact. Moist buccal mucosa. CHEST: Mechanical ventilation with equal bilateral excursions. CARDIOVASCULAR: Regular rate and rhythm. Distal 2+ pulses. RESPIRATORY: Shallow breathing of 25-35 parts per minute. ABDOMEN: Left paramedian incision intact. Wound VAC intact without cellulitis Large pannus over 50+ pounds. No peritonitis. Serosanguinous drainage in VAC system with decreased output. MUSCULOSKELETAL: No clubbing, cyanosis. NEURO: Awake, lethargic SKIN: Well perfused. PSYCH: Alert to self. LABS: Reviewed. WBC up from 12.4-13.5 with leukocytosis, now 16.0. Hemoglobin 9.4 with anemia. MICROBIOLOGY: Final cultures and all demonstrates Candidiasis albicans including multiple gram-positive bacilli. ASSESSMENT: 1. Large bowel necrosis with necrotizing fasciitis status post colectomy, abdominal wall debridement 2. Super morbid obesity due to excess calories, BMI 59.7 3. 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 Vent dependent respiratory failure 5. Inadequate protein intake due to ventilation PLAN: 1. Extensive discussion of intraoperative findings including large bowel mucosa is involving small portion of the transverse colon was reviewed in detail. All questions were addressed with patient with nursing team at bedside. 2. Overall discussion, patient is concerned about disability and start of social services manager including Medicaid. All questions avert to dialysis social worker. 3. Likely intravenous infusion upon discharge from the hospital reviewed including continued wound VAC upon discharge or transfer to rehab. 4. Future surgical plans include complete panniculectomy with abdominal wall reconstruction after moderate weight loss over 100+ pounds. Objective - Vital Signs Vital signs: Vital Signs Temp 99.7 F H 03/12/21 08:00 Pulse 99 03/12/21 11:00 Resp 29 H 03/12/21 11:00 BP 99/54 03/12/21 06:00 Pulse Ox 94 L 03/12/21 11:00 Intake & Output 03/11/21 03/12/21 03/12/21 18:59 06:59 18:59 Intake Total 2622.084 1276 1490 Output Total 3650 2750 1010 Balance -1027.916 -1474 480 Weight 150.3 kg Intake: IV 1506 1076 153 0.9 270 240 100 Fluconazole in NaCl,Iso- 200 Osm 200 mg In Saline 1 100ml.bag @ 100 mls/hr IVPB Q24H [facility] Rx#: [id number] Mvi, Adult No.4 with Vit 636 636 53 K 10 ml Trace (Conc-1Ml/ Dose) 1 ml Sodium Acetate 40 meq Magnesium Sulfate gm 1 gm Calcium Gluconate 1 gm Potassium Phosphate 15 mmol In Amino Acids 5 %/Dextrose 20 % 1,000 ml @ 53 mls/hr IV .BY DURATION [facility] Rx#: [id number] Piperacillin-Tazobactam 3 100 .375 gm In Sodium Chloride 0.9% 100 ml @ 25 mls/hr IVPB Q8HR [facility] Rx# :[id number] Potassium Chloride 10 meq 200 In Water For Injection 1 100ml.bag @ 100 mls/hr IVPB Q1H [facility] Rx#: [id number] Sodium Ferric Gluconat- 100 Sucrose 125 mg In Sodium Chloride 0.9% 100 ml @ 100 mls/hr IVPB DAILY [facility] Rx#:[id number] metroNIDAZOLE-NS PMX 500 200 mg In Saline 1 100ml.bag @ 100 mls/hr IVPB Q6H [facility] Rx#:[id number] Intake, IV Titration 0685.679 6542 Amount Sodium Acetate 40 meq 1014.95 1037 Magnesium Sulfate gm 1 gm Calcium Gluconate 1 gm Potassium Phosphate 15 mmol In Amino Acids 5 %/ Dextrose 20 % 1,000 ml @ 53 mls/hr IV .BY DURATION [facility] Rx#:[id number] propofoL 1,000 mg In 101.134 Empty Bag 1 bag @ Titrate IV .Q0M [facility] Rx#: [id number] Oral 200 300 Output: Urine 3650 2750 1010 Other: Voiding Method Indwelling Catheter Indwelling Catheter Indwelling Catheter ABP, PAP, CO, CI - Last Documented Arterial Blood Pressure 150/58 - Labs CBC & Chem 7: 03/12/21 04:30 03/12/21 04:30 Labs: Abnormal Lab Results - Last 24 Hours (Table) 03/12/21 03/12/21 Range/Units 04:30 04:30 WBC 16.0 H (3.8-10.6) k/uL RBC 3.08 L (3.80-5.40) m/uL Hgb 9.4 L (11.4-16.0) gm/dL Hct 30.5 L (34.0-46.0) % MCHC 30.8 L (31.0-37.0) g/dL Potassium 3.2 L (3.5-5.1) mmol/L Carbon Dioxide 37 H (22-30) mmol/L BUN 6 L (7-17) mg/dL Creatinine 0.44 L (0.52-1.04) mg/dL Glucose 141 H (74-99) mg/dL Calcium 7.6 L (8.4-10.2) mg/dL Microbiology - Last 24 Hours (Table) 03/06/21 09:57 Blood Culture - Final Blood No Growth after 144 hours 03/06/21 09:57 Blood Culture - Final Blood No Growth after 144 hours 03/07/21 19:20 Anaerobic Culture - Final Abdomen Anaerobic Gm Negative Bacilli Anaerobic Gm Negative Bacilli#2 03/07/21 19:20 Anaerobic Culture - Final Tissue - Abdominal Wall Anaerobic Gm Negative Bacilli Anaerobic Gm Negative Bacilli#2 Assessment and Plan (1) Abdominal wall abscess Current Visit: Yes Status: Acute Code(s): L02.211 - CUTANEOUS ABSCESS OF ABDOMINAL WALL SNOMED Code(s): 74669225 (2) Panniculitis Current Visit: Yes Status: Acute Code(s): M79.3 - PANNICULITIS, UNSPECIFIED SNOMED Code(s): 65156073 (3) BMI 60.0-69.9, adult Current Visit: No Status: Acute Code(s): Z68.44 - BODY MASS INDEX [BMI] 60.0-69.9, ADULT SNOMED Code(s): 036164957 (4) Morbid obesity due to excess calories Current Visit: No Status: Acute Code(s): E66.01 - MORBID (SEVERE) OBESITY DUE TO EXCESS CALORIES SNOMED Code(s): 575781717 (5) Necrotizing fasciitis Current Visit: Yes Status: Acute Code(s): M72.6 - NECROTIZING FASCIITIS SNOMED Code(s): 51536502 (6) Gangrene of colon Current Visit: Yes Status: Acute Code(s): K55.049 - ACUTE INFARCTION OF LARGE INTESTINE, EXTENT UNSPECIFIED SNOMED Code(s): 64260032 (7) S/P colectomy Current Visit: Yes Status: Acute Code(s): Z90.49 - ACQUIRED ABSENCE OF OTHER SPECIFIED PARTS OF DIGESTIVE TRACT SNOMED Code(s): 740891632 (8) Respiratory failure with hypoxia Current Visit: Yes Status: Acute Code(s): J96.91 - RESPIRATORY FAILURE, UNSPECIFIED WITH HYPOXIA SNOMED Code(s): 76201215682403766
--- NOTE | 2021-03-12 13:03 | P.PN ---
Subjective Progress Note Date: 03/12/21 Principal diagnosis: Respiratory failure. 61-year-old female patient with past medical history of morbid obesity with previous history of lap banding, panniculitis, hypertension, history of multiple abdominal and pelvic surgeries, obstructive sleep apnea, osteoarthritis, who rec ently had a large bowel obstruction due to incarcerated recurrent incisional hernia in the left lower abdomen and underwent open reduction and repair of large isolated incisional hernia lysis of adhesions and omentectomy on 02/10/2021. Patient was discharged home on 02/14/2021 in stable condition, patient was tolerating diet, her pain was controlled, patient was passing bowel movements and flatus, she was ambulating at the time of discharge. On 03/06/2021 patient was brought into the emergency department for a concern of incisional drainage. The drainage was brown in color, however patient was not complaining of any significant pain or fever. On examination there was a large amount of brownish drainage that was draining from her incision. CT of the abdomen and pelvis showed marked increase in the amount of large subcutaneous fluid collection containing contrast, 6 mm abscess in the intra-abdominal cavity, there was a small amount of adjacent free air, and the segment of transverse colon with surrounding inflammatory changes correlating for abscess with a ruptured viscus. 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 The skin thickening and diffuse subcutaneous edema in the anterior abdominal wall relating for cellulitis. Blood work in the emergency department showed a white count of 15.4, hemoglobin of 13.7, INR of 1.5, sodium 1:30, potassium 4.9, chloride is 95, B1 of 19, creatinine 0.90, lactic acid was 3.1. COVID-19 was negative. Patient had a low-grade fever with a temp of 99.1 on presentation. Patient was given 2 L and IV fluid boluses, she was started on broad-spectrum antibiotics, currently on Flagyl and Zosyn, and the general surgery performed exploratory laparotomy with transverse colectomy with anastomosis with extensive lysis of adhesions, drainage of the subcutaneous abdominal wall abscess with over 450 now feculent material, and sharp excisional debridement of abdominal wall for necrotizing fasciitis and application of the wound VAC system. Postoperatively patient return to the intensive care unit, intubated and sedated on mechanical ventilator, this morning she seen in the ICU, on assist control mode of ventilation, with a rate of 18, tidal volume is 380, FiO2 of 70%, and PEEP of 50, this morning's blood gas shows pO2 of 81, pCO2 of 46, and pH of 7.26. 0.9 and is infusing at a rate of 150, to prevent is a 25 mics per kilo per minute, levofed is at 2.7 mics per minute. Today's chest x-ray shows some interstitial infiltrate and atelectasis at the right lung base. On today's evaluation on 03/09/2021 patient seen in follow-up in intensive care unit, he is postoperative day #1, status post exploratory laparotomy, transverse colectomy and anastomosis with extensive lysis of adhesions and debridement of abdominal wall necrotizing fasciitis, drainage of the abdominal wall abscesses. Patient remains sedated and intubated on mechanical ventilator, with assist- control rate of 18, tidal vital 380, tidal volume is 380, FiO2 of 40% and PEEP of 10, this morning gas showed pO2 of 202, pCO2 of 40, and pH is 7.39. We'll drop the PEEP down to 5. Patient is off norepinephrine, hemodynamically she is stable, she remains on 0.9 normal saline at a rate of 150 ML per hour, yesterday she received additional 2 L of lactated Ringer and fluid boluses and we were able to wean her off the vasopressor support, she is currently on Diprivan is at 30 mics per kilo per minute, remains on broad-spectrum antibiotic including Flagyl and Zosyn, blood abdominal wall tissue and the cultures are all negative thus far, final cultures are pending, overnight she has been afebrile. Wound VAC is in place on the abdominal wound, and there is a total of 500 mL of serosanguineous output in last 24 hours. Mid abdominal incision is clean dry and intact, pedro are intact, wound VAC is intact. Abdomen is soft. Does have been reviewed with blood cell, is relatively stable at 16.2, hemoglobin is 10.3, sodium is 136, potassium is 4.1, chloride is 109, BUN is 10, creatinine 0.48. Feedings remain on hold, general surgery is following, and yesterday we were going to wake up the patient and give her a spontaneous breathing trials however the surgeon that the patient is to go back to or today for reexploration possibility of additional debridement. For that reason patient was less sedated and intubated on mechanical ventilator. Urine output is in the order of 30-50 ML per hour. On today's evaluation on 03/10/2021 patient seen in follow-up in intensive care unit, yesterday patient had surgery, surgery lap, was sharp excisional debridement for necrotizing fascia-itis to muscle of the abdominal wall with lavage, and placement of the abdominal wound VAC back on. Overnight there was a large outputs of serosanguineous drainage from the wound VAC, around 500 mL, not grossly bloody, thin, however there was noted hemoglobin decreased to 8.7 on today's labs from previous 10.3 on yesterday's labs. However hemodynamically patient has remained stable, not on any vasopressors. Surgery is holding off on blood transfusion, and ordered iron supplementation at this time. Patient this morning is still sedated and mechanically ventilated on assist control mode of ventilation with a rate of 18, tidal M is 380, FiO2 of 40% and PEEP of 5. This morning's blood gas shows pO2 of 110, pCO2 of 43 and pH of 7.40, FiO2 has been dropped to 35%, maintenance IV fluids include 0.9 normal saline at a rate of 150 ML per hour, TPN was started yesterday and is infusing at 30 ML per hour, Diprivan is currently at 25 mics per kilo per minute, no other drips. Lovenox was also placed on hold by surgery for bleeding precaution. Chest x-ray has been reviewed showing low lung volumes and mild megaly with mild central vascular congestion and patchy bibasilar atelectasis and/or infiltrate, patient remains on broad-spectrum antibiotics including vaginal and Zosyn. The wound cultures are growing multiple albicans gram-negative bacilli species. Final culture is pending. Blood cultures have been negative, patient has been afebrile, hemodynamically she stable, she is in sinus mechanism with a rate of 83 bpm, blood pressure is 121/54 with a mean of 75. Acute issues overnight, urine output is in order of 30-40 mL per hour. Overall patient is +14 kg since admission. Cut back IV fluids to 50 ML per hour, patient may need a dose of IV Lasix. Progress note dated 03/11/2021. 61-year-old female admitted with a diagnosis of necrotizing fasciitis, and septic shock. The patient is status post drainage of the abdominal wall abscess, exploratory laparotomy with transverse colectomy, and extensive lysis of adhesions, as well as debridement of abdominal wall necrotizing fasciitis. A wound VAC was placed on March 08. Today is postop day #3. The patient remains on the ventilator. She is on the volume assist control mode rate of 18, tidal volume 380, FiO2 35%, PEEP of 5. Blood gases show pO2 of 69, pCO2 52, pH is 7.37. The patient's getting propofol at 25 mcg/kg/m, saline at 50 mL an hour TPN at 53 mL an hour, and also antibiotics in the form of Flagyl, Zosyn, and Diflucan. Today, we will attempt a daily interruption of sedation and a spontaneous breathing trial on pressure support of 5 and CPAP of 5. In addition, prior to that, a 660 mg IV push. She'll also get some additional Lasix at 4 PM. White count 13.5, hemoglobin 9.8, hematocrit 30.4, and platelet count is normal. Sodium 138, potassium 3.6, chlorides 109, CO2 26, anion gap 3, BUN 5, creatinine 0.40. The patient's chest x-ray was reviewed, and showed some small left-sided pleural effusion and some worsening right hilar opacity. Progress note dated 03/12/2021. 61-year-old female, who was successfully extubated yesterday. The patient currently is on 4 L nasal cannula with saturations of 94%. She's getting saline at 20 mL an hour. Also, TPN is currently running. Yesterday, we gave her Lasix, twice, once in the morning and once at 4 PM. She diuresed significantly. She is awake and alert. We will make sure that we get her an incentive spirometer. White count 16, hemoglobin 9.4, hematocrit 30.5, and platelet count 101,000. Sodium 139, potassium 2.2, chlorides 102, CO2 37, anion gap 0, BUN 6, and creatinine 0.4. Chest x-ray shows some patchy infiltrates, and some basilar atelectasis. There is a small left pleural effusion noted. The patient remains on Diflucan, Flagyl, and Zosyn as per infectious diseases. Objective - Vital Signs Vital signs: Vital Signs Temp 99.7 F H 03/12/21 08:00 Pulse 99 03/12/21 11:00 Resp 29 H 03/12/21 11:00 BP 99/54 03/12/21 06:00 Pulse Ox 94 L 03/12/21 11:00 Intake & Output 03/11/21 03/12/21 03/12/21 18:59 06:59 18:59 Intake Total 2622.084 1276 1490 Output Total 3650 2750 1010 Balance -1027.916 -1474 480 Weight 150.3 kg Intake: IV 1506 1076 153 0.9 270 240 100 Fluconazole in NaCl,Iso- 200 Osm 200 mg In Saline 1 100ml.bag @ 100 mls/hr IVPB Q24H [facility] Rx#: [id number] Mvi, Adult No.4 with Vit 636 636 53 K 10 ml Trace (Conc-1Ml/ Dose) 1 ml Sodium Acetate 40 meq Magnesium Sulfate gm 1 gm Calcium Gluconate 1 gm Potassium Phosphate 15 mmol In Amino Acids 5 %/Dextrose 20 % 1,000 ml @ 53 mls/hr IV .BY DURATION [facility] Rx#: [id number] Piperacillin-Tazobactam 3 100 .375 gm In Sodium Chloride 0.9% 100 ml @ 25 mls/hr IVPB Q8HR [facility] Rx# :[id number] Potassium Chloride 10 meq 200 In Water For Injection 1 100ml.bag @ 100 mls/hr IVPB Q1H [facility] Rx#: [id number] Sodium Ferric Gluconat- 100 Sucrose 125 mg In Sodium Chloride 0.9% 100 ml @ 100 mls/hr IVPB DAILY [facility] Rx#:[id number] metroNIDAZOLE-NS PMX 500 200 mg In Saline 1 100ml.bag @ 100 mls/hr IVPB Q6H [facility] Rx#:[id number] Intake, IV Titration 9075.190 2299 Amount Sodium Acetate 40 meq 1014.95 1037 Magnesium Sulfate gm 1 gm Calcium Gluconate 1 gm Potassium Phosphate 15 mmol In Amino Acids 5 %/ Dextrose 20 % 1,000 ml @ 53 mls/hr IV .BY DURATION [facility] Rx#:[id number] propofoL 1,000 mg In 101.134 Empty Bag 1 bag @ Titrate IV .Q0M [facility] Rx#: [id number] Oral 200 300 Output: Urine 3650 2750 1010 Other: Voiding Method Indwelling Catheter Indwelling Catheter Indwelling Catheter ABP, PAP, CO, CI - Last Documented Arterial Blood Pressure 150/58 - Exam No acute distress, currently extubated, on nasal O2 at 4 L, with saturations of 94%. HEENT examination is grossly unremarkable. Neck supple. Full range of motion. No adenopathy thyromegaly or neck vein distention. Cardiovascular examination reveals regular rhythm rate. S1-S2 normal. No S3 or S4. No discernible murmur noted. Heart sounds are distant. Heart rate 99 bpm. Lungs reveal bilateral coarse rhonchi. Breath sounds are equal. No wheezes or crackles. Abdomen soft, without bowel sounds. Incision is clean and dry. Wound VAC is noted. Extremities are intact. No cyanosis clubbing or edema. Skin is without rash or lesion. Neurologic examination is brief but nonfocal. - Labs CBC & Chem 7: 03/12/21 04:30 03/12/21 04:30 Labs: Abnormal Lab Results - Last 24 Hours (Table) 03/12/21 03/12/21 Range/Units 04:30 04:30 WBC 16.0 H (3.8-10.6) k/uL RBC 3.08 L (3.80-5.40) m/uL Hgb 9.4 L (11.4-16.0) gm/dL Hct 30.5 L (34.0-46.0) % MCHC 30.8 L (31.0-37.0) g/dL Potassium 3.2 L (3.5-5.1) mmol/L Carbon Dioxide 37 H (22-30) mmol/L BUN 6 L (7-17) mg/dL Creatinine 0.44 L (0.52-1.04) mg/dL Glucose 141 H (74-99) mg/dL Calcium 7.6 L (8.4-10.2) mg/dL Microbiology - Last 24 Hours (Table) 03/06/21 09:57 Blood Culture - Final Blood No Growth after 144 hours 03/06/21 09:57 Blood Culture - Final Blood No Growth after 144 hours 03/07/21 19:20 Anaerobic Culture - Final Abdomen Anaerobic Gm Negative Bacilli Anaerobic Gm Negative Bacilli#2 03/07/21 19:20 Anaerobic Culture - Final Tissue - Abdominal Wall Anaerobic Gm Negative Bacilli Anaerobic Gm Negative Bacilli#2 Assessment and Plan Assessment: #1. Septic shock, related to necrotizing fasciitis of the abdominal fascia, necrotic transverse colon, necrotic omentum, status post drainage at the abdominal wall abscess, exploratory laparotomy with transverse colectomy with anastomosis with extensive lysis of adhesions, and debridement of abdominal wall necrotizing fasciitis in the application of the wound VAC on 03/08/2021 (POD #4) Patient went back to surgery, status post exploratory laparotomy, transverse colectomy and anastomosis with extensive lysis of adhesions and debridement of abdominal wall necrotizing fasciitis, drainage of the abdominal wall abscesses on 03/10/2021. She has recovered from septic shock, currently off vasopressor support on 03/09/2021. Routine postoperative ventilator management, with extubation on 03/11/2021. #2. Recent history of a large bowel obstruction due to incarcerated recurrent incisional hernia, status post open reduction and repair of a large recurrent incarcerated incisional hernia, open lysis of adhesions, and omentectomy on 02/10/2021. #3. History of morbid obesity previous history of lap banding. #4. History of obstructive sleep apnea. #5. Osteoarthritis. #6. Hypertension. #7. History of multiple abdominal pelvic surgeries. #8. Routine postoperative ventilator management. #9. Hyponatremia likely hypovolemic, corrected. #10. Lactic acidosis related to underlying sepsis, improved with fluid resuscitation. #11. Panniculitis. Plan: Plan dated 03/11/2021. The patient's sedation will be held. We will do a daily interruption of sedation. The patient will have a spontaneous breathing trial with pressure support of 5 and CPAP of 5. Prior, the patient will receive Lasix 60 mg IV push, and an additional dose of Lasix at 4 PM. The patient remains on Flagyl, Zosyn, and Diflucan as per ID. The patient's getting nourishment with TPN at 53 mL an hour. Today is postop day #3. We will continue to follow make recommendations where appropriate. Overall prognosis remains very guarded. Plan dated 03/12/2021. The patient still exhibits fluid overload. The patient will get Lasix 40 mg IV push times one. She responded very well to Lasix twice yesterday. In addition, the patient will continue on TPN. We will continue to follow make recommendations where appropriate. Today he is postop day #4. Labs and x-rays and medications are all reviewed. The patient remains on appropriate medications including Zosyn, Flagyl, and Diflucan. We will continue to follow and make recommendations where appropriate. The patient needs to continue with the incentive spirometer, and the deep breathing, coughing, and clearing of secretions. Prognosis, is guarded, given her obesity. Time with Patient: Greater than 30
[2021-03-12] MEDS: SODIUM CHLORIDE 0.9% 1,000 ML IV SCH (17:00)
[2021-03-12] MEDS: FLUCONAZOLE IN NACL,ISO-OSM 200 MG in SALINE 1 100ML.BAG IVPB SCH (17:54)
[2021-03-12] MEDS: atenoloL 50 MG TAB PO SCH (21:06)
--- NOTE | 2021-03-12 22:46 | PN ---
PROGRESS NOTE DATE OF SERVICE: 03/11/2021 REASON FOR FOLLOWUP: Intraabdominal abscess. INTERVAL HISTORY: Patient did have a low grade fever yesterday, however is afebrile today. The patient is breathing comfortably. The patient is hemodynamically stable. No chest pain, shortness of breath. Occasional cough. Still some abdominal discomfort but no worsening. PHYSICAL EXAMINATION: Blood pressure 136/68 with a pulse of 99, temperature of 98. She is 92% on 5 L nasal cannula. General description is a middle-aged female lying in bed in no distress. Respiratory system: Unlabored breathing, decreased breath sounds in the base. No wheeze. Heart S1, S2. Regular rate and rhythm. Abdomen: Soft, mildly distended. No guarding, no rigidity. LABS: Hemoglobin is 9.4, white count 16, creatinine 0.44. DIAGNOSTIC IMPRESSION AND PLAN: Patient with abdominal wall abscess with necrotic bowel, status post extensive surgery. Abdominal culture positive for anaerobes, Agnieszka, covered with Flagyl and Diflucan. White count showed upward trend. We will monitor closely. Continue supportive care. MMODL / IJN: [id number] /
[2021-03-13] MEDS: PIPERACILLIN-TAZOBACTAM 3.375 GM in SODIUM CHLORIDE 0.9% 100 ML IVPB SCH ×3 (00:30→16:27)
[2021-03-13] MEDS: metroNIDAZOLE-NS PMX 500 MG in SALINE 1 100ML.BAG IVPB SCH ×4 (01:02→22:09)
[2021-03-13] MEDS: ONDANSETRON 4 MG/2 ML VIAL IVP SCH ×4 (01:02→18:46)
[2021-03-13 04:53] LABS: HCT 31.2 % (34.0-46.0); HGB 9.6 gm/dL (11.4-16.0); Hypochromasia Slight; MCH 30.9 pg (25.0-35.0); MCHC 30.9 g/dL (31.0-37.0); MCV 99.9 fL (80.0-100.0); Mean Platelet Volume 7.1; Platelet Count 433 k/uL (150-450); RBC 3.12 m/uL (3.80-5.40); RDW 13.7 % (11.5-15.5); WBC 18.8 k/uL (3.8-10.6)
[2021-03-13 05:12] LABS: ALT 12 U/L (4-34); AST 25 U/L (14-36); African American GFR (CKD) >90 (>60 ml/min/1.73 sqM); Alkaline Phosphatase 49 U/L (38-126); Blood Urea Nitrogen 6 mg/dL (7-17); Calcium 7.8 mg/dL (8.4-10.2); Chloride 96 mmol/L (98-107); Glucose 133 mg/dL (74-99); Magnesium 1.7 mg/dL (1.6-2.3); Non-African American GFR(CKD) >90 (>60 ml/min/1.73 sqM); Phosphorus 3.7 mg/dL (2.5-4.5); Potassium 3.3 mmol/L (3.5-5.1); Sodium 139 mmol/L (137-145); Total Bilirubin 0.2 mg/dL (0.2-1.3)
[2021-03-13 05:19] LABS: Anion Gap 4 mmol/L; Carbon Dioxide 39 mmol/L (22-30)
[2021-03-13] MEDS: MAGNESIUM SULFATE IV SCH ×14 (05:30→05:33)
[2021-03-13] MEDS: [UNRECOGNIZED DRUG - OTHER] IV SCH ×7 (05:30)
[2021-03-13] MEDS: SODIUM PHOSPHATE IV SCH ×7 (05:30)
[2021-03-13] MEDS: CALCIUM GLUCONATE IV SCH ×14 (05:30→05:33)
[2021-03-13] MEDS: [UNRECOGNIZED DRUG - OTHER] IV SCH ×7 (05:33)
[2021-03-13] MEDS: SODIUM ACETATE IV SCH ×7 (05:33)
[2021-03-13] MEDS: POTASSIUM CHLORIDE 20 MEQ in WATER FOR INJECTION 1 100ML.BAG IVPB SCH ×2 (06:40→09:13)
--- NOTE | 2021-03-13 08:12 | XR ---
EXAMINATION TYPE: XR chest 1V portable DATE OF EXAM: 03/13/2021 HISTORY: Shortness of breath. COMPARISON: 03/12/2021 TECHNIQUE: Single view of the chest is submitted. FINDINGS: Demonstrated are scattered senescent parenchymal change. Perihilar infiltrates persist without significant change. Left-sided PICC line unchanged in position. The heart is stable. Hilar and mediastinal structures are within normal limits. Degenerative changes are seen of the dorsal spine. IMPRESSION: 1. Perihilar infiltrates persist without significant change.
--- NOTE | 2021-03-13 08:26 | P.PN ---
Subjective Progress Note Date: 03/13/21 61-year-old female patient with past medical history of morbid obesity with previous history of lap banding, panniculitis, hypertension, history of multiple abdominal and pelvic surgeries, obstructive sleep apnea, osteoarthritis, who recently had a large bowel obstruction due to incarcerated recurrent incisional hernia in the left lower abdomen and underwent open reduction and repair of large isolated incisional hernia lysis of adhesions and omentectomy on 02/10/2021. Patient was discharged home on 02/14/2021 in stable condition, patient was tolerating diet, her pain was controlled, patient was passing bowel movements and flatus, she was ambulating at the time of discharge. On 03/06/2021 patient was brought into the emergency department for a concern of incisional drainage. The drainage was brown in color, however patient was not complaining of any significant pain or fever. On examination there was a large amount of brownish drainage that was draining from her incision. CT of the abdo men and pelvis showed marked increase in the amount of large subcutaneous fluid collection containing contrast, abscess in the intra-abdominal cavity, there was a small amount of adjacent free air, and the segment of transverse colon with surrounding inflammatory changes correlating for abscess with a ruptured viscus. 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 The skin thickening and diffuse subcutaneous edema in the anterior abdominal wall relating for cellulitis. COVID-19 was negative. Patient was given IV fluid boluses, she was started on broad-spectrum antibiotics, currently on Flagyl and Zosyn and Diflucan , and the general surgery performed exploratory laparotomy with transverse colectomy with anastomosis with extensive lysis of adhesions, drainage of the subcutaneous abdominal wall abscess with over 450 now feculent material, and sharp excisional debridement of abdominal wall for necrotizing fasciitis and application of the wound VAC system, and he is post op day #5. She was extubated on . She is awake and alert. We will make sure that we get her an incentive spirometer. The patient remains on Diflucan, Flagyl, and Zosyn as per infectious diseases. The abdominal wound cultures positive for anaerobic gram-negative bacteria and Agnieszka albicans. The patient is on IV fluids with normal saline at the rate of 20 mL an hour. The overall fluid balance over the past 24 hours has been -1039 mL. The wound VAC is draining approximately 4 50 mL a shift. The white cell count at 18.8 with hemoglobin 9.6. Electrolytes are normal with some metabolic alkalosis. Blood sugar is adequately controlled. The patient is taking clear liquid diet. The patient is passing some limited bowel activity. No abdominal pain. Objective - Vital Signs Vital signs: Vital Signs Temp 98.4 F 03/13/21 04:00 Pulse 78 03/13/21 07:00 Resp 13 03/13/21 07:00 BP 99/54 03/12/21 06:00 Pulse Ox 95 03/13/21 07:00 Intake & Output 03/12/21 03/13/21 03/13/21 18:59 06:59 18:59 Intake Total 1870 1676 73 Output Total 2710 1875 250 Balance -840 -199 -177 Weight 149.7 kg Intake: IV 293 1176 73 0.9 220 240 20 Fluconazole in NaCl,Iso- 20 200 Osm 200 mg In Saline 1 100ml.bag @ 100 mls/hr IVPB Q24H [facility] Rx#: [id number] Mvi, Adult No.4 with Vit 53 636 53 K 10 ml Trace (Conc-1Ml/ Dose) 1 ml Sodium Acetate 40 meq Magnesium Sulfate gm 1 gm Calcium Gluconate 1 gm Potassium Phosphate 15 mmol In Amino Acids 5 %/Dextrose 20 % 1,000 ml @ 53 mls/hr IV .BY DURATION [facility] Rx#: [id number] Piperacillin-Tazobactam 3 100 .375 gm In Sodium Chloride 0.9% 100 ml @ 25 mls/hr IVPB Q8HR [facility] Rx# :[id number] Intake, IV Titration 1037 Amount Sodium Acetate 40 meq 1037 Magnesium Sulfate gm 1 gm Calcium Gluconate 1 gm Potassium Phosphate 15 mmol In Amino Acids 5 %/ Dextrose 20 % 1,000 ml @ 53 mls/hr IV .BY DURATION [facility] Rx#:[id number] Oral 540 500 Output: Urine 2710 1875 250 Other: Voiding Method Indwelling Catheter Indwelling Catheter ABP, PAP, CO, CI - Last Documented Arterial Blood Pressure 145/61 - Exam No acute distress, currently extubated, on nasal O2 at 4 L, with saturations of 94%. Head exam was generally normal. There was no scleral icterus or corneal arcus. Mucous membranes were moist. Neck was supple and without jugular venous distension, thyromegaly, or carotid bruits. Carotids were easily palpable bilaterally. There was no adenopathy. Cardiovascular examination reveals regular rhythm rate. S1-S2 normal. No S3 or S4. No discernible murmur noted. Heart sounds are distant. Lungs reveal bilateral coarse rhonchi. Breath sounds are equal. No wheezes or crackles. Abdomen soft, without bowel sounds. Incision is clean and dry. Wound VAC is noted. Extremities are intact. No cyanosis clubbing or edema. Skin is without rash or lesion. Neurologic examination is brief but nonfocal. - Labs CBC & Chem 7: 03/13/21 04:30 03/13/21 04:30 Labs: Abnormal Lab Results - Last 24 Hours (Table) 03/13/21 03/13/21 Range/Units 04:30 04:30 WBC 18.8 H (3.8-10.6) k/uL RBC 3.12 L (3.80-5.40) m/uL Hgb 9.6 L (11.4-16.0) gm/dL Hct 31.2 L (34.0-46.0) % MCHC 30.9 L (31.0-37.0) g/dL Potassium 3.3 L (3.5-5.1) mmol/L Chloride 96 L (98-107) mmol/L Carbon Dioxide 39 H (22-30) mmol/L BUN 6 L (7-17) mg/dL Creatinine 0.43 L (0.52-1.04) mg/dL Glucose 133 H (74-99) mg/dL Calcium 7.8 L (8.4-10.2) mg/dL Total Protein 5.0 L (6.3-8.2) g/dL Albumin 2.0 L (3.5-5.0) g/dL Microbiology - Last 24 Hours (Table) 03/07/21 19:20 Anaerobic Culture - Preliminary Tissue - Abdominal Wall Anaerobic Gm Negative Bacilli Anaerobic Gm Negative Bacilli#2 03/06/21 09:57 Blood Culture - Final Blood No Growth after 144 hours 03/06/21 09:57 Blood Culture - Final Blood No Growth after 144 hours Assessment and Plan Plan: 1. Septic shock, related to necrotizing fasciitis of the abdominal fascia, necrotic transverse colon, necrotic omentum, status post drainage at the abdominal wall abscess, exploratory laparotomy with transverse colectomy with anastomosis with extensive lysis of adhesions, and debridement of abdominal wall necrotizing fasciitis in the application of the wound VAC on 03/08/2021 (POD #5) Patient went back to surgery, status post exploratory laparotomy, transverse colectomy and anastomosis with extensive lysis of adhesions and debridement of abdominal wall necrotizing fasciitis, drainage of the abdominal wall abscesses on 03/10/2021. She has recovered from septic shock, currently off vasopressor support. Intra-abdominal cultures are showing Agnieszka and anaerobic gram- negative bacteria. Patient is covered with a combination of Zosyn, Flagyl and Diflucan. 2 acute hypoxic respiratory failure secondary to above, recovered and the patient was extubated on 03/11/2021 currently on 4 liters by nasal cannula. 3. Recent history of a large bowel obstruction due to incarcerated recurrent incisional hernia, status post open reduction and repair of a large recurrent incarcerated incisional hernia, open lysis of adhesions, and omentectomy on 02/10/2021. 4. History of morbid obesity previous history of lap banding. 5. History of obstructive sleep apnea 6. Osteoarthritis. 7. Hypertension. 8. History of multiple abdominal pelvic surgeries. 9. Hyponatremia likely hypovolemic, corrected. 10. Lactic acidosis related to underlying sepsis, improved with fluid resuscitation. 11. Panniculitis. Plan: Continue using incentive spirometer Continue the antibiotics including Zosyn, Flagyl, and Diflucan. TPN for nutritional support, at 50 mL an hour and a blood sugars are under adequate control Keep the patient on 4 L of oxygen by nasal cannula and use the incentive spirometer Sit up on a chair if possible Monitor the output from the wound VAC We'll discuss oral intake with degenerative surgeon Chest x-ray from today is essentially unchanged. Monitor the abdominal wound cultures and there is still anaerobes growing in addition to Agnieszka. She is hemodynamically stable
[2021-03-13] MEDS: IPRATROPIUM-ALBUTEROL 3 ML NEB INHALATION SCH ×3 (08:28→19:40)
[2021-03-13] MEDS: PANTOPRAZOLE 40 MG/10 ML VIAL IV SCH (09:13)
[2021-03-13 09:32] VITALS: BMI 58.4
[2021-03-13] MEDS: MAGNESIUM SULFATE-D5W PMX 1 GM in DEXTROSE/WATER 1 100ML.BAG IVPB SCH ×2 (15:00→16:28)
[2021-03-13] MEDS: SODIUM CHLORIDE 0.9% 1,000 ML IV SCH (16:27)
--- NOTE | 2021-03-13 16:52 | P.PN ---
Subjective Progress Note Date: 03/13/21 CHIEF COMPLAINT: Necrotizing fasciitis with gangrene of the colon HISTORY OF PRESENT ILLNESS: The patient is a super morbidly obese 61-year-old female status post exploratory laparotomy, lysis of adhesions, colectomy, debridement of abdominal wall due to necrotizing fasciitis, drainage of large abdominal wall abscess, 03/07/21. She remains in intensive care unit but downgraded. She is tolerating diet. She reports now having bowel movements. Per discussion of nursing, no blood in stools and is brown and loose. Patient denies any moderate abdominal pain. She is pending physical therapy and she is eager to get up and move around. No further fevers over 100.0. REVIEW OF ORGAN SYSTEMS: Temperature maximum 99.5 down to 98.4. No acute cardiac event. Denies global shortness of breath. PHYSICAL EXAM: VITAL SIGNS: Stable GENERAL: Well-developed pleasant female in no acute distress. HEENT: No scleral icterus. Extraocular movements grossly intact. Moist buccal mucosa. CHEST: Mechanical ventilation with equal bilateral excursions. CARDIOVASCULAR: Regular rate and rhythm. Distal 2+ pulses. RESPIRATORY: Non-labored respirations. ABDOMEN: Wound VAC intact without cellulitis Large pannus over 50+ pounds. Nontender. Serosanguinous drainage in VAC system. MUSCULOSKELETAL: No clubbing, cyanosis. NEURO: No focal or lateralizing signs. SKIN: Well perfused. Good skin turgor. PSYCH: Alert and oriented to person, place and time. LABS: Reviewed. WBC up 16.0 to 18.8. Hemoglobin 9.4 to 9.6 and stable. MICROBIOLOGY: Final cultures Candidiasis albicans including multiple gram-positive bacilli. ASSESSMENT: 1. Large bowel necrosis with necrotizing fasciitis status post colectomy, abdominal wall debridement 2. Super morbid obesity due to excess calories, BMI 59.7 3. 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 Vent dependent respiratory failure 5. Inadequate protein intake due to ventilation PLAN: 1. Wound vac dressing changes described for Saturday, Saturday, Saturday or Saturday, , Saturday. 2. Adjustment of antibiotics per infectious disease. 3. Physical therapy and occupational therapy described. 4. Rehab assessment requested. 5. Social work services consult for patient additional needs. Objective - Vital Signs Vital signs: Vital Signs Temp 98.4 F 03/13/21 04:00 Pulse 74 03/13/21 12:02 Resp 15 03/13/21 09:00 BP 99/54 03/12/21 06:00 Pulse Ox 92 L 03/13/21 09:00 Intake & Output 03/12/21 03/13/21 03/13/21 18:59 06:59 18:59 Intake Total 1870 1676 219 Output Total 2710 1875 875 Balance -840 -199 -656 Weight 149.7 kg 149.7 kg Intake: IV 293 1176 219 0.9 220 240 60 Fluconazole in NaCl,Iso- 20 200 Osm 200 mg In Saline 1 100ml.bag @ 100 mls/hr IVPB Q24H [facility] Rx#: [id number] Mvi, Adult No.4 with Vit 53 636 159 K 10 ml Trace (Conc-1Ml/ Dose) 1 ml Sodium Acetate 40 meq Magnesium Sulfate gm 1 gm Calcium Gluconate 1 gm Potassium Phosphate 15 mmol In Amino Acids 5 %/Dextrose 20 % 1,000 ml @ 53 mls/hr IV .BY DURATION [facility] Rx#: [id number] Piperacillin-Tazobactam 3 100 .375 gm In Sodium Chloride 0.9% 100 ml @ 25 mls/hr IVPB Q8HR [facility] Rx# :[id number] Intake, IV Titration 1037 Amount Sodium Acetate 40 meq 1037 Magnesium Sulfate gm 1 gm Calcium Gluconate 1 gm Potassium Phosphate 15 mmol In Amino Acids 5 %/ Dextrose 20 % 1,000 ml @ 53 mls/hr IV .BY DURATION [facility] Rx#:[id number] Oral 540 500 Output: Urine 2710 1875 875 Other: Voiding Method Indwelling Catheter Indwelling Catheter Indwelling Catheter ABP, PAP, CO, CI - Last Documented Arterial Blood Pressure 154/66 - Labs CBC & Chem 7: 03/13/21 04:30 03/13/21 04:30 Labs: Abnormal Lab Results - Last 24 Hours (Table) 03/13/21 03/13/21 Range/Units 04:30 04:30 WBC 18.8 H (3.8-10.6) k/uL RBC 3.12 L (3.80-5.40) m/uL Hgb 9.6 L (11.4-16.0) gm/dL Hct 31.2 L (34.0-46.0) % MCHC 30.9 L (31.0-37.0) g/dL Potassium 3.3 L (3.5-5.1) mmol/L Chloride 96 L (98-107) mmol/L Carbon Dioxide 39 H (22-30) mmol/L BUN 6 L (7-17) mg/dL Creatinine 0.43 L (0.52-1.04) mg/dL Glucose 133 H (74-99) mg/dL Calcium 7.8 L (8.4-10.2) mg/dL Total Protein 5.0 L (6.3-8.2) g/dL Albumin 2.0 L (3.5-5.0) g/dL Microbiology - Last 24 Hours (Table) 03/07/21 19:20 Anaerobic Culture - Preliminary Tissue - Abdominal Wall Anaerobic Gm Negative Bacilli Anaerobic Gm Negative Bacilli#2 Assessment and Plan (1) Abdominal wall abscess Current Visit: Yes Status: Acute Code(s): L02.211 - CUTANEOUS ABSCESS OF ABDOMINAL WALL SNOMED Code(s): 68267902 (2) Panniculitis Current Visit: Yes Status: Acute Code(s): M79.3 - PANNICULITIS, UNSPECIFIED SNOMED Code(s): 72387156 (3) BMI 60.0-69.9, adult Current Visit: No Status: Acute Code(s): Z68.44 - BODY MASS INDEX [BMI] 60.0-69.9, ADULT SNOMED Code(s): 513915418 (4) Morbid obesity due to excess calories Current Visit: No Status: Acute Code(s): E66.01 - MORBID (SEVERE) OBESITY DUE TO EXCESS CALORIES SNOMED Code(s): 035241490 (5) Necrotizing fasciitis Current Visit: Yes Status: Acute Code(s): M72.6 - NECROTIZING FASCIITIS SNOMED Code(s): 99125028 (6) Gangrene of colon Current Visit: Yes Status: Acute Code(s): K55.049 - ACUTE INFARCTION OF LARGE INTESTINE, EXTENT UNSPECIFIED SNOMED Code(s): 43303899 (7) S/P colectomy Current Visit: Yes Status: Acute Code(s): Z90.49 - ACQUIRED ABSENCE OF OTHER SPECIFIED PARTS OF DIGESTIVE TRACT SNOMED Code(s): 278135658 (8) Respiratory failure with hypoxia Current Visit: Yes Status: Acute Code(s): J96.91 - RESPIRATORY FAILURE, UNSPECIFIED WITH HYPOXIA SNOMED Code(s): 88532879720358875
[2021-03-13] MEDS ORDERED: CEFEPIME 2 GM in SODIUM CHLORIDE 0.9% 100 ML IVPB ONE (17:00)
--- NOTE | 2021-03-13 17:14 | PN ---
PROGRESS NOTE DATE OF SERVICE: 03/13/2021 REASON FOR FOLLOWUP: Abdominal wall and abdominal infection. INTERVAL HISTORY: Patient is afebrile. The patient is breathing comfortably. The patient denies having any chest pain. No shortness of breath. Occasional cough. No vomiting or diarrhea. PHYSICAL EXAMINATION: Blood pressure 154/66, pulse of 80, temperature 98. She is 92% on 5 L nasal cannula. General description is a middle-aged female lying in bed in no distress. Respiratory system unlabored breathing, decreased breath sounds at bases. No wheeze. Heart S1, S2. Regular rate and rhythm. Abdomen soft, no tenderness. LABS: Hemoglobin is 9.8, white count 18.8, creatinine 0.43. Abdominal culture has been anaerobes, Agnieszka. DIAGNOSTIC IMPRESSION AND PLAN: Patient with abdominal wall and abdominal wall abscess with necrotic bowel, status post laparotomy, extensive surgery and drainage of the abscess. Cultures with anaerobes, Agnieszka for which the patient is covered with Diflucan and Flagyl. We will add cefepime. Monitor her white count closely and continue supportive care. MMODL / IJN: [id number] /
[2021-03-13 18:05] LABS: % Iron Saturation 30.43 (12.00-45.00)
[2021-03-13] MEDS: CEFEPIME 2 GM in SODIUM CHLORIDE 0.9% 100 ML IVPB SCH ×2 (18:44→18:49)
[2021-03-13] MEDS: FLUCONAZOLE IN NACL,ISO-OSM 200 MG in SALINE 1 100ML.BAG IVPB SCH (18:46)
[2021-03-13] MEDS: FAT EMULSION 20% 250 ML in EMPTY BAG 1 BAG IV SCH (22:09)
[2021-03-13] MEDS: atenoloL 50 MG TAB PO SCH (22:09)
[2021-03-14] MEDS: [UNRECOGNIZED DRUG - OTHER] IV SCH ×14 (00:30→21:40)
[2021-03-14] MEDS: SODIUM PHOSPHATE IV SCH ×14 (00:30→21:40)
[2021-03-14] MEDS: MAGNESIUM SULFATE IV SCH ×14 (00:30→21:40)
[2021-03-14] MEDS: CEFEPIME 2 GM in SODIUM CHLORIDE 0.9% 100 ML IVPB SCH ×4 (00:30→23:25)
[2021-03-14] MEDS: CALCIUM GLUCONATE IV SCH ×14 (00:30→21:40)
[2021-03-14] MEDS: ONDANSETRON 4 MG/2 ML VIAL IVP SCH ×5 (00:30→23:26)
[2021-03-14] MEDS: metroNIDAZOLE-NS PMX 500 MG in SALINE 1 100ML.BAG IVPB SCH ×4 (02:39→19:08)
[2021-03-14 05:05] LABS: HGB 9.7 gm/dL (11.4-16.0); Hypochromasia Moderate; MCH 31.8 pg (25.0-35.0); MCHC 31.2 g/dL (31.0-37.0); MCV 101.9 fL (80.0-100.0); Macrocytosis Slight; Mean Platelet Volume 7.1; Platelet Count 449 k/uL (150-450); RBC 3.04 m/uL (3.80-5.40); RDW 13.5 % (11.5-15.5); WBC 17.1 k/uL (3.8-10.6)
[2021-03-14] MEDS ORDERED: MAGNESIUM SULFATE-D5W PMX 1 GM in DEXTROSE/WATER 1 100ML.BAG IVPB ONE (05:23)
[2021-03-14 05:31] LABS: African American GFR (CKD) >90 (>60 ml/min/1.73 sqM); Anion Gap -1 mmol/L; Blood Urea Nitrogen 9 mg/dL (7-17); Calcium 7.8 mg/dL (8.4-10.2); Carbon Dioxide 40 mmol/L (22-30); Chloride 97 mmol/L (98-107); Glucose 146 mg/dL (74-99); Magnesium 2.1 mg/dL (1.6-2.3); Non-African American GFR(CKD) >90 (>60 ml/min/1.73 sqM); Phosphorus 3.2 mg/dL (2.5-4.5); Sodium 136 mmol/L (137-145)
[2021-03-14] MEDS: IPRATROPIUM-ALBUTEROL 3 ML NEB INHALATION SCH ×3 (08:21→21:22)
--- NOTE | 2021-03-14 08:29 | P.PN ---
Subjective Progress Note Date: 03/14/21 61-year-old female patient with past medical history of morbid obesity with previous history of lap banding, panniculitis, hypertension, history of multiple abdominal and pelvic surgeries, obstructive sleep apnea, osteoarthritis, who recently had a large bowel obstruction due to incarcerated recurrent incisional hernia in the left lower abdomen and underwent open reduction and repair of large isolated incisional hernia lysis of adhesions and omentectomy on 02/10/2021. Patient was discharged home on 02/14/2021 in stable condition, patient was tolerating diet, her pain was controlled, patient was passing bowel movements and flatus, she was ambulating at the time of discharge. On 03/06/2021 patient was brought into the emergency department for a concern of incisional drainage. The drainage was brown in color, however patient was not complaining of any significant pain or fever. On examination there was a large amount of brownish drainage that was draining from her incision. CT of the abdo men and pelvis showed marked increase in the amount of large subcutaneous fluid collection containing contrast, abscess in the intra-abdominal cavity, there was a small amount of adjacent free air, and the segment of transverse colon with surrounding inflammatory changes correlating for abscess with a ruptured viscus. 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 The skin thickening and diffuse subcutaneous edema in the anterior abdominal wall relating for cellulitis. COVID-19 was negative. Patient was given IV fluid boluses, she was started on broad-spectrum antibiotics, currently on Flagyl and Zosyn and Diflucan , and the general surgery performed exploratory laparotomy with transverse colectomy with anastomosis with extensive lysis of adhesions, drainage of the subcutaneous abdominal wall abscess with over 450 now feculent material, and sharp excisional debridement of abdominal wall for necrotizing fasciitis and application of the wound VAC system, and he is post op day #5. She was extubated on . She is awake and alert. We will make sure that we get her an incentive spirometer. The patient remains on Diflucan, Flagyl, and Zosyn as per infectious diseases. The abdominal wound cultures positive for anaerobic gram-negative bacteria and Agnieszka albicans. The patient is on IV fluids with normal saline at the rate of 20 mL an hour. The overall fluid balance over the past 24 hours has been -1039 mL. The wound VAC is draining approximately 4 50 mL a shift. The white cell count at 18.8 with hemoglobin 9.6. Electrolytes are normal with some metabolic alkalosis. Blood sugar is adequately controlled. The patient is taking clear liquid diet. The patient is passing some limited bowel activity. No abdominal pain. On today's evaluation of 03/14/2021, the patient is doing well. Awake and alert. No specific complaints. No nausea vomiting or abdominal pain. No chest pain. No shortness of breath. The patient is passing limited amount of liquidy stool. The abdominal wound was inspected. The wound VAC was changed by general surgery today. The patient continues to have some drainage and a wound VAC and her net fluid balance is negative. The abdominal wound cultures came back positive for gram-negative bacillus, and anaerobes in addition to Agnieszka. The patient remains in the same antibiotic coverage includes a combination of Flagyl, Zosyn and Diflucan. The white cell +17.1. Hemoglobin is at 9.7. BUN is at 9 with a creatinine of 0.4 and his sodium is at 136. The patient remains on TPN to supplement her dietary intake and her oral intake is being gradually advanced. No other significant events overnight. She is awake and alert and following commands and answering questions appropriately. She is overall weak. Electrodes are being managed and monitored. Objective - Vital Signs Vital signs: Vital Signs Temp 97.7 F 03/14/21 02:00 Pulse 80 03/14/21 02:00 Resp 22 03/14/21 02:00 BP 135/58 03/14/21 02:00 Pulse Ox 95 03/14/21 02:00 Intake & Output 03/13/21 03/14/21 03/14/21 18:59 06:59 18:59 Intake Total 239 1360 Output Total 1225 1999 Balance -986 -640 Weight 149.7 kg Intake: IV 239 560 0.9 80 360 Fluconazole in NaCl,Iso- 200 Osm 200 mg In Saline 1 100ml.bag @ 100 mls/hr IVPB Q24H [facility] Rx#: [id number] Mvi, Adult No.4 with Vit 159 K 10 ml Trace (Conc-1Ml/ Dose) 1 ml Sodium Acetate 40 meq Magnesium Sulfate gm 1 gm Calcium Gluconate 1 gm Potassium Phosphate 15 mmol In Amino Acids 5 %/Dextrose 20 % 1,000 ml @ 53 mls/hr IV .BY DURATION [facility] Rx#: [id number] Oral 800 Output: Urine 1225 2000 Other: Voiding Method Indwelling Catheter Indwelling Catheter ABP, PAP, CO, CI - Last Documented Arterial Blood Pressure 154/66 - Exam No acute distress, currently extubated, on nasal O2 at 4 L, with saturations of 94%. Head exam was generally normal. There was no scleral icterus or corneal arcus. Mucous membranes were moist. Neck was supple and without jugular venous distension, thyromegaly, or carotid bruits. Carotids were easily palpable bilaterally. There was no adenopathy. Cardiovascular examination reveals regular rhythm rate. S1-S2 normal. No S3 or S4. No discernible murmur noted. Heart sounds are distant. Lungs reveal bilateral coarse rhonchi. Breath sounds are equal. No wheezes or crackles. Abdomen soft, without bowel sounds. Incision is clean and dry. Wound VAC is noted. Extremities are intact. No cyanosis clubbing or edema. Skin is without rash or lesion. Neurologic examination is brief but nonfocal. - Labs CBC & Chem 7: 03/14/21 04:35 03/14/21 04:35 Labs: Abnormal Lab Results - Last 24 Hours (Table) 03/13/21 03/14/21 03/14/21 Range/Units 04:30 04:35 04:35 WBC 17.1 H (3.8-10.6) k/uL RBC 3.04 L (3.80-5.40) m/uL Hgb 9.7 L (11.4-16.0) gm/dL Hct 31.0 L (34.0-46.0) % MCV 101.9 H (80.0-100.0) fL Sodium 136 L (137-145) mmol/L Chloride 97 L (98-107) mmol/L Carbon Dioxide 40 H (22-30) mmol/L Creatinine 0.42 L (0.52-1.04) mg/dL Glucose 146 H (74-99) mg/dL Calcium 7.8 L (8.4-10.2) mg/dL Iron 33 L (50-170) ug/dL TIBC 107 L (228-460) ug/dL Transferrin 76.3 L (204.0-354.0) mg/dL Ferritin 849.0 H (10.0-291.0) ng/mL Assessment and Plan Plan: 1. Septic shock, related to necrotizing fasciitis of the abdominal fascia, necrotic transverse colon, necrotic omentum, status post drainage at the abdominal wall abscess, exploratory laparotomy with transverse colectomy with anastomosis with extensive lysis of adhesions, and debridement of abdominal wall necrotizing fasciitis in the application of the wound VAC on 03/08/2021 (POD # 6) Patient went back to surgery, status post exploratory laparotomy, transverse colectomy and anastomosis with extensive lysis of adhesions and debridement of abdominal wall necrotizing fasciitis, drainage of the abdominal wall abscesses on 03/10/2021. She has recovered from septic shock, currently off vasopressor support. Intra-abdominal cultures are showing Agnieszka and anaerobic gram- negative bacteria. Patient is covered with a combination of Zosyn, Flagyl and Diflucan. Septic shock is essentially recovered. The patient is hemodynamically stable. The wound VAC has been replaced today. The abdominal wound is essentially clean and that is no active drainage or purulent material. This was done by general surgery at the bedside. I also inspected the wound. We'll keep same antibiotic coverage. Awaiting final cultures from the abdominal wound. Diet is being gradually advanced. The patient remains on TPN for nutritional support. 2 acute hypoxic respiratory failure secondary to above, recovered and the patient was extubated on 03/11/2021 currently on 4 liters by nasal cannula. 3. Recent history of a large bowel obstruction due to incarcerated recurrent incisional hernia, status post open reduction and repair of a large recurrent incarcerated incisional hernia, open lysis of adhesions, and omentectomy on 02/10/2021. 4. History of morbid obesity previous history of lap banding. 5. History of obstructive sleep apnea 6. Osteoarthritis. 7. Hypertension. 8. History of multiple abdominal pelvic surgeries. 9. Hyponatremia likely hypovolemic, corrected. Sodium level is up 136 minutes normal. 10. Lactic acidosis related to underlying sepsis, improved with fluid resuscitation. 11. Panniculitis. 12 TPN for nutritional support 13 mild leukocytosis Plan: Continue using incentive spirometer Continue the antibiotics including Zosyn, Flagyl, and Diflucan. TPN for nutritional support, at 50 mL an hour and a blood sugars are under adequate control, we'll continue TPN for dietary supplementation until the patient's is able to fully advance her diet. Keep the patient on 4 L of oxygen by nasal cannula and use the incentive sp irometer Sit up on a chair if possible Monitor the output from the wound VAC, the wound dressing was changed and the wound was inspected today. Monitor the abdominal wound cultures and there is still anaerobes growing in addition to Agnieszka. She is hemodynamically stable The patient will be transferred to a medical surgical floor today.
--- NOTE | 2021-03-14 08:48 | P.PN ---
Subjective Progress Note Date: 03/14/21 CHIEF COMPLAINT: Necrotizing fasciitis with gangrene of the colon HISTORY OF PRESENT ILLNESS: The patient is a super morbidly obese 61-year-old female status post exploratory laparotomy, lysis of adhesions, colectomy, debridement of abdominal wall due to necrotizing fasciitis, drainage of large abdominal wall abscess, 03/07/21. She is in the ICU as overflow. She is tolerating low fiber diet. No nausea or vomiting. Nurse at bedside. Dressing change unable to be performed by nursing team yesterday. No fevers or chills. She is having bowel movements. REVIEW OF ORGAN SYSTEMS: Temperature maximum 98.9. No acute cardiac event. No fevers or chills. PHYSICAL EXAM: VITAL SIGNS: Stable GENERAL: Well-developed pleasant female in no acute distress. HEENT: No scleral icterus. Extraocular movements grossly intact. Moist buccal mucosa. CHEST: Non-labored respirations. CARDIOVASCULAR: Regular rate and rhythm. Distal 2+ pulses. RESPIRATORY: Non-labored respirations. ABDOMEN: Wound Vac dressing done at bedside. Large pannus over 50+ pounds. Nontender. Serosanguinous drainage in VAC system. MUSCULOSKELETAL: No clubbing, cyanosis. NEURO: No focal or lateralizing signs. SKIN: Well perfused. Good skin turgor. PSYCH: Alert and oriented to person, place and time. LABS: Reviewed. WBC up 16.0 to 18.8, now down 17.7. Hemoglobin 9.4 to 9.6, now 9.7and stable. ASSESSMENT: 1. Large bowel necrosis with necrotizing fasciitis status post colectomy, abdominal wall debridement 2. Super morbid obesity due to excess calories, BMI 59.7 3. 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 Vent dependent respiratory failure 5. Inadequate protein intake due to ventilation PLAN: 1. Wound Vac dressing change performed at bedside with healthy tissue confirmed. 2. Continue IV antibiotics which may likely be continued upon discharge pending infectious disease recommendations. 3. Physical therapy and occupational therapy. 4. user interface designer plan for abdominal wall reconstruction reviewed including presence of abdominal wall hernia from necrotizing fasciitis. 5. Disposition pending resolution of leukocytosis, rehab placement, wound care management, and social work recommendations. PROCEDURE: Wound Vac Dressing change performed with medium sized foam for inferior open incision, 11 cm x 3 cm x 6 cm depth. No sedation needed. No cellulitis. No foul drainage or discharge. Tissue healthy and viable, beefy red. Sponge and petroleum gauze removed from tissue bed for assessment. New petroleum gauze placed with medium size foam cut in half longitudinally with excess discarded. Midline upper incision without infection and cleaned with Chloroprep stick and left open to air. Patient denied any pain during dressing change. Dressing change next for and may be done by wound care/ostomy team. All questions addressed with nurse and patient. Objective - Vital Signs Vital signs: Vital Signs Temp 97.7 F 03/14/21 02:00 Pulse 80 03/14/21 02:00 Resp 22 03/14/21 02:00 BP 135/58 03/14/21 02:00 Pulse Ox 95 03/14/21 02:00 Intake & Output 03/13/21 03/14/21 03/14/21 18:59 06:59 18:59 Intake Total 239 1360 Output Total 1225 2000 Balance -986 -640 Weight 149.7 kg Intake: IV 239 560 0.9 80 360 Fluconazole in NaCl,Iso- 200 Osm 200 mg In Saline 1 100ml.bag @ 100 mls/hr IVPB Q24H [facility] Rx#: [id number] Mvi, Adult No.4 with Vit 159 K 10 ml Trace (Conc-1Ml/ Dose) 1 ml Sodium Acetate 40 meq Magnesium Sulfate gm 1 gm Calcium Gluconate 1 gm Potassium Phosphate 15 mmol In Amino Acids 5 %/Dextrose 20 % 1,000 ml @ 53 mls/hr IV .BY DURATION [facility] Rx#: [id number] Oral 800 Output: Urine 1225 2000 Other: Voiding Method Indwelling Catheter Indwelling Catheter ABP, PAP, CO, CI - Last Documented Arterial Blood Pressure 154/66 - Labs CBC & Chem 7: 03/14/21 04:35 03/14/21 04:35 Labs: Abnormal Lab Results - Last 24 Hours (Table) 03/13/21 03/14/21 03/14/21 Range/Units 04:30 04:35 04:35 WBC 17.1 H (3.8-10.6) k/uL RBC 3.04 L (3.80-5.40) m/uL Hgb 9.7 L (11.4-16.0) gm/dL Hct 31.0 L (34.0-46.0) % MCV 101.9 H (80.0-100.0) fL Sodium 136 L (137-145) mmol/L Chloride 97 L (98-107) mmol/L Carbon Dioxide 40 H (22-30) mmol/L Creatinine 0.42 L (0.52-1.04) mg/dL Glucose 146 H (74-99) mg/dL Calcium 7.8 L (8.4-10.2) mg/dL Iron 33 L (50-170) ug/dL TIBC 107 L (228-460) ug/dL Transferrin 76.3 L (204.0-354.0) mg/dL Ferritin 849.0 H (10.0-291.0) ng/mL Assessment and Plan (1) Abdominal wall abscess Current Visit: Yes Status: Acute Code(s): L02.211 - CUTANEOUS ABSCESS OF ABDOMINAL WALL SNOMED Code(s): 24609423 (2) Panniculitis Current Visit: Yes Status: Acute Code(s): M79.3 - PANNICULITIS, UNSPECIFIED SNOMED Code(s): 14717342 (3) BMI 60.0-69.9, adult Current Visit: No Status: Acute Code(s): Z68.44 - BODY MASS INDEX [BMI] 60.0-69.9, ADULT SNOMED Code(s): 475760519 (4) Morbid obesity due to excess calories Current Visit: No Status: Acute Code(s): E66.01 - MORBID (SEVERE) OBESITY DUE TO EXCESS CALORIES SNOMED Code(s): 864114748 (5) Necrotizing fasciitis Current Visit: Yes Status: Acute Code(s): M72.6 - NECROTIZING FASCIITIS SNOMED Code(s): 12257867 (6) Gangrene of colon Current Visit: Yes Status: Acute Code(s): K55.049 - ACUTE INFARCTION OF LARGE INTESTINE, EXTENT UNSPECIFIED SNOMED Code(s): 49692679 (7) S/P colectomy Current Visit: Yes Status: Acute Code(s): Z90.49 - ACQUIRED ABSENCE OF OTHER SPECIFIED PARTS OF DIGESTIVE TRACT SNOMED Code(s): 061098983 (8) Respiratory failure with hypoxia Current Visit: Yes Status: Acute Code(s): J96.91 - RESPIRATORY FAILURE, UNSPECIFIED WITH HYPOXIA SNOMED Code(s): 12530537991010599
[2021-03-14] MEDS: PANTOPRAZOLE 40 MG/10 ML VIAL IV SCH (09:22)
[2021-03-14] MEDS: SODIUM CHLORIDE 0.9% 1,000 ML IV SCH (17:01)
[2021-03-14] MEDS: FLUCONAZOLE IN NACL,ISO-OSM 200 MG in SALINE 1 100ML.BAG IVPB SCH (17:04)
[2021-03-14] MEDS: atenoloL 50 MG TAB PO SCH (21:02)
--- NOTE | 2021-03-14 22:20 | PN ---
PROGRESS NOTE DATE OF SERVICE: 03/14/2021. REASON FOR FOLLOWUP: Abdominal wall and abdominal infection. INTERVAL HISTORY: Patient is afebrile. The patient is breathing comfortably. Denies having any chest pain, shortness of breath. Occasional cough. No vomiting or any diarrhea. Has been tolerating her diet. PHYSICAL EXAMINATION: Blood pressure 113/66, pulse of 80, temperature 98.3. She is 96% on 4 L nasal cannula. General description is a middle-aged female lying in bed in no distress. Respiratory system: Unlabored breathing, clear to auscultation anteriorly. Heart S1, S2. Regular rate and rhythm. Abdomen: Soft. Wound VAC has been changed and the RN did mention overall the wound base looks clean and no evidence of any purulence or drainage. LABS: White count down to 17.1. Creatinine 0.42. DIAGNOSTIC IMPRESSION AND PLAN: Patient with abdominal wall abscess with necrotic bowel, status post laparotomy and drainage of the abscess. Culture has been predominantly with anaerobes and gram negative and Agnieszka for which the patient is covered with Diflucan and Flagyl, cefazolin to continue. White count will be monitored closely. It is showing a downward trend. Continue supportive care. MMODL / IJN: [id number] /
[2021-03-15] MEDS: metroNIDAZOLE-NS PMX 500 MG in SALINE 1 100ML.BAG IVPB SCH ×4 (00:22→20:05)
[2021-03-15 04:26] LABS: ALT 10 U/L (4-34); AST 18 U/L (14-36); African American GFR (CKD) >90 (>60 ml/min/1.73 sqM); Albumin 2.1 g/dL (3.5-5.0); Alkaline Phosphatase 42 U/L (38-126); Anion Gap 1 mmol/L; Blood Urea Nitrogen 12 mg/dL (7-17); Calcium 7.9 mg/dL (8.4-10.2); Carbon Dioxide 38 mmol/L (22-30); Chloride 97 mmol/L (98-107); Glucose 139 mg/dL (74-99); Magnesium 2.1 mg/dL (1.6-2.3); Non-African American GFR(CKD) >90 (>60 ml/min/1.73 sqM); Phosphorus 2.7 mg/dL (2.5-4.5); Potassium 4.1 mmol/L (3.5-5.1); Sodium 136 mmol/L (137-145); Total Bilirubin 0.1 mg/dL (0.2-1.3); Total Protein 5.3 g/dL (6.3-8.2)
[2021-03-15] MEDS: ONDANSETRON 4 MG/2 ML VIAL IVP SCH ×3 (06:10→17:30)
[2021-03-15] MEDS: IPRATROPIUM-ALBUTEROL 3 ML NEB INHALATION SCH ×3 (08:14→19:46)
--- NOTE | 2021-03-15 09:24 | P.PN ---
Subjective Progress Note Date: 03/15/21 61-year-old female patient with past medical history of morbid obesity with previous history of lap banding, panniculitis, hypertension, history of multiple abdominal and pelvic surgeries, obstructive sleep apnea, osteoarthritis, who recently had a large bowel obstruction due to incarcerated recurrent incisional hernia in the left lower abdomen and underwent open reduction and repair of large isolated incisional hernia lysis of adhesions and omentectomy on 02/10/2021. Patient was discharged home on 02/14/2021 in stable condition, patient was tolerating diet, her pain was controlled, patient was passing bowel movements and flatus, she was ambulating at the time of discharge. On 03/06/2021 patient was brought into the emergency department for a concern of incisional drainage. The drainage was brown in color, however patient was not complaining of any significant pain or fever. On examination there was a large amount of brownish drainage that was draining from her incision. CT of the abdomen and pelvis showed marked increase in the amount of large subcutaneous fluid collection containing contrast, 6 mm abscess in the intra-abdominal cavity, there was a small amount of adjacent free air, and the segment of transverse colon with surrounding inflammatory changes correlating for abscess w ith a ruptured viscus. 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 The skin thickening and diffuse subcutaneous edema in the anterior abdominal wall relating for cellulitis. Blood work in the emergency department showed a white count of 15.4, hemoglobin of 13.7, INR of 1.5, sodium 1:30, potassium 4.9, chloride is 95, B1 of 19, creatinine 0.90, lact ic acid was 3.1. COVID-19 was negative. Patient had a low-grade fever with a temp of 99.1 on presentation. Patient was given 2 L and IV fluid boluses, she was started on broad-spectrum antibiotics, currently on Flagyl and Zosyn, and the general surgery performed exploratory laparotomy with transverse colectomy with anastomosis with extensive lysis of adhesions, drainage of the subcutaneous abdominal wall abscess with over 450 now feculent material, and sharp excisional debridement of abdominal wall for necrotizing fasciitis and application of the wound VAC system. Postoperatively patient return to the intensive care unit, intubated and sedated on mechanical ventilator, this morning she seen in the ICU, on assist control mode of ventilation, with a rate of 18, tidal volume is 380, FiO2 of 70%, and PEEP of 50, this morning's blood gas shows pO2 of 81, pCO2 of 46, and pH of 7.26. 0.9 and is infusing at a rate of 150, to prevent is a 25 mics per kilo per minute, levofed is at 2.7 mics per minute. Today's chest x- ray shows some interstitial infiltrate and atelectasis at the right lung base. On today's evaluation on 03/09/2021 patient seen in follow-up in intensive care unit, he is postoperative day #1, status post exploratory laparotomy, transverse colectomy and anastomosis with extensive lysis of adhesions and debridement of abdominal wall necrotizing fasciitis, drainage of the abdominal wall abscesses. Patient remains sedated and intubated on mechanical ventilator, with assist- control rate of 18, tidal vital 380, tidal volume is 380, FiO2 of 40% and PEEP of 10, this morning gas showed pO2 of 202, pCO2 of 40, and pH is 7.39. We'll drop the PEEP down to 5. Patient is off norepinephrine, hemodynamically she is stable, she remains on 0.9 normal saline at a rate of 150 ML per hour, yesterday she received additional 2 L of lactated Ringer and fluid boluses and we were able to wean her off the vasopressor support, she is currently on Diprivan is at 30 mics per kilo per minute, remains on broad-spectrum antibiotic including Flagyl and Zosyn, blood abdominal wall tissue and the cultures are all negative thus far, final cultures are pending, overnight she has been afebrile. Wound VAC is in place on the abdominal wound, and there is a total of 500 mL of serosanguineous output in last 24 hours. Mid abdominal incision is clean dry and intact, pedro are intact, wound VAC is intact. Abdomen is soft. Does have been reviewed with blood cell, is relatively stable at 16.2, hemoglobin is 10.3, sodium is 136, potassium is 4.1, chloride is 109, BUN is 10, creatinine 0.48. Feedings remain on hold, general surgery is following, and yesterday we were going to wake up the patient and give her a spontaneous breathing trials however the surgeon that the patient is to go back to or today for reexploration possibility of additional debridement. For that reason patient was less sedated and intubated on mechanical ventilator. Urine output is in the order of 30-50 ML per hour. On today's evaluation on 03/10/2021 patient seen in follow-up in intensive care unit, yesterday patient had surgery, surgery lap, was sharp excisional debridement for necrotizing fascia-itis to muscle of the abdominal wall with lavage, and placement of the abdominal wound VAC back on. Overnight there was a large outputs of serosanguineous drainage from the wound VAC, around 500 mL, not grossly bloody, thin, however there was noted hemoglobin decreased to 8.7 on today's labs from previous 10.3 on yesterday's labs. However hemodynamically patient has remained stable, not on any vasopressors. Surgery is holding off on blood transfusion, and ordered iron supplementation at this time. Patient this morning is still sedated and mechanically ventilated on assist control mode of ventilation with a rate of 18, tidal M is 380, FiO2 of 40% and PEEP of 5. This morning's blood gas shows pO2 of 110, pCO2 of 43 and pH of 7.40, FiO2 has been dropped to 35%, maintenance IV fluids include 0.9 normal saline at a rate of 150 ML per hour, TPN was started yesterday and is infusing at 30 ML per hour, Diprivan is currently at 25 mics per kilo per minute, no other drips. Lovenox was also placed on hold by surgery for bleeding precaution. Chest x-ray has been reviewed showing low lung volumes and mild megaly with mild central vascular congestion and patchy bibasilar atelectasis and/or infiltrate, patient remains on broad-spectrum antibiotics including vaginal and Zosyn. The wound cultures are growing multiple albicans gram-negative bacilli species. Final culture is pending. Blood cultures have been negative, patient has been afebrile, hemodynamically she stable, she is in sinus mechanism with a rate of 83 bpm, blood pressure is 121/54 with a mean of 75. Acute issues overnight, urine output is in order of 30-40 mL per hour. Overall patient is +14 kg since admission. Cut back IV fluids to 50 ML per hour, patient may need a dose of IV Lasix. On 03/15/2021 patient seen in follow-up in the intensive care unit, she is awake and alert, she is oriented 3, she is breathing comfortably, resting comfortably in bed, she is currently on 3 L of oxygen with pulse ox of 96%, hemodynamically she is stable, she is working on incentive spirometer, she is achieving 1000-120 0 on the today. She is in sinus mechanism, blood pressure is 108/61 with a map of 81, not requiring any vasopressor support. She is on TPN at 60 ML per hour, 0.9 at a rate of 50 ML per hour. Lung sounds are clear. No cough, no wheezing. Mid abdominal incision is clean dry and intact, pedro are intact, there wound incision below the umbilicus area is clean dry intact, wound VAC is in place, with a serosanguineous output. Tang catheter is in place, patient has been making adequate amount of urine, she is in -1.6 L over the last 24 hours. No new chest x-ray, her last chest x-ray from 03/13/2021 showed perihilar infiltrates. Patient continues on broad-spectrum antibiotics. Her abdominal wound cultures are showing multiple anaerobic gram-negative bacilli. Final cultures are pending, there was also Agnieszka albicans in the abdominal wall tissue cultures. Patient is currently on a combination of cefepime, Flagyl, and Diflucan. She is tolerating oral diet, she remains on TPN for nutritional supplementation. Patient is passing gas on bowel movements. Abdomen is soft, nontender. CBC is still pending for today, BMP showed sodium of 136, potassium is 4.1, chloride is 97, CO2 is 38, BUN of 12 creatinine 0.45. Objective - Vital Signs Vital signs: Vital Signs Temp 97.9 F 03/15/21 02:00 Pulse 82 03/15/21 02:00 Resp 16 03/15/21 02:00 BP 108/61 03/15/21 02:00 Pulse Ox 96 03/15/21 02:00 Intake & Output 03/14/21 03/15/21 03/15/21 18:59 06:59 18:59 Intake Total 1515 960 Output Total 640 800 Balance 875 160 Intake: IV 380 660 0.9 180 360 Fluconazole in NaCl,Iso- 100 100 Osm 200 mg In Saline 1 100ml.bag @ 100 mls/hr IVPB Q24H [facility] Rx#: [id number] metroNIDAZOLE-NS PMX 500 100 200 mg In Saline 1 100ml.bag @ 100 mls/hr IVPB Q6H [facility] Rx#:[id number] Intake, IV Titration 1135 Amount Cefepime 2 gm In Sodium 100 Chloride 0.9% 100 ml @ 200 mls/hr IVPB ONCE [facility] Rx#:[id number] Sodium Phosphate 9 mmol 1035 Magnesium Sulfate gm 1 gm Calcium Gluconate 1 gm Potassium Chloride 40 meq In Amino Acids 5 %/ Dextrose 20 % 1,000 ml @ 60 mls/hr IV .BY DURATION [facility] Rx#:[id number] Oral 300 Output: Urine 640 800 Other: Voiding Method Indwelling Catheter Indwelling Catheter ABP, PAP, CO, CI - Last Documented Arterial Blood Pressure 154/66 - Exam GENERAL EXAM: 61-year-old morbidly obese white female, awake and alert, on 3 L of oxygen pulse ox of 96% HEAD: Normocephalic/atraumatic. EYES: Normal reaction of pupils, equal size. Conjunctiva pink, sclera white. NOSE: Clear with pink turbinates. THROAT: No erythema or exudates. NECK: No masses, no JVD, no thyroid enlargement, no adenopathy. CHEST: No chest wall deformity. Symmetrical expansion. LUNGS: Equal air entry with no crackles, wheeze, rhonchi or dullness. CVS: Regular rate and rhythm, normal S1 and S2, no gallops, no murmurs, no rubs ABDOMEN: Soft, obese, mid abdominal incision with pedro clean dry and intact, there is subcu umbilical incision, which is open, with a wound VAC in place. No hepatosplenomegaly, normal bowel sounds, no guarding or rigidity. EXTREMITIES: No clubbing, no edema, no cyanosis, 2+ pulses and upper and lower extremities. MUSCULOSKELETAL: Muscle strength and tone normal. SPINE: No scoliosis or deformity SKIN: No rashes CENTRAL NERVOUS SYSTEM: Morbidly obese, awake and alert, oriented 3No focal deficits, tone is normal in all 4 extremities. - Labs CBC & Chem 7: 03/14/21 04:35 03/15/21 03:31 Labs: Abnormal Lab Results - Last 24 Hours (Table) 03/15/21 Range/Units 03:31 Sodium 136 L (137-145) mmol/L Chloride 97 L (98-107) mmol/L Carbon Dioxide 38 H (22-30) mmol/L Creatinine 0.45 L (0.52-1.04) mg/dL Glucose 139 H (74-99) mg/dL Calcium 7.9 L (8.4-10.2) mg/dL Total Bilirubin 0.1 L (0.2-1.3) mg/dL Total Protein 5.3 L (6.3-8.2) g/dL Albumin 2.1 L (3.5-5.0) g/dL Assessment and Plan Plan: Assessment: #1. Septic shock, related to necrotizing fasciitis of the abdominal fascia, ne crotic transverse colon, necrotic omentum, status post drainage at the abdominal wall abscess, exploratory laparotomy with transverse colectomy with anastomosis with extensive lysis of adhesions, and debridement of abdominal wall necrotizing fasciitis in the application of the wound VAC on 03/08/2021. Patient went back to surgery, status post exploratory laparotomy, transverse colectomy and anasto mosis with extensive lysis of adhesions and debridement of abdominal wall necrotizing fasciitis, drainage of the abdominal wall abscesses on 03/10/2021. She has recovered from septic shock, currently off vasopressor support on 03/09/2021. #2. Recent history of a large bowel obstruction due to incarcerated recurrent incisional hernia, status post open reduction and repair of a large recurrent i ncarcerated incisional hernia, open lysis of adhesions, and omentectomy on 02/10/2021 #3. History of morbid obesity previous history of lap banding #4. History of obstructive sleep apnea #5. Osteoarthritis #6. Hypertension #7. History of multiple abdominal pelvic surgeries #8. Routine postoperative ventilator management #9. Hyponatremia likely hypovolemic, corrected #10. Lactic acidosis related to underlying sepsis, improved with fluid resuscitation #11. Panniculitis Plan: continue weaning FiO2 to keep O2 sats ration is at or above 90% Encourage deep breathing and coughing incentive spirometry use Hemodynamically patient is stable, not requiring any vasopressor support Lovenox remains on hold, no evidence of bleeding bleeding, hemoglobin is stable Tolerating oral diet, remains on TPN for nutritional supplementation Continue SCDs for DVT prophylaxis continue broad-spectrum antibiotics per ID service Physical therapy sessions Stable for transfer out of ICU to med surg unit without tele I performed a history & physical examination of the patient and discussed their management with my nurse practitioner, Charley Sanchez. I reviewed the nurse practitioner's note and agree with the documented findings and plan of care. Lung sounds are positive for diminished breatg sounds throughout the lung [place]. The findings and the impression was discussed with the patient. I attest to the documentation by the nurse practitioner. Time with Patient: Less than 30
[2021-03-15] MEDS: PANTOPRAZOLE 40 MG/10 ML VIAL IV SCH (09:57)
[2021-03-15] MEDS: CEFEPIME 2 GM in SODIUM CHLORIDE 0.9% 100 ML IVPB SCH ×2 (09:57→15:13)
[2021-03-15 10:42] LABS: HCT 33.2 % (34.0-46.0); Hypochromasia Moderate; MCH 30.9 pg (25.0-35.0); MCHC 30.1 g/dL (31.0-37.0); MCV 102.7 fL (80.0-100.0); Macrocytosis Slight; Mean Platelet Volume 8.7; Platelet Count 417 k/uL (150-450); RBC 3.24 m/uL (3.80-5.40); RDW 14.1 % (11.5-15.5); WBC 13.7 k/uL (3.8-10.6)
[2021-03-15 14:52] LABS: Band Neutrophils % 12 %; Eosinophils # (M) 0.82 k/uL (0-0.7); Metamyelocytes # (M) 0.82 k/uL (0); Metamyelocytes % 6 %; Monocytes # (M) 0.41 k/uL (0-1.0); Myelocytes # (M) 0.41 k/uL (0); Myelocytes % 3 %; Neutrophils % (M) 70 %; Nucleated Red Blood Cells 0 /100 WBC (0-0); Polychromasia Present; Stomatocytes Present; Total Cells Counted 100
[2021-03-15] MEDS: [UNRECOGNIZED DRUG - OTHER] IV SCH ×7 (15:13)
[2021-03-15] MEDS: SODIUM CHLORIDE 0.9% 1,000 ML IV SCH (15:13)
[2021-03-15] MEDS: CALCIUM GLUCONATE IV SCH ×7 (15:13)
[2021-03-15] MEDS: MAGNESIUM SULFATE IV SCH ×7 (15:13)
[2021-03-15] MEDS: SODIUM PHOSPHATE IV SCH ×7 (15:13)
--- NOTE | 2021-03-15 16:30 | P.PN ---
Subjective Progress Note Date: 03/15/21 CHIEF COMPLAINT: Necrotizing fasciitis with gangrene of the colon HISTORY OF PRESENT ILLNESS: The patient is a super morbidly obese 61-year-old female status post exploratory laparotomy, lysis of adhesions, colectomy, debridement of abdominal wall due to necrotizing fasciitis, drainage of large abdominal wall abscess, 03/07/21. She is having bowel movements. She is tolerating diet. No further fevers or chills. She sat up in a chair for over 6 hours from 2 AM to 8 AM. She is resting comfortably. REVIEW OF ORGAN SYSTEMS: No fevers or chills. No nausea or vomiting. No chest pain. PHYSICAL EXAM: VITAL SIGNS: Stable GENERAL: Well-developed pleasant female in no acute distress. HEENT: No scleral icterus. Extraocular movements grossly intact. Moist buccal mucosa. CHEST: Non-labored respirations. CARDIOVASCULAR: Regular rate and rhythm. Distal 2+ pulses. RESPIRATORY: Non-labored respirations. ABDOMEN: Wound VAC dressing and intact without leak. MUSCULOSKELETAL: No clubbing, cyanosis. NEURO: No focal or lateralizing signs. SKIN: Well perfused. Good skin turgor. PSYCH: Lethargic LABS: Reviewed. WBC down from 17.7 over 13.3. ASSESSMENT: 1. Large bowel necrosis with necrotizing fasciitis status post colectomy, abdominal wall debridement 2. Super morbid obesity due to excess calories, BMI 59.7 3. 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 Vent dependent respiratory failure 5. Inadequate protein intake due to ventilation PLAN: 1. Recommend weaning TPN. Patient's a low fiber diet. 2. Wound VAC dressing today to start a Saturday was a Saturday schedule. 3. Discontinue Tang catheter 4. Continue physical and occupational therapy for rehab 5. Overall, prognosis good. Objective - Vital Signs Vital signs: Vital Signs Temp 98.4 F 03/15/21 14:00 Pulse 80 03/15/21 14:00 Resp 15 03/15/21 14:00 BP 108/46 03/15/21 14:00 Pulse Ox 93 L 03/15/21 14:00 Intake & Output 03/14/21 03/15/21 03/15/21 18:59 06:59 18:59 Intake Total 4576 040 5316 Output Total 291 596 9286 Balance 875 160 -465 Weight 149.7 kg Intake: IV 380 660 0.9 180 360 Fluconazole in NaCl,Iso- 100 100 Osm 200 mg In Saline 1 100ml.bag @ 100 mls/hr IVPB Q24H [facility] Rx#: [id number] metroNIDAZOLE-NS PMX 500 100 200 mg In Saline 1 100ml.bag @ 100 mls/hr IVPB Q6H [facility] Rx#:[id number] Intake, IV Titration 1135 1035 Amount Cefepime 2 gm In Sodium 100 Chloride 0.9% 100 ml @ 200 mls/hr IVPB ONCE ONE Rx#:[id number] Sodium Phosphate 9 mmol 1035 1035 Magnesium Sulfate gm 1 gm Calcium Gluconate 1 gm Potassium Chloride 40 meq In Amino Acids 5 %/ Dextrose 20 % 1,000 ml @ 60 mls/hr IV .BY DURATION [facility] Rx#:[id number] Oral 300 Output: Urine 092 137 9030 Other: Voiding Method Indwelling Catheter Indwelling Catheter Indwelling Catheter ABP, PAP, CO, CI - Last Documented Arterial Blood Pressure 154/66 - Labs CBC & Chem 7: 03/15/21 03:31 03/15/21 03:31 Labs: Abnormal Lab Results - Last 24 Hours (Table) 03/15/21 03/15/21 Range/Units 03:31 03:31 WBC 13.7 H (3.8-10.6) k/uL RBC 3.24 L (3.80-5.40) m/uL Hgb 10.0 L (11.4-16.0) gm/dL Hct 33.2 L (34.0-46.0) % MCV 102.7 H (80.0-100.0) fL MCHC 30.1 L (31.0-37.0) g/dL Neutrophils # (Manual) 11.20 H (1.3-7.7) k/uL Eosinophils # (Manual) 0.82 H (0-0.7) k/uL Metamyelocytes # (Man) 0.82 H (0) k/uL Myelocytes # (Manual) 0.41 H (0) k/uL Sodium 136 L (137-145) mmol/L Chloride 97 L (98-107) mmol/L Carbon Dioxide 38 H (22-30) mmol/L Creatinine 0.45 L (0.52-1.04) mg/dL Glucose 139 H (74-99) mg/dL Calcium 7.9 L (8.4-10.2) mg/dL Total Bilirubin 0.1 L (0.2-1.3) mg/dL Total Protein 5.3 L (6.3-8.2) g/dL Albumin 2.1 L (3.5-5.0) g/dL Assessment and Plan (1) Abdominal wall abscess Current Visit: Yes Status: Acute Code(s): L02.211 - CUTANEOUS ABSCESS OF ABDOMINAL WALL SNOMED Code(s): 91323493 (2) Panniculitis Current Visit: Yes Status: Acute Code(s): M79.3 - PANNICULITIS, UNSPECIFIED SNOMED Code(s): 66179453 (3) BMI 60.0-69.9, adult Current Visit: No Status: Acute Code(s): Z68.44 - BODY MASS INDEX [BMI] 60.0-69.9, ADULT SNOMED Code(s): 334195357 (4) Morbid obesity due to excess calories Current Visit: No Status: Acute Code(s): E66.01 - MORBID (SEVERE) OBESITY DUE TO EXCESS CALORIES SNOMED Code(s): 210826884 (5) Necrotizing fasciitis Current Visit: Yes Status: Acute Code(s): M72.6 - NECROTIZING FASCIITIS SNOMED Code(s): 15157239 (6) Gangrene of colon Current Visit: Yes Status: Acute Code(s): K55.049 - ACUTE INFARCTION OF LARGE INTESTINE, EXTENT UNSPECIFIED SNOMED Code(s): 51421143 (7) S/P colectomy Current Visit: Yes Status: Acute Code(s): Z90.49 - ACQUIRED ABSENCE OF OTHER SPECIFIED PARTS OF DIGESTIVE TRACT SNOMED Code(s): 782395403 (8) Respiratory failure with hypoxia Current Visit: Yes Status: Acute Code(s): J96.91 - RESPIRATORY FAILURE, UNSPECIFIED WITH HYPOXIA SNOMED Code(s): 33707464754133833
--- NOTE | 2021-03-15 17:27 | PN ---
PROGRESS NOTE DATE OF SERVICE: 03/15/2021 REASON FOR FOLLOWUP: Abdominal wound and abscess with necrotic bowel. INTERVAL HISTORY: The patient is afebrile. The patient is breathing slightly comfortably. Denies having any chest pain or shortness of breath or cough. No vomiting. PHYSICAL EXAMINATION: Blood pressure 108/46, pulse of 80, temperature 98.4. She is 93% on 2 L nasal cannula. General description is a middle-aged female lying in bed in no distress. RESPIRATORY SYSTEM: Unlabored breathing. Clear to auscultation anteriorly. HEART: S1, S2. Regular rate and rhythm. ABDOMEN: Soft. Mildly distended. No guarding or rigidity. LABS: Hemoglobin is , white count down to 13.7. Creatinine is 0.45. DIAGNOSTIC IMPRESSION AND PLAN: Patient with an abdominal wall abscess, underlying necrotic bowel, status post resection. Patient is clinically responding to cefepime, Flagyl and Diflucan; to continue, with white count trending down, and continue with supportive care. MMODL / IJN: [id number] /
[2021-03-15] MEDS: FLUCONAZOLE IN NACL,ISO-OSM 200 MG in SALINE 1 100ML.BAG IVPB SCH (17:29)
[2021-03-15] MEDS: FAT EMULSION 20% 250 ML in EMPTY BAG 1 BAG IV SCH (17:29)
--- NOTE | 2021-03-15 19:19 | P.PN ---
Progress Note - Text Progress Note Date: 03/15/21 PROCEDURE: Wound Vac Dressing change performed with medium sized foam for inferior open incision, 11 cm x 3 cm x 6 cm depth. No sedation needed. No cellulitis. No foul drainage or discharge. Tissue healthy and viable, beefy red. Sponge and petroleum gauze removed from tissue bed for assessment. Medium size foam cut in half longitudinally with excess discarded. Midline upper incision without infection and cleaned with Chloroprep stick and left open to air. Patient denied any pain during dressing change. All questions addressed with nurse and patient.
[2021-03-15] MEDS: atenoloL 50 MG TAB PO SCH (21:14)
[2021-03-16] MEDS: ONDANSETRON 4 MG/2 ML VIAL IVP SCH ×4 (00:03→17:47)
[2021-03-16] MEDS: CEFEPIME 2 GM in SODIUM CHLORIDE 0.9% 100 ML IVPB SCH ×3 (00:04→15:20)
[2021-03-16] MEDS: metroNIDAZOLE-NS PMX 500 MG in SALINE 1 100ML.BAG IVPB SCH ×4 (01:51→21:20)
[2021-03-16] MEDS: SODIUM PHOSPHATE IV SCH ×7 (02:50)
[2021-03-16] MEDS: CALCIUM GLUCONATE IV SCH ×7 (02:50)
[2021-03-16] MEDS: [UNRECOGNIZED DRUG - OTHER] IV SCH ×7 (02:50)
[2021-03-16] MEDS: MAGNESIUM SULFATE IV SCH ×7 (02:50)
[2021-03-16 06:34] LABS: Basophils # (A) 0.1 k/uL (0-0.2); Basophils % (A) 1 %; Eosinophils # (A) 0.5 k/uL (0-0.7); Eosinophils % (A) 4 %; Hypochromasia Marked; Lymphocytes # (A) 1.1 k/uL (1.0-4.8); Lymphocytes % (A) 9 %; MCH 30.4 pg (25.0-35.0); MCHC 29.5 g/dL (31.0-37.0); MCV 103.1 fL (80.0-100.0); Macrocytosis Slight; Mean Platelet Volume 7.3; Monocytes # (A) 0.5 k/uL (0-1.0); Monocytes % (A) 4 %; Neutrophils # (A) 10.2 k/uL (1.3-7.7); Neutrophils % (A) 81 %; Platelet Count 419 k/uL (150-450); RBC 3.29 m/uL (3.80-5.40); RDW 13.7 % (11.5-15.5); WBC 12.6 k/uL (3.8-10.6)
[2021-03-16 06:41] LABS: African American GFR (CKD) >90 (>60 ml/min/1.73 sqM); Blood Urea Nitrogen 11 mg/dL (7-17); Calcium 8.4 mg/dL (8.4-10.2); Chloride 97 mmol/L (98-107); Glucose 108 mg/dL (74-99); Magnesium 2.1 mg/dL (1.6-2.3); Non-African American GFR(CKD) >90 (>60 ml/min/1.73 sqM); Phosphorus 3.3 mg/dL (2.5-4.5); Potassium 4.1 mmol/L (3.5-5.1); Sodium 140 mmol/L (137-145)
[2021-03-16 06:47] LABS: Anion Gap 4 mmol/L; Carbon Dioxide 39 mmol/L (22-30)
[2021-03-16] MEDS: NOREPINEPHRINE 4 MG in SODIUM CHLORIDE 0.9% 250 ML IV SCH (06:52)
[2021-03-16] MEDS: IPRATROPIUM-ALBUTEROL 3 ML NEB INHALATION SCH ×3 (07:25→19:25)
[2021-03-16] MEDS: PANTOPRAZOLE 40 MG/10 ML VIAL IV SCH (09:11)
[2021-03-16] MEDS: MAG HYDROX/AL HYDROX/SIMETH 30 ML, LIDOCAINE VISCOUS 30 ML, diphenhydrAMINE ELIXIR 75 M... PO SCH ×12 (11:10→21:20)
--- NOTE | 2021-03-16 13:31 | P.PN ---
Subjective Progress Note Date: 03/16/21 CHIEF COMPLAINT: Necrotizing fasciitis with gangrene of the colon HISTORY OF PRESENT ILLNESS: The patient is a super morbidly obese 61-year-old female status post exploratory laparotomy, lysis of adhesions, colectomy, debridement of abdominal wall due to necrotizing fasciitis, drainage of large abdominal wall abscess, 03/07/21. She is transferred to the floor. No reports fevers or chills. She is ambulating in her room. REVIEW OF ORGAN SYSTEMS: No fevers or chills. No nausea or vomiting. No chest pain. Cultures consistent with systemic candidiasis infection PHYSICAL EXAM: VITAL SIGNS: Stable GENERAL: Well-developed pleasant female in no acute distress. HEENT: No scleral icterus. Extraocular movements grossly intact. Moist buccal mucosa. CHEST: Non-labored respirations. CARDIOVASCULAR: Regular rate and rhythm. Distal 2+ pulses. RESPIRATORY: Non-labored respirations. ABDOMEN: Wound VAC dressing and intact without leak. MUSCULOSKELETAL: No clubbing, cyanosis. NEURO: No focal or lateralizing signs. SKIN: Well perfused. Good skin turgor. PSYCH: Lethargic LABS: Reviewed. WBC down from 17.7 over 13.3, now 12.6 ASSESSMENT: 1. Large bowel necrosis with necrotizing fasciitis status post colectomy, abdominal wall debridement 2. Super morbid obesity due to excess calories, BMI 59.7 3. 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 Vent dependent respiratory failure 5. Inadequate protein intake due to ventilation 6. Systemic candidiasis infection PLAN: 1. Wound VAC therapy upon discharge. Continue current settings -125 mmHg pressure, continuous 2. Wound VAC dressing changes Saturday was a Saturday with medium-sized sponge cut in half, longitudinally 3. Recommendations for outpatient IV antibiotics per infectious disease. 4. Antifungal for systemic candidiasis 5. Rehab upon discharge. 6. Disposition in 5 days pending wound VAC therapy, rehab placement, antibiotic management 7. Adjust diet to high protein low fiber Objective - Vital Signs Vital signs: Vital Signs Temp 98.4 F 03/16/21 11:42 Pulse 75 03/16/21 11:42 Resp 18 03/16/21 11:42 BP 108/70 03/16/21 11:42 Pulse Ox 94 L 03/16/21 11:42 Intake & Output 03/15/21 03/16/21 03/16/21 18:59 06:59 18:59 Intake Total 2385 500 Output Total 1500 1800 200 Balance 885 -1300 -200 Weight 149.7 kg Intake: IV 1350 Fluconazole in NaCl,Iso- 1350 Osm 200 mg In Saline 1 100ml.bag @ 100 mls/hr IVPB Q24H [facility] Rx#: [id number] Intake, IV Titration 1035 Amount Sodium Phosphate 9 mmol 1035 Magnesium Sulfate gm 1 gm Calcium Gluconate 1 gm Potassium Chloride 40 meq In Amino Acids 5 %/ Dextrose 20 % 1,000 ml @ 60 mls/hr IV .BY DURATION [facility] Rx#:[id number] Oral 500 Output: Drainage 300 200 Abdomen 300 200 Urine 1500 1500 Other: Voiding Method Indwelling Catheter Bedside Commode Bedside Commode # Voids 5 # Bowel Movements 1 ABP, PAP, CO, CI - Last Documented Arterial Blood Pressure 154/66 - Labs CBC & Chem 7: 03/16/21 06:06 03/16/21 06:06 Labs: Abnormal Lab Results - Last 24 Hours (Table) 03/15/21 03/16/21 03/16/21 Range/Units 03:31 06:06 06:06 WBC 12.6 H (3.8-10.6) k/uL RBC 3.29 L (3.80-5.40) m/uL Hgb 10.0 L (11.4-16.0) gm/dL MCV 103.1 H (80.0-100.0) fL MCHC 29.5 L (31.0-37.0) g/dL Neutrophils # 10.2 H (1.3-7.7) k/uL Neutrophils # (Manual) 11.20 H (1.3-7.7) k/uL Eosinophils # (Manual) 0.82 H (0-0.7) k/uL Metamyelocytes # (Man) 0.82 H (0) k/uL Myelocytes # (Manual) 0.41 H (0) k/uL Chloride 97 L (98-107) mmol/L Carbon Dioxide 39 H (22-30) mmol/L Glucose 108 H (74-99) mg/dL Assessment and Plan (1) Abdominal wall abscess Current Visit: Yes Status: Acute Code(s): L02.211 - CUTANEOUS ABSCESS OF ABDOMINAL WALL SNOMED Code(s): 65663952 (2) Panniculitis Current Visit: Yes Status: Acute Code(s): M79.3 - PANNICULITIS, UNSPECIFIED SNOMED Code(s): 11766069 (3) BMI 60.0-69.9, adult Current Visit: No Status: Acute Code(s): Z68.44 - BODY MASS INDEX [BMI] 60.0-69.9, ADULT SNOMED Code(s): 776497776 (4) Morbid obesity due to excess calories Current Visit: No Status: Acute Code(s): E66.01 - MORBID (SEVERE) OBESITY DUE TO EXCESS CALORIES SNOMED Code(s): 667919487 (5) Necrotizing fasciitis Current Visit: Yes Status: Acute Code(s): M72.6 - NECROTIZING FASCIITIS SNOMED Code(s): 43997086 (6) Gangrene of colon Current Visit: Yes Status: Acute Code(s): K55.049 - ACUTE INFARCTION OF LARGE INTESTINE, EXTENT UNSPECIFIED SNOMED Code(s): 26758625 (7) S/P colectomy Current Visit: Yes Status: Acute Code(s): Z90.49 - ACQUIRED ABSENCE OF OTHER SPECIFIED PARTS OF DIGESTIVE TRACT SNOMED Code(s): 558619159 (8) Respiratory failure with hypoxia Current Visit: Yes Status: Acute Code(s): J96.91 - RESPIRATORY FAILURE, UNSPECIFIED WITH HYPOXIA SNOMED Code(s): 64890694234486779
--- NOTE | 2021-03-16 14:17 | P.PN ---
Subjective Progress Note Date: 03/16/21 The patient is seen today 03/16/2021 in follow-up on the regular medical floor. She is currently sitting up in bed. Awake and alert in no acute distress. Denies any worsening shortness of breath, cough or congestion.Maintaining good O2 saturations in the 90s on room air. White count 12.6. Hemoglobin 10.0. Platelets 419. Sodium 140. Potassium 4.1. Bicarb 39. Creatinine 0.58. She remains on cefepime, fluconazole and Flagyl. Objective - Vital Signs Vital signs: Vital Signs Temp 98.4 F 03/16/21 11:42 Pulse 75 03/16/21 11:42 Resp 18 03/16/21 11:42 BP 108/70 03/16/21 11:42 Pulse Ox 94 L 03/16/21 11:42 Intake & Output 03/15/21 03/16/21 03/16/21 18:59 06:59 18:59 Intake Total 2385 500 Output Total 1500 1800 200 Balance 885 -1300 -200 Weight 149.7 kg Intake: IV 1350 Fluconazole in NaCl,Iso- 1350 Osm 200 mg In Saline 1 100ml.bag @ 100 mls/hr IVPB Q24H [facility] Rx#: [id number] Intake, IV Titration 1035 Amount Sodium Phosphate 9 mmol 1035 Magnesium Sulfate gm 1 gm Calcium Gluconate 1 gm Potassium Chloride 40 meq In Amino Acids 5 %/ Dextrose 20 % 1,000 ml @ 60 mls/hr IV .BY DURATION [facility] Rx#:[id number] Oral 500 Output: Drainage 300 200 Abdomen 300 200 Urine 1500 1500 Other: Voiding Method Indwelling Catheter Bedside Commode Bedside Commode # Voids 5 # Bowel Movements 1 ABP, PAP, CO, CI - Last Documented Arterial Blood Pressure 154/66 - Exam GENERAL EXAM: 61-year-old morbidly obese female, awake and alert, on room air with a pulse ox of 94% HEAD: Normocephalic/atraumatic. EYES: Normal reaction of pupils, equal size. Conjunctiva pink, sclera white. NOSE: Clear with pink turbinates. THROAT: No erythema or exudates. NECK: No masses, no JVD, no thyroid enlargement, no adenopathy. CHEST: No chest wall deformity. Symmetrical expansion. LUNGS: Equal air entry with no crackles, wheeze, rhonchi or dullness. CVS: Regular rate and rhythm, normal S1 and S2, no gallops, no murmurs, no rubs ABDOMEN: Soft, obese, mid abdominal incision with pedro clean dry and intact, there is subcu umbilical incision, which is open, with a wound VAC in place. No hepatosplenomegaly, normal bowel sounds, no guarding or rigidity. EXTREMITIES: No clubbing, no edema, no cyanosis, 2+ pulses and upper and lower extremities. MUSCULOSKELETAL: Muscle strength and tone normal. SPINE: No scoliosis or deformity SKIN: No rashes CENTRAL NERVOUS SYSTEM: Morbidly obese, awake and alert, oriented 3No focal deficits, tone is normal in all 4 extremities. - Labs CBC & Chem 7: 03/16/21 06:06 03/16/21 06:06 Labs: Abnormal Lab Results - Last 24 Hours (Table) 03/15/21 03/16/21 03/16/21 Range/Units 03:31 06:06 06:06 WBC 12.6 H (3.8-10.6) k/uL RBC 3.29 L (3.80-5.40) m/uL Hgb 10.0 L (11.4-16.0) gm/dL MCV 103.1 H (80.0-100.0) fL MCHC 29.5 L (31.0-37.0) g/dL Neutrophils # 10.2 H (1.3-7.7) k/uL Neutrophils # (Manual) 11.20 H (1.3-7.7) k/uL Eosinophils # (Manual) 0.82 H (0-0.7) k/uL Metamyelocytes # (Man) 0.82 H (0) k/uL Myelocytes # (Manual) 0.41 H (0) k/uL Chloride 97 L (98-107) mmol/L Carbon Dioxide 39 H (22-30) mmol/L Glucose 108 H (74-99) mg/dL Assessment and Plan Assessment: 1 Septic shock, related to necrotizing fasciitis of the abdominal fascia, necrotic transverse colon, necrotic omentum, status post drainage at the abdominal wall abscess, exploratory laparotomy with transverse colectomy with anastomosis with extensive lysis of adhesions, and debridement of abdominal wall necrotizing fasciitis in the application of the wound VAC on 03/08/2021. Patient went back to surgery, status post exploratory laparotomy, transverse colectomy and anastomosis with extensive lysis of adhesions and debridement of abdominal wall necrotizing fasciitis, drainage of the abdominal wall abscesses on . She has recovered from septic shock, currently off vasopressor support on 03/09/2021. Transferred out of the ICU on 03/15/2021. Doing well on the regular medical floor. Currently on room air. 2 Recent history of a large bowel obstruction due to incarcerated recurrent incisional hernia, status post open reduction and repair of a large recurrent incarcerated incisional hernia, open lysis of adhesions, and omentectomy on 02/10/2021 3 History of morbid obesity previous history of lap banding 4 History of obstructive sleep apnea 5 Osteoarthritis 6 Hypertension 7 History of multiple abdominal pelvic surgeries 8 Routine postoperative ventilator management 9 Hyponatremia likely hypovolemic, corrected 10 Lactic acidosis related to underlying sepsis, improved with fluid resuscitation 11 Panniculitis Plan: The patient was seen and evaluated by Dr. Stubbs She is stable from the pulmonary and critical care standpoint Continue antibiotics per ID services Tolerating a low fiber diet Increase her activity as tolerated We will continue to follow Will need subacute rehabilitation on discharge I, the cosigning physician, performed a history & physical examination of the patient. Lungs sounds are clear. Maintaining good O2 saturations in the 90s on room air. I discussed the assessment and plan of care with my nurse practitioner, Stephanie Godinez. I attest to the above note as dictated by her.
[2021-03-16] MEDS: SODIUM CHLORIDE 0.9% 1,000 ML IV SCH (15:29)
[2021-03-16] MEDS: FLUCONAZOLE IN NACL,ISO-OSM 200 MG in SALINE 1 100ML.BAG IVPB SCH (17:46)
[2021-03-16] MEDS: atenoloL 50 MG TAB PO SCH (21:20)
--- NOTE | 2021-03-16 23:25 | PN ---
PROGRESS NOTE DATE OF SERVICE: 03/16/2021 REASON FOR FOLLOWUP: Abdominal wound and necrotic bowel. INTERVAL HISTORY: The patient is afebrile. The patient is breathing comfortably. Denies having any chest pain, shortness of breath or cough. No vomiting or abdominal pain or diarrhea. PHYSICAL EXAMINATION: Blood pressure 127/59, pulse of 87, temperature 99. She is 93% on room air. General description is a middle-aged female lying in bed in no distress. RESPIRATORY SYSTEM: Unlabored breathing. Clear to auscultation anteriorly. HEART: S1, S2. Regular rate and rhythm. ABDOMEN: Soft. Abdominal wound is currently covered with wound V.A.C. No redness or irritation. LABS: Hemoglobin is 10, white count down to 12.6, creatinine 0.56. Abdominal culture is predominantly anaerobic Gram-negative bacilli and Agnieszka albicans. DIAGNOSTIC IMPRESSION AND PLAN: Patient with abdominal wall abscess with necrotic bowel, status post extensive surgery and partial resection of the necrotic bowel. Abdominal culture is predominantly anaerobes and Agnieszka. The patient is currently covered with cefepime, Flagyl and Diflucan. Plan will be to finish therapy with oral Ceftin 500 mg twice a day along with Diflucan 200 mg daily and Flagyl 500 mg 3 times a day for 2 weeks and close outpatient followup. MMODL / IJN: [id number] /
[2021-03-17] MEDS: metroNIDAZOLE-NS PMX 500 MG in SALINE 1 100ML.BAG IVPB SCH ×4 (00:51→17:43)
[2021-03-17] MEDS: CEFEPIME 2 GM in SODIUM CHLORIDE 0.9% 100 ML IVPB SCH ×3 (00:51→15:33)
[2021-03-17] MEDS: ONDANSETRON 4 MG/2 ML VIAL IVP SCH ×4 (00:52→17:32)
[2021-03-17] MEDS: MAG HYDROX/AL HYDROX/SIMETH 30 ML, LIDOCAINE VISCOUS 30 ML, diphenhydrAMINE ELIXIR 75 M... PO SCH ×8 (07:56→15:34)
[2021-03-17] MEDS: PANTOPRAZOLE 40 MG/10 ML VIAL IV SCH (07:56)
[2021-03-17] MEDS: IPRATROPIUM-ALBUTEROL 3 ML NEB INHALATION SCH ×2 (08:06→11:29)
[2021-03-17 08:54] LABS: Basophils # (A) 0.1 k/uL (0-0.2); Basophils % (A) 1 %; Eosinophils # (A) 0.4 k/uL (0-0.7); Eosinophils % (A) 3 %; HCT 33.4 % (34.0-46.0); HGB 10.1 gm/dL (11.4-16.0); Hypochromasia Moderate; Lymphocytes # (A) 1.2 k/uL (1.0-4.8); Lymphocytes % (A) 11 %; MCH 31.1 pg (25.0-35.0); MCHC 30.4 g/dL (31.0-37.0); MCV 102.4 fL (80.0-100.0); Macrocytosis Slight; Mean Platelet Volume 7.5; Monocytes # (A) 0.6 k/uL (0-1.0); Monocytes % (A) 5 %; Neutrophils # (A) 9.1 k/uL (1.3-7.7); Neutrophils % (A) 79 %; Platelet Count 409 k/uL (150-450); RBC 3.26 m/uL (3.80-5.40); RDW 13.8 % (11.5-15.5); WBC 11.5 k/uL (3.8-10.6)
--- NOTE | 2021-03-17 10:49 | P.PN ---
Subjective Progress Note Date: 03/17/21 On today's evaluation of 03/16/2021, the patient is on room air oxygen. She is working with physical therapy. She is doing some limited amount of activity and mobility and ambulation along with assistance. Her surgical wound site is clean. The wound VAC is still in place. She remains on the same antibiotic coverage including a combination of Diflucan, cefepime and Flagyl. Cultures were again reviewed and the patient has anaerobic gram-negative bacilli and the ones along with Agnieszka albicans. The white cell count has dropped down to 11.5. Hemoglobin is at 10.1. Electrolytes from yesterday were all stable. Objective - Vital Signs Vital signs: Vital Signs Temp 98.2 F 03/17/21 05:00 Pulse 77 03/17/21 08:00 Resp 20 03/17/21 08:00 BP 132/77 03/17/21 05:00 Pulse Ox 93 L 03/17/21 05:00 Intake & Output 03/16/21 03/17/21 03/17/21 18:59 06:59 18:59 Intake Total 360 600 Output Total 200 Balance 160 600 Intake: IV 400 Fluconazole in NaCl,Iso- 200 Osm 200 mg In Saline 1 100ml.bag @ 100 mls/hr IVPB Q24H [facility] Rx#: [id number] metroNIDAZOLE-NS PMX 500 200 mg In Saline 1 100ml.bag @ 100 mls/hr IVPB Q6H [facility] Rx#:[id number] Intake, IV Titration 200 Amount Cefepime 2 gm In Sodium 100 Chloride 0.9% 100 ml @ 25 mls/hr IVPB Q8HR [facility] Rx# :[id number] Fluconazole in NaCl,Iso- 100 Osm 200 mg In Saline 1 100ml.bag @ 100 mls/hr IVPB Q24H [facility] Rx#: [id number] Oral 360 Output: Drainage 200 Abdomen 200 Other: Voiding Method Bedside Commode Bedside Commode Bedside Commode # Voids 1 2 # Bowel Movements 1 ABP, PAP, CO, CI - Last Documented Arterial Blood Pressure 154/66 - Exam No acute distress, currently extubated, on nasal O2 at RA 02 Head exam was generally normal. There was no scleral icterus or corneal arcus. Mucous membranes were moist. Neck was supple and without jugular venous distension, thyromegaly, or carotid bruits. Carotids were easily palpable bilaterally. There was no adenopathy. Cardiovascular examination reveals regular rhythm rate. S1-S2 normal. No S3 or S4. No discernible murmur noted. Heart sounds are distant. Lungs reveal bilateral coarse rhonchi. Breath sounds are equal. No wheezes or crackles. Abdomen soft, without bowel sounds. Incision is clean and dry. Wound VAC is noted. Extremities are intact. No cyanosis clubbing or edema. Skin is without rash or lesion. Neurologic examination is brief but nonfocal. - Labs CBC & Chem 7: 03/17/21 08:39 03/16/21 06:06 Labs: Abnormal Lab Results - Last 24 Hours (Table) 03/17/21 Range/Units 08:39 WBC 11.5 H (3.8-10.6) k/uL RBC 3.26 L (3.80-5.40) m/uL Hgb 10.1 L (11.4-16.0) gm/dL Hct 33.4 L (34.0-46.0) % MCV 102.4 H (80.0-100.0) fL MCHC 30.4 L (31.0-37.0) g/dL Neutrophils # 9.1 H (1.3-7.7) k/uL Assessment and Plan Plan: 1. Septic shock, related to necrotizing fasciitis of the abdominal fascia, necrotic transverse colon, necrotic omentum, status post drainage at the abdominal wall abscess, exploratory laparotomy with transverse colectomy with anastomosis with extensive lysis of adhesions, and debridement of abdominal wall necrotizing fasciitis in the application of the wound VAC on 03/08/2021 (POD # 8) Patient went back to surgery, status post exploratory laparotomy, transverse colectomy and anastomosis with extensive lysis of adhesions and debridement of abdominal wall necrotizing fasciitis, drainage of the abdominal wall abscesses on 03/10/2021. She has recovered from septic shock, currently off vasopressor support. Intra-abdominal cultures are showing Agnieszka and anaerobic gram-negat ronnie bacteria. Patient is covered with a combination of Zosyn, Flagyl and Diflucan. Septic shock is essentially recovered. The patient is hemodynamically stable. The wound VAC has been replaced today. The abdominal wound is essentially clean and that is no active drainage or purulent material. This was done by general surgery at the bedside. I also inspected the wound. We'll keep same antibiotic coverage. Jose cultures are all consistent with an erosive Agnieszka. The patient is postop day #8. The patient was taken off TPN and the patient is currently tolerating diet. She is is also having bowel movements. 2 acute hypoxic respiratory failure secondary to above, recovered , currently on room air oxygen 3. Recent history of a large bowel obstruction due to incarcerated recurrent incisional hernia, status post open reduction and repair of a large recurrent incarcerated incisional hernia, open lysis of adhesions, and omentectomy on 02/10/2021. 4. History of morbid obesity previous history of lap banding. 5. History of obstructive sleep apnea 6. Osteoarthritis. 7. Hypertension. 8. History of multiple abdominal pelvic surgeries. 9. Hyponatremia likely hypovolemic, corrected. 10. Lactic acidosis related to underlying sepsis, improved with fluid resuscitation. 11. Panniculitis. 12 TPN for nutritional support, discontinued 13 mild leukocytosis, improved Plan: Continue using incentive spirometer Continue the antibiotics including Zosyn, Flagyl, and Diflucan. advance diet Physical therapy Monitor the output from the wound VAC, the wound dressing was changed and the wound was inspected today. Monitor the abdominal wound cultures and there is still anaerobes growing in addition to Agnieszka. She is hemodynamically stable pulmonary critical care services we'll sign off
[2021-03-17 12:09] LABS: African American GFR (CKD) 117.1 (60.0-200.0); Anion Gap 10.4 mmol/L (4.00-12.00); BUN/Creat Ratio 14.52 Ratio (12.00-20.00); Blood Urea Nitrogen 8.4 mg/dL (9.0-27.0); Calcium 8.4 mg/dL (8.7-10.3); Carbon Dioxide 31.4 mmol/L (21.6-31.8); Potassium 4.1 mmol/L (3.5-5.5)
--- NOTE | 2021-03-17 13:05 | P.DS ---
Providers Date of admission: 03/06/21 10:01 Expected date of discharge: 03/17/21 Attending physician: Lashaun Hopson Consults: 03/07/21 08:37 Consult Physician Routine Consulting Provider: Marielos Leung Consult Reason/Comments: intra-abdominal abscess Do you want consulting provider notified?: Yes 03/08/21 00:32 Consult Physician Stat Consulting Provider: Saul Strickland Consult Reason/Comments: ICU and vent management Do you want consulting provider notified?: Yes Primary care physician: [facility] Course: This a 61-year-old morbidly obese female with panniculitis had presented to the emergency department on 03/06/2021 with concerns of drainage from her abdominal incision. The patient had recently undergone open reduction and repair of large recurrent incarcerated incisional hernia on 02/10/2021. 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 She underwent exploratory laparotomy, lysis of adhesions, colectomy, debridement of abdominal wall due to necrotizing fasciitis, drainage of large abdominal wall abscess on 03/07/2021. Status post surgery the patient was in the ICU, she has been transferred to the medical floor since. Infectious disease has been following along with patient. They stated according to their note patient could be discharged home on oral antibiotics. Physical therapy has been working with the patient she has been up and ambulating. She has an abdominal wound with a wound VAC which is intact with good suction. She is on a Saturday schedule for dressing changes. She is having normal bowel movements, which she states are soft. She has no nausea or vomiting. Denies any abdominal pain. She's been afebrile. She is tolerating her diet. Assessment: PHYSICAL EXAM: General appearance: The patient is alert, oriented, appears in no acute distress. HET: Head is normocephalic and atraumatic. Patient with white plaques on tongue. Moist buccal mucosa. Neck: Supple without lymphadenopathy. Trachea midline. Heart: S1 S2. Regular rate and rhythm. Distal 2+ pulses. Lungs: Nonlabored respirations. Abdomen: Morbidly obese. Wound VAC dressing intact with good suction. Abdominal incision was [place] well approximated. Extremities: Normal skin color and turgor. Neurological: No focal deficits. Alert and oriented 3. ASSESSMENT: 1. Large bowel necrosis with necrotizing fasciitis status post colectomy, abdominal wall debridement 2. Super morbid obesity due to excess calories, BMI 59.7 3. 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 Vent dependent respiratory failure 5. Inadequate protein intake due to ventilation 6. Systemic candidiasis infection PLAN: 1. Continue wound VAC therapy with dressing changes Saturday. Continue current settings 1 25 mmHg pressure, continuous 2. Patient to be discharged to ECF on oral antibiotics per recommendations from infectious disease 3. Continue high protein low fiber diet 4. Patient may be discharged to ECF with rehab The impression and plan of care has been dictated as directed. Dr. Hopson I performed a history and examination of this patient, discussed the same with the dictator. I agree with the dictator's note ,documented as a scribe. Any additional findings or plans will be noted. Procedures: Colectomy, abdominal wall debridement for large bowel necrosis with necrotizing fasciitis Patient Condition at Discharge: Good Plan - Discharge Summary Discharge Rx Participant: No New Discharge Prescriptions: New Cefuroxime Axetil [Ceftin] 500 mg PO BID 14 Days tab Mag Hydrox/Al Hydrox/Simeth [Maalox] 30 ml PO TID ml Lidocaine Viscous [Xylocaine Viscous 2%] 30 ml PO TID ml diphenhydrAMINE ELIXIR [Benadryl Elixir] 75 mg PO TID ml Fluconazole [Diflucan] 200 mg PO DAILY 14 Days tab Nystatin 100,000 Unit/ml Susp [Mycostatin Oral Susp] 3,000,000 unit PO TID ml Continue Multivitamins, Thera [Multivitamin (formulary)] 1 tab PO DAILY atenoloL 100 mg PO HS Loratadine [Claritin] 10 mg PO DAILY PRN PRN Reason: Allergy Symptoms Mirabegron [Myrbetriq] 25 mg PO DAILY Diclofenac Sodium [Voltaren Arthritis Pain 1% Gel] 2 gm TOPICAL QID PRN PRN Reason: Pain metroNIDAZOLE [Flagyl] 500 mg PO Q8H 14 Days #0 Discontinued Ciprofloxacin HCl [Cipro] 500 mg PO Q12H Discharge Medication List Loratadine [Claritin] 10 mg PO DAILY PRN 10/23/19 [History] Multivitamins, Thera [Multivitamin (formulary)] 1 tab PO DAILY 10/23/19 [H istory] atenoloL 100 mg PO HS 10/23/19 [History] Mirabegron [Myrbetriq] 25 mg PO DAILY 10/24/19 [History] Diclofenac Sodium [Voltaren Arthritis Pain 1% Gel] 2 gm TOPICAL QID PRN 12/07/20 [History] Cefuroxime Axetil [Ceftin] 500 mg PO BID 14 Days tab 03/17/21 [Rx] Fluconazole [Diflucan] 200 mg PO DAILY 14 Days tab 03/17/21 [Rx] Lidocaine Viscous [Xylocaine Viscous 2%] 30 ml PO TID ml 03/17/21 [Rx] Mag Hydrox/Al Hydrox/Simeth [Maalox] 30 ml PO TID ml 03/17/21 [Rx] Nystatin 100,000 Unit/ml Susp [Mycostatin Oral Susp] 3,000,000 unit PO TID ml 03/17/21 [Rx] diphenhydrAMINE ELIXIR [Benadryl Elixir] 75 mg PO TID ml 03/17/21 [Rx] metroNIDAZOLE [Flagyl] 500 mg PO Q8H 14 Days #0 03/17/21 [Rx] Follow up Appointment(s)/Referral(s): Chrissie Dumont MD [Primary Care Provider] - 1-2 days Lashaun Hopson MD [STAFF PHYSICIAN] - 2 Weeks Activity/Diet/Wound Care/Special Instructions: Increase ambulation as tolerated High-protein low fiber diet Wound VAC changes Saturday, settings at 125 mmHg pressure continuous Discharge Disposition: TRANSFER TO SNF/ECF
[2021-03-17 13:39] VITALS: BP 118/67; PULSE 76; RESP 18; TEMP 98.4
[2021-03-17] MEDS: SODIUM CHLORIDE 0.9% 1,000 ML IV SCH (14:48)
[2021-03-17] MEDS: FLUCONAZOLE IN NACL,ISO-OSM 200 MG in SALINE 1 100ML.BAG IVPB SCH (16:22)
--- NOTE | 2021-03-20 12:45 | CDI ---
Documentation Clarification Form Date: 03/20/21 From: Anita Zavala Admit Date: 03/06/2021 10:01:00 AM Patient Name: Lesil Ferrer Visit Number: [id number] Discharge Date: 03/17/2021 06:34:00 PM ATTENTION: The Clinical Documentation Specialists (CDI) and [facility] Coding Staff appreciate your assistance in clarifying documentation. Please respond to the clarification below the line at the bottom and electronically sign. The CDI & [facility] Coding staff will review the response and follow-up if needed. Please note: Queries are made part of the Legal Health Record. If you have any questions, please contact the author of this message via ITS. Dr. Lashaun Hopson, Unspecified anemia is documented in your 03/10 progress note. Additional specificity regarding the [type, acuity] of anemia is requested. History/Risk Factors: s/p large recurrent incarcerated incisional hernia, morbidly obese, hypertensive heart disease, INGRID Clinical indicators: Now with abdominal incision infection with drainage. Hemoglobin:(Adm-DC) 13.7, 11.7, 11.8, 10.3, 8.7, 9.8, 9.4, 9.6, 9.7, 10.0, 10.0,10.1 Hematocrit: (Adm-DC) 43.0, 38.3, 36.9, 31.5, 28.1, 30.4, 30.5, 31.2, 31.0, 33.2, 34.0, 33.4 Treatment: IV Iron . 3 doses, no blood transfusion Please clarify the type and acuity of anemia: [ ] Acute blood loss anemia [ ] Acute on chronic blood loss anemia [ ] Chronic blood loss anemia [X ] Iron deficiency anemia [ ] Nutritional anemia [ ] Unable to determine [ ] Other, please specify KM 03/21/21 @ 1931 RAHAT
== END 2021-03-17 18:34 | DRG 856 ==
LOC: EC 09:28 → 5NMEDONC 10:01 → 4SSUR 03-07 12:33 → 2SICU 03-07 20:54 → 5NMEDONC 03-15 19:10
PROVIDERS: ADMIT Surgery Plastic and Reconstructive Surgery; ATTEND Surgery Plastic and Reconstructive Surgery
PROC: 02HV33Z Insertion of Infusion Device into Superior Vena Cava, Percutaneous Approach (ICD-10-PCS; 2021-03-07)
PROC: 0DBL0ZZ Excision of Transverse Colon, Open Approach (ICD-10-PCS; principal; 2021-03-08)
PROC: 0DBU0ZZ Excision of Omentum, Open Approach (ICD-10-PCS; principal; 2021-03-08)
PROC: 0DNL0ZZ Release Transverse Colon, Open Approach (ICD-10-PCS; principal; 2021-03-08)
PROC: 0KBL0ZZ Excision of Left Abdomen Muscle, Open Approach (ICD-10-PCS; principal; 2021-03-08)
PROC: 0W9F0ZZ Drainage of Abdominal Wall, Open Approach (ICD-10-PCS; principal; 2021-03-08)
PROC: 5A1945Z Respiratory Ventilation, 24-96 Consecutive Hours (ICD-10-PCS; 2021-03-08)
PROC: 0KBL0ZZ Excision of Left Abdomen Muscle, Open Approach (ICD-10-PCS; 2021-03-09)
PROC: 3E0436Z Introduction of Nutritional Substance into Central Vein, Percutaneous Approach (ICD-10-PCS; 2021-03-09)
DX: T81.43XA Infection following a procedure, organ and space surgical site, initial encounter (principal); M72.6 Necrotizing fasciitis; J96.01 Acute respiratory failure with hypoxia; K55.049 Acute infarction of large intestine, extent unspecified; R65.21 Severe sepsis with septic shock; B37.7 Candidal sepsis; K65.1 Peritoneal abscess; K63.1 Perforation of intestine (nontraumatic); K63.2 Fistula of intestine; J90 Pleural effusion, not elsewhere classified; E87.4 Mixed disorder of acid-base balance; Z68.44 Body mass index [BMI] 60.0-69.9, adult; L03.311 Cellulitis of abdominal wall; E87.1 Hypo-osmolality and hyponatremia; J98.11 Atelectasis; E11.9 Type 2 diabetes mellitus without complications; D50.9 Iron deficiency anemia, unspecified; E66.01 Morbid (severe) obesity due to excess calories; I11.9 Hypertensive heart disease without heart failure; Z20.822 Contact with and (suspected) exposure to COVID-19; K66.0 Peritoneal adhesions (postprocedural) (postinfection); G47.33 Obstructive sleep apnea (adult) (pediatric); D17.71 Benign lipomatous neoplasm of kidney; E65 Localized adiposity; M79.3 Panniculitis, unspecified; E86.1 Hypovolemia; D64.9 Anemia, unspecified; M19.90 Unspecified osteoarthritis, unspecified site; Z79.899 Other long term (current) drug therapy; Z87.19 Personal history of other diseases of the digestive system; Z90.89 Acquired absence of other organs; Z98.84 Bariatric surgery status; Z90.710 Acquired absence of both cervix and uterus; Z87.42 Personal history of other diseases of the female genital tract; Z90.49 Acquired absence of other specified parts of digestive tract; Z86.69 Personal history of other diseases of the nervous system and sense organs; Z96.652 Presence of left artificial knee joint; Z98.890 Other specified postprocedural states; Y84.8 Other medical procedures as the cause of abnormal reaction of the patient, or of later complication, without mention of misadventure at the time of the procedure; Z88.5 Allergy status to narcotic agent; Z88.2 Allergy status to sulfonamides; Z88.8 Allergy status to other drugs, medicaments and biological substances; Z91.030 Bee allergy status; Z91.048 Other nonmedicinal substance allergy status; Z83.2 Family history of diseases of the blood and blood-forming organs and certain disorders involving the immune mechanism; Z82.3 Family history of stroke; Z82.49 Family history of ischemic heart disease and other diseases of the circulatory system; Z82.61 Family history of arthritis; Z82.69 Family history of other diseases of the musculoskeletal system and connective tissue
CPT/HCPCS: 36415; 36573; 36600; 71045; 74177; 80048; 80053; 81001; 82310; 82330; 82533; 82728; 82805; 83540; 83550; 83605; 83735; 84100; 84132; 84443; 84478; 85025; 85027; 85610; 85730; 86850; 86900; 86901; 87040; 87070; 87075; 87205; 87635; 88307; 94002; 94003; 94640; 94760; 96361; 96365; 96367; 96375; 99285

== ENCOUNTER → 2021-03-31 | Outpatient (CLI) | payer OTHER ==
--- NOTE | 2021-03-31 21:32 | CT ---
EXAMINATION TYPE: CT abdomen pelvis w con DATE OF EXAM: 03/31/2021 COMPARISON: 03/06/2021 HISTORY: Entercolitis due to clostridium difficle. CT DLP: 2417.10 mGycm Automated exposure control for dose reduction was used. CONTRAST: CT scan of the abdomen pelvis is performed with IV Contrast, patient injected with 100 mL of Isovue 3 00. FINDINGS- LUNG BASES-subsegmental linear changes at the lung bases most typical of atelectasis.. LIVER/GB-post cholecystectomy changes.. PANCREAS- No gross abnormality is seen. SPLEEN- No gross abnormality is seen. ADRENALS- No gross abnormality is seen. KIDNEYS/BLADDER-left renal lesion containing fat and mixed attenuation measuring 2.4 cm most likely r elated to angiomyolipoma. Hypodense lesion upper pole right kidney measuring 1.7 cm most likely relat ed to a cyst.. BOWEL-there is lack band surgery noted. There is inflammation involving the anterior mesentery at the level of previous surgical suture line correlate for inflammatory change. This is seen in the region of the transverse colon.. LYMPH NODES- No greater than 1cm abdominal or pelvic lymph nodes areappreciated. OSSEOUS STRUCTURES-hypertrophic and degenerative changes of the spine.. OTHER- there is a subcutaneous fluid collection with air bubbles measuring 4.5 x 9.7 cm in the subcu taneous tissues anteriorly extending to the anterior abdominal wall suspicious for abscess cavity or infected seroma. Surgical clips are seen in the region. IMPRESSION- 1. There is a large subcutaneous mixed fluid and air collection measuring 9.7 x 4.5 cm likely related to subcutaneous abscess or infected seroma. There is no longer intra-abdominal extension is noted on the prior exam. The abscess appears to be confined to the subcutaneous tissues on the current exam. 2. There is ill-defined attenuation in the anterior mesentery in the midline adjacent to what appears to be a suture line transverse colon suggestive of a mesenteritis or colitis correlate clinically. T his appears also on the prior exam. 3. 2.4 cm left renal lesion most likely in the basis of an angiom yolipoma. Follow-up MRI recommended.
== END | disposition home or self-care (01) ==
LOC: RADCTMAIN 14:49
PROVIDERS: ATTEND Surgery Plastic and Reconstructive Surgery
DX: A04.72 Enterocolitis due to Clostridium difficile, not specified as recurrent (principal)
CPT/HCPCS: 74177; Q9967